=== PATIENT | male | born 1950 | race Caucasian/White ===

== ENCOUNTER → 2020-01-07 09:35 | Outpatient (CLI) | payer MEDICARE, OTHER, SELFPAY ==
--- NOTE | ~2020-01-07 | XR_ITS ---
EXAMINATION: XR foot LT 2V EXAM DATE: 01/07/2020 10:08 INDICATION: No known recent injury provided at this time. Pain of the left foot foot. TECHNIQUE: Frontal and lateral projections of the left foot foot. There is no prior study for emma bradley. FINDINGS: There are no acute left foot fractures or dislocations identified. There is no subcutaneou s gas. The soft tissue is unremarkable. There are no radiopaque foreign bodies. IMPRESSION: 1. Unremarkable XR foot LT 2V exam. Reviewed, dictated and finalized at location B. 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
--- NOTE | ~2020-01-07 | XR_ITS ---
EXAMINATION: XR foot RT 2V EXAM DATE: 01/07/2020 10:09 INDICATION: No known recent injury provided at this time. Pain of the right foot. TECHNIQUE: Frontal and lateral projections of the right foot. Correlation is made to contralateral f oot same date. FINDINGS: There are no acute right foot fractures or dislocations identified. There is no subcutaneo us gas. The soft tissue is unremarkable. There are no radiopaque foreign bodies. IMPRESSION: 1. Unremarkable XR foot RT 2V exam. Reviewed, dictated and finalized at location B. 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
== END ==
PROVIDERS: PCP Physician Assistant; Visit Provider Physician Assistant
DX: M79.671 Pain in right foot (principal); M79.672 Pain in left foot
CPT/HCPCS: 73620

== ENCOUNTER 2020-05-04 12:26 | Outpatient (CLI) | payer MEDICARE, OTHER, SELFPAY ==
--- NOTE | ~2020-05-04 | CT_ITS ---
EXAMINATION:CT lung screening DATE: 05/04/2020 13:40 INDICATION: Personal history of tobacco dependence. Smoker who quit 4 years ago with 35 pack year his tory. TECHNIQUE: Computed tomography (CT) of the chest was performed without intravenous contrast. Automate d exposure control and iterative reconstruction technique were employed. The dose-length product (DLP ) was 152.55 mGy-cm. COMPARISON: Chest CT 09/17/2018 FINDINGS: There is mild emphysema. There is mild scarring at the lung apices. There is mild atelectas is in lingula. There is a 5 mm nodule at left major fissure without change. Calcified left lung nodul es and calcified left hilar lymph nodes are consistent with old granulomatous disease. No pleural eff usion. The heart size is normal. There are coronary artery calcifications. No pericardial effusion. T here are masses in the adrenal glands measuring up to 2.4 cm on the right measuring soft tissue atten uation without change in size, consistent with adenomas. There is moderate thoracic spondylosis. Ther e is mild chronic height loss of multiple thoracic vertebral bodies. IMPRESSION: 1. Lung-RADS category 2: Benign appearance or behavior. Continue annual screening with noncontrast lo w-dose chest CT in 12 months. Reviewed, dictated and finalized at location A. IMPRESSION: 1. Lung-RADS category 2: Benign appearance or behavior. Continue annual screeni ng with noncontrast low-dose chest CT in 12 months.
== END 2020-05-04 12:27 | disposition home or self-care (01) ==
PROVIDERS: PCP Family Medicine; Visit Provider Physician Assistant
DX: Z12.2 Encounter for screening for malignant neoplasm of respiratory organs (principal); Z87.891 Personal history of nicotine dependence
CPT/HCPCS: G0297

== ENCOUNTER 2020-05-12 09:16 | Outpatient (CLI) | payer MEDICARE, OTHER, SELFPAY ==
--- NOTE | ~2020-05-12 | US_ITS ---
EXAMINATION: US aorta [facility] DATE: 05/12/2020 09:57 INDICATION: Abdominal aortic aneurysm screening. TECHNIQUE: Grayscale, color Doppler, and pulsed Doppler images of the aorta and common iliac arteries were obtained. COMPARISON: Chest CT 05/04/2020 FINDINGS: The aorta is normal in caliber. The common iliac arteries are obscured by bowel gas. IMPRESSION: 1. No abdominal aortic aneurysm. Reviewed, dictated and finalized at location A.
== END 2020-05-12 09:17 | disposition home or self-care (01) ==
PROVIDERS: PCP Family Medicine; Visit Provider Physician Assistant
DX: Z01.89 Encounter for other specified special examinations (principal)
CPT/HCPCS: 76706

== ENCOUNTER 2020-07-14 12:25 | Outpatient (CLI) | payer MEDICARE, OTHER, SELFPAY ==
--- NOTE | ~2020-07-14 | US_ITS ---
EXAMINATION: US venous doppler [facility] DATE: 07/14/2020 12:51 INDICATION: Left lower limb pain. TECHNIQUE: Grayscale ultrasound images without and with compression and Doppler ultrasound images of the left lower extremity veins were obtained. COMPARISON: None. FINDINGS: The visualized portions of left common femoral vein, profunda (deep) femoral vein, femoral vein, popl iteal vein, peroneal veins, posterior tibial veins, and greater saphenous vein outflow are patent. IMPRESSION: 1. No deep venous thrombosis. Reviewed, dictated and finalized at location A.
== END 2020-07-14 12:26 | disposition home or self-care (01) ==
PROVIDERS: PCP Family Medicine; Visit Provider Physician Assistant
DX: R60.0 Localized edema (principal)
CPT/HCPCS: 93971

== ENCOUNTER 2020-08-01 13:41 | Emergency (ER) | payer MEDICARE, OTHER, SELFPAY ==
--- NOTE | ~2020-08-01 | XR_ITS ---
XR ankle RT min 3V DATE: 08/01/2020 13:58 INDICATION: Twisted ankle. Lateral pain. TECHNIQUE: 4 views COMPARISON: None FINDINGS: There is a virtually nondisplaced fracture of the distal fibular shaft and lateral malleolu s, with overlying soft tissue swelling. The medial and posterior malleoli are intact. The ankle mortise is preserved. IMPRESSION: Virtually nondisplaced distal fibular shaft and lateral malleolar fracture Reviewed, dictated and finalized at location A. IMPRESSION: Virtually nondisplaced distal fibular shaft and lateral malleolar f racture
[2020-08-01 13:54] VITALS: BP 120/73; PULSE 55; RESP 14; TEMP 36.6; O2SAT 99
--- NOTE | 2020-08-01 15:08 | ED.GENADULT ---
HPI - General Adult General Chief complaint: Extremity Injury, Lower <Yassine Pollock PA-C - Last Filed: 08/01/20 15:14> Stated complaint: Fall - R ankle pain <DARYL Raman Last Filed: 08/01/20 15:14> Time Seen by Provider: 08/01/20 13:50 <DARYL Raman Last Filed: 08/01/20 15:14> Source: patient and family <DARYL Raman Last Filed: 08/01/20 15:14> Mode of arrival: ambulatory <DARYL Raman Last Filed: 08/01/20 15:14> Limitations: no limitations <DARYL Raman Last Filed: 08/01/20 15:14> History of Present Illness HPI narrative: Patient is a 70-year-old male who presents to emergency department for evaluation of right ankle injury that occurred just prior to arrival patient stepped in a hole while mowing the lawn with resultant bruising swelling with moderate aching pain with difficulty putting any weight onto the extremity patient denies other injuries or complaints has not had anything for pain and presents per private vehicle with family <DARYL Raman Last Filed: 08/01/20 15:14> Related Data Home medications: Home Medications Medication Instructions Recorded Confirmed ascorbate calcium (vitamin C) 500 500 mg PO DAILY 12/24/19 04/26/20 mg tablet aspirin 81 mg tablet,delayed 81 mg PO DAILY 12/24/19 04/26/20 release citalopram 40 mg tablet 20 mg PO DAILY 12/24/19 04/26/20 coenzyme Q10 10 mg capsule 10 mg PO ONCE 12/24/19 04/26/20 ezetimibe 10 mg tablet 10 mg PO DAILY 12/24/19 04/26/20 iqhlebnx-zom-lvndd acid 0.4 1 tablet PO DAILY 12/24/19 04/26/20 mg-lycopene 300 mcg-lutein 250 mcg tablet sildenafil 100 mg tablet 100 mg PO DAILY PRN 12/24/19 04/26/20 simvastatin 20 mg tablet 20 mg PO DAILY 12/24/19 04/26/20 lisinopril 5 mg tablet 5 mg PO DAILY 07/14/20 niacin [Niaspan Extended-Release] 500 mg PO HS 08/01/20 <Yassine Pollock PA-C - Last Filed: 08/01/20 15:14> Allergies/adverse reactions: Allergies Allergy/AdvReac Type Severity Reaction Status Date / Time iodine Allergy Intermediate Hives Verified 07/14/20 11:40 Penicillins Allergy Unknown Fever Verified 07/14/20 11:40 Contrast Media Allergy Intermediate Hives Uncoded 07/14/20 11:40 <Yassine Pollock PA-C - Last Filed: 08/01/20 15:14> Review of Systems Review of Systems: All systems reviewed & are unremarkable except as noted in HPI and below <Yassine Pollock PA-C - Last Filed: 08/01/20 15:14> PMFSH Past Medical History Medical History: Medical History (Updated 08/01/20 @ 15:14 by Yassine Pollock PA-C) Ischemic heart disease Viral URI <Yassine Pollock PA-C - Last Filed: 08/01/20 15:14> Surgical History Surgical History: Surgical History (Updated 08/01/20 @ 15:09 by Yassine Pollock PA-C) History of orthopedic surgery <Yassine Pollock PA-C - Last Filed: 08/01/20 15:14> Family History Family History: Family History (Updated 02/25/19 @ 16:41 by DOCTOR UNKNOWN) Mother Patient's mother is in good health Family history of hypercholesterolemia Hypertension Family history of coronary artery disease Grandparent Family history of malignant neoplasm Father Family history of malignant neoplasm Patient's father is <Yassine Pollock PA-C - Last Filed: 08/01/20 15:14> Social History Social History: Social History Smoking status: Former smoker Second hand tobacco smoke exposure: No Smoking end date: 11/25/15 Alcohol intake: never Substance use: never Substance use type: does not use <Yassine Pollock PA-C - Last Filed: 08/01/20 15:14> Exam Narrative: Exam Narrative: GENERAL: Well-appearing, well-nourished, and in no acute distress. HEAD: Normocephalic, atraumatic. EYES: PERRLA and EOMI. ENT: Nares clear, no rhinorrhea or epistaxis. Mucous membranes moist. EXTREMITIES: Sw
[2020-08-01 15:20] VITALS: BP 130/71; PULSE 52; RESP 12; O2SAT 98
== END 2020-08-01 15:25 | disposition home or self-care (01) ==
PROVIDERS: Emergency Provider Emergency Medicine; PCP Family Medicine
DX: S82.61XA Displaced fracture of lateral malleolus of right fibula, initial encounter for closed fracture (principal); W17.2XXA Fall into hole, initial encounter
CPT/HCPCS: 29515; 73610; 99284; A9270

== ENCOUNTER 2020-10-01 08:04 | Emergency (ER) | payer MEDICARE, OTHER, SELFPAY ==
[2020-10-01 08:20] VITALS: BP 144/76; PULSE 51; RESP 16; TEMP 35.9; O2SAT 98
--- NOTE | 2020-10-01 08:22 | ED.SKABFB ---
HPI - Skin/Abscess/Foreign Bdy General Chief complaint: Skin/Abscess/Foreign Body Stated complaint: Possible Cellulitus Time Seen by Provider: 10/01/20 08:25 Source: patient Mode of arrival: ambulatory Limitations: no limitations History of Present Illness HPI narrative: Zafar Briggs is a 70 yo male with a PMH of hypertension, high cholesterol, anxiety, erectile dysfunction, gout, [facility] concern of cellulitis of his right ankle. Fractured his ankle through torsion while cutting grass about 2 months ago and since then has had a repair with plates and screws in the distal fibula. Saw 2 weeks ago. States ankle is hurting and radiating up to his knee. Wearing a boot as directed Related Data Home Medications Medication Instructions Recorded Confirmed ascorbate calcium (vitamin C) 500 500 mg PO DAILY 12/24/19 10/01/20 mg tablet aspirin 81 mg tablet,delayed 81 mg PO DAILY 12/24/19 10/01/20 release citalopram 40 mg tablet 20 mg PO DAILY 12/24/19 10/01/20 coenzyme Q10 10 mg capsule 10 mg PO ONCE 12/24/19 10/01/20 ezetimibe 10 mg tablet 10 mg PO DAILY 12/24/19 10/01/20 heikestz-gzj-sqzdj acid 0.4 1 tablet PO DAILY 12/24/19 10/01/20 mg-lycopene 300 mcg-lutein 250 mcg tablet sildenafil 100 mg tablet 100 mg PO DAILY PRN 12/24/19 10/01/20 simvastatin 20 mg tablet 20 mg PO DAILY 12/24/19 10/01/20 lisinopril 5 mg tablet 5 mg PO DAILY 07/14/20 10/01/20 niacin [Niaspan Extended-Release] 500 mg PO HS 08/01/20 10/01/20 Allergies Allergy/AdvReac Type Severity Reaction Status Date / Time iodine Allergy Intermediate Hives Verified 10/01/20 08:29 Penicillins Allergy Unknown Fever Verified 10/01/20 08:29 Contrast Media Allergy Intermediate Hives Uncoded 10/01/20 08:29 Review of Systems Review of Systems: Narrative: CONSTITUTIONAL: Denies fever, chills, sweats. EYES: Denies visual changes, redness, discharge. ENT: Denies rhinorrhea, congestion, sore throat, otalgia. CARDIOVASCULAR: Denies chest pain, palpitations, edema. RESPIRATORY: Denies dyspnea, wheezing, cough GASTROINTESTINAL: Denies abdominal pain, nausea, vomiting, diarrhea. GENITOURINARY: Denies dysuria, hematuria, abnormal discharge SKIN: Denies rash or itching. Concern for cellulitis of right lower ankle NEUROLOGIC: Denies numbness, or focal weakness. PSYCHIATRIC: Denies anxiety or depression. [facility] Past Medical History Medical History Ischemic heart disease Viral URI Surgical History Surgical History History of orthopedic surgery Family History Family History Mother Patient's mother is in good health Family history of hypercholesterolemia Hypertension Family history of coronary artery disease Grandparent Family history of malignant neoplasm Father Family history of malignant neoplasm Patient's father is Social History Social History Smoking status: Former smoker Second hand tobacco smoke exposure: No Smoking end date: 11/25/15 Alcohol intake: never Substance use: never Substance use type: does not use Gender identity (if verbalized by the patient): Male Comments At time of signature, I agree with nursing past medical, surgical, social and family history. There is no relevant family history pertinent to the presenting complaint. Exam Narrative: Exam Narrative: GENERAL: This is a well-nourished, well-developed patient, in mild distress. HEAD: normocephalic, atraumatic. EYES: Sclera clear/white. Vision is grossly intact. EARS: External ears normal. Hearing grossly intact. NOSE: External nose normal without nasal discharge, nares without redness, no rhinorrhea. THROAT: Mucous membranes moist, NECK: Neck supple, non-tender CARDIOVASCULAR: Regular ra
== END 2020-10-01 08:41 | disposition home or self-care (01) ==
PROVIDERS: Emergency Provider Nurse Practitioner; PCP Family Medicine
DX: S82.891D Other fracture of right lower leg, subsequent encounter for closed fracture with routine healing (principal); X58.XXXD Exposure to other specified factors, subsequent encounter; I10 Essential (primary) hypertension; F41.9 Anxiety disorder, unspecified; M10.9 Gout, unspecified; Z87.891 Personal history of nicotine dependence; I25.2 Old myocardial infarction
CPT/HCPCS: 99212; G0463

== ENCOUNTER 2020-10-28 12:38 | Outpatient (CLI) | payer MEDICARE, OTHER, SELFPAY ==
--- NOTE | ~2020-10-28 | US_ITS ---
EXAMINATION: US venous doppler [facility] EXAM DATE: 10/28/2020 12:29 INDICATION: Right leg pain and swelling. TECHNIQUE: Multiple grayscale, color flow and Doppler images of the lower extremity deep venous syste ms bilaterally were obtained and reviewed. Comparison is made to prior examination from 07/14/2020. FINDINGS: Right side: The right common femoral, femoral and profunda veins demonstrate normal color flow, respi ratory variation, augmentation and compressibility. Compressibility, color flow confirmed within the right popliteal, posterior tibial, peroneal, and greater saphenous veins. Left side: The left common femoral, femoral and profunda veins demonstrate normal color flow, respira tory variation, augmentation and compressibility. Compressibility, color flow confirmed within the l eft popliteal, posterior tibial, peroneal, and greater saphenous veins. IMPRESSION: No lower extremity deep venous thrombosis bilaterally. Reviewed, dictated and finalized at location A. [employer]PERATIONS
[2020-10-28 13:16] LABS: Basophils Absolute Auto 0.1 K/mm3 (0.0-0.1); Basophils Percent Auto 1.3 % (0.2-1.2); Eosinophils Absolute Auto 0.4 K/mm3 (0-0.3); Eosinophils Percent Auto 5.6 % (0-4.4); Hematocrit 40.9 % (42.0-52.0); Hemoglobin 13.9 g/dL (14.0-18.0); Immature Granulocyte Absolute 0.01 K/mm3 (0.00-0.031); Immature Granulocyte Percent A 0.2 % (0-0.5); Lymphocytes Absolute Auto 1.82 K/mm3 (0.9-3.2); Lymphocytes Percent Auto 28.4 % (18.3-44.2); Mean Corpuscular Hemoglobin 30.2 pg (26-34); Mean Corpuscular Volume 88.7 fl (80-100); Mean Platelet Volume 9.1 fl (7.4-10.4); Monocytes Absolute Auto 0.9 K/mm3 (0.1-0.6); Monocytes Percent Auto 14.1 % (2.6-8.5); Neutrophils Absolute Auto 3.2 K/mm3 (1.3-6.7); Neutrophils Percent Auto 50.4 % (45.5-73.1); Platelet Count Result 183 k/mm3 (150-375); Red Blood Count 4.61 M/mm3 (4.6-6.20); Red Cell Distribution Width 11.9 % (11.5-14.5); White Blood Count 6.4 K/mm3 (4.5-10.0)
[2020-10-28 13:24] LABS: Uric Acid 6.4 mg/dL (3.5-8.5)
== END 2020-10-28 12:39 | disposition home or self-care (01) ==
PROVIDERS: PCP Family Medicine; Visit Provider Physician Assistant
DX: M79.605 Pain in left leg (principal); M79.89 Other specified soft tissue disorders; R23.8 Other skin changes
CPT/HCPCS: 36415; 84550; 85025; 93970

== ENCOUNTER → 2021-11-16 02:41 | Outpatient (CLI) | payer MEDICARE, OTHER, SELFPAY ==
[2021-11-16 14:43] LABS: Influenza Control Positive
[2021-11-16 19:47] LABS: SARS-CoV-2 RNA PCR Negative
== END ==
PROVIDERS: PCP Family Medicine; Visit Provider Physician Assistant
DX: R50.9 Fever, unspecified (principal); R68.89 Other general symptoms and signs; Z20.822 Contact with and (suspected) exposure to COVID-19
CPT/HCPCS: 87804; C9803; U0003; U0005

== ENCOUNTER 2022-01-24 09:45 | Outpatient (RCR) | payer MEDICARE, OTHER, SELFPAY ==
[2021-10-13 12:40] VITALS: PULSE 63
== END 2022-01-24 16:40 | disposition home or self-care (01) ==
LOC: ANHCPREHAB 09:45
PROVIDERS: PCP Family Medicine
DX: Z95.1 Presence of aortocoronary bypass graft (principal)
CPT/HCPCS: 93798

== ENCOUNTER → 2022-02-20 09:47 | Outpatient (CLI) | payer MEDICARE, OTHER, SELFPAY ==
--- NOTE | ~2022-02-20 | CT_ITS ---
EXAMINATION: CT chest high resolution wo co DATE: 02/20/2022 10:04 INDICATION: Z12.2 - Encounter for screening for malignant neoplasm of... TECHNIQUE: Computed tomography (CT) of the chest was performed without intravenous contrast. Addition al 3D reconstructions utilizing coronal maximum intensity projection (MIP) were performed. Automated exposure control and iterative reconstruction technique were employed. The dose-length product was 50 1.07 mGy-cm. COMPARISON: 05/04/2020 FINDINGS: Mild to moderate emphysema. Mild biapical pleural-parenchymal scarring. Unchanged curvilinear band of discoid atelectasis/scarring in the lingula. Large calcified left lower lobe nodule along with calci fied left hilar and mediastinal lymph nodes consistent with old granulomatous disease. No change in < 4mm nodules in the lingula and right upper and right lower lobes. Again seen are a few flat lenticula r or triangular intrafissural lymph nodes on both the left and right, the largest along the right min or fissure measuring approximately 10 x 4 mm which is unchanged. Slight increase in size of a previou sly 4 mm, now 5 mm intrafissural lymph node along the cephalad right major fissure. No new or enlargi ng pulmonary nodules. No pneumonia, pulmonary edema or pleural effusion. Heart size is normal. Athero sclerotic coronary artery calcifications and likely stenting along the right coronary artery. Median sternotomy wires, ostial markers and surgical clips consistent with coronary artery bypass grafting. Thoracic aorta is normal in caliber. No pathologically enlarged thoracic lymphadenopathy. Bilateral a drenal nodules which are without interval change interval change since 09/17/2018 most consistent wit h benign adenomas, the largest on the right measuring 2.6 cm. 1.5 cm sclerotic lesion with coarse sti ppled calcification at the left humeral head with appearance and location most consistent with an enc hondroma. Chronic mild compression fractures of the 2 levels in the mid and lower thoracic spine. Mod erate thoracic spondylosis. IMPRESSION: 1. Lung-RADS category 2: Benign appearance or behavior. Continue annual screening with noncontrast lo w-dose chest CT in 12 months. Reviewed, dictated and finalized at location A. IMPRESSION: 1. Lung-RADS category 2: Benign appearance or behavior. Continue annual screeni ng with noncontrast low-dose chest CT in 12 months.
== END ==
PROVIDERS: PCP Family Medicine; Visit Provider Family Medicine
DX: Z12.2 Encounter for screening for malignant neoplasm of respiratory organs (principal)
CPT/HCPCS: 71250

== ENCOUNTER 2022-03-08 01:21 | Day surgery (SDC) | payer MEDICARE, OTHER, SELFPAY ==
[2022-02-22 15:26] VITALS: BMI 28.3
--- NOTE | 2022-03-07 13:42 | PM.HPGS ---
History of Present Illness History of Present Illness Consent: Risks, benefits, and alternatives have been discussed and questions answered. Patient agrees to proceed with procedure. Chief complaint: neoplasm screening Narrative: Zafar Briggs is a 71 year old male Referred for colon cancer screening. He has a history of having had polyps removed in the past. His last colonoscopy was 7 years ago. Review of Systems Review of Systems: All systems reviewed & are unremarkable except as noted in HPI and below PMFSH Past Medical History Medical History (Updated 03/07/22 @ 13:42 by Bryce Garcia MD) Ischemic heart disease Viral URI Surgical History Surgical History History of coronary angioplasty with insertion of stent History of orthopedic surgery S/P CABG (coronary artery bypass graft) Family History Family History Mother Patient's mother is in good health Family history of hypercholesterolemia Hypertension Family history of coronary artery disease Grandparent Family history of malignant neoplasm Father Family history of malignant neoplasm Patient's father is Social History Social History Smoking status: Former smoker Tobacco type: cigarettes Second hand tobacco smoke exposure: No Smoking end date: 11/25/15 Alcohol intake: current Alcohol use details: 2-3 drinks weekly Substance use: current Substance use type: marijuana Other substance usage details: Edible once weekly Living arrangements: with family Gender identity (if verbalized by the patient): Male Sexual Orientation (if Verbalized by the Patient): Straight or Heterosexual Spiritual care concerns: No Meds Home Medications and Allergies Home Medications Medication Instructions Recorded Confirmed Type aspirin 81 mg tablet,delayed 81 mg PO DAILY 12/24/19 03/08/22 History release coenzyme Q10 10 mg capsule 200 mg PO DAILY 12/24/19 03/08/22 History ascorbate calcium (vitamin C) 500 1 g PO DAILY #180 tablet 02/13/21 03/08/22 Rx mg tablet cholecalciferol (vitamin D3) 25 2,000 unit PO DAILY #180 cap 02/13/21 03/08/22 Rx mcg (1,000 unit) capsule llmjkxac-lcu-agoqr acid 0.4 1 tablet PO DAILY #90 tablet 02/13/21 03/08/22 Rx mg-lycopene 300 mcg-lutein 250 mcg tablet sildenafil 100 mg tablet 100 mg PO DAILY PRN #30 tablet 02/13/21 03/08/22 Rx ezetimibe 10 mg tablet 10 mg PO DAILY #90 tablet 08/01/21 03/08/22 Rx pantoprazole 40 mg tablet,delayed 40 mg PO QAM #90 tablet 10/27/21 03/08/22 Rx release citalopram 40 mg tablet 40 mg PO DAILY #90 tablet 12/07/21 03/08/22 Rx niacin 500 mg tablet,extended 500 mg PO QAM #90 tablet 12/07/21 03/08/22 Rx release simvastatin 20 mg tablet 20 mg PO DAILY #90 tablet 12/07/21 03/08/22 Rx metoprolol tartrate 25 mg PO BID 01/03/22 03/08/22 History omega-3 fatty acids 1,000 mg PO DAILY 02/22/22 03/08/22 History clonazepam 1 mg tablet 1 mg PO BID PRN #60 tablet 03/05/22 03/08/22 Rx zolpidem 10 mg tablet 10 mg PO .HS #30 tablet 03/05/22 03/08/22 Rx lisinopril 10 mg PO BID 03/08/22 03/08/22 History Allergies Allergy/AdvReac Type Severity Reaction Status Date / Time iodine Allergy Intermediate Hives Verified 03/08/22 09:33 Penicillins Allergy Unknown Fever Verified 03/08/22 09:33 Contrast Media Allergy Intermediate Hives Uncoded 03/08/22 09:33 Exam Resp: Auscultation: clear to auscultation bilaterally Cardio: Rate: regular rate Rhythm: regular rhythm GI: GI Palp: Yes Soft to palpation and No Tenderness to palpation present (GI) Assessment and Plan Assessment and plan (1) Colon cancer screening: Code(s): Z12.11 - Encounter for screening for malignant neoplasm of colon Status: Acute Assessment and Plan: Colonoscopy with possible biopsy or polypect
[2022-03-08 09:34] VITALS: BP 125/68; PULSE 53; RESP 16; TEMP 36.6; O2SAT 98
[2022-03-08] MEDS: LACTATED RINGERS 1,000 ML 150 ML IV CONT (09:49)
--- NOTE | 2022-03-08 09:56 | WPDANESEPPF ---
Anes - Initial Pre Proc Eval Procedure: Operation Date: 03/08/22 10:45 Proposed Procedures p Screening Colonoscopy - Bryce Garcia MD Date/Time: 03/08/22 09:56 Surgeon: Bryce Garcia MD Pre Op Diagnosis: neoplasm screening Patient Data Age: 71 Gender: M Height: 1.8 m Weight: 86.2 kg Last Vital Signs Temp 36.6 C 03/08/22 09:34 Pulse 53 L 03/08/22 09:34 Resp 16 03/08/22 09:34 BP 125/68 03/08/22 09:34 Pulse Ox 98 03/08/22 09:34 Allergies Allergy/AdvReac Type Severity Reaction Status Date / Time iodine Allergy Intermediate Hives Verified 03/08/22 09:33 Penicillins Allergy Unknown Fever Verified 03/08/22 09:33 Contrast Media Allergy Intermediate Hives Uncoded 03/08/22 09:33 Home Medications Medication Instructions Recorded Confirmed Type aspirin 81 mg tablet,delayed 81 mg PO DAILY 12/24/19 03/08/22 History release coenzyme Q10 10 mg capsule 200 mg PO DAILY 12/24/19 03/08/22 History ascorbate calcium (vitamin C) 500 1 g PO DAILY #180 tablet 02/13/21 03/08/22 Rx mg tablet cholecalciferol (vitamin D3) 25 2,000 unit PO DAILY #180 cap 02/13/21 03/08/22 Rx mcg (1,000 unit) capsule amslmlvl-gak-wikyb acid 0.4 1 tablet PO DAILY #90 tablet 02/13/21 03/08/22 Rx mg-lycopene 300 mcg-lutein 250 mcg tablet sildenafil 100 mg tablet 100 mg PO DAILY PRN #30 tablet 02/13/21 03/08/22 Rx ezetimibe 10 mg tablet 10 mg PO DAILY #90 tablet 08/01/21 03/08/22 Rx pantoprazole 40 mg tablet,delayed 40 mg PO QAM #90 tablet 10/27/21 03/08/22 Rx release citalopram 40 mg tablet 40 mg PO DAILY #90 tablet 12/07/21 03/08/22 Rx niacin 500 mg tablet,extended 500 mg PO QAM #90 tablet 12/07/21 03/08/22 Rx release simvastatin 20 mg tablet 20 mg PO DAILY #90 tablet 12/07/21 03/08/22 Rx metoprolol tartrate 25 mg PO BID 01/03/22 03/08/22 History omega-3 fatty acids 1,000 mg PO DAILY 02/22/22 03/08/22 History clonazepam 1 mg tablet 1 mg PO BID PRN #60 tablet 03/05/22 03/08/22 Rx zolpidem 10 mg tablet 10 mg PO .HS #30 tablet 03/05/22 03/08/22 Rx lisinopril 10 mg PO BID 03/08/22 03/08/22 History Patient hx anesthesia problems: none Family hx anesthesia problems: none Results Review: All pre-operative results and documents have been reviewed as part of the pre-operative evaluation. [facility] Past Medical History Medical History (Updated 03/07/22 @ 13:42 by Bryce Garcia MD) Ischemic heart disease Viral URI Surgical History Surgical History History of coronary angioplasty with insertion of stent History of orthopedic surgery S/P CABG (coronary artery bypass graft) Family History Family History Mother Patient's mother is in good health Family history of hypercholesterolemia Hypertension Family history of coronary artery disease Grandparent Family history of malignant neoplasm Father Family history of malignant neoplasm Patient's father is Social History Social History Smoking status: Former smoker Tobacco type: cigarettes Second hand tobacco smoke exposure: No Smoking end date: 11/25/15 Alcohol intake: current Alcohol use details: 2-3 drinks weekly Substance use: current Substance use type: marijuana Other substance usage details: Edible once weekly Living arrangements: with family Gender identity (if verbalized by the patient): Male Sexual Orientation (if Verbalized by the Patient): Straight or Heterosexual Spiritual care concerns: No Anes - Eval Final PreProcedure Day of Procedure 03/08/22 09:56 Patient weight: overweight Heart: regular rate and rhythm Lungs: clear to auscultation Airway: Mallampati scale class II Neurological: alert and oriented Last oral intake: >/= 8 hours ASA classification: III Emergent: no Anesthetic plan: proceed Anesthesia type
[2022-03-08 11:01] VITALS: BP 109/66; PULSE 44; RESP 15; O2SAT 99
[2022-03-08 11:11] VITALS: BP 115/61; PULSE 47; RESP 17; O2SAT 99
[2022-03-08 11:21] VITALS: BP 109/55; PULSE 45; RESP 14; O2SAT 100
== END 2022-03-08 11:31 | disposition home or self-care (01) ==
PROVIDERS: PCP Family Medicine; Visit Provider Internal Medicine Gastroenterology
PROC: 0DJD8ZZ Inspection of Lower Intestinal Tract, Via Natural or Artificial Opening Endoscopic (ICD-10-PCS; CPT 45378; principal; 2022-03-08 10:45)
DX: Z12.11 Encounter for screening for malignant neoplasm of colon (principal); Z86.010 Personal history of colon polyps; K57.30 Diverticulosis of large intestine without perforation or abscess without bleeding; I25.9 Chronic ischemic heart disease, unspecified; Z95.1 Presence of aortocoronary bypass graft; Z87.891 Personal history of nicotine dependence
CPT/HCPCS: G0121; J2001; J2704; J7120

== ENCOUNTER → 2022-12-05 16:19 | Outpatient (CLI) | payer MEDICARE, OTHER, SELFPAY ==
--- NOTE | ~2022-12-05 | XR_ITS ---
EXAMINATION: XR chest 2V Exam Date/Time: 12/05/2022 16:40 [employer] HISTORY: R07.81 - Pleurodynia Comparison: 09/01/2019. RESULT: Lines, tubes, and devices: Intact sternotomy wires. Coronary stents. Ostial markers.. Lungs and pleura: Calcified posterior left lower lobe granuloma or hamartoma. Senescent change. Cardiomediastinal silhouette: Stable. Other: No acute osseous or upper abdominal finding. IMPRESSION: No acute cardiopulmonary process. Reviewed, dictated and finalized at location K. S [employer]PER[employer]
== END ==
PROVIDERS: PCP Family Medicine; Visit Provider Family Medicine
DX: R07.81 Pleurodynia (principal)
CPT/HCPCS: 71046

== ENCOUNTER → 2023-03-14 09:51 | Outpatient (CLI) | payer MEDICARE, OTHER, SELFPAY ==
--- NOTE | ~2023-03-14 | CT_ITS ---
CT Scan of the Chest without Contrast: Clinical Indication: Lung cancer screening, personal history of tobacco dependence Technique: Contiguous sections were acquired throughout the chest without intravenous contrast. Dose reduction technique was used on this scan by utilizing automated exposure control and iterative recon struction technique. The dose-length product (DLP) was 151.61 mGy-cm. COMPARISON: 02/20/2022, 05/04/2020 Findings: There is no evidence of any significant mediastinal, hilar or axillary lymphadenopathy. Coronary leon ry calcifications are present. There is no evidence of pleural or pericardial effusion. Stable mild biapical scarring. Mild emphysema present. Stable irregular nodule along the right minor fissure (axial image 72). Stable calcified granulomas. Images through the upper abdomen reveal stable low-density bilateral adrenal nodules, compatible with adenomas. Impression: Lung RADS 2: Benign appearance. 12 month follow-up screening CT advised. Mild emphysema. Stable bilateral adrenal adenomas. Reviewed, dictated and finalized at [facility]. Impression: Lung RADS 2: Benign appearance. 12 month follow-up screening CT advised. Mild emphysema. Stable bilateral adrenal adenomas.
== END ==
PROVIDERS: PCP Family Medicine; Visit Provider Family Medicine
DX: Z12.2 Encounter for screening for malignant neoplasm of respiratory organs (principal); Z87.891 Personal history of nicotine dependence
CPT/HCPCS: 71271

== ENCOUNTER 2024-01-07 09:16 | Outpatient (CLI) | payer MEDICARE, OTHER, SELFPAY ==
--- NOTE | ~2024-01-07 | XR_ITS ---
XR ribs RT 2V w CXR 2V DATE: 01/07/2024 09:36 INDICATION: Right anterior rib pain. Fall. TECHNIQUE: PA and lateral chest. 3 views of the right ribs. COMPARISON: March 14, 2023 CT lung screening FINDINGS: Status post sternotomy and coronary artery bypass graft surgery. Heart size is within belem l range. There is aortic arch calcification. No hilar or mediastinal enlargement. No pulmonary infiltrate or consolidation, pleural effusion or pulmonary vascular congestion or pneumo thorax is detected. Multiple old healed left rib fractures. Right rib fracture is not evident. Osteopenia. Mild thoracic dextroscoliosis. IMPRESSION: No right rib fracture is evident Multiple old healed left rib fractures Moderate bilateral hyperinflation Status post CABG Reviewed, dictated and finalized at location [facility]
== END 2024-01-07 09:17 | disposition home or self-care (01) ==
LOC: ANHIMG 09:19
PROVIDERS: PCP Family Medicine; Visit Provider Physician Assistant
DX: R07.81 Pleurodynia (principal); R91.8 Other nonspecific abnormal finding of lung field; Z95.1 Presence of aortocoronary bypass graft
CPT/HCPCS: 71046; 71100

== ENCOUNTER 2024-03-16 13:03 | Outpatient (CLI) | payer MEDICARE, OTHER, SELFPAY ==
--- NOTE | ~2024-03-16 | CT_ITS ---
EXAMINATION:CT lung screening DATE: 03/16/2024 13:16 INDICATION: Personal history of nicotine dependence. Smoker who quit 10 years ago with 30 pack year h istory. TECHNIQUE: Computed tomography (CT) of the chest was performed without intravenous contrast. Automate d exposure control and iterative reconstruction technique were employed. The dose-length product (DLP ) was 167.29 mGy-cm. COMPARISON: Chest CT 03/14/2023 FINDINGS: There is mild scarring at the lung apices. There is mild emphysema. There is a 7 mm nodule at minor fissure. There is a 5 mm nodule at right major fissure. A calcified left lung nodule and kayla cified left hilar lymph nodes are consistent with old granulomatous disease. No pleural effusion. The heart size is normal. No pericardial effusion. There are coronary artery calcifications. There are c hanges of coronary bypass grafting. There is a 2.4 cm mass in right adrenal gland measuring low atten uation, consistent with an adenoma. There is severe thoracic spondylosis. There is chronic height los s of multiple vertebral bodies. IMPRESSION: 1. Lung-RADS category 2: Benign appearance or behavior. Continue annual screening with noncontrast lo w-dose chest CT in 12 months. Reviewed, dictated and finalized at location E. IMPRESSION: 1. Lung-RADS category 2: Benign appearance or behavior. Continue annual screeni ng with noncontrast low-dose chest CT in 12 months.
== END 2024-03-16 13:04 | disposition home or self-care (01) ==
LOC: ANHIMG 13:03
PROVIDERS: PCP Family Medicine; Visit Provider Family Medicine
DX: Z12.2 Encounter for screening for malignant neoplasm of respiratory organs (principal); Z87.891 Personal history of nicotine dependence
CPT/HCPCS: 71271

== ENCOUNTER 2024-06-08 14:01 | Outpatient (CLI) | payer MEDICARE, OTHER, SELFPAY ==
--- NOTE | ~2024-06-08 | XR_ITS ---
EXAM: XR_CERV2-3V_CR DATE: 06/08/2024 14:13 HISTORY: M54.2 - Cervicalgia . COMPARISON: None available. FINDINGS: Craniocervical association and atlantoaxial joint are aligned. Moderate degenerative alberts e at the atlantodental joint. No prevertebral soft tissue swelling. 2 mm retrolisthesis at C3-4. 1 mm retrolisthesis at C4-5. Vertebral body heights are maintained. Mild disc space narrowing at C3-4 and C4-5. Moderate disc space narrowing at C6-7. Multilevel moderate facet hypertrophy and sclerosis. IMPRESSION: Grade 1 retrolistheses at C3-4 and C4-5. Multilevel degenerative disc disease, moderate a t C6-7. Multilevel moderate facet arthropathy. Reviewed, dictated and finalized at location K. IMPRESSION: Grade 1 retrolistheses at C3-4 and C4-5. Multilevel degenerative di sc disease, moderate at C6-7. Multilevel moderate facet arthropathy.
== END 2024-06-08 14:02 ==
LOC: MICIMG 14:02
PROVIDERS: PCP Family Medicine; Visit Provider Family Medicine
DX: M43.12 Spondylolisthesis, cervical region (principal); M50.323 Other cervical disc degeneration at C6-C7 level; M47.892 Other spondylosis, cervical region
CPT/HCPCS: 72040

== ENCOUNTER 2025-03-17 11:17 | Outpatient (CLI) | payer MEDICARE, OTHER, SELFPAY ==
--- NOTE | ~2025-03-17 | CT_ITS ---
CT Scan of the Chest without Contrast: Clinical Indication: Lung cancer screening, nicotine dependence Technique: Contiguous sections were acquired throughout the chest without intravenous contrast. Dose reduction technique was used on this scan by utilizing automated exposure control and iterative recon struction technique. The dose-length product (DLP) was 188.29 mGy-cm. COMPARISON: 03/16/2024 Findings: There is no evidence of any significant mediastinal, hilar or axillary lymphadenopathy. Coronary leon ry calcifications are present. There is no evidence of pleural or pericardial effusion. Stable biapical scarring. Mild to moderate emphysema present. Stable large calcified granuloma in the left lower lobe. Stable fissural nodules in the right lung. Images through the upper abdomen reveal stable 2.6 cm right adrenal nodule. Stable mild compression d eformities and degenerative change in the spine. Impression: Lung RADS 2: Benign appearance. 12 month follow-up screening CT advised. Reviewed, dictated and finalized at [facility]. Impression: Lung RADS 2: Benign appearance. 12 month follow-up screening CT advised.
--- OUTSIDE RECORDS SUMMARY | 2025-03-17 13:15 | XMS_ITS | Clinical Summary ---
Author Organization [facility] Address [address] [place] [address] Care Team Providers Care Nanotechnology Technician Name Role Phone Long Mejias MD Primary Care Provider Sonu Carlson MD Unavailable [phone] Allergies Active Allergy Reactions Criticality Noted Date Comments Iodinated Contrast Media Hives,Swelling Medium 10/13/1992 Iodine Hives,Swelling Medium 03/03/2002 Penicillins Hives,Rash,Fever High 03/03/2002 Patient may still be a candidate for cephalosporins - please investigate & update findings here Simvastatin Muscle pain Medium 05/26/2007 Medications ascorbic acid (VITAMIN C) 1,000 mg tablet Take 0.5 tablets (500 mg total) by mouth daily Active citalopram (CeleXA) 40 mg tablet Take 1 tablet (40 mg total) by mouth every morning Active ZETIA 10 mg tablet Take 1 tablet (10 mg total) by mouth every morning 8 Active multivitamin tabletIndicatio ns:Vitamin Deficiency Prevention Take 1 tablet by mouth daily Active simvastatin (ZOCOR) 20 mg tablet Take 1 tablet (20 mg total) by mouth nightly Active coenzyme Q10 200 mg capsule Take 1 capsule (200 mg total) by mouth daily 6 Active zolpidem (AMBIEN) 10 mg tabletIndicatio ns:Sleep-Onset Insomnia Take 1 tablet (10 mg total) by mouth nightly as needed for sleep 7 Active CHOLECALCIFEROL 1,000 unit (25 mcg) tablet Take 2 tablets (2,000 Units total) by mouth 2 (two) times a day 9 Active niacin ER (NIASPAN) 500 mg CR tablet Take 1 tablet (500 mg total) by mouth every morning 9 Active Fish Oil 340-1,000 mg capsule Take 1 capsule by mouth daily 0 Active metoprolol tartrate (LOPRESSOR) 50 mg immediate release tablet Take 0.5 tablets (25 mg total) by mouth 2 (two) times a day [address] (PROTONIX) 40 mg EC tablet Take 1 tablet (40 mg total) by mouth every morning 0 Active nitroglycerin (NITROSTAT) 0.4 mg SL tablet DISSOLVE 1 TABLET UNDER THE TONGUE EVERY 5 MINUTES NEEDED FOR CHEST PAIN FOR A TOTAL OF 3 TABLETS. IF PAIN PERSISTS CALL 911 0 Active lisinopriL (PRINIVIL,ZESTR IL) 30 mg tablet Take 40 mg by mouth every morning 2 Active sildenafiL (VIAGRA) 100 mg tablet Take 1 tablet (100 mg total) by mouth as needed for erectile dysfunction 2 Active aspirin 81 mg enteric coated tablet Take 1 tablet (81 mg total) by mouth daily Active amLODIPine (NORVASC) 5 mg tablet Take 1 tablet (5 mg total) by mouth every morning 3 Active fluticasone propionate (FLONASE) 50 mcg/actuation nasal spray Administer 1 spray into each nostril daily 1 each 4 Active cyanocobalamin (vitamin B-12) 1,000 mcg tabletIndicatio ns:Prevention of Vitamin B12 Deficiency Take 1 tablet (1,000 mcg total) by mouth daily Active HYDROcodone-emma taminophen (NORCO) 5-325 mg per tabletIndicatio ns:Pain Take 1-2 tablets by mouth every 4 (four) hours as needed for pain 30 tablet 5 Active docusate sodium (COLACE) 100 mg capsuleIndicati ons:constipatio n,TAKE WHILE ON NARCOTICS OR IF CONSTIPATED. 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 Cervicalgia 01/04/2025 Epilepsy 01/04/2025 Exposure to potentially hazardous substance 12/26 Gastroesophageal reflux disease 01/04/2025 Hearing loss 01/04/2025 Herpes zoster with nervous system complication 0 01/04/2025 Injury of head 01/04/2025 Insomnia 01/04/2025 Mood disorder in conditions classified elsewhere 01/04/2025 Nicotine dependence 01/04/2025 Unstable angina 01/04/2025 Vitamin D deficiency 01/04/2025 Left inguinal hernia 07/29/2024 Unilateral inguinal hernia without obstruction o r gangrene 07/29/2024 Adrenal incidentaloma 09/07/2021 Dyspnea on exertion 09/07/2021 Closed displaced fracture of lateral malleolus of right fibula 08/08/2020 Overview (08/08/2020): Added automatically from request for surgery [id number] Benign essential HTN 11/30/2019 Lipoma 06/25/2019 Overview (01/04/2025): Added automatically from request for surgery [id number] Lipoma of anterior chest wall 06/24/2019 Lipoma of breast 06/24/2019 Other male erectile dysfunction 05/25/2019 Tobacco abuse, in remission 07/21/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 07/15/2018 Lipoma of upper extremity 02/06/2018 Overview (01/04/2025): Added automatically from request for surgery [id number] Added automatically from request for surgery [id number] Sebaceous cyst 02/06/2018 Overview (01/04/2025): Added automatically from request for surgery [id number] Abscess of back 12/03/2017 Subdural hematoma 03/05/2017 Actinic keratosis 08/15/2016 Infectious warts 08/15/2016 Keratinizing cyst 08/15/2016 Senile angioma 08/15/2016 Mass of upper extremity 07/16/2014 Vertigo 12/08/2012 Right-sided chest wall pain 02/07/2011 Pure hypercholesterolemia 03/21/2010 Coronary artery disease invo lving [place] coronary artery of [place] heart without angina pectoris 03/21/2010 S/P coronary artery stent placement 03/21/2010 S/P subdural hematoma evacuation 03/21/2010 Tobacco abuse 03/21/2010 Seizures Clotting disorder Arthritis ADHD (attention deficit hyperactivity disorder) Unilateral inguinal hernia without obstruction o r gangrene Encounters Date Type Department Care Team Description 01/05/2025 10:30 AM DIRECTOR OF CRITICAL CARE Office Visit [facility] Surgery [address] [phone] Sonu Carlson MD Left inguinal hernia (Primary Dx) 12/17/2024 8:01 AM DIRECTOR OF CRITICAL CARE Anesthesia Event [facility] Operating Room [address] [place] [phone] Jose E Maya MD Thompson, Kathryn Ann, PA 12/17/2024 8:00 AM DIRECTOR OF CRITICAL CARE - 12/17/2024 9:10 AM DIRECTOR OF CRITICAL CARE Surgery [facility] Operating Room [address] [place] [address] [phone] Sonu Carlson MD Left Inguinal Hernia Repair with Mesh 12/17/2024 6:15 AM DIRECTOR OF CRITICAL CARE - 12/17/2024 10:44 AM DIRECTOR OF CRITICAL CARE Hospital Encounter [facility] Operating Room [address] [place] [address] [phone] Sonu Carlson MD Non-recurrent unilateral inguinal hernia without obstruction or gangrene (Primary Dx) Discharge Disposition: Discharge to home or self care from Last 3 Months Immunizations Immunization Administration Dates Next Due Hep A, Adult 05/06/2000 Hep B Vaccine 06/12/2006,01/15/2006,12/13/2005 Influenza, Quadrivalent, Spl it, Preservative Free, Intramuscular 09/05/2020,10/17/2016 Influenza, Split 10/23/2002 Influenza, Trivalent, Adjuva nted, Intramuscular 09/02/2018 Influenza, Trivalent, High D ose, Split, Preservative Free, Intramuscular 08/05/2019,09/16/2017 Influenza, Trivalent, IM (MDV) 08/19/2014,2012 Influenza, Trivalent, Preser vative Free, Intramuscular 08/17/2015 Influenza, Unspecified 08/25/2022,2019,08/25/2017,08/25,09/10/2013,07/26/2008,09/02/2007 ,08/25/2006,09/20/2005,10/17/2004,08/26 [place] Encephalitis 12/28/2005,12/20/2005,11/25 Pfizer SARS-CoV-2 Monovalent Vaccination (12+ Yrs) PURPLE 01/07/2021,12/17/2020 Pneumococcal Conjugate Pcv20 05/02/2023 Pneumococcal Conjugate, Unspecified 11/25/2010 Rabies Vaccine 12/28/2005,12/20/2005,12/13/2005 Td, adsorbed 12/12/2005 Tdap 08/19/2014 Typhoid H-P SQ/ID 12/12/2005 ZOSTER LIVE 11/23/2014 Surgical History Surgery Date Site/Laterality Comments TONSILLECTOMY 11/25/1956 - 11/24/1957 SHOULDER ARTHROPLASTY Bilateral Shoulder Arthroplasty - left 2001, 2002; right 2005 ELBOW ARTHROPLASTY Elbow Arthroplasty - right 2003 (Added by TW Conv) ANKLE FRACTURE SURGERY 08/09/2020 Right open reduction internal fixation right lateral malleolus fracture CORONARY ARTERY BYPASS GRAFT 08/25/2021 - 09/24/2021 4 vessel CORONARY ANGIOPLASTY WITH STENT PLACEMENT 1998 and 2008 CYST REMOVAL 11/25/1969 - 11/24/1970 Groin EYE MUSCLE SURGERY 11/25/1971 - 11/24/1972 KAYE HOLE FOR SUBDURAL HEMATOMA 11/25/2007 - 11/24/2008 Medical History Medical History Date Comments Subdural hemorrhage (HCC) Acute myocardial infarction, unspecified site Essential hypertension ADHD (attention deficit hyperactivity disorder) Anxiety and depression Arthritis Clotting disorder Hypercholesteremia Seizures (HCC) Unilateral inguinal hernia without obstruction o r gangrene 07/29/2024 Benign extra-axial hygroma 07/15/2018 Unilateral inguinal hernia without obstruction o r gangrene Family History Medical History Relation Name Comments Bleeding Disorder Mother Family his tory of bleeding disorder - (Added by TW Conv) Diabetes Mother Family history of diabetes mellitus - (Added by TW Conv) Heart disease Mother Family history of cardiac disorder - (Added by TW Conv) Skin cancer Sister Family history of skin cancer - (Added by TW Conv) Relation Name Status Comments Mother Sister Social History Tobacco Use Types Packs/Day Years Used Date Smoking Tobacco: Former Cigarettes 2 - 1961 Passive Smoke Exposure: Past Smokeless Tobacco: Never Tobacco Cessation:Counseling Given: Not Answered Alcohol Use Standard Drinks/Week Comments Yes 3 (1 standard drink = 0.6 oz pur e alcohol) AUDIT-C Answer Date Recorded Q1: How often do you have a drink containing alc ohol? 2-4 times a month 12/17/2024 Q2: How many drinks containi ng alcohol do you have on a typical day when you are drinking? 1 or 2 12/17/2024 Q3: How often do you have si x or more drinks on one occasion? Never 12/17/2024 Personal Safety Answer Date Recorded Have you ever been in or are you currently in a harmful physical or emotional relationship or is someone making you feel afraid or unsafe? Denies 12/17/2024 Sex and Gender Information Value Date Recorded Sex Assigned at Not on file Legal Sex Male 3:52 AM DIRECTOR OF CRITICAL CARE Gender Identity Not on file Sexual Orientation Not on file Occupation Industry Job Start Date Job End Date disabled Not on file Not on file Not on file Obstetrics History Last Filed Vital Signs Vital Sign Reading Time Taken Comments Blood Pressure 149/76 01/05/2025 10:24 AM DIRECTOR OF CRITICAL CARE Pulse 47 01/05/2025 10:24 AM DIRECTOR OF CRITICAL CARE Temperature 36.7 C (98 F) 01/05/2025 10:24 AM DIRECTOR OF CRITICAL CARE Respiratory Rate 10 12/17/2024 9:55 AM DIRECTOR OF CRITICAL CARE Oxygen Saturation 96% 12/17/2024 9:55 AM DIRECTOR OF CRITICAL CARE Inhaled Oxygen Concentration - - Weight 95.2 kg (209 lb 12.8 oz) 025 10:24 AM DIRECTOR OF CRITICAL CARE Height 180.3 cm (5' 11 ) 01/05/2025 10: 24 AM DIRECTOR OF CRITICAL CARE Body Mass Index 29.26 01/05/2025 10:24 AM DIRECTOR OF CRITICAL CARE Plan of Treatment Health Maintenance Due Date Last Done Comments Colon Cancer Screening-Colonoscopy 1950 Depression Screening 1950 Hepatitis C Screening 1950 Zoster Vaccine (2 of 3) 01/18/2015 11/23/2014 Abdominal Aortic Aneurysm (A AA) Screen 2017 Well Visit 65+ 2017 Covid-19 Vaccine (3 - 2023-2 5 season) 2024 01/07/2021, 12/17/2020 DTaP/Tdap/Td Vaccine (2 - Td or Tdap) 08/19/2024 08/19/2014, 12/12/2005 Influenza Vaccine (Season Ended) 2025 08/25/2022, 09/05/2020, 07/27/2020, Additional history exists Fall Risk Assessment 12/17/2025 12/17/2024 Hepatitis B Screening Completed 06/12/2006 , 01/15/2006, 12/13/2005 Prostate Cancer Screening-PSA Discontinued 09/01/2015 Pneumococcal vaccine 65+ Completed 05/02/2023, 11/2010 Medical Devices Implanted Type Area Process Assistant Device Identifier Shelf Expiration Date Model / Serial / Lot [employer]/ Ortho [id number] Evos [id number] 16.3x1.7mm 7 Hole Low Profile Variable Angle Lock - [id number] Implanted:Qty: 1 on 08/09/2020 by Leslie Holder MD at [facility] Right: Ankle [employer] tho [id number] / / [employer] Ortho [id number] Evos 3.5mm 10mm Self Tap Cortex Screw Bone Sterile - [id number] Implanted:Qty: 2 on 08/09/2020 by Leslie Holder MD at [facility] Right: Ankle [employer]Or tho [id number] / / [employer]/ Ortho [id number] Evos 3.5mm 14mm Self Tap Cortex Screw Bone Sterile - [id number] Implanted:Qty: 1 on 08/09/2020 by Leslie Holder MD at [facility] Right: Ankle [employer]/Or tho [id number] / / [employer]/ Ortho [id number] Evos 3.5mm 16mm Self Tap Cortex Screw Bone Sterile - [id number] Implanted:Qty: 1 on 08/09/2020 by Leslie Holder MD at [facility] Right: Ankle [employer]/Or tho [id number] / / [employer]/ Ortho [id number] Evos 4.7mm 14mm Full Thread Screw Bone Sterile Osteopenia - [id number] Implanted:Qty: 1 on 08/09/2020 by Leslie Holder MD at [facility] Right: Ankle [employer]/Or tho [id number] / / [employer]/ Ortho [id number] Evos 4.7mm 16mm Full Thread Screw Bone Sterile Osteopenia - [id number] Implanted:Qty: 1 on 08/09/2020 by Leslie Holder MD at [facility] Right: Ankle [employer]/Or tho [id number] / / [employer]/ Ortho [id number] Evos 4.7mm 18mm Full Thread Screw Bone Sterile Osteopenia - [id number] Implanted:Qty: 1 on 08/09/2020 by Leslie Holder MD at [facility] Right: Ankle [employer]Or tho [id number] / / [employer]/ Ortho [id number] Evos 3.5mm 18mm Self Tap Cortex Screw Bone Sterile - [id number] Implanted:Qty: 1 on 08/18/2020 by Leslie Holder MD at [facility] Right: Ankle [employer]Or tho [id number] / / [employer] Surgery Prolene 3 15/16in .75in 4 15/16inx2 5/32inx.5in Soft Knit Extend Phse - [id number] Implanted:Qty: 1 on 12/17/2024 by Sonu Carlson MD at [facility] Left: Inguinal [employer] End[employer] Surgery 03/24/2029 PHSE / / [id number] Procedures Procedure Name Priority Date/Time Associated Diagnosis Comments WI AN PROCEDURE PLACEHOLDER Routine 12/17/2024 8:08 AM DIRECTOR OF CRITICAL CARE WI AN ELECTIVE SUPRAGLOTTIC AIRWAY Routine 12/17/2024 8:08 AM DIRECTOR OF CRITICAL CARE REPAIR INGUINAL HERNIA WITH MESH 12/17/2024 8:00 AM DIRECTOR OF CRITICAL CARE Unilateral inguinal hernia without obstruction or gangrene, recurrence not specified PSA SCREEN Routine 09/01/2015 1:25 PM CDT from Last 3 Months or Most Recently Relevant to Health Maintenance Results * WI AN ELECTIVE SUPRAGLOTTIC AIRWAY, WI AN PROCEDURE PLACEHOLDER (12/17/2024 8:08 AM DIRECTOR OF CRITICAL CARE) Narrative Doyle Jarquin CRNA - 12/17/2024 8:08 AM DIRECTOR OF CRITICAL CARE Doyle Jarquin CRNA 12/17/2024 8:10 AM Airway Patient location: OR Urgency: elective Indications for airway management: anesthesia Difficult airway: no Staff: Supervising provider: Jose E Maya MD Placed by: CARTOGRAPHIC TECHNICIAN: Doyle Jarquin CRNA Emergent airway documentation: Risks and benefits discussed: yes Consent obtained: yes Consent given by: patient Airway prep: Preoxygenated: yes Patient position: sniffing Mask difficulty assessment: 1 - vent by mask Sedation level during airway: GA Final airway details: Final airway type: supraglottic airway Final supraglottic airway: IGel SGA size: 5 Number of attempts: 1 Additional comments: Easy atraumatic insertion of iGel #5, good seal. Easy to mask ventilate prior to insertion of iGel us Jose E Maya MD ANESTHESIA ORDERABLES Final Result * PSA screen (09/01/2015 1:25 PM CDT) PSA Screen 0.9 0.0 - 5.4 ng/mL 09/01/2015 5:11 PM CDT [facility] HISTORICAL RESULTS Comment: Method: ECLIA Values obtained by different assay methods cannot be used interchangeably. Use sequential testing to confirm baseline if assay method changed during patient monitoring. 09/01/2015 1:25 PM CDT 09/01/2015 1:53 PM CDT Narrative [facility] HISTORICAL RESULTS - 09/01/2015 5:11 PM CDT 12 HOURS PC Suleiman Petit MD LAB BLOOD ORDERABLES Final Result [facility] HISTORICAL RESULTS from Last 3 Months or Most Recently Relevant to Health Maintenance Insurance MEDICARE [facility] [employer] [facility] MEDICARE FOR LIFE MEDICARE FOR LIFE MEDICARE Care Teams Nanotechnology Technician Relationship Specialty Start Date End Date Long Mejias MD [address] [place] [address] PCP - General 09/28/19 Sonu Carlson MD [address] [facility] [address] [place] [address] Consulting Physician General Surgery 12/17/24
--- OUTSIDE RECORDS SUMMARY | 2025-03-17 13:15 | XMS_ITS | Encounter Summary ---
Author Organization [facility] Address [address] [place] [address] Care Team Providers Care Salesperson Corsets Name Role Phone Long Mejias MD Primary Care Provider [phone] Encounter Details Date Type Department Care Team (Late st Contact Info) Description 07/08/2007 Outpatient Historical [facility] Tra[facility] and General Surgery [address] [facility] [address] [phone] [place] [address] [place] [address] Social History Tobacco Use Types Packs/Day Years Used Date Smoking Tobacco: Never Assessed Sex and Gender Information Value Date Recorded Sex Assigned at Not on file Legal Sex Male 4:07 AM LOOM FIXER HELPER Gender Identity Not on file Sexual Orientation Not on file documented as of this encounter Plan of Treatment Upcoming Encounters Date Type Department Care Team (Late st Contact Info) Description 03/22/2025 1:30 PM CDT Office Visit [facility] At [address] [place] [phone] [place] [facility], WORKFLOW DEVELOPER [address] [place] [address] [address] [place] [phone] 07/13/2025 11:00 AM CDT Office Visit [facility] [address] [place] [address] David Raymond MD [address] [facility] [address] [place] [phone] documented as of this encounter Visit Diagnoses Not on filedocumented in this encounter Care Teams Salesperson Corsets Relationship Specialty Start Date End Date Long Mejias MD [address] [facility] [address] [place] [phone] PCP - General Family Practice 06/24/19 documented as of this encounter
--- OUTSIDE RECORDS SUMMARY | 2025-03-17 13:15 | XMS_ITS | Referral Summary ---
Author Organization [facility] Address [address] [place] [address] Care Team Providers Care Data Capture Clerk Name Role Phone Long Mejias MD Primary Care Provider Sonu Carlson MD Unavailable [phone] Encounters Date Type Department Care Team Description 01/05/2025 10:30 AM FORESTRY CREW CHIEF Office Visit [facility] Surgery [address] [address] Sonu Carlson MD Left inguinal hernia (Primary Dx) 12/17/2024 8:00 AM FORESTRY CREW CHIEF - 12/17/2024 9:10 AM FORESTRY CREW CHIEF Surgery [facility] Operating Room [address] [place] [phone] Sonu Carlson MD Left Inguinal Hernia Repair with Mesh 12/17/2024 8:01 AM FORESTRY CREW CHIEF Anesthesia Event [facility] Operating Room [address] [place] [address] Jose E Maya MD Thompson, Kathryn Ann, PA 12/17/2024 6:15 AM FORESTRY CREW CHIEF - 12/17/2024 10:44 AM FORESTRY CREW CHIEF Hospital Encounter [facility] Operating Room [address] [place] [address] Sonu Carlson MD Non-recurrent unilateral inguinal hernia without obstruction or gangrene (Primary Dx) Discharge Disposition: Discharge to home or self care from Last 3 Months Allergies Active Allergy Reactions Criticality Noted Date [...] spray into each nostril daily 1 each 11 4 Active cyanocobalamin (vitamin B-12) 1,000 mcg [...] (08/08/2020): Added automatically from request for surgery [id number] Benign essential HTN 11/30/2019 Lipoma 06/25/2019 Overview (01/04/2025): Added automatically from request for surgery [id number] Lipoma of anterior chest wall 06/24/2019 Lipoma of breast 06/24/2019 Other male erectile dysfunction 05/25/2019 Tobacco abuse, in remission 07/21/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 07/15/2018 Lipoma of upper extremity 02/06/2018 Overview (01/04/2025): Added automatically from request for surgery [id number] Added automatically from request for surgery [id number] Sebaceous cyst 02/06/2018 Overview (01/04/2025): Added automatically from request for surgery [id number] Abscess of back 12/03/2017 Subdural hematoma 03/05/2017 Actinic keratosis 08/15/2016 Infectious warts 08/15/2016 Keratinizing cyst 08/15/2016 Senile angioma 08/15/2016 Mass of upper extremity 07/16/2014 Vertigo 12/08/2012 Right-sided chest wall pain 02/07/2011 Pure hypercholesterolemia 03/21/2010 Coronary artery disease invo lving [place] coronary artery of [place] heart without angina pectoris 03/21/2010 S/P coronary artery stent placement 03/21/2010 S/P subdural hematoma evacuation 03/21/2010 Tobacco abuse 03/21/2010 Seizures Clotting disorder Arthritis ADHD (attention deficit hyperactivity disorder) Unilateral inguinal hernia without obstruction o r gangrene Immunizations Immunization Administration Dates Next Due Hep A, Adult 05/06/2000 Hep B Vaccine 06/12/2006,01/15/2006,12/13/2005 Influenza, Quadrivalent, Spl it, Preservative Free, Intramuscular 09/05/2020,10/17/2016 Influenza, Split 10/23/2002 Influenza, Trivalent, Adjuva nted, Intramuscular 09/02/2018 Influenza, Trivalent, High D ose, Split, Preservative Free, Intramuscular 08/05/2019,09/16/2017 Influenza, Trivalent, IM (MDV) 08/19/2014,2012 Influenza, Trivalent, Preser vative Free, Intramuscular 08/17/2015 Influenza, Unspecified 08/25/2022,2019,08/25/2017,08/25,09/10/2013,07/26/2008,09/02/2007 ,08/25/2006,09/20/2005,10/17/2004,08/26 [place] Encephalitis 12/28/2005,12/20/2005,11/25 Pfizer SARS-CoV-2 Monovalent Vaccination (12+ Yrs) PURPLE 01/07/2021,12/17/2020 Pneumococcal Conjugate Pcv20 05/02/2023 Pneumococcal Conjugate, Unspecified 11/25/2010 Rabies Vaccine 12/28/2005,12/20/2005,12/13/2005 Td, adsorbed 12/12/2005 Tdap 08/19/2014 Typhoid H-P SQ/ID 12/12/2005 ZOSTER LIVE 11/23/2014 Social History Tobacco Use Types Packs/Day Years Used Date Smoking Tobacco: Former Cigarettes 2 - 196 Passive Smoke Exposure: Past Smokeless Tobacco: Never [...] on file Legal Sex Male 3:52 AM FORESTRY CREW CHIEF Gender Identity Not on file Sexual Orientation Not on file Occupation Industry Job Start Date Job End Date disabled Not on file Not on file Not on file Last Filed Vital Signs Vital Sign Reading Time Taken Comments Blood Pressure 149/76 01/05/2025 10:24 AM FORESTRY CREW CHIEF Pulse 47 01/05/2025 10:24 AM FORESTRY CREW CHIEF Temperature 36.7 C (98 F) 01/05/2025 10:24 AM FORESTRY CREW CHIEF Respiratory Rate 10 12/17/2024 9:55 AM FORESTRY CREW CHIEF Oxygen Saturation 96% 12/17/2024 9:55 AM FORESTRY CREW CHIEF Inhaled Oxygen Concentration - - Weight 95.2 kg (209 lb 12.8 oz) 025 10:24 AM FORESTRY CREW CHIEF Height 180.3 cm (5' 11 ) 01/05/2025 10: 24 AM FORESTRY CREW CHIEF Body Mass Index 29.26 01/05/2025 10:24 AM FORESTRY CREW CHIEF Plan of Treatment Not on file Medical Devices Implanted Type Area Rehabilitation Consultant Device Identifier Shelf Expiration Date Model / Serial / Lot [employer]/ Ortho [id number] Evos [id number] 16.3x1.7mm 7 Hole Low Profile Variable Angle Lock - [id number] Implanted:Qty: 1 on 08/09/2020 by Leslie Holder MD at [facility] Right: Ankle [employer]Or tho [id number] / / [employer]/ Ortho [id number] Evos 3.5mm 10mm Self Tap Cortex Screw Bone Sterile - [id number] Implanted:Qty: 2 on 08/09/2020 by Leslie Holder MD at [facility] Right: Ankle [employer]/Or tho [id number] / / [employer]/ Ortho [id number] Evos 3.5mm 14mm Self Tap Cortex Screw Bone Sterile - [id number] Implanted:Qty: 1 on 08/09/2020 by Leslie Holder MD at [facility] Right: Ankle [employer]/Or tho [id number] / / [employer]/ Ortho [id number] Evos 3.5mm 16mm Self Tap Cortex Screw Bone Sterile - [id number] Implanted:Qty: 1 on 08/09/2020 by Leslie Holder MD at [facility] Right: Ankle [employer]/Or tho [id number] / / [employer]/ Ortho [id number] Evos 4.7mm 14mm Full Thread Screw Bone Sterile Osteopenia - [id number] Implanted:Qty: 1 on 08/09/2020 by Leslie Holder MD at [facility] Right: Ankle [employer]/Or tho [id number] / / [employer]/ Ortho [id number] Evos 4.7mm 16mm Full Thread Screw Bone Sterile Osteopenia - [id number] Implanted:Qty: 1 on 08/09/2020 by Leslie Holder MD at [facility] Right: Ankle [employer]/Or tho [id number] / / [employer]/ Ortho [id number] Evos 4.7mm 18mm Full Thread Screw Bone Sterile Osteopenia - [id number] Implanted:Qty: 1 on 08/09/2020 by Leslie Holder MD at [facility] Right: Ankle [employer]/Or tho [id number] / / [employer]/ Ortho [id number] Evos 3.5mm 18mm Self Tap Cortex Screw Bone Sterile - [id number] Implanted:Qty: 1 on 08/18/2020 by Leslie Holder MD at [facility] Right: Ankle [employer]/Or tho [id number] / / [employer] End[employer] Surgery Prolene 3 15/16in .75in 4 15/16inx2 5/32inx.5in Soft Knit Extend Phse - [id number] Implanted:Qty: 1 on 12/17/2024 by Sonu Carlson MD at [facility] Left: Inguinal [employer] Surgery [facility] / / [id number] Procedures Procedure Name Priority Date/Time Associated Diagnosis Comments FL AN PROCEDURE PLACEHOLDER Routine 12/17/2024 8:08 AM FORESTRY CREW CHIEF FL AN ELECTIVE SUPRAGLOTTIC AIRWAY Routine 12/17/2024 8:08 AM FORESTRY CREW CHIEF REPAIR INGUINAL HERNIA WITH MESH 12/17/2024 8:00 AM FORESTRY CREW CHIEF Unilateral inguinal hernia without obstruction or gangrene, recurrence not specified PSA SCREEN Routine 09/01/2015 1:25 PM CDT from Last 3 Months or Most Recently Relevant to Health Maintenance Results * FL AN ELECTIVE SUPRAGLOTTIC AIRWAY, FL AN PROCEDURE PLACEHOLDER (12/17/2024 8:08 AM FORESTRY CREW CHIEF) Narrative Doyle Jarquin CRNA - 12/17/2024 8:08 AM FORESTRY CREW CHIEF Doyle Jarquin CRNA 12/17/2024 8:10 AM Airway Patient location: OR Urgency: elective Indications for airway management: anesthesia Difficult airway: no Staff: Supervising provider: Jose E Maya MD Placed by: FPGA ENGINEER: Doyle Jarquin CRNA Emergent airway documentation: Risks [...] * PSA screen (09/01/2015 1:25 PM CDT) [facility] PSA Screen 0.9 0.0 - 5.4 ng/mL Comment: Method: ECLIA Values obtained by different assay methods cannot be used interchangeably. Use sequential testing to confirm baseline if assay method changed during patient monitoring. 09/01/2015 1:25 PM CDT 09/01/2015 1:53 PM CDT Narrative [facility] HISTORICAL RESULTS - 09/01/2015 5:11 PM CDT 12 HOURS PC Suleiman Petit MD LAB BLOOD ORDERABLES Final Result [facility] HISTORICAL RESULTS from Last 3 Months or Most Recently Relevant to Health Maintenance Insurance MEDICARE [employer] FOR LIFE MEDICARE FOR LIFE MEDICARE FOR LIFE MEDICARE Care Teams Data Capture Clerk Relationship Specialty Start Date End Date Long Mejias MD [address] [place] [address] PCP - General 09/28/19 Sonu Carlson MD [address] [facility] [address] [place] [address] Consulting Physician General Surgery 12/17/24
--- OUTSIDE RECORDS SUMMARY | 2025-03-17 13:15 | XMS_ITS | Encounter Summary ---
Author Organization [facility] Address [address] [place] [address] [place] [address] Care Team Providers Care Network Desktop Support Specialist Name Role Phone Unavailable Primary Care Provider Unavailabl e Encounter Details Date Type Department Care Team (Late st Contact Info) Description 01/05/2021 Lab Requisition [facility] DermPath Lab [address] [place] [address] Ji Ahn MD [address] [place] [address] Social History Tobacco Use Types Packs/Day Years Used Date Smoking Tobacco: Never Assessed Sex and Gender Information Value Date Recorded Sex Assigned at Not on file Legal Sex Male 6:31 AM OFFICE NURSE Gender Identity Not on file Sexual Orientation Not on file documented as of this encounter Plan of Treatment Not on file documented as of this encounter Procedures Procedure Name Priority Date/Time Associated Diagnosis Comments DERMATOPATHOLOGY Routine 01/04/2021 12:0 0 AM OFFICE NURSE documented in this encounter Results * DERMATOPATHOLOGY (01/04/2021 12:00 AM OFFICE NURSE) Case Report Dermatopathology Report Case: [id number] Authorizing Provider: Ji Ahn MD Collected: 01/04/2021 12:00 AM Ordering Location: [facility] Received: 01/05/2021 12:08 PM Pathologist: Honey Fernandez MD Specimen: Skin, left posterior neck 3:18 PM OFFICE NURSE DERMATOPATHOLOGY LABORATORY Final Diagnosis Specimen A. SKIN, left posterior neck: EPIDERMOID CYST (L72.0) 3:18 PM [facility] DERMATOPATHOLOGY LABORATORY Clinical History R/O SQ mass. 3:18 PM [facility] DERMATOPATHOLOGY LABORATORY Gross Description Specimen A: Received is one formalin filled container labeled with the patient's name and designated left posterior neck. The specimen consists of a punch biopsy measuring [id number], bisected. Jar 0. 3:18 PM [facility] DERMATOPATHOLOGY LABORATORY Microscopic Description Specimen A. SKIN, left posterior neck: Within the dermis, there is a space lined by epithelium that resembles normal epidermis and the infundibular portion of the hair follicle. 3:18 PM [facility] DERMATOPATHOLOGY LABORATORY Disclaimer An external and internal positive and negative controls are appropriate for the histochemical, immunohistochemical and immunofluorescence stain(s) in this case (if any), except where stated explicitly. The performance characteristics of the stain(s) cited in this report were developed and its performance characteristic determined by the Dermatopathology Laboratory at [facility], directed by Dr. Ping Fernandez. These tests need not be, and therefore are not, approved by the [place] Food and Drug Administration. The tests are used for clinical purposes. Billing Codes Specimen Charges Stain Charges 83879 1 3:18 PM [facility] DERMATOPATHOLOGY LABORATORY Embedded Images 3:18 PM [facility] DERMATOPATHOLOGY LABORATORY Pathology/Cytolog y TISSUE SPECIMEN FROM SKIN / Unknown 01/04/2021 01/05/2021 12:08 PM OFFICE NURSE Ji Ahn MD LAB - PATHOLOGY/CYTOLOGY ORD ERABLES Final Result DERMATOPATHOLOGY LABORATORY [facility] - Department of Dermatology [address] [place] [address], [facility] [phone] documented in this encounter Visit Diagnoses Not on filedocumented in this encounter
--- OUTSIDE RECORDS SUMMARY | 2025-03-17 13:15 | XMS_ITS | Encounter Summary ---
Author Organization [facility] Address [address] [place] [address] [place] [address] Care Team Providers Care Monitoring Tech Name Role Phone Unavailable Primary Care Provider Unavailabl e Encounter Details Date Type Department Care Team (Late st Contact Info) Description 01/04/2021 Lab Requisition [facility] DermPath Lab [address] [place] [address] Ji Ahn MD [address] [place] [address] Social History Tobacco Use Types Packs/Day Years Used Date Smoking Tobacco: Never Assessed Sex and Gender Information Value Date Recorded Sex Assigned at Not on file Legal Sex Male 6:31 AM HOP WORKER Gender Identity Not on file Sexual Orientation Not on file documented as of this encounter Plan of Treatment Not on file documented as of this encounter Procedures Procedure Name Priority Date/Time Associated Diagnosis Comments DERMATOPATHOLOGY Routine 01/03/2021 12:0 0 AM HOP WORKER documented in this encounter Results * DERMATOPATHOLOGY (01/03/2021 12:00 AM HOP WORKER) Case Report Dermatopathology Report Case: [id number] Authorizing Provider: Ji Ahn MD Collected: 01/03/2021 12:00 AM Ordering Location: [facility] DermPath Lab Received: 01/04/2021 11:38 AM Pathologist: Lisa Ramirez MD Specimen: Skin, left upper cutaneous lip 11:47 AM HOP WORKER DERMATOPATHOLOGY LABORATORY Final Diagnosis Specimen A. SKIN, left upper cutaneous lip: ANGIOFIBROMA (FIBROUS PAPULE) (D21.0) 11:47 AM [facility] DERMATOPATHOLOGY LABORATORY Clinical History R/O dys nevus, angioma, telangiectasia, BCC. 11:47 AM [facility] DERMATOPATHOLOGY LABORATORY Gross Description Specimen A: Received is one formalin filled container labeled with the patient's name and designated left upper cutaneous lip. The specimen consists of a shave biopsy measuring [id number]. Jar 0. 11:47 AM [facility] DERMATOPATHOLOGY LABORATORY Microscopic Description Specimen A. SKIN, left upper cutaneous lip: This dome-shaped lesion contains dilated blood vessels, coarse collagen bundles, and stellate fibroblasts. 11:47 AM [facility] DERMATOPATHOLOGY LABORATORY Disclaimer An external and internal positive and negative controls are appropriate for the histochemical, immunohistochemical and immunofluorescence stain(s) in this case (if any), except where stated explicitly. The performance characteristics of the stain(s) cited in this report were developed and its performance characteristic determined by the Dermatopathology Laboratory at [facility], directed by Dr. Ping Fernandez. These tests need not be, and therefore are not, approved by the [place] Food and Drug Administration. The tests are used for clinical purposes. Billing Codes Specimen Charges Stain Charges 78179 1 11:47 AM [facility] DERMATOPATHOLOGY LABORATORY Embedded Images 11:47 AM [facility] DERMATOPATHOLOGY LABORATORY Pathology/Cytolog y TISSUE SPECIMEN FROM SKIN / Unknown 01/03/2021 01/04/2021 11:38 AM HOP WORKER us Ji Ahn MD LAB - PATHOLOGY/CYTOLOGY ORD ERABLES Final Result DERMATOPATHOLOGY LABORATORY [facility] - Department of Dermatology [address] [place] [address], [facility] [phone] documented in this encounter Visit Diagnoses Not on filedocumented in this encounter
--- OUTSIDE RECORDS SUMMARY | 2025-03-17 13:16 | XMS_ITS | Encounter Summary ---
Author Organization [facility] Address [address] [place] [address] Care Team Providers Care Pulp Grinder Name Role Phone Long Mejias MD Primary Care Provider [phone] Encounter Details Date Type Department Care Team (Latest Contact Info) Description 12/24/2003 Outpatient Historical HIS CARD TECHNICAL SUPPORT INTERN David Raymond MD [address] [place] [address] [address] [place] [address] CORON ATHEROSCL [place] CORON VESSEL (Primary Dx) Social History Tobacco Use Types Packs/Day Years Used Date Smoking Tobacco: Never Assessed Sex and Gender Information Value Date Recorded Sex Assigned at Not on file Legal Sex Male 4:07 AM ELECTRICAL ACCESSORIES ASSEMBLER Gender Identity Not on file Sexual Orientation Not on file documented as of this encounter Plan of Treatment Upcoming Encounters Date Type Department Care Team (Late st Contact Info) Description 03/22/2025 1:30 PM CDT Office Visit [facility] V[facility] At [address] [place] [phone] Florence House FNP [address] [place] [address] [address] [place] [phone] 07/13/2025 11:00 AM CDT Office Visit [facility] Heart [facility] V[facility] At [address] [place] [address] David Raymond MD [address] [facility] [address] [place] [address] documented as of this encounter Visit Diagnoses Diagnosis Coronary atherosclerosis of [place] coronary artery- Primary documented in this encounter Care Teams Pulp Grinder Relationship Specialty Start Date End Date Long Mejias MD [address] [facility] [address] [place] [address] PCP - General Family Practice 06/24/19 documented as of this encounter
--- OUTSIDE RECORDS SUMMARY | 2025-03-17 13:16 | XMS_ITS | Encounter Summary ---
Author Organization [facility] Address [address] [facility] Attn: [place] [address] Care Team Providers Care Upholstery Technician Name Role Phone Long Mejias MD Primary Care Provider Encounter Details Date Type Department Care Team (Late st Contact Info) Description 06/29/2007 Outpatient Historical Ramon Mcclure MD NO ADDRESS ON FILE Social History Tobacco Use Types Packs/Day Years Used Date Smoking Tobacco: Never Assessed Sex and Gender Information Value Date Recorded Sex Assigned at Not on file Legal Sex Male 4:07 AM RISK MANAGEMENT MANAGER Gender Identity Not on file Sexual Orientation Not on file documented as of this encounter Plan of Treatment Upcoming Encounters Date Type Department Care Team (Late st Contact Info) Description 03/22/2025 1:30 PM CDT Office Visit [facility] Heart and Vascular At [address] [place] [phone] Florence House FNP [address] [place] [address] [address] [place] [address] 07/13/2025 11:00 AM CDT Office Visit [facility] Heart and Vascular At [address] [place] [phone] David Raymond MD [address] [place] [address] [address] [place] [address] documented as of this encounter Visit Diagnoses Not on filedocumented in this encounter Care Teams Upholstery Technician Relationship Specialty Start Date End Date Long Mejias MD [address] [facility] [address] [place] [address] PCP - General Family Practice 06/24/19 documented as of this encounter
--- OUTSIDE RECORDS SUMMARY | 2025-03-17 13:16 | XMS_ITS | Clinical Summary ---
Author Organization [facility] Address [facility] [place] [address] Care Team Providers Care Talent Acquisition Director Name Role Phone Unavailable Primary Care Provider Unavailabl e Source Comments [facility],non-owned Affiliates and Associated Physician Practices is amultiple site organization consisting of ambulatory clinics and hospital sitesin [place], [place], [place] and [place]. This disclosure is being madepursuant to the Care Everywhere program and may not contain all information available regarding this patient. Last updated 18.[facility] [employer] Social History Tobacco Use Types Packs/Day Years Used Date Smoking Tobacco: Never Assessed Sex and Gender Information Value Date Recorded Sex Assigned at Not on file Legal Sex Male 6:31 AM REVIEW TRAINER Gender Identity Not on file Sexual Orientation Not on file Plan of Treatment Health Maintenance Due Date Last Done Comments COLOGUARD (AGES 45-75) - COL ON CA SCREENING 1952 COLON MONITORING 1952 COLONOSCOPY - COLON CA SCREENING 1952 CT COLONOGRAPHY - COLON CA SCREENING 1952 Colorectal Cancer Screening 1952 FIT - COLON CA SCREENING 1952 FLEX SIG - COLON CA SCREENING 1952 LIPID TESTING 1952 HEPATITIS C SCREENING 07/02/1970 DTAP/TDAP/TD VACCINES (1 - Tdap) 1971 PNEUMOCOCCAL VACCINE 50+ (1 of 1 - PCV) 2002 ZOSTER VACCINE (1 of 2) 2002 COVID-19 VACCINE ( - 2023-2 5 season) 2024 DEPRESSION SCREENING 11/25/2024 INFLUENZA VACCINE (Season Ended) 2025 Respiratory Syncytial Virus (RSV) Vaccine Pt: or over 60 yrs (1 - 1-dose 75+ series) 2027 HEPATITIS B VACCINE Aged Out No longe r eligible based on patient's age to complete this topic HIB VACCINE Aged Out No longer eligi ble based on patient's age to complete this topic HPV VACCINE Aged Out No longer eligi ble based on patient's age to complete this topic MENINGOCOCCAL (Group B) VACC INE SHARED DECISION-MAKING Aged Out No longer eligibl e based on patient's age to complete this topic MENINGOCOCCAL GROUPS A/C/Y/W VACCINE Aged Out No longer eligible b ased on patient's age to complete this topic Insurance MEDICARE
--- OUTSIDE RECORDS SUMMARY | 2025-03-17 13:16 | XMS_ITS | Encounter Summary ---
Author Organization [facility] Address 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 Gender Identity Not on file Sexual Orientation Not on file documented as of this encounter Plan of Treatment Upcoming Encounters Date Type Department Care Team (Late st Contact Info) Description 03/22/2025 1:30 PM CDT Office Visit [facility] [address] 2014 [place] [address] Florence House FNP [address] [place] [address] 2014 [place] [address] 07/13/2025 11:00 AM CDT Office Visit [facility] [address] 2014 [place] [address] David Raymond MD [address] [place] [address] [place] [address] documented as of this encounter Procedures Procedure Name Priority Date/Time Associated Diagnosis Comments CT HEAD WO CONTRAST Routine 07/22/2008 2 :21 PM CDT documented in this encounter Results * CT HEAD WO CONTRAST (07/22/2008 2:21 PM CDT) Anatomical Region Laterality Modality Head Other 07/22/2008 2:21 PM CDT Narrative 07/22/2008 2:41 PM CDT [facility] [address] [place], [place] [address] Admit Date: 07/22/2008 ZAFAR BRIGGS Sex: M Admit Prov: JOSE DAVID RITCHIE Date: 1950 Primary Care Prov: CMRN: [id number] [facility] [address] [place] [address] IMAGING SERVICES Ordering Prov: N/A Accession Number: [id number] Interpretation CT head without contrast 07/22/2008 History: Subdural hemorrhage Findings: Comparison study is dated 04/22/2008. There is again subdural collection over the right convexity which has slightly decreased in size measuring 0.9 cm in maximal thickness as compared to 1.2 cm on the previous study. No new hemorrhage is seen. No midline shift is visualized. The ponce- white differentiation is preserved. Impression: Right subdural collection which has slightly decreased in size. . Dictated by: HALIMA LEPE 07/22/2008 14:38 Electronically signed by: HALIMA LEPE 07/22/2008 14:40 Procedure Note Halima Lepe - 07/22/2008 [facility] [address], [place] [address] Admit Date: 07/22/2008 ZAFAR BRIGGS Sex: M Admit Prov: JOSE DAVID RITCHIE Date: 1950 Primary Care Prov: CMRN: [id number] Room: [facility] SSN: [address] [place] [address] IMAGING SERVICES Ordering Prov: N/A Interpretation CT head without contrast 07/22/2008 History: Subdural hemorrhage Findings: Comparison study is dated 04/22/2008. There is againsubdural collection over the right convexity which has slightly decreased insize measuring 0.9 cm in maximal thickness as compared to 1.2 cm on theprevious study. No new hemorrhage is seen. No midline shift is visualized. Thegray- white differentiation is preserved. Impression: Right subdural collection which has slightly decreased insize. . Dictated by: HALIMA LEPE 07/22/2008 14:38 Electronically signed by: HALIMA LEPE 07/22/2008 14:40 us Jose David Ritchie MD CT ORDERABLES Final Result documented in this encounter Visit Diagnoses Diagnosis Subdural hemorrhage (CMS/HCC) Subdural hemorrhage documented in this encounter Care Teams Enterprise Integration Architect Relationship Specialty Start Date End Date Long Mejias MD [address] [facility] 120 [place] [address] PCP - General Family Practice 06/24/19 documented as of this encounter
--- OUTSIDE RECORDS SUMMARY | 2025-03-17 13:16 | XMS_ITS | Encounter Summary ---
Author Organization [facility] Address 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 Gender Identity Not on file Sexual Orientation Not on file documented as of this encounter Plan of Treatment Upcoming Encounters Date Type Department Care Team (Late st Contact Info) Description 03/22/2025 1:30 PM CDT Office Visit [facility] At [address] [place] [address] Florence House FNP [address] [place] [address] 2014 [place] [address] 07/13/2025 11:00 AM CDT Office Visit [facility] At [address] [place] [address] David Raymond MD [address] [facility] 2029 [place] [address] documented as of this encounter Visit Diagnoses Not on filedocumented in this encounter Care Teams Anatomic Pathologist Relationship Specialty Start Date End Date Long Mejias MD [address] [facility] 120 [place] [address] PCP - General Family Practice 06/24/19 documented as of this encounter
--- OUTSIDE RECORDS SUMMARY | 2025-03-17 13:16 | XMS_ITS | Encounter Summary ---
Author Organization [facility] Address [address] [place] [address] Care Team Providers Care Pressurised Container Filler Name Role Phone Long Mejias MD Primary Care Provider [phone] Encounter Details Date Type Department Care Team (Late st Contact Info) Description 06/29/2007 Outpatient Historical [facility] Trauma and General Surgery [address] [facility] [facility] [place] [address] Ranulfo Grijalva MD [facility] [address] [place] [address] Social History Tobacco Use Types Packs/Day Years Used Date Smoking Tobacco: Never Assessed Sex and Gender Information Value Date Recorded Sex Assigned at Not on file 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 Gender Identity Not on file Sexual Orientation Not on file documented as of this encounter Plan of Treatment Upcoming Encounters Date Type Department Care Team (Late st Contact Info) Description 03/22/2025 1:30 PM CDT Office Visit [facility] At [address] 2014 [place] [address] Florence House, GUMARO [address] [place] [address] 2014 [place] [address] 07/13/2025 11:00 AM CDT Office Visit [facility] At [address] [place] [address] David Raymond MD [address] [facility] [address] [place] [address] documented as of this encounter Visit Diagnoses Not on filedocumented in this encounter Care Teams Pressurised Container Filler Relationship Specialty Start Date End Date Long Mejias MD [address] [facility] 120 [place] [address] PCP - General Family Practice 06/24/19 documented as of this encounter
--- OUTSIDE RECORDS SUMMARY | 2025-03-17 13:16 | XMS_ITS | Encounter Summary ---
Author Organization [facility] Address [address] [place] [address] Care Team Providers Care Feedmobile Driver Name Role Phone Long Mejias MD Primary Care Provider Encounter Details Date Type Department Care Team (Late st Contact Info) Description 07/03/2007 Outpatient Historical [facility] Trauma and General Surgery 1 [facility] SU[address] 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 Gender Identity Not on file Sexual Orientation Not on file documented as of this encounter Plan of Treatment Upcoming Encounters Date Type Department Care Team (Late st Contact Info) Description 03/22/2025 1:30 PM CDT Office Visit [facility] At [address] [place] [address] Florence House, GUMARO [address] [place] [address] 2014 [place] [address] 07/13/2025 11:00 AM CDT Office Visit [facility] At [address] [place] [address] David Raymond MD [address] [facility] [address] [place] [address] documented as of this encounter Visit Diagnoses Not on filedocumented in this encounter Care Teams Feedmobile Driver Relationship Specialty Start Date End Date Long Mejias MD [address] [facility] 120 [place] [address] PCP - General Family Practice 06/24/19 documented as of this encounter
--- OUTSIDE RECORDS SUMMARY | 2025-03-17 13:16 | XMS_ITS | Encounter Summary ---
Author Organization [facility] Address [address] [place] [address] Care Team Providers Care Environmental Sampling Technician Name Role Phone Long Mejias MD Primary Care Provider [phone] Encounter Details Date Type Department Care Team (Late st Contact Info) Description 07/01/2007 Outpatient Historical [facility] Adult Hospitalists [address] [address] Shannon Esparza MD [address] [address] Social History Tobacco Use Types Packs/Day Years Used Date Smoking Tobacco: Never Assessed Sex and Gender Information Value Date Recorded Sex Assigned at Not on file 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 Gender Identity Not on file Sexual Orientation Not on file documented as of this encounter Plan of Treatment Upcoming Encounters Date Type Department Care Team (Late st Contact Info) Description 03/22/2025 1:30 PM CDT Office Visit [facility] At [address] [place] [address] Florence House FNP [address] [place] [address] 2014 [place] [address] 07/13/2025 11:00 AM CDT Office Visit [facility] At [address] 2014 [place] [address] David Raymond MD [address] [facility] 2029 [place] [address] documented as of this encounter Visit Diagnoses Not on filedocumented in this encounter Care Teams Environmental Sampling Technician Relationship Specialty Start Date End Date Long Mejias MD [address] [facility] 120 [place] [address] PCP - General Family Practice 06/24/19 documented as of this encounter
--- OUTSIDE RECORDS SUMMARY | 2025-03-17 13:16 | XMS_ITS | Encounter Summary ---
Author Organization [facility] Address 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 Gender Identity Not on file Sexual Orientation Not on file documented as of this encounter Plan of Treatment Upcoming Encounters Date Type Department Care Team (Late st Contact Info) Description 03/22/2025 1:30 PM CDT Office Visit [facility] At [address] [place] [address] Florence House FNP [address] [place] [address] 2014 [place] [address] 07/13/2025 11:00 AM CDT Office Visit [facility] At [address] 2014 [place] [address] David Raymond MD [address] [facility] 2029 [place] [address] documented as of this encounter Visit Diagnoses Not on filedocumented in this encounter Care Teams Chip Frier Relationship Specialty Start Date End Date Long Mejias MD [address] [facility] 120 [place] [address] PCP - General Family Practice 06/24/19 documented as of this encounter
--- OUTSIDE RECORDS SUMMARY | 2025-03-17 13:16 | XMS_ITS | Encounter Summary ---
Author Organization [facility] Address [address] [place] [address] Care Team Providers Care Impregnating Tank Operator Name Role Phone Long Mejias MD Primary Care Provider [phone] Encounter Details Date Type Department Care Team (Late st Contact Info) Description 2007 Outpatient Historical [facility] Trauma and General Surgery [address] [facility] [address] [address] [place] [address] [place] [address] Social History Tobacco Use Types Packs/Day Years Used Date Smoking Tobacco: Never Assessed Sex and Gender Information Value Date Recorded Sex Assigned at Not on file 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 Gender Identity Not on file Sexual Orientation Not on file documented as of this encounter Plan of Treatment Upcoming Encounters Date Type Department Care Team (Late st Contact Info) Description 03/22/2025 1:30 PM CDT Office Visit [facility] At [address] [place] [address] Florence House, AIRLINE STATION AGENT [address] [place] [address] 2014 [place] [address] 07/13/2025 11:00 AM CDT Office Visit [facility] At [address] [place] [address] David Raymond MD [address] [facility] [address] [place] [address] documented as of this encounter Visit Diagnoses Not on filedocumented in this encounter Care Teams Impregnating Tank Operator Relationship Specialty Start Date End Date Long Mejias MD [address] [facility] 120 [place] [address] PCP - General Family Practice 06/24/19 documented as of this encounter
--- OUTSIDE RECORDS SUMMARY | 2025-03-17 13:16 | XMS_ITS | Encounter Summary ---
Author Organization [facility] Address [address] [place] [address] Care Team Providers Care Biology Faculty Member Name Role Phone Long Mejias MD Primary Care Provider [phone] Encounter Details Date Type Department Care Team (Late st Contact Info) Description 06/30/2007 Outpatient Historical [facility] Support Serv. 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 Gender Identity Not on file Sexual Orientation Not on file documented as of this encounter Plan of Treatment Upcoming Encounters Date Type Department Care Team (Late st Contact Info) Description 03/22/2025 1:30 PM CDT Office Visit [facility] Heart [facility] V[facility] At [address] 2014 [place] [address] Florence House FNP [address] [place] [address] 2014 [place] [address] 07/13/2025 11:00 AM CDT Office Visit [facility] At [address] 2014 [place] [address] David Raymond MD [address] [place] [address] [address] [place] [address] documented as of this encounter Visit Diagnoses Not on filedocumented in this encounter Care Teams Biology Faculty Member Relationship Specialty Start Date End Date Long Mejias MD [address] [facility] 120 [place] [address] PCP - General Family Practice 06/24/19 documented as of this encounter
--- OUTSIDE RECORDS SUMMARY | 2025-03-17 13:16 | XMS_ITS | Encounter Summary ---
Author Organization [facility] Address [address] [place] [address] Care Team Providers Care Setter Automatic Spinning Lathe Name Role Phone Long Mejias MD Primary Care Provider [phone] Encounter Details Date Type Department Care Team (Late st Contact Info) Description 07/10/2007 Outpatient Historical [facility] Trauma and General Surgery [address] [facility] [address] [address] [place] [address] [place] [address] Social History Tobacco Use Types Packs/Day Years Used Date Smoking Tobacco: Never Assessed Sex and Gender Information Value Date Recorded Sex Assigned at Not on file 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 Gender Identity Not on file Sexual Orientation Not on file documented as of this encounter Plan of Treatment Upcoming Encounters Date Type Department Care Team (Late st Contact Info) Description 03/22/2025 1:30 PM CDT Office Visit [facility] V[facility] At [address] 2014 [place] [address] Florence House, DEATH CLAIM EXAMINER [address] [place] [address] 2014 [place] [address] 07/13/2025 11:00 AM CDT Office Visit [facility] At [address] 2014 [place] [address] David Raymond MD [address] [facility] [address] [place] [address] documented as of this encounter Visit Diagnoses Not on filedocumented in this encounter Care Teams Setter Automatic Spinning Lathe Relationship Specialty Start Date End Date Long Mejias MD [address] [facility] 120 [place] [address] PCP - General Family Practice 06/24/19 documented as of this encounter
--- OUTSIDE RECORDS SUMMARY | 2025-03-17 13:16 | XMS_ITS | Clinical Summary ---
Author Organization [facility] Address [address] [place] [address] Care Team Providers Care Medical Geneticist Name Role Phone Jose Keene MD Primary Care Provider Social History Tobacco Use Types Packs/Day Years Used Date Smoking Tobacco: Never Assessed Sex and Gender Information Value Date Recorded Sex Assigned at Not on file Legal Sex Male 7:39 PM CDT Gender Identity Not on file Sexual Orientation Not on file Last Filed Vital Signs Vital Sign Reading Time Taken Comments Blood Pressure 132/70 03/25/2017 9:44 AM CDT Pulse 56 03/25/2017 9:44 AM CDT Temperature - - Respiratory Rate - - Oxygen Saturation - - Inhaled Oxygen Concentration - - Weight 92.8 kg (204 lb 8 oz) 03/25/2017 9:44 AM CDT Height - - Body Mass Index - - Plan of Treatment Health Maintenance Due Date Last Done Comments Colorectal Cancer Screening Colonoscopy (10 Years) 1950 Hepatitis C 1970 DTaP, Tdap and Td Vaccines ( 1 - Tdap) 1971 Pneumococcal Vaccine: 50+ Ye ars (1 of 1 - PCV) 2002 Zoster Vaccines (1 of 2) 2002 COVID-19 Vaccine ( - 2023-2 5 season) 2024 RSV Immunization or 60+ Years (1 - 1-dose 75+ series) 2027 Meningococcal B Vaccine Aged Out No l onger eligible based on patient's age to complete this topic Meningococcal Vaccine Aged Out No ann meron eligible based on patient's age to complete this topic RSV Immunizations Under 20 Months Aged Out No longer eligible based on patient's age to complete this topic Care Teams Medical Geneticist Relationship Specialty Start Date End Date Jose Keene MD [address] [place] [phone] [facility] - General 04/03/16
--- OUTSIDE RECORDS SUMMARY | 2025-03-17 13:16 | XMS_ITS | Encounter Summary ---
Author Organization [facility] Address [address] [place] [address] Care Team Providers Care Medical Services Assistant Name Role Phone Long Mejias MD Primary Care Provider [phone] Encounter Details Date Type Department Care Team (Late st Contact Info) Description 07/08/[address] [facility] Supp Svcs Blood Flow [address] [place] [address] Richard Fernandez MD [address] 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 Gender Identity Not on file Sexual Orientation Not on file documented as of this encounter Plan of Treatment Upcoming Encounters Date Type Department Care Team (Late st Contact Info) Description 03/22/2025 1:30 PM CDT Office Visit [facility] Heart and Vascular At [address] 2014 [place] [address] Florence House FNP [facility] [address] [facility] 2014 [place] [address] 07/13/2025 11:00 AM CDT Office Visit [facility] Heart and Vascular At [address] 2014 [place] [address] David Raymond MD [address] [facility] [address] [place] [address] documented as of this encounter Visit Diagnoses Not on filedocumented in this encounter Care Teams Medical Services Assistant Relationship Specialty Start Date End Date Long Mejias MD [address] [facility] 120 [place] [address] PCP - General Family Practice 06/24/19 documented as of this encounter
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
--- OUTSIDE RECORDS SUMMARY | 2025-03-17 13:16 | XMS_ITS | Encounter Summary ---
Author Organization [facility] Address 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 Gender Identity Not on file Sexual Orientation Not on file documented as of this encounter Plan of Treatment Upcoming Encounters Date Type Department Care Team (Late st Contact Info) Description 03/22/2025 1:30 PM CDT Office Visit [facility] At [address] [place] [phone] Florence House FNP [address] [place] [address] [address] [place] [phone] 07/13/2025 11:00 AM CDT Office Visit [facility] At [address] [place] [phone] David Raymond MD [address] [place] [address] [place] [address] documented as of this encounter Procedures Procedure Name Priority Date/Time Associated Diagnosis Comments CT HEAD WO CONTRAST Timed Study 03/11/2008 1:35 PM CDT documented in this encounter Results * CT HEAD WO CONTRAST (03/11/2008 1:35 PM CDT) Anatomical Region Laterality Modality Head Other 03/11/2008 1:35 PM CDT Narrative 03/11/2008 3:50 PM CDT [facility] [address], [place] [address] Admit Date: 03/11/2008 BRAYDONZAFAR Sex: M Admit Prov: JOSE DAVID RITCHIE Date: 1950 Primary Care Prov: CMRN: [id number] Room: [facility] SSN: [id number] IMAGING SERVICES Ordering Prov: N/A Accession Number: [id number] Interpretation CT OF THE BRAIN WITHOUT CONTRAST 03/11/08 Clinical History: Followup subdural hematomas. Technique: Axial 5 mm images of the brain were obtained without intravenous contrast. Comparison: 03/01/08. Findings: Images demonstrate a bur hole within the left frontal and left parietal skull similar to previous exam. A left frontoparietal extra-axial fluid collection is again noted with slightly heterogeneous but predominantly low attenuation. This measures up to 1.1 cm in thickness on today's exam. It previously measured up to 1.5 cm. A small amount of air is noted within the extra-axial space on the left which has decreased in amount. A stable right extra-axial frontal parietal fluid collection is noted measuring 1.1 cm in thickness. This is stable in size and appearance. The ventricles are normal in size. A few millimeters of subfalcine midline shift is noted which is less pronounced than on previous exam. No new intracranial hemorrhage or new significant mass effect is seen. Mild mucosal thickening of the ethmoid air cells is present. IMPRESSION: Mild decrease in size of left extra-axial fluid collection postoperatively. Stable right subdural fluid collection. No new intracranial hemorrhage. Minimal but slightly decreased mass effect. . Dictated by: STEPHANIE CROWDER 03/11/2008 13:59 Electronically signed by: STEPHANIE CROWDER03/11/2008 15:50 Transcribed: 03/11/2008 15:41 Procedure Note Stephanie Crowder MD - 03/11/2008 [facility] [address] [place], [place] [address] Admit Date: 03/11/2008 ZAFAR BRIGGS Sex: M Admit Prov: JOSE DAVID RITCHIE Date: 1950 Primary Care Prov: CMRN: [id number] Room: [facility] SSN: [id number] IMAGING SERVICES Ordering Prov: N/A Interpretation CT OF THE BRAIN WITHOUT CONTRAST 03/11/08 Clinical History: Followup subdural hematomas. Technique: Axial 5 mm images of the brain were obtained withoutintravenous contrast. Comparison: 03/01/08. Findings: Images demonstrate a bur hole within the left frontal and leftparietal skull similar to previous exam. A left frontoparietal extra-axialfluid collection is again noted with slightly heterogeneous butpredominantly low attenuation. This measures up to 1.1 cm in thickness on today's exam.It previously measured up to 1.5 cm. A small amount of air is notedwithin the extra-axial space on the left which has decreased in amount. A stableright extra-axial frontal parietal fluid collection is noted measuring 1.1cm in thickness. This is stable in size and appearance. The ventriclesare normal in size. A few millimeters of subfalcine midline shift isnoted which is less pronounced than on previous exam. No new intracranial hemorrhage or new significant mass effect is seen. Mild mucosalthickening of the ethmoid air cells is present. IMPRESSION: Mild decrease in size of left extra-axial fluid collectionpostoperatively. Stable right subdural fluid collection. No new intracranial hemorrhage. Minimal but slightly decreased mass effect. . Dictated by: STEPHANIE CROWDER 03/11/2008 13:59 Electronically signed by: STEPHANIE CROWDER03/11/2008 15:50 Transcribed: 03/11/2008 15:41 Jose David Ritchie MD CT ORDERABLES Final Result documented in this encounter Visit Diagnoses Diagnosis Subdural hemorrhage (CMS/HCC) Subdural hemorrhage documented in this encounter Care Teams Online Merchant Relationship Specialty Start Date End Date Long Mejias MD [address] [facility] [address] [place] [id number] PCP - General Family Practice 06/24/19 documented as of this encounter
--- OUTSIDE RECORDS SUMMARY | 2025-03-17 13:16 | XMS_ITS | Encounter Summary ---
Author Organization [facility] Address 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 Gender Identity Not on file Sexual Orientation Not on file documented as of this encounter Plan of Treatment Upcoming Encounters Date Type Department Care Team (Late st Contact Info) Description 03/22/2025 1:30 PM CDT Office Visit [facility] Heart and Vascular At [address] [place] [address] Florence House FNP [address] [place] [address] 2014 [place] [address] 07/13/2025 11:00 AM CDT Office Visit [facility] Heart and Vascular At [address] [place] [address] David Raymond MD [address] [place] [address] [place] [address] documented as of this encounter Procedures Procedure Name Priority Date/Time Associated Diagnosis Comments CT HEAD WO CONTRAST Timed Study 03/25/2008 3:03 PM CDT documented in this encounter Results * CT HEAD WO CONTRAST (03/25/2008 3:03 PM CDT) Anatomical Region Laterality Modality Head Other 03/25/2008 3:03 PM CDT Narrative 03/28/2008 7:55 PM CDT [facility] [address] [place], [place] [address] Admit Date: 03/25/2008 ZAFAR BRIGGS Sex: M Admit Prov: JOSE DAVID RITCHIE Date: 1950 Primary Care Prov: CMRN: [id number] Room: [facility] SSN: [id number] [address] IMAGING SERVICES Ordering Prov: N/A Accession Number: [id number] Interpretation CT head without contrast 03/25/2008 History: Subdural hemorrhage. Technique: Contiguous 5 mm unenhanced images were obtained through the head Findings: Comparison study is dated 03/11/2008. The subdural collection over bilateral convexity is again noted. The left subdural collection has decreased in size measuring 7 mm in maximal thickness. The right side is unchanged. The left parietal craniotomy is again seen. No new hemorrhage is visualized. There is no midline shift. The ventricles are normal in size. The ponce-white differentiation is preserved. . Report revised on 03/28/2008 7:55:08 PM by HALIMA LEPE Dictated by: HALIMA LEPE 03/25/2008 15:54 Electronically signed by: HALIMA LEPE 03/28/2008 19:55 Transcribed: 03/27/2008 10:23 AMK Procedure Note Halima Lepe - 03/28/2008 [facility] [address] [place], [place] [address] Admit Date: 03/25/2008 ZAFAR BRIGGS Sex: M Admit Prov: JOSE DAVID RITCHIE Date: 1950 Primary Care Prov: CMRN: [id number] Room: [facility] SSN: [id number] IMAGING SERVICES Ordering Prov: N/A Interpretation CT head without contrast 03/25/2008 History: Subdural hemorrhage. Technique: Contiguous 5 mm unenhanced images were obtained throughthe head Findings: Comparison study is dated 03/11/2008. The subduralcollection over bilateral convexity is again noted. The left subdural collectionhas decreased in size measuring 7 mm in maximal thickness. The right sideis unchanged. The left parietal craniotomy is again seen. No newhemorrhage is visualized. There is no midline shift. The ventricles are normal insize. The ponce-white differentiation is preserved. . Report revised on 03/28/2008 7:55:08 PM by HALIMA LEPE Dictated by: HALIMA LEPE 03/25/2008 15:54 Electronically signed by: HALIMA LEPE 03/28/2008 19:55 Transcribed: 03/27/2008 10:23 AMK us Jose David Ritchie MD CT ORDERABLES Edited documented in this encounter Visit Diagnoses Diagnosis Subdural hemorrhage (CMS/HCC) Subdural hemorrhage documented in this encounter Care Teams Manager Of Internal Relationship Specialty Start Date End Date Long Mejias MD [address] [facility] [address] [place] [address] PCP - General Family Practice 06/24/19 documented as of this encounter
--- OUTSIDE RECORDS SUMMARY | 2025-03-17 13:16 | XMS_ITS | Encounter Summary ---
Author Organization [facility] Address 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 Gender Identity Not on file Sexual Orientation Not on file documented as of this encounter Plan of Treatment Upcoming Encounters Date Type Department Care Team (Late st Contact Info) Description 03/22/2025 1:30 PM CDT Office Visit [facility] Heart and Vascular At [address] [place] [address] Florence House FNP [address] [place] [address] 2014 [place] [address] 07/13/2025 11:00 AM CDT Office Visit [facility] Heart and Vascular At [address] [place] [address] David Raymond MD [address] [facility] [address] [place] [address] documented as of this encounter Procedures Procedure Name Priority Date/Time Associated Diagnosis Comments PT AND APTT Routine 07/18/2007 7:05 PM CDT CBC WITH DIFFERENTIAL Routine 07/18/2007 7:05 PM CDT CBC WITH DIFFERENTIAL Routine 07/18/2007 7:05 PM CDT COMPREHENSIVE METABOLIC PANEL Routine 07/18/2007 7:05 PM CDT documented in this encounter Results * CBC WITH DIFFERENTIAL (07/18/2007 7:05 PM CDT) NEUTROPHILS 55 45 - 70 % INTERFAC E SYSTEM LYMPHOCYTES 27 16 - 45 % INTERFAC E SYSTEM MONOCYTES 11 3 - 13 % INTERFACE SYSTEM EOSINOPHILS 6 0 - 7 % INTERFAC E SYSTEM BASOPHILS 1 0 - 2 % INTERFACE SYSTEM NEUTROPHIL ABSOLUTE 4.67 1.90 - 7.00 K/uL INTERFACE SYSTEM LYMPHOCYTE ABSOLUTE 2.31 0.70 - 4.50 K/uL INTERFACE SYSTEM MONOCYTE ABSOLUTE 0.90 0.10 - 1.30 K/uL INTERFACE SYSTEM EOSINOPHIL ABSOLUTE 0.51 0.00 - 0.70 K/uL INTERFACE SYSTEM BASOPHILS ABSOLUTE 0.09 0.00 - 0.20 K/uL INTERFACE SYSTEM 07/18/2007 7:05 PM CDT us Brian Clement DO HEMATOLOGY ORDERABLES Edited INTERFACE SYSTEM Refer to clinic/hospital department * CBC WITH DIFFERENTIAL (07/18/2007 7:05 PM CDT) WBC 8.5 4.0 - 9.8 K/uL INTERFACE SYSTEM RBC 4.64 4.50 - 5.40 M/uL INTERFACE SYSTEM HEMOGLOBIN 13.9 13.6 - 16.5 g/dL INTERFACE SYSTEM HEMATOCRIT 40.6 40.0 - 48.0 % INTERFACE SYSTEM MCV 87.5 82.0 - 99.0 fL INTERFACE SYSTEM MCH 30.0 27.2 - 32.6 pg INTERFACE SYSTEM MCHC 34.2 31.5 - 35.5 % INTERFACE SYSTEM RDW 12.8 11.5 - 14.5 % INTERFACE SYSTEM RDW-STDEV 40.6 37.1 - 48.7 fL INTERFACE SYSTEM PLATELETS 347 140 - 350 K/uL INTERFACE SYSTEM MPV 9.6 9.3 - 12.4 fL INTERFACE SYSTEM 07/18/2007 7:05 PM CDT Brian App47angelica DO HEMATOLOGY ORDERABLES Edited INTERFACE SYSTEM Refer to clinic/hospital department * PT AND APTT (07/18/2007 7:05 PM CDT) PROTIME 14.0 12.7 - 15.1 Seconds INTERFACE SYSTEM INR 1.1 0.9 - 1.1 INTERFACE SYSTEM Comment: INR [...] therapeutic ranges have not been established. PTT 32.4 24.4 - 36.4 Seconds INTERFACE SYSTEM Comment: PTT Therapeutic Range: Heparin Level PTT (seconds) <0.10 units/mL <53 0.10 - 0.30 units/mL 53 - 67 0.30 - 0.70 units/mL* 67 - 95* 0.70 - 1.00 units/mL 95 - 116 *corresponds to therapeutic range for unfractionated heparin 07/18/2007 7:05 PM CDT Brian App47noahe DO HEMATOLOGY ORDERABLES Edited INTERFACE SYSTEM Refer to clinic/hospital department * (ABNORMAL) COMPREHENSIVE METABOLIC PANEL (07/18/2007 7:05 PM CDT) GLUCOSE 84 65 - 99 mg/dL INTERFACE SYSTEM CREATININE 0.94 0.67 - 1.17 mg/dL INTERFACE SYSTEM CALCIUM 8.6 8.4 - 10.2 mg/dL INTERFACE SYSTEM ALKALINE PHOSPHATASE 225(H) 40 - 129 U/L INTERFACE SYSTEM AST 28 12 - 38 U/L INTERFACE SYSTEM ALT 42(H) 0 - 41 U/L INTERFACE SYSTEM TOTAL PROTEIN 7.6 6.3 - 8.6 g/dL INTERFACE SYSTEM ALBUMIN 4.3 3.4 - 4.8 g/dL INTERFACE SYSTEM BILIRUBIN TOTAL 0.2 0.2 - 1.0 mg/dL INTERFACE SYSTEM BUN 20 6 - 20 mg/dL INTERFACE SYSTEM SODIUM 142 135 - 145 mmol/L INTERFACE SYSTEM POTASSIUM 4.2 3.5 - 4.9 mmol/L INTERFACE SYSTEM CHLORIDE 103 96 - 108 mmol/L INTERFACE SYSTEM CO2 30 22 - 30 mmol/L INTERFACE SYSTEM GFR, >60 >=60 mL/min/1. 7 sq meter INTERFACE SYSTEM GFR >60 >=60 mL/min/1. 7 sq meter INTERFACE SYSTEM Comment: Estimated GFR rate interpretative information for both Americans and non- Americans is available on the [facility] Intranet at: [email or web address] Select: Lab Policies and Procedures Select: Reference Ranges - GFR 07/18/2007 7:05 PM CDT Brian Clement CHEMISTRY ORDERABLES Edited INTERFACE SYSTEM Refer to clinic/hospital department documented in this encounter Visit Diagnoses Diagnosis Other acute pain- Primary documented in this encounter Care Teams Metal Furrer Relationship Specialty Start Date End Date Long Mejias MD [address] [facility] 120 [place] [address] PCP - General Family Practice 06/24/19 documented as of this encounter
--- OUTSIDE RECORDS SUMMARY | 2025-03-17 13:16 | XMS_ITS | Encounter Summary ---
Author Organization [facility] Address [address] [place] [address] Care Team Providers Care Mangle Catcher Name Role Phone Long Mejias MD Primary Care Provider [phone] Encounter Details Date Type Department Care Team (Late st Contact Info) Description 06/30/2007 Outpatient Historical [facility] Trauma and General Surgery [address] [facility] [address] [facility] [address] Ranulfo Grijalva MD [facility] [address] [place] [address] Social History Tobacco Use Types Packs/Day Years Used Date Smoking Tobacco: Never Assessed Sex and Gender Information Value Date Recorded Sex Assigned at Not on file 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 Gender Identity Not on file Sexual Orientation Not on file documented as of this encounter Plan of Treatment Upcoming Encounters Date Type Department Care Team (Late st Contact Info) Description 03/22/2025 1:30 PM CDT Office Visit [facility] Heart and Vascular At [address] [place] [address] Florence House, GUMARO [address] [place] [address] 2014 [place] [address] 07/13/2025 11:00 AM CDT Office Visit [facility] Heart and Vascular At [address] [place] [address] David Raymond MD [address] [facility] [address] [place] [address] documented as of this encounter Visit Diagnoses Not on filedocumented in this encounter Care Teams Mangle Catcher Relationship Specialty Start Date End Date Long Mejias MD [address] [facility] 120 [place] [address] PCP - General Family Practice 06/24/19 documented as of this encounter
--- OUTSIDE RECORDS SUMMARY | 2025-03-17 13:16 | XMS_ITS | Encounter Summary ---
Author Organization [facility] Address 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 Gender Identity Not on file Sexual Orientation Not on file documented as of this encounter Plan of Treatment Upcoming Encounters Date Type Department Care Team (Late st Contact Info) Description 03/22/2025 1:30 PM CDT Office Visit [facility] Heart and Vascular At [address] [place] [address] Florence House FNP [address] [place] [address] 2014 [place] [address] 07/13/2025 11:00 AM CDT Office Visit [facility] Heart and Vascular At [address] [place] [address] David Raymond MD [address] [place] [address] [address] [place] [address] documented as of this encounter Procedures Procedure Name Priority Date/Time Associated Diagnosis Comments CT HEAD WO CONTRAST Routine 04/22/2008 1 2:09 PM CDT documented in this encounter Results * CT HEAD WO CONTRAST (04/22/2008 12:09 PM CDT) Anatomical Region Laterality Modality Head Other 04/22/2008 12:0 9 PM CDT Narrative 04/23/2008 8:30 AM CDT [facility] [address] [place], [place] [address] Admit Date: 04/22/2008 ZAFAR BRIGGS Sex: M Admit Prov: JOSE DAVID RITCHIE Date: 1950 Primary Care Prov: CMRN: [id number] Room: [facility] SSN: [id number] IMAGING SERVICES Ordering Prov: N/A Accession Number: [id number] Interpretation EXAMINATION: CT OF THE HEAD WITHOUT CONTRAST 04/22/2008 Clinical History: Trauma, subdural hematoma. Procedure: Axial 5 mm images of the head were obtained from the skullbase through the vertex without IV contrast. Findings: Examination demonstrates laura holes within the left parietal region. Left subdural fluid collection has been evacuated in comparison to prior study of March 25, 2008. Chronic hypodense right subdural fluid collection is present and similar to prior study. Midline structures are central. Lateral and third ventricles are normal size. No clear evidence of ischemia, interparenchymal hemorrhage or space-occupying mass is identified. Impression: Chronic right subdural hematoma, similar to prior study. No clear evidence of left subdural hematoma. . Dictated by: Isac NAYLOR 04/22/2008 15:57 Electronically signed by: Isac NAYLOR 04/23/2008 08:30 Transcribed: 04/22/2008 17:20 SJ Procedure Note Provider, Historical - 04/23/2008 [facility] [address] [place], [place] [address] Admit Date: 04/22/2008 ZAFAR BRIGGS Sex: M Admit Prov: JOSE DAVID RITCHIE Date: 1950 Primary Care Prov: CMRN: [id number] Room: [facility] SSN: [id number] IMAGING SERVICES Ordering Prov: N/A Interpretation EXAMINATION: CT OF THE HEAD WITHOUT CONTRAST 04/22/2008 Clinical History: Trauma, subdural hematoma. Procedure: Axial 5 mm images of the head were obtained from theskullbase through the vertex without IV contrast. Findings: Examination demonstrates laura holes within the leftparietal region. Left subdural fluid collection has been evacuated incomparison to prior study of March 25, 2008. Chronic hypodense right subdural fluid collection is present and similar to prior study. Midline structuresare central. Lateral and third ventricles are normal size. No clearevidence of ischemia, interparenchymal hemorrhage or space-occupying mass is identified. Impression: Chronic right subdural hematoma, similar to prior study. No clearevidence of left subdural hematoma. . Dictated by: Isac NAYLOR 04/22/2008 15:57 Electronically signed by: Isac NAYLOR 04/23/2008 08:30 Transcribed: 04/22/2008 17:20 SJ Jose David Ritchie MD CT ORDERABLES Final Result documented in this encounter Visit Diagnoses Diagnosis Subdural hemorrhage (CMS/HCC) Subdural hemorrhage documented in this encounter Care Teams Contract Negotiation Specialist Relationship Specialty Start Date End Date Long Mejias MD [address] [facility] 120 [place] [address] PCP - General Family Practice 06/24/19 documented as of this encounter
--- OUTSIDE RECORDS SUMMARY | 2025-03-17 13:16 | XMS_ITS | Encounter Summary ---
Author Organization [facility] Address 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 Gender Identity Not on file Sexual Orientation Not on file documented as of this encounter Plan of Treatment Upcoming Encounters Date Type Department Care Team (Late Contact Info) Description 03/22/2025 1:30 PM CDT Office Visit [facility] Heart and Vascular At [address] [place] [address] Florence House FNP [address] [place] [address] 2014 [place] [address] 07/13/2025 11:00 AM CDT Office Visit [facility] Heart and Vascular At [address] 2014 [place] [address] David Raymond MD [address] [place] [address] 2029 [place] [address] documented as of this encounter Visit Diagnoses Not on filedocumented in this encounter Care Teams Hand Potter Relationship Specialty Start Date End Date Long Mejias MD [address] [facility] 120 [place] [address] PCP - General Family Practice 06/24/19 documented as of this encounter
--- OUTSIDE RECORDS SUMMARY | 2025-03-17 13:16 | XMS_ITS | Encounter Summary ---
Author Organization [facility] Address [address] [place] [address] Care Team Providers Care Train Operator Name Role Phone Long Mejias MD Primary Care Provider [phone] Encounter Details Date Type Department Care Team (Late st Contact Info) Description 07/02/2007 Outpatient Historical [facility] Trauma and General Surgery [address] [facility] [address] [facility] [place] [address] Ranulfo Grijalva MD [facility] [address] [place] [address] Social History Tobacco Use Types Packs/Day Years Used Date Smoking Tobacco: Never Assessed Sex and Gender Information Value Date Recorded Sex Assigned at Not on file 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 Gender Identity Not on file Sexual Orientation Not on file documented as of this encounter Plan of Treatment Upcoming Encounters Date Type Department Care Team (Late st Contact Info) Description 03/22/2025 1:30 PM CDT Office Visit [facility] Heart and Vascular At [address] [place] [address] Florence House, GUMARO [address] [place] [address] 2014 [place] [address] 07/13/2025 11:00 AM CDT Office Visit [facility] Heart and Vascular At [address] [place] [address] David Raymond MD [address] [facility] [address] [place] [address] documented as of this encounter Visit Diagnoses Not on filedocumented in this encounter Care Teams Train Operator Relationship Specialty Start Date End Date Long Mejias MD [address] [facility] 120 [place] [address] PCP - General Family Practice 06/24/19 documented as of this encounter
--- OUTSIDE RECORDS SUMMARY | 2025-03-17 13:16 | XMS_ITS | Encounter Summary ---
Author Organization [facility] Address [address] [place] [address] Care Team Providers Care Assistant Office Manager Name Role Phone Long Mejias MD Primary Care Provider [phone] Encounter Details Date Type Department Care Team (Late st Contact Info) Description 07/02/2007 Outpatient Historical [facility] 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 Gender Identity Not on file Sexual Orientation Not on file documented as of this encounter Plan of Treatment Upcoming Encounters Date Type Department Care Team (Late st Contact Info) Description 03/22/2025 1:30 PM CDT Office Visit [facility] Heart and Vascular At [address] [place] [address] Florence House FNP [address] [place] [address] 2014 [place] [address] 07/13/2025 11:00 AM CDT Office Visit [facility] Heart and Vascular At [address] [place] [address] David Raymond MD [address] [place] [address] [address] [place] [address] documented as of this encounter Visit Diagnoses Not on filedocumented in this encounter Care Teams Assistant Office Manager Relationship Specialty Start Date End Date Long Mejias MD [address] [facility] 120 [place] [address] PCP - General Family Practice 06/24/19 documented as of this encounter
--- OUTSIDE RECORDS SUMMARY | 2025-03-17 13:16 | XMS_ITS | Encounter Summary ---
Author Organization [facility] Address [address] [place] [address] Care Team Providers Care Clocksmith Name Role Phone Long Mejias MD Primary Care Provider [phone] Encounter Details Date Type Department Care Team (Late st Contact Info) Description 07/01/2007 Outpatient Historical [facility] Trauma and General Surgery [address] [facility] [facility] [place] [address] Ranulfo Grijalva MD [facility] [address] [place] [address] Social History Tobacco Use Types Packs/Day Years Used Date Smoking Tobacco: Never Assessed Sex and Gender Information Value Date Recorded Sex Assigned at Not on file 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 Gender Identity Not on file Sexual Orientation Not on file documented as of this encounter Plan of Treatment Upcoming Encounters Date Type Department Care Team (Late st Contact Info) Description 03/22/2025 1:30 PM CDT Office Visit [facility] Heart and Vascular At [address] [place] [address] Florence House, GUMARO [address] [place] [address] 2014 [place] [address] 07/13/2025 11:00 AM CDT Office Visit [facility] Heart and Vascular At [address] [place] [address] David Raymond MD [address] [facility] [address] [place] [address] documented as of this encounter Visit Diagnoses Not on filedocumented in this encounter Care Teams Clocksmith Relationship Specialty Start Date End Date Long Mejias MD [address] [facility] 120 [place] [address] PCP - General Family Practice 06/24/19 documented as of this encounter
--- OUTSIDE RECORDS SUMMARY | 2025-03-17 13:16 | XMS_ITS ---
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 Oxygen Saturation 92% 03/01/2025 9:45 AM CDT Inhaled Oxygen Concentration - - Weight 93.9 kg (207 lb) 03/01/2025 6:48 AM CDT Height 180.3 cm (5' 11 ) 03/01/2025 6:48 AM CDT Body Mass Index 28.87 03/01/2025 6:48 AM CDT Plan of Treatment Upcoming Encounters Date Type Department Care Team (Late st Contact Info) Description 03/22/2025 1:30 PM CDT Office Visit [facility] [address] [place] [phone] [place] House, SUGAR PRESSER [address] [place] [address] 2014 [place] [phone] 07/13/2025 11:00 AM CDT Office Visit [facility] [address] [place] [address] David Raymond MD [address] [place] [address] [place] [address] Health Maintenance Due Date Last Done Comments FIT-DNA Q 3 years 1997 FIT/FOBT Q 1 year 1997 Flex Sig/CT Colonography Q 5 years 1997 RSV VACCINE (60+ or ) (1 - Risk 60-74 years 1-dose series) 2012 ZOSTER VACCINE (2 of 3) 01/18/2015 11/23/2014 Abdominal Aortic Aneurysm (A AA) Screening 2017 INFLUENZA VACCINE (#1) 2024 , 08/05/2019, 09/03/2018, Additional history exists DTAP/TDAP/TD VACCINES (2 - T d or Tdap) 08/19/2024 08/19/2014 COLORECTAL SCREENING 03/08/2032 03/08/2022, 03/08/2022, 05/18/2015 Colorectal Cancer Screening 03/08/2032 PNEUMOCOCCAL VACCINE 50+ YEARS Completed 05/02/2023 , 11/25/2010 Medical Devices Implanted Type Area Mails Supervisor Device Identifier Shelf Expiration Date Model / Serial / Lot Clip Ligating Horizon Sm Ti [id number] - Csc - [id number] Implanted:Qty : 6 on 09/11/2021 by Amena Jacinto MD at [facility] Clip Left: Chest TELE[employer]LEX INC 03/23/2026 [id number] / / [id number] Clip Ligating Horizon Med Ti [id number] - Csc - [id number] Implanted:Qty : 2 on 09/11/2021 by Amena Jacinto MD at [facility] Clip Left: Chest TELEFLEX- WECK CLOSURE SYS 03/23/2026 [id number] / / [id number] Egg Pasteurizer Clip Surgiclip Iii Ti Tc Sm 9in [id number] - [id number] Implanted:Qty : 1 on 09/11/2021 by Amena Jacinto MD at [facility] Clip Left: Chest MED[employer]IC - COVIDIEN [id number] 05/24/2026 [id number] / / Dev Closure Angioseal 6fr Vip [id number] - [id number] Implanted:Qty : 1 on 03/01/2025 by Gokul Gamez MD at [facility] Closure Device N/A: Groin TERUMO- CARDIOVASC SYS [id number] 09/28/2025 [id number] / / [id number] Marker Anastomark Cabg Slcn Fm-Pm-1 - [id number] Implanted:Qty : 2 on 09/11/2021 by Amena Jacinto MD at [facility] Other N/A: Chest GEN[employer]EE [employer]ED [employer] 09/24/2022 FM-PM-1 / / [id number] Premier-2013 Implanted: by Doyle Holguin MD (Quantity not on file) Explanted:(Qu antity not on file) Stent Stent Yemi Harbeson Alex 3.0x15mm Rx [id number] - [id number] Implanted:Qty : 1 on 03/01/2025 by Gokul Gamez MD at [facility] Stent N/A: Heart [employer] INC [id number] 12/10/2026 [id number] 15UX / / [id number] Stent Yemi Harbeson Alex 2.56g65fe Rx [id number] - [id number] Implanted:Qty : 1 on 03/01/2025 by Gokul Gamez MD at [facility] Stent N/A: Heart [employer] [id number] 09/18/2026 [id number] 12UX / / [id number] Procedures Procedure Name Priority Date/Time Associated Diagnosis Comments TELEMETRY REPORT 03/02/2025 3:45 PM CDT EKG 12-LEAD Routine 03/01/2025 9:48 AM CDT POC ACTIVATED CLOTTING TIME Routine 03/01/2025 8:58 AM CDT PERCUTANEOUS CORONARY INTERVENTION Routine 03/01/2025 8:56 AM CDT SOB (shortness of breath) Chest discomfort PROTIME-INR Routine 02/22/2025 9:56 AM CDT Abnormal stress test S/P CABG x 4 Shortness of breath Chest discomfort CBC WITH DIFFERENTIAL Routine 02/22/2025 9:56 AM CDT Abnormal stress test S/P CABG x 4 Shortness of breath Chest discomfort BASIC METABOLIC PANEL Routine 02/22/2025 9:56 AM CDT Abnormal stress test S/P CABG x 4 Shortness of breath Chest discomfort from Last 3 Months Results * TELEMETRY REPORT (03/02/2025 3:45 PM CDT) us Provider Scanning ECG ORDERABLES Final Result * EKG 12-LEAD (03/01/2025 9:48 AM CDT) 03/01/2025 9:48 AM CDT Narrative INTERFACE SYSTEM - 03/01/2025 10:24 [place] [address] Test Date: 2025-03-01 Pat Name: ZAFAR BRYSON Department: 0 Room: [facility] Gender: Male Tinter Photograph: : 1950 Requested By: GOKUL GAMEZ Order Number: [id number] Reading MD: Steve Leo Measurements Intervals [place] Rate: 54 P: 88 DC: 231 QRS: 46 QRSD: 104 T: 47 QT: 483 QTc: 459 Interpretive Statements SINUS BRADYCARDIA WITH FIRST DEGREE AV BLOCK PROLONGED QT INTERVAL Electronically Signed On 03-01-2025 10:24:11 CDT by Steve Leo Procedure Note Steve Leo MD - 03/01/2025 [place] [address] Test Date: 2025-03-01 Pat Name: ZAFAR BRYSON Department: 0 Room: [facility] Gender: Male Tinter Photograph: : 1950 Requested By: GOKUL GAMEZ Order Number: [id number] Reading : Steve Leo Measurements Intervals [place] Rate: 54 P: 88 DC: 231 QRS: 46 QRSD: 104 T: 47 QT: 483 QTc: 459 Interpretive Statements SINUS BRADYCARDIA WITH FIRST DEGREE AV BLOCK PROLONGED QT INTERVAL Electronically Signed On 03-01-2025 10:24:11 CDT by Steve Leo us Gokul Gamez MD ECG ORDERABLES Final Result INTERFACE SYSTEM Refer to clinic/hospital department * (ABNORMAL) POC ACTIVATED CLOTTING TIME (03/01/2025 8:58 AM CDT) ACTIVATED CLOTTING TIME POC 199(H) 74 - 137 sec 03/01/2025 8:58 AM CDT [facility] [employer] [facility] Comment:ACT testing performe d on ISTAT ACT-Kaolin cartridge. Blood 03/01/2025 8:58 AM CDT 03/01/2025 9:04 AM CDT us Gokul Gamez MD POINT OF CARE TESTING Final Resu lt [facility]# [id number] [address] [place] [id number] * PERCUTANEOUS CORONARY INTERVENTION (03/01/2025 8:56 AM CDT) 03/01/2025 7:48 AM CDT Narrative [facility] - 03/01/2025 9:04 AM CDT Diagnostic Dominance: Right Right Coronary Artery The vessel is large. The vessel exhibits minimal luminal irregularities. Previously placed Prox RCA to Mid RCA stent of unknown type is widely patent. The lesion is tubular. Right Posterior Descending Artery The vessel is large. The vessel exhibits minimal luminal irregularities. RPDA lesion is 70% stenosed. AKANKSHA flow is 3. The lesion is not complex (non high-C) and tubular. The lesion was previously treated using a stent of unknown type. The lesion has restenosis. Right Posterior Atrioventricular Artery RPAV lesion is 100% stenosed. The lesion was previously treated using a stent of unknown type. The lesion has restenosis. Intervention RPDA lesion Angioplasty Pre-stent angioplasty was performed. Angioplasty was performed prior to stent deployment. A CATH BALLN EMRG MR 2X12MM PTCA DILATE HDRPH ZGLIDE [id number] standard balloon was used in the main branch. Stent Drug-eluting stent was successfully placed. The stent used was a STENT YEMI FRONTIER ALEX 3.0X15MM RX [id number]. Stent was deployed by way of balloon expansion. Stent Drug-eluting stent was successfully placed. The stent used was a STENT YEMI FRONTIER ALEX 2.50E66SC RX [id number]. Stent was deployed by way of balloon expansion. Angioplasty Post-stent angioplasty was performed. Angioplasty was performed following stent deployment. A CATH BALLN DIL MR 3.02H37OE NC EMERGE PTCA HDRPH ZGLIDE [id number] standard balloon was used in the main branch. Post-Intervention Lesion Assessment The intervention was successful. The guidewire crossed the lesion. Device was deployed. Post-intervention AKANKSHA flow is 3. There were no complications. There is a 0% residual stenosis post intervention. Successful PCI from RCA into PDA with 2 ALEX'. ASA / Plavix. Bedrest x 2 hours after AngioSeal. Coronary Findings Diagnostic Dominance: Right Right Coronary Artery: The vessel is large. The vessel exhibits minimal luminal irregularities. Previously placed Prox RCA to Mid RCA stent of unknown type is widely patent. The lesion is tubular. Right Posterior Descending Artery: The vessel is large. The vessel exhibits minimal luminal irregularities. RPDA lesion is 70% stenosed. AKANKSHA flow is 3. The lesion is not complex (non high-C) and tubular. The lesion was previously treated using a stent of unknown type. The lesion has restenosis. Right Posterior Atrioventricular Artery: RPAV lesion is 100% stenosed. The lesion was previously treated using a stent of unknown type. The lesion has restenosis. Intervention RPDA lesion: Angioplasty: Pre-stent angioplasty was performed. Angioplasty was performed prior to stent deployment. A CATH BALLN EMRG MR 2X12MM PTCA DILATE HDRPH ZGLIDE [id number] standard balloon was used in the main branch. Stent: Drug-eluting stent was successfully placed. The stent used was a STENT YEMI FRONTIER ALEX 3.0X15MM RX [id number]. Stent was deployed by way of balloon expansion. Stent: Drug-eluting stent was successfully placed. The stent used was a STENT YEMI FRONTIER ALEX 2.66E05FY RX [id number]. Stent was deployed by way of balloon expansion. Angioplasty: Post-stent angioplasty was performed. Angioplasty was performed following stent deployment. A CATH BALLN DIL MR 3.80L90JT NC EMERGE PTCA HDRPH ZGLIDE [id number] standard balloon was used in the main branch. Post-Intervention Lesion Assessment: The intervention was successful. The guidewire crossed the lesion. Device was deployed. Post-intervention AKANKSHA flow is 3. There were no complications. There is a 0% residual stenosis post intervention. Estimated Blood Loss There was minimal blood loss during procedure. PCI RISK CSHA Frailty Score: Vulnerable (Not dependent on others but symptoms limit activity). NYHA Class: Class II: Slight limitation of physical activity. Comfortable at rest, but ordinary physical activity results in symptoms of HF. (TANNER, walking more than 2 blocks would cause TANNER) CV Instability: unknown. PAD: Unknown. Cerebrovascular Disease History: Unknown us Gokul Gamez MD CUP CATH ORDERABLES Final Result [facility]# [id number] [address] [place] [address] * (ABNORMAL) CBC WITH DIFFERENTIAL (02/22/2025 9:56 AM CDT) WBC 8.7 3.8 - 10.8 Thousand/u L [facility] RBC 4.86 4.20 - 5.80 Million/uL [facility] HEMOGLOBIN 14.2 13.2 - 17.1 g/dL [facility] HEMATOCRIT 43.1 38.5 - 50.0 % [facility] MCV 88.7 80.0 - 100.0 fL [facility] MCH 29.2 27.0 - 33.0 pg [facility] MCHC 32.9 32.0 - 36.0 g/dL [facility] Comment: For adults, a slight decrease in the calculated MCHC value (in the range of 30 to 32 g/dL) is most likely not clinically significant; however, it should be interpreted with caution in correlation with other red cell parameters and the patient's clinical condition. RDW 12.8 11.0 - 15.0 % [facility] PLATELETS 204 140 - 400 Thousand/u L [facility] MPV 9.1 7.5 - 12.5 fL [facility] NEUTROPHIL ABSOLUTE 5,707 1,500 - 7,800 cells/uL [facility] LYMPHOCYTE ABSOLUTE 1,183 850 - 3,900 cells/uL [facility] MONOCYTE ABSOLUTE 948 200 - 950 cells/uL [facility] EOSINOPHIL ABSOLUTE 766(H) 15 - 500 cells/uL [facility] BASOPHILS ABSOLUTE 96 0 - 200 cells/uL [facility] NEUTROPHIL 65.6 % [facility] LYMPHOCYTES 13.6 % [facility] MONOCYTE 10.9 % [facility] EOSINOPHILS 8.8 % [facility] BASOPHILS 1.1 % [facility] Comment: FASTING:YES FASTING: YES Test Performed at: [facility] [address] [address] [address] PurnimaShanique Keane MD Blood 02/22/2025 9:56 AM CDT 02/22/2025 9:56 AM CDT David Raymond MD HEMATOLOGY ORDERABLES Final Res ult [facility] [phone] [facility] [address] [address] [address] * PROTIME-INR (02/22/2025 9:56 AM CDT) INR 1.1 [facility] Comment: Reference Range 0.9-1.1 Moderate-intensity Warfarin Therapy 2.0-3.0 Higher-intensity Warfarin Therapy 3.0-4.0 PROTIME 11.4 9.0 - 11.5 sec [facility] Comment: For additional information, please refer to http://education.[employer]/faq/OEJ622 (This link is being provided for informational/ educational purposes only.) FASTING:YES FASTING: YES [facility] [address] [address] [place] [address] Devi Keane Blood 02/22/2025 9:56 AM CDT 02/22/2025 9:56 AM CDT us David Raymond MD HEMATOLOGY ORDERABLES Final Res ult [facility] [phone] [facility] [address] [place] [address] * (ABNORMAL) BASIC METABOLIC PANEL (02/22/2025 9:56 AM CDT) GLUCOSE 114(H) 65 - 99 mg/dL [facility] Comment: Fasting reference interval For someone without known diabetes, a glucose value between 100 and 125 mg/dL is consistent with prediabetes and should be confirmed with a follow-up test. BUN 20 7 - 25 mg/dL [facility] CREATININE 0.91 0.70 - 1.28 mg/dL [facility] GFR 90 > OR = 60 mL/min/1.7 3m2 [facility] BUN/CREAT RATIO SEE NOTE: 6 - 22 (calc) [facility] Comment: Not Reported: BUN and Creatinine are within reference range. SODIUM 139 135 - 146 mmol/L [facility] POTASSIUM 4.5 3.5 - 5.3 mmol/L [facility] CHLORIDE 103 98 - 110 mmol/L [facility] CO2 31 20 - 32 mmol/L [facility] CALCIUM 8.6 8.6 - 10.3 mg/dL [facility] Comment: FASTING:YES FASTING: YES Test Performed at: [facility] [address] [address] [employer] [place] [phone] Devi Keane MD Blood 02/22/2025 9:56 AM CDT 02/22/2025 9:56 AM CDT us David Raymond MD CHEMISTRY ORDERABLES Final Resu lt [facility] [phone] [facility] [address] [address] [employer] [phone] from Last 3 Months Insurance MEDICARE PART A AND B FOR LIFE [employer] Advance Directives For more information, please contact: [phone] Documents on File Type Date Recorded 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 Advance Directive POA 05/08/2022 10:01 AM * Full Code (Latest Code Status on File) Date Activated Date Inactivated Comments 03/01/2025 6:52 AM 03/01/2025 5:11 PM * Full Code Date Activated Date Inactivated Comments 11/09/2024 11:10 AM 11/09/2024 7:26 PM * Full Code Date Activated Date Inactivated Comments 09/11/2021 3:59 PM 09/16/2021 1:42 PM * Full Code Date Activated Date Inactivated Comments 09/10/2021 4:43 PM 09/11/2021 3:59 PM * Full Code Date Activated Date Inactivated Comments 09/07/2021 12:41 PM 09/10/2021 4:42 PM Care Teams Rag Baler Relationship Specialty Start Date End Date Long Mejias MD [address] [facility] [address] [place] [address] PCP - General Family Practice 06/24/19 Clinical Summary Created on: March 17, 2025 Zafar Bryson : 1950 Sex: Male Author Organization [facility] Address [address] [place] [phone] Phone Care Team Providers Care Rag Baler Name Role Phone Long Mejias MD Primary Care Provider [phone] Allergies Active Allergy Reactions Criticality Noted Date Comments Iodinated Contrast Media Hives,Swelling High 010 Penicillins Hives High 03/21/2010 Simvastatin Muscle Pain Low 05/26/2007 Medications ERGOCALCIFEROL, VITAMIN D2, (VITAMIN D ORAL) Take 2,000 Units by mouth every 12 hours. Active ascorbic acid, vitamin C, (VITAMIN C) 1,000 mg Tablet Take 500 mg by mouth daily. Active 0mega-3 fatty acids-vitamin E (FISH OIL) 1,000 mg Capsule Take 1 Capsule (1,000 mg) by mouth 2 times daily. 180 Capsule 3 08/16/20 15 Active coenzyme Q10 (CO Q-10) 200 mg Capsule Take 1 Capsule (200 mg) by mouth daily. 100 Capsule 3 03/14/20 16 Active zolpidem (AMBIEN) 10 mg tablet 08/30/20 17 Active ezetimibe (Zetia) 10 mg tablet Take 1 Tablet (10 mg) by mouth daily. 90 Tablet 3 02/29/20 20 Active niacin (NIASPAN ER) 500 mg Extended Release 24 hour tablet Take 1 Tablet (500 mg) by mouth daily at bedtime. 90 Tablet 3 02/29/20 20 Active CertaVite Senior-Antioxid ant 0.4-300-250 mg-mcg-mcg Tablet per tablet 06/27/20 Active CLONAZEPAM ORAL Take 10 mg by mouth daily. Active simvastatin (ZOCOR) 20 mg tablet Starting 09/16, Take 1 Tablet (20 mg) by mouth late in the day. 180 Tablet 3 09/21/20 21 Active aspirin (ECOTRIN EC) 81 mg Tablet, Delayed Release (E.C.) Take 1 Tablet (81 mg) by mouth daily. 12/18/19 23 Active sildenafiL (VIAGRA) 100 mg tablet TAKE 1 TABLET(100 MG) BY MOUTH EVERY DAY NEEDED FOR ERECTILE DYSFUNCTION 6 Tablet 3 02/05/20 23 Active pantoprazole (PROTONIX) 40 mg Tablet, Delayed Release (E.C.) Take 40 mg by mouth daily. 05/02/20 23 Active nitroglycerin (NITROSTAT) 0.4 mg Tablet, Sublingual Place 1 Tablet (0.4 mg) under tongue every 5 minutes as needed for Chest Pain. 25 Tablet 2 10/15/20 24 Active metoprolol tartrate (LOPRESSOR) 25 mg tablet Take 1 Tablet (25 mg) by mouth 2 times daily. 180 Tablet 3 10/15/20 24 Active lisinopriL (PRINIVIL) 40 mg tablet Take 1 Tablet (40 mg) by mouth daily. 90 Tablet 3 10/15/20 24 Active predniSONE (DELTASONE) 50 mg tablet Take 1 Tablet (50 mg) by mouth daily. 2 Tablet 10/29/20 24 Active diphenhydrAMINE (BENADRYL) 25 mg tablet Take 25 mg by mouth one time. Active amLODIPine (NORVASC) 5 mg tablet TAKE 1 TABLET(5 MG) BY MOUTH DAILY 90 Tablet 2 01/12/20 25 Active isosorbide mononitrate (IMDUR) 30 mg Extended Release 24 hour tablet Take 1 Tablet (30 mg) by mouth daily in the morning. 30 Tablet 6 02/18/20 25 Active predniSONE (DELTASONE) 50 mg tablet Take 50 mg twice on (morning and evening) the day before and once the morning of the procedure. 3 Tablet 02/18/20 25 Active clopidogreL (PLAVIX) 75 mg Tablet Take 1 Tablet (75 mg) by mouth daily. 100 Tablet 3 5 12:50 PM CDT 03/01/20 25 Active citalopram (CeleXA) 40 mg tablet Take 830 mg by mouth daily. 12/16/19 24 025 Discontinued Active Problems Patient Care Coordination No te Formatting of this note migh t be different from the original. 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 Raymond Problem Noted Date Diagnosed Date Benign essential HTN 10/09/2022 S/P CABG x 4 10/10/2021 Adrenal incidentaloma 09/07/2021 Dyspnea on exertion 09/07/2021 HTN (hypertension) 11/30/2019 Lipoma 06/25/2019 Overview (06/25/2019): Added automatically from request for surgery [id number] Lipoma of anterior chest wall 06/24/2019 Lipoma of breast 06/24/2019 Other male erectile dysfunction 05/25/2019 Pure hypercholesterolemia 07/21/2018 Tobacco abuse, in remission 07/21/2018 Lipoma of left forearm 02/06/2018 Sebaceous cyst 02/06/2018 Overview (02/06/2018): Added automatically from request for surgery [id number] Lipoma of upper extremity 02/06/2018 Overview (02/06/2018): Added automatically from request for surgery [id number] Abscess of back 12/03/2017 Vertigo 12/08/2012 Right-sided chest wall pain 02/28/2011 Atypical chest pain 02/07/2011 Coronary artery disease invo lving pala coronary artery of pala heart without angina pectoris 03/21/2010 S/P coronary artery stent placement 03/21/2010 Hyperlipemia 03/21/2010 S/P subdural hematoma evacuation 03/21/2010 Tobacco abuse 03/21/2010 Unstable angina Encounters Date Type Department Care Team Description 03/08/2025 Abstract [facility] [address] [place] [address] David Raymond MD 03/02/2025 Telephone [facility] [address] [place] [address] Queenie Urias NP Follow Up 03/01/2025 8:00 AM CDT - 03/01/2025 9:10 AM CDT Surgery [facility] Facilities Engineer [address] [place] [phone] Gokul Gamez MD Percutaneous coronary intervention 03/01/2025 5:58 AM CDT - 03/01/2025 3:06 PM CDT Hospital Encounter [facility] Interventional Care [address] [place] [phone] Gokul Gamez MD SOB (shortness of breath) Discharge Disposition: Home or Self Care 02/23/2025 Results Follow-Up [facility] [address] [place] [address] David Raymond MD BASIC METABOLIC PANEL, CBC WITH DIFFERENTIAL, PROTIME-INR 02/17/2025 Prep for Surgery [facility] [address] [place] [address] Gokul Gamez MD Shortness of breath (Primary Dx); Chest discomfort 02/17/2025 Telephone [facility] [address] [place] [address] David Raymond MD Medication Question 02/15/2025 Telephone [facility] [address] [place] [address] David Raymond MD stent or heart cath 02/03/2025 External Device Data [facility] ABSTRACTION Provider, Abstract 02/02/2025 External Device Data [facility]STRACTION Provider, Abstract 01/19/2025 External Device Data [facility]STRACTION Provider, Abstract 01/13/2025 External Device Data [facility]STRACTION Provider, Abstract 01/11/2025 Refill [facility] [place] [address] [facility] [address] [place] [address] David Raymond MD 12/17/2024 External Device Data [facility] ABSTRACTION Provider, Abstract from Last 3 Months Immunizations Immunization Administration Dates Next Due (ADACEL/BOOSTRIX)(10 YR UP) TDAP VACCINE, 0.5ML, IM 08/19/2014 Influenza Seasonal Unspecified Formulation IM ,07/27/2013 Influenza Vaccine High Dose 65+ Yrs IM 9 Influenza Vaccine Tri Adjuvanted 65+ PF IM 09/03 Influenza Vaccine Tri Split 4+ Im 08/19/2014,12/2012 Pneumococcal conjugate, unspecified formulation 11/25/2010 Family History Medical History Relation Name Comments Diabetes Mother Heart Disease Mother Relation Name Status Comments Father Mother Alive Social History Tobacco Use Types Packs/Day Years Used Date Smoking Tobacco: Former Cigarettes 0.8 45 Smokeless Tobacco: Never Tobacco Cessation:Counseling Given: Not Answered Comments:quit Alcohol Use Standard Drinks/Week Comments Yes 1 (1 standard drink = 0.6 oz pur e alcohol) 2 beers a year Feeling Safe Answer Date Recorded Are you in a relationship wi th someone who hurts you emotionally and/or physically? No 11/09/2024 Food Insecurity Answer Date Recorded Social/Environmental Concerns No concerns Transportation Needs Answer Date Record ed Social/Environmental Concerns No concerns Housing Stability Answer Date Recorded Social/Environmental Concerns No concerns Utility Needs Answer Date Recorded
--- OUTSIDE RECORDS SUMMARY | 2025-03-17 13:16 | XMS_ITS | Encounter Summary ---
Author Organization [facility] Address [address] [place] [address] Care Team Providers Care Content Checker Name Role Phone Long Mejias MD Primary Care Provider Encounter Details Date Type Department Care Team (Late st Contact Info) Description 07/16/2009 Outpatient Historical [facility], Authorized P NO ADDRESS ON FILE Francisco Javier Torres MD NO ADDRESS ON FILE Social History Tobacco Use Types Packs/Day Years Used Date Smoking Tobacco: Never Assessed Sex and Gender Information Value Date Recorded Sex Assigned at Not on file Legal Sex Male 4:07 AM [employer] Gender Identity Not on file Sexual Orientation Not on file documented as of this encounter Plan of Treatment Upcoming Encounters Date Type Department Care Team (Late st Contact Info) Description 03/22/2025 1:30 PM CDT Office Visit [facility] [address] [place] [address] Florence House FNP [address] [place] [address] [address] [place] [address] 07/13/2025 11:00 AM CDT Office Visit [facility] [address] [place] [address] David Raymond MD [address] [place] [address] [address] [place] [phone] documented as of this encounter Procedures Procedure Name Priority Date/Time Associated Diagnosis Comments CT HEAD WO CONTRAST Routine 07/16/2009 8 :58 PM CDT CBC WITH DIFFERENTIAL Stat 07/16/2009 8:54 PM CDT COMPREHENSIVE METABOLIC PANEL Stat 07/16/2009 8:54 PM CDT documented in this encounter Results * CT HEAD WO CONTRAST (07/16/2009 8:58 PM CDT) Anatomical Region Laterality Modality Head Other 07/16/2009 8:58 PM CDT Narrative 07/16/2009 9:35 PM CDT [facility] [address] [place] [place], [place] [address] Admit Date: 07/16/2009 ZAFAR BRIGGS Sex: M Admit Prov: PALOMO DE LA ROSA Date: 1950 Primary Care Prov: CMRN: [id number] [facility] SSN: [id number] IMAGING SERVICES Ordering Prov: N/A Accession Number: [id number] Interpretation EXAM; CT HEAD, NONCONTRAST 07/16/2009 INDICATION: Headaches. History of previous subdural hemorrhage. TECHNIQUE: 5 mm axial images through the head without contrast. FINDINGS: Comparison is made to the previous exam of 07/22/2008. Subdural fluid collection adjacent to the right frontal and parietal lobes is not significantly changed. There is no evidence of acute hemorrhage. Density of the fluid is equal to that of adjacent CSF. There is no evidence of mass, mass effect or midline shift. Ventricles and cisterns are normal. The paranasal sinuses and mastoid air cells are normally aerated. 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 No evidence of acute hemorrhage. . Dictated by: ELMER FLORES 07/16/2009 21:25 Electronically signed by: ELMER FLORES 07/16/2009 21:34 Transcribed: 07/16/2009 21:31 SJ Procedure Note Elmer Flores - 07/16/2009 [facility] [address] [place], [place] [address] Admit Date: 07/16/2009 ZAFAR BRIGGS Sex: M Admit Prov: ER, AUTHORIZED P Date: 1950 Primary Care Prov: CMRN: [id number] Room: ER-A SSN: [id number] IMAGING SERVICES Ordering Prov: N/A Interpretation EXAM; CT HEAD, NONCONTRAST 07/16/2009 INDICATION: Headaches. History of previous subdural hemorrhage. TECHNIQUE: 5 mm axial images through the head without contrast. FINDINGS: Comparison is made to the previous exam of 07/22/2008. Subduralfluid collection adjacent to the right frontal and parietal lobes is not significantly changed. There is no evidence of acute hemorrhage.Density of the fluid is equal to that of adjacent CSF. There is no evidence ofmass, mass effect or midline shift. Ventricles and cisterns are normal.The paranasal sinuses and mastoid air cells are normally aerated. 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 No evidence ofacute hemorrhage. . Dictated by: ELMER FLORES 07/16/2009 21:25 Electronically signed by: ELMER FLORES 07/16/2009 21:34 Transcribed: 07/16/2009 21:31 SJ us Authorized P Er CT ORDERABLES Final Result * (ABNORMAL) COMPREHENSIVE METABOLIC PANEL (07/16/2009 8:54 PM CDT) POTASSIUM 4.0 3.5 - 4.9 mmol/L [facility] GLUCOSE 103(H) 65 - 99 mg/dL [facility] AST 23 12 - 38 U/L [facility] BUN 21(H) 6 - 20 mg/dL [facility] CALCIUM 8.6 8.6 - 10.2 mg/dL [facility] CHLORIDE 104 96 - 108 mmol/L [facility] ALBUMIN 4.3 3.4 - 4.8 g/dL [facility] CREATININE 0.82 0.67 - 1.17 mg/dL [facility] SODIUM 139 135 - 145 mmol/L [facility] ALT 28 0 - 41 U/L [facility] ALKALINE PHOSPHATASE 91 40 - 129 U/L [facility] BILIRUBIN TOTAL 0.2 0.2 - 1.0 mg/dL [facility] CO2 25 22 - 30 mmol/L [facility] TOTAL PROTEIN 6.9 6.3 - 8.6 g/dL [facility] GFR, >60 >=60 mL/min/1. 7 sq meter [facility] GFR >60 >=60 mL/min/1. 7 sq meter [facility] Comment: Modification of Diet in Renal Disease (MDRD) study formula. Estimated GFR rate interpretative information for both Americans and non- Americans is available on the [facility] Intranet at: [email or web address] Select: Lab Policies and Procedures Select: Reference Ranges - GFR Blood specimen (specimen) 07/16/2009 8:54 PM CDT 07/16/2009 9:00 PM CDT us Authorized P Er CHEMISTRY ORDERABLES Edited [facility] CLIA# [id number] [address] [place] [place] [address] * CBC WITH DIFFERENTIAL (07/16/2009 8:54 PM CDT) HEMOGLOBIN 15.3 13.6 - 16.5 g/dL [facility] RDW 13.1 11.5 - 14.5 % [facility] WBC 8.9 4.0 - 9.8 K/uL [facility] MCH 30.1 27.2 - 32.6 pg [facility] MPV 9.9 9.3 - 12.4 fL [facility] HEMATOCRIT 44.6 40.0 - 48.0 % [facility] RDW-STDEV 41.7 37.1 - 48.7 fL [facility] RBC 5.08 4.50 - 5.40 M/uL [facility] MCHC 34.3 31.5 - 35.5 % [facility] MCV 87.8 82.0 - 99.0 fL [facility] PLATELETS 183 140 - 350 K/uL [facility] EOSINOPHILS 5 0 - 7 % [facility] EOSINOPHIL ABSOLUTE 0.44 0.00 - 0.70 K/uL [facility] LYMPHOCYTES 31 16 - 45 % [facility] LYMPHOCYTE ABSOLUTE 2.79 0.70 - 4.50 K/uL [facility] BASOPHILS 1 0 - 2 % [facility] BASOPHILS ABSOLUTE 0.06 0.00 - 0.20 K/uL [facility] MONOCYTES 11 3 - 13 % [facility] MONOCYTE ABSOLUTE 0.97 0.10 - 1.30 K/uL [facility] NEUTROPHILS 52 45 - 70 % [facility] NEUTROPHIL ABSOLUTE 4.67 1.90 - 7.00 K/uL [facility] Blood specimen (specimen) 07/16/2009 8:54 PM CDT 07/16/2009 9:00 PM CDT us Authorized P Er HEMATOLOGY ORDERABLES Edited [facility] CLIA# [id number] [address] [place] [address] documented in this encounter Visit Diagnoses Not on filedocumented in this encounter Care Teams Content Checker Relationship Specialty Start Date End Date Long Mejias MD [id number] [facility] [address] [facility] [address] [place] [phone] PCP - General Family Practice 06/24/19 documented as of this encounter
--- OUTSIDE RECORDS SUMMARY | 2025-03-17 13:16 | XMS_ITS | Encounter Summary ---
Author Organization [facility] Address 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 Name Role Phone Long Mejias MD Primary Care Provider [phone] Encounter Details Date Type Department Care Team (Late st Contact Info) Description 02/18/2008 Outpatient Historical [facility] Er, Authorized P NO ADDRESS ON FILE Jose David Ritchie MD NO ADDRESS ON FILE Social History Tobacco Use Types Packs/Day Years Used Date Smoking Tobacco: Never Assessed Sex and Gender Information Value Date Recorded Sex Assigned at Not on file Legal Sex Male 4:07 AM [place] Gender Identity Not on file Sexual Orientation Not on file documented as of this encounter Plan of Treatment Upcoming Encounters Date Type Department Care Team (Late st Contact Info) Description 03/22/2025 1:30 PM CDT Office Visit [facility] [address] [place] [address] Florence House FNP [address] [place] [address] [address] [place] [address] 07/13/2025 11:00 AM CDT Office Visit [facility] At [address] [place] [address] David Raymond MD [address] [place] [address] [place] [address] documented as of this encounter Procedures Procedure Name Priority Date/Time Associated Diagnosis Comments CT HEAD WO CONTRAST Timed Study 03/01/2008 1 0:[address] HEAD WO CONTRAST Routine 02/25/2008 1 :[address] HEAD WO CONTRAST Routine 02/23/2008 1 1:05 AM CDT CBC WITH DIFFERENTIAL Routine 02/22/2008 5:55 AM CDT PHOSPHORUS Routine 02/22/2008 5:55 AM CDT MAGNESIUM LEVEL Routine 02/22/2008 5:55 AM CDT BASIC METABOLIC PANEL Routine 02/22/2008 5:55 AM CDT POC GLUCOSE Routine 02/21/2008 9:10 PM CDT POC GLUCOSE Routine 02/21/2008 5:47 PM CDT POC GLUCOSE Routine 02/21/2008 12:36 PM CDT POC GLUCOSE Routine 02/21/2008 8:49 AM CDT POC GLUCOSE Routine 02/21/2008 8:14 AM CDT POC GLUCOSE Routine 02/21/2008 5:36 AM CDT CBC WITH DIFFERENTIAL Routine 02/21/2008 4:30 AM CDT PHOSPHORUS Routine 02/21/2008 4:30 AM CDT MAGNESIUM LEVEL Routine 02/21/2008 4:30 AM CDT BASIC METABOLIC PANEL Routine 02/21/2008 4:30 AM CDT TROPONIN Stat 02/21/2008 12:50 AM CDT CK Stat 02/21/2008 12:50 AM CDT POC GLUCOSE Routine 02/20/2008 11:50 PM CDT POC GLUCOSE Routine 02/20/2008 8:09 PM CDT POC GLUCOSE Routine 02/20/2008 4:57 PM CDT POC GLUCOSE Routine 02/20/2008 12:22 PM CDT POC GLUCOSE Routine 02/20/2008 8:31 AM CDT POC GLUCOSE Routine 02/20/2008 5:10 AM CDT PT AND APTT Routine 02/20/2008 5:00 AM CDT CBC WITH DIFFERENTIAL Routine 02/20/2008 5:00 AM CDT PHOSPHORUS Routine 02/20/2008 5:00 AM CDT MAGNESIUM LEVEL Routine 02/20/2008 5:00 AM CDT BASIC METABOLIC PANEL Routine 02/20/2008 5:00 AM CDT POC GLUCOSE Routine 02/20/2008 12:36 AM CDT POC GLUCOSE Routine 02/19/2008 9:13 PM CDT POC GLUCOSE Routine 02/19/2008 5:15 PM CDT POC GLUCOSE Routine 02/19/2008 12:19 PM CDT POC GLUCOSE Routine 02/19/2008 8:03 AM CDT CBC WITH DIFFERENTIAL Timed Study 02/19/2008 5:15 AM CDT PHOSPHORUS Timed Study 02/19/2008 5:15 AM CDT MAGNESIUM LEVEL Timed Study 02/19/2008 5:15 AM CDT BASIC METABOLIC PANEL Timed Study 02/19/2008 5:15 AM CDT MRSA ACTIVE SURVEILLANCE CULTURE Stat 02/19/2008 4:14 AM CDT XR CHEST PA OR AP 1 VW Stat 02/19/2008 2:20 AM CDT HEMOGLOBIN AND HEMATOCRIT Stat 02/19/2008 2:16 AM CDT BLOOD GAS ARTERIAL Stat 02/19/2008 2: 16 AM CDT PT AND APTT Stat 02/18/2008 11:[address] HEAD WO CONTRAST Routine 02/18/2008 1 0:58 PM CDT CBC WITH DIFFERENTIAL Stat 02/18/2008 10:55 PM CDT SEDIMENTATION RATE Stat 02/18/2008 10 :55 PM CDT COMPREHENSIVE METABOLIC PANEL Stat 02/18/2008 10:55 PM CDT documented in this encounter Results * CT HEAD WO CONTRAST (03/01/2008 10:06 AM CDT) Anatomical Region Laterality Modality Head Other 03/01/2008 10:0 6 AM CDT Narrative 03/01/2008 1:02 PM CDT [facility] [address], [place] [address] Admit Date: 02/19/2008 ZAFAR BRYSON Sex: M Admit Prov: JOSE DAVID RITCHIE Date: 1950 Primary Care Prov: CMRN: [id number] Room: [address] [place] [address] SSN: [id number] IMAGING SERVICES Ordering Prov: N/A Accession Number: [id number] Interpretation HEAD CT WITHOUT CONTRAST, 03/01/2008 Comparison: 02/25/2008. Noncontrast head CT images demonstrate a heterogeneous left extra-axial collection, status post drainage with 2 craniotomy holes present. The greatest radial thickness of the mixed density left extra-axial collection is 1.5 cm, with multiple air locules and air-fluid levels seen. No acute or new hemorrhage is seen compared with the prior exam. The very low density collection over the right convexity is also stable in size, density and appearance. Impression: Perhaps slight decrease in maximal thickness of left extra-axial collection. Right extra-axial collection is stable. Minor unchanged left- to-right subfalcine shift. . Dictated by: CORI MARROQUIN 03/01/2008 11:09 Electronically signed by: CORI MARROQUIN 03/01/2008 13:02 Transcribed: 03/01/2008 11:14 [facility] Procedure Note Cori Marroquin - 03/01/2008 [facility] [address], [place] [address] Admit Date: 02/19/2008 ZAFAR BRYSON Sex: M Admit Prov: JOSE DAVID RITCHIE Date: 1950 Primary Care Prov: CMRN: [id number] Room: [address] [place] [address] SSN: [id number] IMAGING SERVICES Ordering Prov: N/A Interpretation HEAD CT WITHOUT CONTRAST, 03/01/2008 Comparison: 02/25/2008. Noncontrast head CT images demonstrate a heterogeneous leftextra-axial collection, status post drainage with 2 craniotomy holes present.The greatest radial thickness of the mixed density left extra-axialcollection is 1.5 cm, with multiple air locules and air-fluid levels seen. Noacute or new hemorrhage is seen compared with the prior exam. The very lowdensity collection over the right convexity is also stable in size, densityand appearance. Impression: Perhaps slight decrease in maximal thickness of left extra-axial collection. Right extra-axial collection is stable. Minor unchangedleft- to-right subfalcine shift. . Dictated by: CORI MARROQUIN 03/01/2008 11:09 Electronically signed by: CORI MARROQUIN 03/01/2008 13:02 Transcribed: 03/01/2008 11:14 SMM us Jose David Ritchie MD CT ORDERABLES Final Result * CT HEAD WO CONTRAST (02/25/2008 1:50 PM CDT) Anatomical Region Laterality Modality Head Other 02/25/2008 1:50 PM CDT Narrative 02/25/2008 5:13 PM CDT [facility] [address] [place], [place] [address] Admit Date: 02/19/2008 ZAFAR BRYSON Sex: M Admit Prov: JOSE DAVID RITCHIE Date: 1950 Primary Care Prov: CMRN: [id number] Room: [address] [place] [address] SSN: [id number] IMAGING SERVICES Ordering Prov: N/A Accession Number: [id number] Interpretation CT HEAD WITHOUT CONTRAST WITHOUT CONTRAST 02/25/08 at 2:03:40 PM History: Headache and dizziness, status post left subdural hematoma evacuation Technique: 5 mm axial images without contrast. Findings: Since the previous examination of 02/23/2008 there has been very little interval change. Again there are laura holes in the left frontal and parietal bones. 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 Again this measures approximately 1.7 cm in maximal thickness. The more chronic appearing subdural collection along the right cerebral convexity also appears unchanged. There is persistent tlyw-mt-pgswe midline shift measured approximately 6 mm. There is slight effacement of the left lateral ventricle. Ventricular size is relatively stable. Sherman-white differentiation is preserved. The basal cisterns are stable. Mastoid air cells and paranasal sinuses are well-aerated. IMPRESSION: No significant change in the subdural collections and resultant subfalcine herniation. . Dictated by: LEONARDO DAVIES 02/25/2008 14:07 Electronically signed by: LEONARDO DAVIES 02/25/2008 17:13 Transcribed: 02/25/2008 14:21 Procedure Note Provider, Historical - 02/25/2008 [facility] [address] [place], [place] [address] Admit Date: 02/19/2008 ZAFAR BRYSON Sex: M Admit Prov: JOSE DAVID RITCHIE Date: 1950 Primary Care Prov: CMRN: [id number] Room: [address] [place] [address] SSN: [id number] IMAGING SERVICES Ordering Prov: N/A Interpretation CT HEAD WITHOUT CONTRAST WITHOUT CONTRAST 02/25/08 at 2:03:40 PM History: Headache and dizziness, status post left subdural hematoma evacuation Technique: 5 mm axial images without contrast. Findings: Since the previous examination of 02/23/2008 there has beenvery little interval change. Again there are laura holes in the leftfrontal and parietal bones. The acute on chronic subdural collection along theleft convexity with pneumocephalus appears grossly unchanged in thickness.Again this measures approximately 1.7 cm in maximal thickness. The morechronic appearing subdural collection along the right cerebral convexityalso appears unchanged. There is persistent xbrl-yw-qxrwj midline shiftmeasured approximately 6 mm. There is slight effacement of the left lateral ventricle. Ventricular size is relatively stable. Sherman-white differentiation is preserved. The basal cisterns are stable. Mastoidair cells and paranasal sinuses are well-aerated. 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 . Dictated by: LEONARDO DAVIES 02/25/2008 14:07 Electronically signed by: LEONARDO DAVIES 02/25/2008 17:13 Transcribed: 02/25/2008 14:21 us Jose David Ritchie MD CT ORDERABLES Final Result * CT HEAD WO CONTRAST (02/23/2008 11:05 AM CDT) Anatomical Region Laterality Modality Head Other 02/23/2008 11:0 5 AM CDT Narrative 02/23/2008 3:00 PM CDT [facility] [address] [place], [place] [address] Admit Date: 02/19/2008 ZAFAR BRYSON: M Admit Prov: JOSE DAVID RITCHIE Date: 1950 Primary Care Prov: CMRN: [id number] Room: [address] [place] [address] 1 SSN: [id number] IMAGING SERVICES Ordering Prov: N/A Accession Number: [id number] Interpretation HEAD CT WITHOUT CONTRAST, 02/23/2008 History: Status post left subdural collection evacuation. Comparison: 02/18/2008 Findings: Noncontrast head CT images demonstrate a decrease in amount of hsuu-ku-gtfhs subfalcine shift, now measuring 7.4 mm (previously 14 mm). There are now air locules and mixed density in the left subdural collection which is decreased in thickness, now measuring 1.7 cm in size (previously 2.7 cm). There is left scalp swelling over the operative site and subcutaneous emphysema present. A small right CSF density subdural collection is seen over the right hemisphere, measuring 9 mm in greatest thickness. Impression: Overall improved appearance with postoperative changes present. . Dictated by: CORI MARROQUIN 02/23/2008 13:33 Electronically signed by: CORI MARROQUIN 02/23/2008 15:00 Transcribed: 02/23/2008 14:05 SJ Procedure Note Cori Marroquin - 02/23/[address] [address] Admit Date: 02/19/2008 ZAFAR BRYSON Sex: M Admit Prov: JOSE DAVID RITCHIE Date: 1950 Primary Care Prov: CMRN: [id number] Room: [address] [place] [address] SSN: [id number] IMAGING SERVICES Ordering Prov: N/A Interpretation HEAD CT WITHOUT CONTRAST, 02/23/2008 History: Status post left subdural collection evacuation. Comparison: 02/18/2008 Findings: Noncontrast head CT images demonstrate a decrease inamount of avih-ha-jdolm subfalcine shift, now measuring 7.4 mm (previously 14mm). There are now air locules and mixed density in the left subduralcollection which is decreased in thickness, now measuring 1.7 cm in size(previously 2.7 cm). There is left scalp swelling over the operative site and subcutaneous emphysema present. A small right CSF density subdural collection is seen over the right hemisphere, measuring 9 mm ingreatest thickness. Impression: Overall improved appearance with postoperative changes present. . Dictated by: CORI MARROQUIN 02/23/2008 13:33 Electronically signed by: CORI MARROQUIN 02/23/2008 15:00 Transcribed: 02/23/2008 14:05 SJ Jose David Ritchie MD CT ORDERABLES Final Result * PHOSPHORUS (02/22/2008 5:55 AM CDT) PHOSPHORUS 4.1 2.5 - 4.5 mg/dL [facility] Blood specimen (specimen) 02/22/2008 5:55 AM CDT 02/22/2008 6:20 AM CDT Jose David Ritchie MD CHEMISTRY ORDERABLES Final Resu lt Performing Organization Address [facility] Co de Phone Number [facility] [address] [facility] [address] * MAGNESIUM LEVEL (02/22/2008 5:55 AM CDT) MAGNESIUM 1.8 1.5 - 2.5 mg/dL [facility] Blood specimen (specimen) 02/22/2008 5:55 AM CDT 02/22/2008 6:20 AM CDT Jose David Ritchie MD CHEMISTRY ORDERABLES Final Resu lt Performing Organization Address [facility] Co de Phone Number [facility] [address] [place] [address] * (ABNORMAL) BASIC METABOLIC PANEL (02/22/2008 5:55 AM CDT) GLUCOSE 114(H) 65 - 99 mg/dL [facility] SODIUM 137 135 - 145 mmol/L [facility] CALCIUM 8.3(L) 8.4 - 10.2 mg/dL [facility] CO2 30 22 - 30 mmol/L [facility] CREATININE 0.95 0.67 - 1.17 mg/dL [facility] POTASSIUM 3.9 3.5 - 4.9 mmol/L [facility] BUN 11 6 - 20 mg/dL [facility] CHLORIDE 98 96 - 108 mmol/L [facility] GFR, >60 >=60 mL/min/1. 7 sq meter [facility] GFR >60 >=60 mL/min/1. 7 sq meter [facility] Comment: Estimated GFR rate interpretative information for both Americans and non- Americans is available on the [facility] Intranet at: [email or web address] Select: Lab Policies and Procedures Select: Reference Ranges - GFR Blood specimen (specimen) 02/22/2008 5:55 AM CDT 02/22/2008 6:20 AM CDT us Jose David Ritchie MD CHEMISTRY ORDERABLES Edited [facility] [address] [facility] [place] [address] * (ABNORMAL) CBC WITH DIFFERENTIAL (02/22/2008 5:55 AM CDT) HEMATOCRIT 41.0 40.0 - 48.0 % [facility] RDW-STDEV 40.8 37.1 - 48.7 fL [facility] RBC 4.65 4.50 - 5.40 M/uL [facility] MCHC 34.1 31.5 - 35.5 % [facility] MCV 88.2 82.0 - 99.0 fL [facility] PLATELETS 190 140 - 350 K/uL [facility] HEMOGLOBIN 14.0 13.6 - 16.5 g/dL [facility] RDW 12.8 11.5 - 14.5 % [facility] WBC 8.9 4.0 - 9.8 K/uL [facility] MCH 30.1 27.2 - 32.6 pg [facility] MPV 9.6 9.3 - 12.4 fL [facility] BASOPHILS 1 0 - 2 % [facility] BASOPHILS ABSOLUTE 0.04 0.00 - 0.20 K/uL [facility] MONOCYTES 14(H) 3 - 13 % [facility] MONOCYTE ABSOLUTE 1.23 0.10 - 1.30 K/uL [facility] NEUTROPHILS 65 45 - 70 % [facility] NEUTROPHIL ABSOLUTE 5.72 1.90 - 7.00 K/uL [facility] EOSINOPHILS 4 0 - 7 % [facility] EOSINOPHIL ABSOLUTE 0.33 0.00 - 0.70 K/uL [facility] LYMPHOCYTES 17 16 - 45 % [facility] LYMPHOCYTE ABSOLUTE 1.54 0.70 - 4.50 K/uL [facility] Blood specimen (specimen) 02/22/2008 5:55 AM CDT 02/22/2008 6:20 AM CDT us Jose David Ritchie MD HEMATOLOGY ORDERABLES Edited INTERFACE SYSTEM Refer to clinic/hospital department [facility] [address] [facility] [address] [place] [address] * (ABNORMAL) POC GLUCOSE (02/21/2008 9:10 PM CDT) GLUCOSE POC 154(H) 65 - 99 mg/dL [facility] Venous blood specimen (specimen) 02/21/2008 9:10 PM CDT 02/21/2008 9:10 PM CDT us Jose David Ritchie MD POINT OF CARE TESTING Final Res ult Performing Organization Address City/[facility]/ZIP Co de Phone Number [facility] [address] [place] [address] * (ABNORMAL) POC GLUCOSE (02/21/2008 5:47 PM CDT) GLUCOSE POC 102(H) 65 - 99 mg/dL [facility] Venous blood specimen (specimen) 02/21/2008 5:47 PM CDT 02/21/2008 5:47 PM CDT us Jose David Ritchie MD POINT OF CARE TESTING Final Res ult Performing Organization Address City/[facility]/ZIP Co de Phone Number [facility] [address] [place] [address] * POC GLUCOSE (02/21/2008 12:36 PM CDT) GLUCOSE POC 86 65 - 99 mg/dL [facility] Venous blood specimen (specimen) 02/21/2008 12:36 PM CDT 02/21/2008 12:36 PM CDT Jose David Ritchie MD POINT OF CARE TESTING Final Res ult Performing Organization Address City/[facility]/ZIP Co de Phone Number [facility] [address] [place] [address] * (ABNORMAL) POC GLUCOSE (02/21/2008 8:49 AM CDT) GLUCOSE POC 150(H) 65 - 99 mg/dL [facility] Venous blood specimen (specimen) 02/21/2008 8:49 AM CDT 02/21/2008 8:49 AM CDT Jose David Ritchie MD POINT OF CARE TESTING Final Res ult Performing Organization Address [facility] de Phone Number [facility] [address] [place] [address] * POC GLUCOSE (02/21/2008 8:14 AM CDT) GLUCOSE POC 99 65 - 99 mg/dL [facility] Venous blood specimen (specimen) 02/21/2008 8:14 AM CDT 02/21/2008 8:14 AM CDT us Jose David Ritchie MD POINT OF CARE TESTING Final Res ult Performing Organization Address [facility] de Phone Number [facility] [address] [place] [address] * (ABNORMAL) POC GLUCOSE (02/21/2008 5:36 AM CDT) GLUCOSE POC 112(H) 65 - 99 mg/dL [facility] Venous blood specimen (specimen) 02/21/2008 5:36 AM CDT 02/21/2008 5:36 AM CDT Jose David Ritchie MD POINT OF CARE TESTING Final Res ult Performing Organization Address [facility] de Phone Number [facility] [address] [place] [address] * PHOSPHORUS (02/21/2008 4:30 AM CDT) PHOSPHORUS 3.1 2.5 - 4.5 mg/dL [facility] Blood specimen (specimen) 02/21/2008 4:30 AM CDT 02/21/2008 4:44 AM CDT us Regis Lopez MD CHEMISTRY ORDERABLES Final Res ult Performing Organization Address City/[facility]/ZIP Co de Phone Number [facility] [address] [place] [address] * MAGNESIUM LEVEL (02/21/2008 4:30 AM CDT) MAGNESIUM 2.0 1.5 - 2.5 mg/dL [facility] Blood specimen (specimen) 02/21/2008 4:30 AM CDT 02/21/2008 4:44 AM CDT us Regis Lopez MD CHEMISTRY ORDERABLES Final Res ult Performing Organization Address [facility] Co de Phone Number [facility] [address] [place] [address] * (ABNORMAL) BASIC METABOLIC PANEL (02/21/2008 4:30 AM CDT) CREATININE 0.83 0.67 - 1.17 mg/dL [facility] POTASSIUM 4.0 3.5 - 4.9 mmol/L [facility] BUN 7 6 - 20 mg/dL [facility] CHLORIDE 101 96 - 108 mmol/L [facility] GLUCOSE 110(H) 65 - 99 mg/dL [facility] SODIUM 137 135 - 145 mmol/L [facility] CALCIUM 7.8(L) 8.4 - 10.2 mg/dL [facility] CO2 28 22 - 30 mmol/L [facility] GFR, >60 >=60 mL/min/1. 7 sq meter [facility] GFR >60 >=60 mL/min/1. 7 sq meter [facility] Comment: Estimated GFR rate interpretative information for both Americans and non- Americans is available on the [facility] Intranet at: [email or web address] medical [email or web address] [email or web address] Select: Lab Policies and Procedures Select: Reference Ranges - GFR Blood specimen (specimen) 02/21/2008 4:30 AM CDT 02/21/2008 4:44 AM CDT Regis Lopez MD CHEMISTRY ORDERABLES Edited [facility] [address] [place] [address] * (ABNORMAL) CBC WITH DIFFERENTIAL (02/21/2008 4:30 AM CDT) HEMOGLOBIN 13.0(L) 13.6 - 16.5 g/dL [facility] RDW 12.9 11.5 - 14.5 % [facility] WBC 10.6(H) 4.0 - 9.8 K/uL [facility] MCH 30.2 27.2 - 32.6 pg [facility] MPV 9.5 9.3 - 12.4 fL [facility] HEMATOCRIT 38.2(L) 40.0 - 48.0 % [facility] RDW-STDEV 41.6 37.1 - 48.7 fL [facility] RBC 4.31(L) 4.50 - 5.40 M/uL [facility] MCHC 34.0 31.5 - 35.5 % [facility] MCV 88.6 82.0 - 99.0 fL [facility] PLATELETS 159 140 - 350 K/uL [facility] LYMPHOCYTES 13(L) 16 - 45 % [facility] LYMPHOCYTE ABSOLUTE 1.38 0.70 - 4.50 K/uL [facility] BASOPHILS 0 0 - 2 % [facility] BASOPHILS ABSOLUTE 0.02 0.00 - 0.20 K/uL [facility] MONOCYTES 11 3 - 13 % [facility] MONOCYTE ABSOLUTE 1.20 0.10 - 1.30 K/uL [facility] NEUTROPHILS 73(H) 45 - 70 % [facility] NEUTROPHIL ABSOLUTE 7.68(H) 1.90 - 7.00 K/uL [facility] EOSINOPHILS 3 0 - 7 % [facility] EOSINOPHIL ABSOLUTE 0.31 0.00 - 0.70 K/uL [facility] Blood specimen (specimen) 02/21/2008 4:30 AM CDT 02/21/2008 4:44 AM CDT Regis Lopez MD HEMATOLOGY ORDERABLES Edited Performing Organization Address City/[facility]/ZIP Co de Phone Number INTERFACE SYSTEM Refer to clinic/hospital department [facility] [address] [place] [id number] * TROPONIN (02/21/2008 12:50 AM CDT) TROPONIN T <0.01 <=0.03 ng/mL [facility] TROPONIN T INTERP Negative [facility] Blood specimen (specimen) 02/21/2008 12:50 AM CDT 02/21/2008 1:08 AM CDT Jhon Cross MD CHEMISTRY ORDERABLES Edited [facility] [address] [place] [id number] * CK (02/21/2008 12:50 AM CDT) CK 84 10 - 170 U/L [facility] Blood specimen (specimen) 02/21/2008 12:50 AM CDT 02/21/2008 1:08 AM CDT Jhon Cross MD CHEMISTRY ORDERABLES Final Resul t Performing Organization Address City/[facility] Co de Phone Number [facility] [address] [place] [address] * (ABNORMAL) POC GLUCOSE (02/20/2008 11:50 PM CDT) GLUCOSE POC 107(H) 65 - 99 mg/dL [facility] Venous blood specimen (specimen) 02/20/2008 11:50 PM CDT 02/20/2008 11:50 PM CDT us Jose David Ritchie MD POINT OF CARE TESTING Final Res ult Performing Organization Address [facility] System/[facility] de Phone Number [facility] [address] [place] [address] * (ABNORMAL) POC GLUCOSE (02/20/2008 8:09 PM CDT) GLUCOSE POC 131(H) 65 - 99 mg/dL [facility] COMMENT, GLU POC TX Given [facility] Venous blood specimen (specimen) 02/20/2008 8:09 PM CDT 02/20/2008 8:09 PM CDT us Jose David Ritchie MD POINT OF CARE TESTING Final Res ult Performing Organization Address [facility] de Phone Number [facility] [address] [address] * (ABNORMAL) POC GLUCOSE (02/20/2008 4:57 PM CDT) GLUCOSE POC 115(H) 65 - 99 mg/dL [facility] Venous blood specimen (specimen) 02/20/2008 4:57 PM CDT 02/20/2008 4:57 PM CDT us Jose David Ritchie MD POINT OF CARE TESTING Final Res ult Performing Organization Address [facility]/State/ZIP Co de Phone Number [facility] [address] [place] [address] * (ABNORMAL) POC GLUCOSE (02/20/2008 12:22 PM CDT) GLUCOSE POC 106(H) 65 - 99 mg/dL [facility] Venous blood specimen (specimen) 02/20/2008 12:22 PM CDT 02/20/2008 12:22 PM CDT Jose David Ritchie MD POINT OF CARE TESTING Final Res ult Performing Organization Address City/[facility]/ZIP Co de Phone Number [facility] [address] [place] [address] * (ABNORMAL) POC GLUCOSE (02/20/2008 8:31 AM CDT) GLUCOSE POC 134(H) 65 - 99 mg/dL [facility] Venous blood specimen (specimen) 02/20/2008 8:31 AM CDT 02/20/2008 8:31 AM CDT Jose David Ritchie MD POINT OF CARE TESTING Final Res ult Performing Organization Address City/[facility]/ZIP Co de Phone Number [facility] [address] [place] [address] * (ABNORMAL) POC GLUCOSE (02/20/2008 5:10 AM CDT) COMMENT, GLU POC TX Given [facility] GLUCOSE POC 117(H) 65 - 99 mg/dL [facility] Venous blood specimen (specimen) 02/20/2008 5:10 AM CDT 02/20/2008 5:10 AM CDT us Jose David Ritchie MD POINT OF CARE TESTING Final Res ult [facility] [address] [place] [address] * PT AND APTT (02/20/2008 5:00 AM CDT) PROTIME 14.6 12.7 - 15.1 Seconds [facility] INR 1.1 0.9 - 1.1 [facility] Comment: INR Therapeutic Range: Adult: 2.0 - 3.0 for pulmonary embolism or prophylaxis against venous thrombosis or systemic embolization. 2.0 - 3.0 for patients with tissue heart valves. 2.5 - 3.5 for patients with mechanical heart valves or post ME. Pediatric (12 years and under): 1.5 - 3.0 Although the target range in children is not well established, INR values of 1.5 - 3.0 are recommended for most patients. Higher values have been used in children with prosthetic cardiac valves and hereditary clotting disorders. (<3 days) therapeutic ranges have not been established. PTT 31.8 24.4 - 36.4 Seconds [facility] Comment: PTT Therapeutic Range: Heparin Level PTT (seconds) <0.10 units/mL <53 0.10 - 0.30 units/mL 53 - 67 0.30 - 0.70 units/mL* 67 - 95* 0.70 - 1.00 units/mL 95 - 116 *corresponds to therapeutic range for unfractionated heparin Blood specimen (specimen) 02/20/2008 5:00 AM CDT 02/20/2008 5:35 AM CDT us Marco Lopez MD HEMATOLOGY ORDERABLES Edited [facility] [address] [place] [address] * MAGNESIUM LEVEL (02/20/2008 5:00 AM CDT) MAGNESIUM 1.6 1.5 - 2.5 mg/dL [facility] Blood specimen (specimen) 02/20/2008 5:00 AM CDT 02/20/2008 5:35 AM CDT Marco Lopez MD CHEMISTRY ORDERABLES Final Re sult Performing Organization Address City/[facility]/ZIP Co de Phone Number [facility] [address] [place] [address] * PHOSPHORUS (02/20/2008 5:00 AM CDT) PHOSPHORUS 3.0 2.5 - 4.5 mg/dL [facility] Blood specimen (specimen) 02/20/2008 5:00 AM CDT 02/20/2008 5:35 AM CDT Marco Lopez MD CHEMISTRY ORDERABLES Final Re sult Performing Organization Address [facility] Co de Phone Number [facility] [address] [place] [address] * (ABNORMAL) BASIC METABOLIC PANEL (02/20/2008 5:00 AM CDT) CO2 27 22 - 30 mmol/L [facility] CREATININE 0.80 0.67 - 1.17 mg/dL [facility] POTASSIUM 3.4(L) 3.5 - 4.9 mmol/L [facility] BUN 8 6 - 20 mg/dL [facility] CHLORIDE 99 96 - 108 mmol/L [facility] GLUCOSE 126(H) 65 - 99 mg/dL [facility] SODIUM 133(L) 135 - 145 mmol/L [facility] CALCIUM 7.7(L) 8.4 - 10.2 mg/dL [facility] GFR, >60 >=60 mL/min/1. 7 sq meter [facility] GFR >60 >=60 mL/min/1. 7 sq meter [facility] Comment: Estimated GFR rate interpretative information for both Americans and non- Americans is available on the [facility] Intranet at: [email or web address] Select: Lab Policies and Procedures Select: Reference Ranges - GFR Blood specimen (specimen) 02/20/2008 5:00 AM CDT 02/20/2008 5:35 AM CDT us Marco Lopez MD CHEMISTRY ORDERABLES Edited [facility] [address] [facility] [address] [place] [place] [address] * (ABNORMAL) CBC WITH DIFFERENTIAL (02/20/2008 5:00 AM CDT) RDW-STDEV 41.7 37.1 - 48.7 fL [facility] RBC 4.20(L) 4.50 - 5.40 M/uL [facility] MCHC 33.5 31.5 - 35.5 % [facility] MCV 87.4 82.0 - 99.0 fL [facility] PLATELETS 165 140 - 350 K/uL [facility] HEMOGLOBIN 12.3(L) 13.6 - 16.5 g/dL [facility] RDW 13.0 11.5 - 14.5 % [facility] WBC 10.5(H) 4.0 - 9.8 K/uL [facility] MCH 29.3 27.2 - 32.6 pg [facility] MPV 9.7 9.3 - 12.4 fL [facility] HEMATOCRIT 36.7(L) 40.0 - 48.0 % [facility] MONOCYTES 12 3 - 13 % [facility] MONOCYTE ABSOLUTE 1.22 0.10 - 1.30 K/uL [facility] NEUTROPHILS 74(H) 45 - 70 % [facility] NEUTROPHIL ABSOLUTE 7.69(H) 1.90 - 7.00 K/uL [facility] EOSINOPHILS 1 0 - 7 % [facility] EOSINOPHIL ABSOLUTE 0.14 0.00 - 0.70 K/uL [facility] LYMPHOCYTES 13(L) 16 - 45 % [facility] LYMPHOCYTE ABSOLUTE 1.39 0.70 - 4.50 K/uL [facility] BASOPHILS 0 0 - 2 % [facility] BASOPHILS ABSOLUTE 0.02 0.00 - 0.20 K/uL [facility] Blood specimen (specimen) 02/20/2008 5:00 AM CDT 02/20/2008 5:35 AM CDT us Marco Lopez MD HEMATOLOGY ORDERABLES Edited Performing Organization Address City/[facility]/ZIP Co de Phone Number INTERFACE SYSTEM Refer to clinic/hospital department [facility] [address] [place] [address] * (ABNORMAL) POC GLUCOSE (02/20/2008 12:36 AM CDT) GLUCOSE POC 133(H) 65 - 99 mg/dL [facility] COMMENT, GLU POC TX Given [facility] Venous blood specimen (specimen) 02/20/2008 12:36 AM CDT 02/20/2008 12:36 AM CDT us Jose David Ritchie MD POINT OF CARE TESTING Final Res ult [facility] [address] [place] [address] * (ABNORMAL) POC GLUCOSE (02/19/2008 9:13 PM CDT) GLUCOSE POC 115(H) 65 - 99 mg/dL [facility] Venous blood specimen (specimen) 02/19/2008 9:13 PM CDT 02/19/2008 9:13 PM CDT us Jose David Ritchie MD POINT OF CARE TESTING Final Res ult Performing Organization Address [facility] Co de Phone Number [facility] [address] [place] [address] * (ABNORMAL) POC GLUCOSE (02/19/2008 5:15 PM CDT) GLUCOSE POC 107(H) 65 - 99 mg/dL [facility] Venous blood specimen (specimen) 02/19/2008 5:15 PM CDT 02/19/2008 5:15 PM CDT Jose David Ritchie MD POINT OF CARE TESTING Final Res ult Performing Organization Address [facility] de Phone Number [facility] [address] [place] [address] * (ABNORMAL) POC GLUCOSE (02/19/2008 12:19 PM CDT) GLUCOSE POC 111(H) 65 - 99 mg/dL [facility] Venous blood specimen (specimen) 02/19/2008 12:19 PM CDT 02/19/2008 12:19 PM CDT Jose David Ritchie MD POINT OF CARE TESTING Final Res ult Performing Organization Address [facility] Co de Phone Number [facility] [address] [place] [address] * (ABNORMAL) POC GLUCOSE (02/19/2008 8:03 AM CDT) GLUCOSE POC 111(H) 65 - 99 mg/dL [facility] Venous blood specimen (specimen) 02/19/2008 8:03 AM CDT 02/19/2008 8:03 AM CDT us Jose David Ritchie MD POINT OF CARE TESTING Final Res ult [facility] [address] [place] [address] * (ABNORMAL) BASIC METABOLIC PANEL (02/19/2008 5:15 AM CDT) SODIUM 140 135 - 145 mmol/L [facility] CALCIUM 7.9(L) 8.4 - 10.2 mg/dL [facility] CO2 27 22 - 30 mmol/L [facility] CREATININE 0.85 0.67 - 1.17 mg/dL [facility] POTASSIUM 4.4 3.5 - 4.9 mmol/L [facility] BUN 15 6 - 20 mg/dL [facility] CHLORIDE 106 96 - 108 mmol/L [facility] GLUCOSE 114(H) 65 - 99 mg/dL [facility] GFR, >60 >=60 mL/min/1. 7 sq meter [facility] GFR >60 >=60 mL/min/1. 7 sq meter [facility] Comment: Estimated GFR rate interpretative information for both Americans and non- Americans is available on the [facility] Intranet at: [email or web address] Select: Lab Policies and Procedures Select: Reference Ranges - GFR Blood specimen (specimen) 02/19/2008 5:15 AM CDT 02/19/2008 5:23 AM CDT us Rosmery Ty DO CHEMISTRY ORDERABLES Edit ed [facility] [address] [place] [address] * (ABNORMAL) MAGNESIUM LEVEL (02/19/2008 5:15 AM CDT) MAGNESIUM 2.8(H) 1.5 - 2.5 mg/dL [facility] Blood specimen (specimen) 02/19/2008 5:15 AM CDT 02/19/2008 5:23 AM CDT [facility] CHEMISTRY ORDERABLES Dina l Result Performing Organization Address City/[facility]/ZIP Co de Phone Number [facility] [address] [place] [address] * PHOSPHORUS (02/19/2008 5:15 AM CDT) PHOSPHORUS 4.2 2.5 - 4.5 mg/dL [facility] Blood specimen (specimen) 02/19/2008 5:15 AM CDT 02/19/2008 5:23 AM CDT Rosmery Renteria [facility] CHEMISTRY ORDERABLES Dina l Result Performing Organization Address City/[facility] Co de Phone Number [facility] [address] [place], [place] [address] * (ABNORMAL) CBC WITH DIFFERENTIAL (02/19/2008 5:15 AM CDT) MCV 87.4 82.0 - 99.0 fL [facility] PLATELETS 193 140 - 350 K/uL [facility] HEMOGLOBIN 14.5 13.6 - 16.5 g/dL [facility] RDW 13.2 11.5 - 14.5 % [facility] WBC 14.4(H) 4.0 - 9.8 K/uL [facility] MCH 30.0 27.2 - 32.6 pg [facility] MPV 9.5 9.3 - 12.4 fL [facility] HEMATOCRIT 42.2 40.0 - 48.0 % [facility] RDW-STDEV 41.9 37.1 - 48.7 fL [facility] RBC 4.83 4.50 - 5.40 M/uL [facility] MCHC 34.4 31.5 - 35.5 % [facility] EOSINOPHILS 2 0 - 7 % [facility] EOSINOPHIL ABSOLUTE 0.23 0.00 - 0.70 K/uL [facility] LYMPHOCYTES 13(L) 16 - 45 % [facility] LYMPHOCYTE ABSOLUTE 1.92 0.70 - 4.50 K/uL [facility] BASOPHILS 0 0 - 2 % [facility] BASOPHILS ABSOLUTE 0.04 0.00 - 0.20 K/uL [facility] MONOCYTES 9 3 - 13 % [facility] MONOCYTE ABSOLUTE 1.33(H) 0.10 - 1.30 K/uL [facility] NEUTROPHILS 75(H) 45 - 70 % [facility] NEUTROPHIL ABSOLUTE 10.85(H) 1.90 - 7.00 K/uL [facility] Blood specimen (specimen) 02/19/2008 5:15 AM CDT 02/19/2008 5:23 AM CDT us Jose David Ritchie MD HEMATOLOGY ORDERABLES Edited INTERFACE SYSTEM Refer to clinic/hospital department [facility] [address] [place] [address] * MRSA ACTIVE SURVEILLANCE (02/19/2008 4:14 AM CDT) FINAL REPORT No methicillin resistant Staphylococcus aureus isolated. INTERFACE SYSTEM Dieudonne 02/19/2008 4:14 AM CDT 02/19/2008 11:40 AM CDT us Jose David Ritchie MD MICROBIOLOGY - GENERAL ORDERABL ES Final Result INTERFACE SYSTEM Refer to clinic/hospital department * XR CHEST PA OR AP (02/19/2008 2:20 AM CDT) Anatomical Region Laterality Modality Chest Other 02/19/2008 2:20 AM CDT Narrative 02/19/2008 8:59 AM CDT [facility] [address] [place], [place] [address] Admit Date: 02/18/2008 ZAFAR BRYSON Sex: M Admit Prov: JOSE DAVID RITCHIE Date: 1950 Primary Care Prov: CMRN: [id number] Room: [address] [place] [address] SSN: [id number] IMAGING SERVICES Ordering Prov: N/A Accession Number: [id number] Interpretation Portable chest 02/19/2008 2:30 a.m. Clinical history: Subdural hematoma, endotracheal intubation An endotracheal tube is seen in good position with the tip at approximately the level of T3. The heart and mediastinum appear unremarkable. The lungs are generally clear and expanded and but there is question of a small subcentimeter nodular density projecting at the margin of the left hemidiaphragm lateral to the cardiac apex. A short-term followup radiograph is suggested to determine if this is a persistent finding. The pleural space is clear. Old fracture deformities of the left ribs are noted as well as old fracture deformity of the left clavicle. Impression: Good position of an indwelling endotracheal tube. Question of a tiny nodular density in the lower left lung for which short term followup is recommended to determine if this is a persistent finding. . Dictated by: FLOWER VARGAS 02/19/2008 07:23 Electronically signed by: FLOWER VARGAS 02/19/2008 08:59 Transcribed: 02/19/2008 08:08 AMK Procedure Note Provider, Historical - 02/19/2008 [facility] [address] [place], [place] [address] Admit Date: 02/18/2008 ZAFAR BRYSON: M Admit Prov: JOSE DAVID RITCHIE Date: 1950 Primary Care Prov: CMRN: [id number] Room: 74A [address]L 12 SSN: [id number] IMAGING SERVICES Ordering Prov: N/A Interpretation Portable chest 02/19/2008 2:30 a.m. Clinical history: Subdural hematoma, endotracheal intubation An endotracheal tube is seen in good position with the tip atapproximately the level of T3. The heart and mediastinum appear unremarkable. Thelungs are generally clear and expanded and but there is question of asmall subcentimeter nodular density projecting at the margin of the left hemidiaphragm lateral to the cardiac apex. A short-term followupradiograph is suggested to determine if this is a persistent finding. Thepleural space is clear. Old fracture deformities of the left ribs are notedas well as old fracture deformity of the left clavicle. Impression: Good position of an indwelling endotracheal tube.Question of a tiny nodular density in the lower left lung for which short termfollowup is recommended to determine if this is a persistent finding. . Dictated by: FLOWER VARGAS 02/19/2008 07:23 Electronically signed by: FLOWER VARGAS 02/19/2008 08:59 Transcribed: 02/19/2008 08:08 AMK Ji Dumont MD DIAGNOSTIC IMAGING ORDERABLES Final Result * HEMOGLOBIN AND HEMATOCRIT (02/19/2008 2:16 AM CDT) HEMATOCRIT 40.6 40.0 - 48.0 % [facility] HEMOGLOBIN 14.1 13.6 - 16.5 g/dL [facility] Blood specimen (specimen) 02/19/2008 2:16 AM CDT 02/19/2008 2:20 AM CDT Ji Dumont MD HEMATOLOGY ORDERABLES Final R esult [facility] [address] [place] [address] * (ABNORMAL) BLOOD GAS ARTERIAL (02/19/2008 2:16 AM CDT) O2 CONC ARTERIAL 40% [facility] HCO3 ARTERIAL 23 22 - 26 mmol/L [facility] PCO2 ARTERIAL 46 35 - 48 mm Hg [facility] FO2HB ABG 99(H) 94 - 98 % [facility] BASE EXCESS ABG -2.3(L) -2.0 - 3.0 mmol/L [facility] PO2 ARTERIAL 181(H) 83 - 108 mm Hg [facility] PH ARTERIAL 7.33(L) 7.35 - 7.45 [facility] SO2 ABG 100(H) 95 - 99 % [facility] Arterial blood specimen (specimen) 02/19/2008 2:16 AM CDT 02/19/2008 2:20 AM CDT Ji Dumont MD ABG ORDERABLES Final Result [facility] [address] [place] [address] * PT AND APTT (02/18/2008 11:48 PM CDT) PROTIME 13.2 12.7 - 15.1 Seconds [facility] INR 1.0 0.9 - 1.1 [facility] Comment: INR Therapeutic Range: Adult: 2.0 - 3.0 for pulmonary embolism or prophylaxis against venous thrombosis or systemic embolization. 2.0 - 3.0 for patients with tissue heart valves. 2.5 - 3.5 for patients with mechanical heart valves or post ME. Pediatric (12 years and under): 1.5 - 3.0 Although the target range in children is not well established, INR values of 1.5 - 3.0 are recommended for most patients. Higher values have been used in children with prosthetic cardiac valves and hereditary clotting disorders. (<3 days) therapeutic ranges have not been established. PTT 29.6 24.4 - 36.4 Seconds [facility] Comment: PTT Therapeutic Range: Heparin Level PTT (seconds) <0.10 units/mL <53 0.10 - 0.30 units/mL 53 - 67 0.30 - 0.70 units/mL* 67 - 95* 0.70 - 1.00 units/mL 95 - 116 *corresponds to therapeutic range for unfractionated heparin Blood specimen (specimen) 02/18/2008 11:48 PM CDT 02/18/2008 11:58 PM CDT us Brian Clement DO HEMATOLOGY ORDERABLES Edited [facility] [address] [place] [address] * CT HEAD WO CONTRAST (02/18/2008 10:58 PM CDT) Anatomical Region Laterality Modality Head Other 02/18/2008 10:5 8 PM CDT Narrative 02/18/2008 11:33 PM CDT [facility] [address] [place], [place] [address] Admit Date: 02/18/2008 ZAFAR BRYSON Sex: M Admit Prov: ERPALOMO P Date: 1950 Primary Care Prov: CMRN: [id number] Room: [facility] SSN: [id number] IMAGING SERVICES Ordering Prov: N/A Accession Number: [id number] Interpretation CT scan of the head without contrast 02/18/08. Clinical History: Headache and dizziness. Technique: 5 mm contiguous axial images were obtained without contrast. Findings: There is a large subdural hematoma over the left convexity measuring up to 2 cm in width. The density of the fluid is mixed suggesting that it is subacute or possibly an old hematoma with an acute component. There is mass effect on the third and lateral ventricles, 14 mm midline shift to the right and an enlarged right temporal horn suggesting a trapped ventricle. Sherman-white matter differentiation appears normal. The basal cisterns are not effaced and the cerebellar hemispheres are normal. Impression: Large left subdural hematoma resulting in midline shift and mass effect as described. Dr. Clement was advised of these findings at the time of the dictation. . Dictated by: INES VELÁZQUEZ 02/18/2008 23:24 Electronically signed by: INES VELÁZQUEZ 02/18/2008 23:33 Procedure Note Ines Velázquez MD - 02/18/2008 [facility] [address] [place], [place] [address] Admit Date: 02/18/2008 STEFFANIEZAFAR NAZARIO Sex: M Admit Prov: ER, AUTHORIZED P Date: 1950 Primary Care Prov: CMRN: [id number] Room: [facility] SSN: [id number] [id number] [address] IMAGING SERVICES Ordering Prov: N/A Interpretation CT scan of the head without contrast 02/18/08. Clinical History: Headache and dizziness. Technique: 5 mm contiguous axial images were obtained withoutcontrast. Findings: There is a large subdural hematoma over the leftconvexity measuring up to 2 cm in width. The density of the fluid is mixedsuggesting that it is subacute or possibly an old hematoma with an acutecomponent. There is mass effect on the third and lateral ventricles, 14 mmmidline shift to the right and an enlarged right temporal horn suggesting atrapped ventricle. Sherman-white matter differentiation appears normal. Thebasal cisterns are not effaced and the cerebellar hemispheres are normal. Impression: Large left subdural hematoma resulting in midline shiftand mass effect as described. Dr. Clement was advised of these findings at the time of thedictation. . Dictated by: INES VELÁZQUEZ 02/18/2008 23:24 Electronically signed by: INES VELÁZQUEZ 02/18/2008 23:33 us Authorized P Er CT ORDERABLES Final Result * (ABNORMAL) COMPREHENSIVE METABOLIC PANEL (02/18/2008 10:55 PM CDT) POTASSIUM 4.0 3.5 - 4.9 mmol/L [facility] TOTAL PROTEIN 6.9 6.3 - 8.6 g/dL [facility] GLUCOSE 107(H) 65 - 99 mg/dL [facility] AST 23 12 - 38 U/L [facility] BUN 16 6 - 20 mg/dL [facility] CALCIUM 8.6 8.4 - 10.2 mg/dL [facility] ALBUMIN 4.2 3.4 - 4.8 g/dL [facility] CHLORIDE 104 96 - 108 mmol/L [facility] CREATININE 0.82 0.67 - 1.17 mg/dL [facility] ALT 26 0 - 41 U/L [facility] SODIUM 140 135 - 145 mmol/L [facility] ALKALINE PHOSPHATASE 94 40 - 129 U/L [facility] CO2 27 22 - 30 mmol/L [facility] BILIRUBIN TOTAL 0.3 0.2 - 1.0 mg/dL [facility] GFR, >60 >=60 mL/min/1. 7 sq meter [facility] GFR >60 >=60 mL/min/1. 7 sq meter [facility] Comment: Estimated GFR rate interpretative information for both Americans and non- Americans is available on the [facility] Intranet at: [email or web address] Select: Lab Policies and Procedures Select: Reference Ranges - GFR Blood specimen (specimen) 02/18/2008 10:55 PM CDT 02/18/2008 11:21 PM CDT us Authorized P Er CHEMISTRY ORDERABLES Edited [facility] [address] [place] [address] * (ABNORMAL) CBC WITH DIFFERENTIAL (02/18/2008 10:55 PM CDT) MPV 9.2(L) 9.3 - 12.4 fL [facility] HEMATOCRIT 40.5 40.0 - 48.0 % [facility] RDW-STDEV 40.8 37.1 - 48.7 fL [facility] RBC 4.69 4.50 - 5.40 M/uL [facility] MCHC 35.1 31.5 - 35.5 % [facility] MCV 86.4 82.0 - 99.0 fL [facility] PLATELETS 191 140 - 350 K/uL [facility] HEMOGLOBIN 14.2 13.6 - 16.5 g/dL [facility] RDW 13.0 11.5 - 14.5 % [facility] WBC 8.7 4.0 - 9.8 K/uL [facility] MCH 30.3 27.2 - 32.6 pg [facility] BASOPHILS 1 0 - 2 % [facility] BASOPHILS ABSOLUTE 0.05 0.00 - 0.20 K/uL [facility] MONOCYTES 10 3 - 13 % [facility] MONOCYTE ABSOLUTE 0.84 0.10 - 1.30 K/uL [facility] NEUTROPHILS 59 45 - 70 % [facility] NEUTROPHIL ABSOLUTE 5.12 1.90 - 7.00 K/uL [facility] EOSINOPHILS 5 0 - 7 % [facility] EOSINOPHIL ABSOLUTE 0.41 0.00 - 0.70 K/uL [facility] LYMPHOCYTES 26 16 - 45 % [facility] LYMPHOCYTE ABSOLUTE 2.28 0.70 - 4.50 K/uL [facility] Blood specimen (specimen) 02/18/2008 10:55 PM CDT 02/18/2008 11:21 PM CDT us Authorized P Er HEMATOLOGY ORDERABLES Edited INTERFACE SYSTEM Refer to clinic/hospital department [facility] [address] [place] [address] * SEDIMENTATION RATE (02/18/2008 10:55 PM CDT) ESR (SEDIMENTATION RATE) 7 0 - 30 mm/hr [facility] Blood specimen (specimen) 02/18/2008 10:55 PM CDT 02/18/2008 11:21 PM CDT us Authorized P Er HEMATOLOGY ORDERABLES Final Resu lt Performing Organization Address [facility] de Phone Number [facility] [address], [place] [address] documented in this encounter Visit Diagnoses Not on filedocumented in this encounter Care Teams Batch Plant Supervisor Relationship Specialty Start Date End Date Long Mejias MD [address] [facility] [address] [facility] [address] [place] [address] PCP - General Family Practice 06/24/19 documented as of this encounter
== END 2025-03-17 11:18 | disposition home or self-care (01) ==
PROVIDERS: PCP Family Medicine; Visit Provider Student in an Organized Health Care Education/Training Program
DX: Z12.2 Encounter for screening for malignant neoplasm of respiratory organs (principal); Z87.891 Personal history of nicotine dependence
CPT/HCPCS: 71271

== ENCOUNTER 2025-04-12 12:13 | Outpatient (CLI) | payer MEDICARE, OTHER, SELFPAY ==
--- NOTE | ~2025-04-12 | US_ITS ---
EXAMINATION: US venous doppler LE RT DATE: 04/12/2025 13:12 INDICATION: Swelling TECHNIQUE: Grayscale ultrasound images without and with compression and Doppler ultrasound images of the right lower extremity veins were obtained. COMPARISON: None. FINDINGS: The visualized portions of right common femoral vein, profunda (deep) femoral vein, femoral vein, pop liteal vein, peroneal veins, posterior tibial veins, and greater saphenous vein outflow are patent. IMPRESSION: 1. No deep venous thrombosis within the right lower extremity, as detailed above. Reviewed, dictated and finalized at location A. IMPRESSION: 1. No deep venous thrombosis within the right lower extremity, as detailed abo ve.
--- OUTSIDE RECORDS SUMMARY | 2025-04-12 12:16 | XMS_ITS | Clinical Summary ---
Author Organization [facility] Address [address] [place] [address] Care Team Providers Care Industrial Analyst Name Role Phone Long Mejias MD Primary Care Provider Sonu Carlson MD Unavailable [phone] Allergies Active Allergy Reactions Criticality Noted [...] (08/08/2020): Added automatically from request for surgery [id number] Benign essential HTN 11/30/2019 Lipoma 06/25/2019 Overview (01/04/2025): Added automatically from request for surgery [id number] Lipoma of anterior chest wall 06/24/2019 Lipoma of breast 06/24/2019 Other male erectile dysfunction 05/25/2019 Tobacco abuse, in remission 07/21/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 07/15/2018 Lipoma of upper extremity 02/06/2018 Overview (01/04/2025): Added automatically from request for surgery [id number] Added automatically from request for surgery [id number] Sebaceous cyst 02/06/2018 Overview (01/04/2025): Added automatically from request for surgery [id number] Abscess of back 12/03/2017 Subdural hematoma 03/05/2017 Actinic keratosis 08/15/2016 Infectious warts 08/15/2016 Keratinizing cyst 08/15/2016 Senile angioma 08/15/2016 Mass of upper extremity 07/16/2014 Vertigo 12/08/2012 Right-sided chest wall pain 02/07/2011 Pure hypercholesterolemia 03/21/2010 Coronary artery disease invo lving [place] coronary artery of [place] heart without angina pectoris 03/21/2010 S/P coronary [...] Free, Intramuscular 08/17/2015 Influenza, Unspecified 08/25/2022,2019,08/25/2017,08/25,09/10/2013,07/26/2008,09/02/2007 ,08/25/2006,09/20/2005,10/17/2004,08/26 [place] Encephalitis 12/28/2005,12/20/2005,11/25 Pfizer SARS-CoV-2 Monovalent Vaccination (12+ [...] on file Legal Sex Male 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8 oz) 025 10:24 AM FRICTION SAW OPERATOR Height 180.3 cm (5' 11 ) 01/05/2025 10: 24 AM FRICTION SAW OPERATOR Body Mass Index 29.26 01/05/2025 10:24 AM FRICTION SAW OPERATOR Plan of Treatment Health Maintenance Due Date [...] 05/02/2023, 11/2010 Medical Devices Implanted Type Area Cottrell Blower Device Identifier Shelf Expiration Date Model / Serial / Lot [employer]/ Ortho [id number] Evos [id number] 16.3x1.7mm 7 Hole Low Profile Variable Angle Lock - [id number] Implanted:Qty: 1 on 08/09/2020 by Leslie Holder MD at [facility] Right: Ankle [employer]Or tho [id number] / / [employer]/ Ortho [id number] Evos 3.5mm 10mm Self Tap Cortex Screw Bone Sterile - [id number] Implanted:Qty: 2 on 08/09/2020 by Leslie Holder MD at [facility] Right: Ankle [employer]Or tho [id number] / / [employer]/ Ortho [id number] Evos 3.5mm 14mm Self Tap Cortex Screw Bone Sterile - [id number] Implanted:Qty: 1 on 08/09/2020 by Leslie Holder MD at [facility] Right: Ankle [employer]Or tho [id number] / / [employer]/ Ortho [id number] Evos 3.5mm 16mm Self Tap Cortex Screw Bone Sterile - [id number] Implanted:Qty: 1 on 08/09/2020 by Leslie Holder MD at [facility] Right: Ankle [employer]Or tho [id number] / / [employer]/ Ortho [id number] Evos 4.7mm 14mm Full Thread Screw Bone Sterile Osteopenia - [id number] Implanted:Qty: 1 on 08/09/2020 by Leslie Holder MD at [facility] Right: Ankle [employer]Or tho [id number] / / [employer]/ Ortho [id number] Evos 4.7mm 16mm Full Thread Screw Bone Sterile Osteopenia - [id number] Implanted:Qty: 1 on 08/09/2020 by Leslie Holder MD at [facility] Right: Ankle [employer]Or tho [id number] / / [employer]/ Ortho [id number] Evos 4.7mm 18mm Full Thread Screw Bone Sterile Osteopenia - [id number] Implanted:Qty: 1 on 08/09/2020 by Leslie Holder MD at [facility] Right: Ankle [employer]Or tho [id number] / / [employer]/ Ortho [id number] Evos 3.5mm 18mm Self Tap Cortex Screw Bone Sterile - [id number] Implanted:Qty: 1 on 08/18/2020 by Leslie Holder MD at [facility] Right: Ankle [employer]Or tho [id number] / / [employer] End[employer] Surgery Prolene 3 15/16in .75in 4 15/16inx2 5/32inx.5in Soft Knit Extend Phse - [id number] Implanted:Qty: 1 on 12/17/2024 by Sonu Carlson MD at [facility] Left: Inguinal [employer] Endo Surgery 03/24/2029 PHSE / / [id number] Procedures Procedure Name Priority Date/Time Associated Diagnosis Comments PSA SCREEN Routine 09/01/2015 1:25 PM CDT from Last 3 Months or Most Recently Relevant to Health Maintenance Results * PSA screen (09/01/2015 1:25 PM CDT) PSA Screen 0.9 0.0 - 5.4 ng/mL Comment: Method: ECLIA Values obtained by different assay methods cannot be used interchangeably. Use sequential testing to confirm baseline if assay method changed during patient monitoring. 09/01/2015 1:25 PM CDT 09/01/2015 1:53 PM CDT Narrative [email or web address] HISTORICAL RESULTS - 09/01/2015 5:11 PM CDT 12 HOURS PC us Suleiman Petit MD LAB BLOOD ORDERABLES Final Result [facility] HISTORICAL RESULTS from Last 3 Months or Most Recently Relevant to Health Maintenance Insurance MEDICARE FOR LIFE MEDICARE FOR LIFE MEDICARE FOR [facility] MEDICARE Care Teams Industrial Analyst Relationship Specialty Start Date End Date Long Mejias MD [address] [place] [address] PCP - General 09/28/19 Sonu Carlson MD [address] [facility] [address] [place] [address] Consulting Physician General Surgery 12/17/24
--- OUTSIDE RECORDS SUMMARY | 2025-04-12 12:16 | XMS_ITS | Referral Summary ---
Author Organization [facility] Address [address] [place] [address] Care Team Providers Care Study Hall Supervisor Name Role Phone Long Mejias MD Primary Care Provider Sonu Carlson MD Unavailable [phone] Allergies Active Allergy Reactions Criticality Noted [...] (08/08/2020): Added automatically from request for surgery [id number] Benign essential HTN 11/30/2019 Lipoma 06/25/2019 Overview (01/04/2025): Added automatically from request for surgery [id number] Lipoma of anterior chest wall 06/24/2019 Lipoma of breast 06/24/2019 Other male erectile dysfunction 05/25/2019 Tobacco abuse, in remission 07/21/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 07/15/2018 Lipoma of upper extremity 02/06/2018 Overview (01/04/2025): Added automatically from request for surgery [id number] Added automatically from request for surgery [id number] Sebaceous cyst 02/06/2018 Overview (01/04/2025): Added automatically from request for surgery [id number] Abscess of back 12/03/2017 Subdural hematoma 03/05/2017 Actinic keratosis 08/15/2016 Infectious warts 08/15/2016 Keratinizing cyst 08/15/2016 Senile angioma 08/15/2016 Mass of upper extremity 07/16/2014 Vertigo 12/08/2012 Right-sided chest wall pain 02/07/2011 Pure hypercholesterolemia 03/21/2010 Coronary artery disease invo lving [place] coronary artery of [place] heart without angina pectoris 03/21/2010 S/P coronary [...] Free, Intramuscular 08/17/2015 Influenza, Unspecified 08/25/2022,2019,08/25/2017,08/25,09/10/2013,07/26/2008,09/02/2007 ,08/25/2006,09/20/2005,10/17/2004,08/26 [place] Encephalitis 12/28/2005,12/20/2005,11/25 Pfizer SARS-CoV-2 Monovalent Vaccination (12+ [...] on file Legal Sex Male 3:52 AM RECONCILIATION ACCOUNTANT Gender Identity Not on file Sexual Orientation Not on file Occupation Industry Job Start Date Job End Date disabled Not on file Not on file Not on file Last Filed Vital Signs Vital Sign Reading Time Taken Comments Blood Pressure 149/76 01/05/2025 10:24 AM RECONCILIATION ACCOUNTANT Pulse 47 01/05/2025 10:24 AM RECONCILIATION ACCOUNTANT Temperature 36.7 C (98 F) 01/05/2025 10:24 AM RECONCILIATION ACCOUNTANT Respiratory Rate 10 12/17/2024 9:55 AM RECONCILIATION ACCOUNTANT Oxygen Saturation 96% 12/17/2024 9:55 AM RECONCILIATION ACCOUNTANT Inhaled Oxygen Concentration - - Weight 95.2 kg (209 lb 12.8 oz) 025 10:24 AM RECONCILIATION ACCOUNTANT Height 180.3 cm (5' 11 ) 01/05/2025 10: 24 AM RECONCILIATION ACCOUNTANT Body Mass Index 29.26 01/05/2025 10:24 AM RECONCILIATION ACCOUNTANT Plan of Treatment Not on file Medical Devices Implanted Type Area Repair Department Supervisor Device Identifier Shelf Expiration Date Model / Serial / Lot [employer]/ Ortho [id number] Evos [id number] 16.3x1.7mm 7 Hole Low Profile Variable Angle Lock - [id number] Implanted:Qty: 1 on 08/09/2020 by Leslie Holder MD at [facility] Right: Ankle [employer]Or tho [id number] / / [employer]/ Ortho [id number] Evos 3.5mm 10mm Self Tap Cortex Screw Bone Sterile - [id number] Implanted:Qty: 2 on 08/09/2020 by Leslie Holder MD at [facility] Right: Ankle [employer]Or tho [id number] / / [employer]/ Ortho [id number] Evos 3.5mm 14mm Self Tap Cortex Screw Bone Sterile - [id number] Implanted:Qty: 1 on 08/09/2020 by Leslie Holder MD at [facility] Right: Ankle [employer]/Or tho [id number] / / [employer]/ Ortho [id number] Evos 3.5mm 16mm Self Tap Cortex Screw Bone Sterile - [id number] Implanted:Qty: 1 on 08/09/2020 by Leslie Holder MD at [facility] Right: Ankle [employer]/Or tho [id number] / / [employer]/ Ortho [id number] Evos 4.7mm 14mm Full Thread Screw Bone Sterile Osteopenia - [id number] Implanted:Qty: 1 on 08/09/2020 by Leslie Holder MD at [facility] Right: Ankle [employer]/Or tho [id number] / / [employer]/ Ortho [id number] Evos 4.7mm 16mm Full Thread Screw Bone Sterile Osteopenia - [id number] Implanted:Qty: 1 on 08/09/2020 by Leslie Holder MD at [facility] Right: Ankle [employer]/Or tho [id number] / / [employer]/ Ortho [id number] Evos 4.7mm 18mm Full Thread Screw Bone Sterile Osteopenia - [id number] Implanted:Qty: 1 on 08/09/2020 by Leslie Holder MD at [facility] Right: Ankle [employer]/Or tho [id number] / / [employer]/ Ortho [id number] Evos 3.5mm 18mm Self Tap Cortex Screw Bone Sterile - [id number] Implanted:Qty: 1 on 08/18/2020 by Leslie Holder MD at [facility] Right: Ankle [employer]/Or tho [id number] / / [employer] Endo Surgery Prolene 3 15/16in .75in 4 15/16inx2 5/32inx.5in Soft Knit Extend Phse - [id number] Implanted:Qty: 1 on 12/17/2024 by Sonu Carlson MD at [facility] Left: Inguinal [employer] Endo Surgery 03/24/2029 PHSE / / [id number] Procedures Procedure Name Priority Date/Time Associated Diagnosis Comments PSA SCREEN Routine 09/01/2015 1:25 PM CDT from Last 3 Months or Most Recently Relevant to Health Maintenance Results * PSA screen (09/01/2015 1:25 PM CDT) [facility] PSA Screen 0.9 0.0 - 5.4 ng/mL 09/01/2015 5:11 PM CDT [facility] [employer] HISTORICAL RESULTS Comment: Method: ECLIA Values obtained by different assay methods cannot be used interchangeably. Use sequential testing to confirm baseline if assay method changed during patient monitoring. 09/01/2015 1:25 PM CDT 09/01/2015 1:53 PM CDT Narrative [facility] [employer] HISTORICAL RESULTS - 09/01/2015 5:11 PM CDT 12 HOURS PC Suleiman Petit MD LAB BLOOD ORDERABLES Final Result [facility] [employer] HISTORICAL RESULTS from Last 3 Months or Most Recently Relevant to Health Maintenance Insurance MEDICARE FOR LIFE MEDICARE FOR LIFE MEDICARE FOR LIFE MEDICARE Care Teams Study Hall Supervisor Relationship Specialty Start Date End Date Long Mejias MD [address] [facility] [address] [place] [address] PCP - General 09/28/19 Sonu Carlson MD [address] [address] Consulting Physician General Surgery 12/17/24
== END 2025-04-12 12:14 | disposition home or self-care (01) ==
PROVIDERS: PCP Family Medicine; Visit Provider Family Medicine
DX: M79.89 Other specified soft tissue disorders (principal)
CPT/HCPCS: 93971

== ENCOUNTER 2025-07-08 10:00 | Outpatient (RCR) | payer MEDICARE, OTHER, SELFPAY | END 2025-07-08 11:46 | disposition home or self-care (01) | LOC: ANHCPREHAB 10:00 | PROVIDERS: PCP Family Medicine; Visit Provider Internal Medicine Cardiovascular Disease | DX: Z98.61 Coronary angioplasty status (principal) | CPT/HCPCS: 93798 ==

== ENCOUNTER 2025-10-23 08:40 | Inpatient (IN) | payer MEDICARE, OTHER, SELFPAY ==
[2025-10-23] VITALS (34 sets, daily range): BP systolic 107–135; BP diastolic 50–68; PULSE 46–65; RESP 12–18; TEMP 36.2–36.3; O2SAT 93–99; BMI 28.3
--- NOTE | ~2025-10-23 | XR_ITS ---
Examination: XR chest 2V Clinical History: cp cough, diagnosed w/ bronchitis 2wks ago Comparison: CT chest 12/17/2024 Technique: PA and Lateral Findings: Cardiomediastinal silhouette normal size and configuration. Left basilar airspace opacity. Hyperinflation. No acute bony abnormality. IMPRESSION: 1. Left basilar atelectasis and/or airspace disease. Reviewed, dictated and finalized at location R. MAKER
--- NOTE | ~2025-10-23 | US_ITS ---
RIGHT LOWER EXTREMITY VENOUS DUPLEX Clinical History: dvt rule out COMPARISON: 04/12/2025 TECHNIQUE: Grayscale, color, duplex/spectral Doppler sonography right leg FINDINGS: Right leg common femoral, femoral, popliteal, and calf veins compressible and color Doppler patent. Normal augmentation with distal compression. No internal echoes. IMPRESSION: 1. No right leg DVT. Reviewed, dictated and finalized at location R. TH MANAGER IMPRESSION: 1. No right leg DVT.
--- OUTSIDE RECORDS SUMMARY | 2025-10-23 08:43 | XMS_ITS | Encounter Summary ---
Author Organization [facility] Address [address] [place] [address] Care Team Providers Care Av Specialist Name Role Phone Long Mejias MD Primary Care Provider [phone] Encounter Details Date Type Department Care Team (Late Contact Info) Description 07/04/2007 Outpatient Historical [facility] Adult Hospitalists [facility] [address] [place] [address] Shannon Esparza MD [address] [facility] [address] [address] Social History Tobacco Use Types Packs/Day Years Used Date Smoking Tobacco: Never Assessed Sex and Gender Information Value Date Recorded Sex Assigned at Not on file Legal Sex Male 4:07 AM NURSE OB Gender Identity Not on file Sexual Orientation Not on file documented as of this encounter Plan of Treatment Upcoming Encounters Date Type Department Care Team (Late st Contact Info) Description 01/26/2026 11:15 AM NURSE OB Office Visit [facility] Heart and Vascular At [facility] [address] [facility] [address] [place] [address] David Raymond MD [facility] [address] [facility] [address] [place] [address] documented as of this encounter Visit Diagnoses Not on filedocumented in this encounter Care Teams Av Specialist Relationship Specialty Start Date End Date Long Mejias MD [address] [facility] [address] [place] [address] PCP - General Family Practice 06/24/19 documented as of this encounter
--- OUTSIDE RECORDS SUMMARY | 2025-10-23 08:43 | XMS_ITS | Encounter Summary ---
Author Organization [facility] Address [address] [place] [address] Care Team Providers Care Heat Treating Operator Name Role Phone Long Mejias MD Primary Care Provider Encounter Details Date Type Department Care Team (Late st Contact Info) Description 07/03/2007 Outpatient Historical [facility] Trauma and General Surgery [address] [facility] [address] [facility] [place] [address] Ranulfo Grijalva MD [address] [facility] [address] [place] [address] Social History Tobacco Use Types Packs/Day Years Used Date Smoking Tobacco: Never Assessed Sex and Gender Information Value Date Recorded Sex Assigned at Not on file Legal Sex Male 4:07 AM PROFESSIONAL ARCHITECT Gender Identity Not on file Sexual Orientation Not on file documented as of this encounter Plan of Treatment Upcoming Encounters Date Type Department Care Team (Late st Contact Info) Description 01/26/2026 11:15 AM PROFESSIONAL ARCHITECT Office Visit [facility] Heart and Vascular At [facility] [address] [facility] [address] [place] [address] David Raymond MD [address] [facility] [address] [place] [address] documented as of this encounter Visit Diagnoses Not on filedocumented in this encounter Care Teams Heat Treating Operator Relationship Specialty Start Date End Date Long Mejias MD [address] [facility] [address] [place] [address] PCP - General Family Practice 06/24/19 documented as of this encounter
--- OUTSIDE RECORDS SUMMARY | 2025-10-23 08:43 | XMS_ITS | Encounter Summary ---
Author Organization [facility] Address [address] [place] [address] Care Team Providers Care Doper Operator Name Role Phone Long Mejias MD Primary Care Provider [phone] Encounter Details Date Type Department Care Team (Late st Contact Info) Description [address] [facility] Trauma and General Surgery [address] [facility] [address] [address] [place] [address] [place] [address] Social History Tobacco Use Types Packs/Day Years Used Date Smoking Tobacco: Never Assessed Sex and Gender Information Value Date Recorded Sex Assigned at Not on file Legal Sex Male 4:07 AM ASSISTANT ASSOCIATE PROFESSOR Gender Identity Not on file Sexual Orientation Not on file documented as of this encounter Plan of Treatment Upcoming Encounters Date Type Department Care Team (Late st Contact Info) Description 01/26/2026 11:15 AM ASSISTANT ASSOCIATE PROFESSOR Office Visit [facility] Heart and Vascular At [facility] [address] [facility] [address] [place] [address] David Raymond MD [address] [facility] [address] [place] [address] documented as of this encounter Visit Diagnoses Not on filedocumented in this encounter Care Teams Doper Operator Relationship Specialty Start Date End Date Long Mejias MD [address] [facility] [address] [place] [address] PCP - General Family Practice 06/24/19 documented as of this encounter
--- OUTSIDE RECORDS SUMMARY | 2025-10-23 08:43 | XMS_ITS | Encounter Summary ---
Author Organization [facility] Address [address] [place] [address] Care Team Providers Care Box Covering Machine Operator Name Role Phone Long Mejias MD Primary Care Provider [phone] Encounter Details Date Type Department Care Team (Late st Contact Info) Description 06/30/2007 Outpatient Historical [facility] [place] [address] Johnie Kirby MD NO ADDRESS ON FILE Social History Tobacco Use Types Packs/Day Years Used Date Smoking Tobacco: Never Assessed Sex and Gender Information Value Date Recorded Sex Assigned at Not on file Legal Sex Male 4:07 AM SOLUTION DESIGN AND ANALYSIS MANAGER Gender Identity Not on file Sexual Orientation Not on file documented as of this encounter Plan of Treatment Upcoming Encounters Date Type Department Care Team (Late st Contact Info) Description 01/26/2026 11:15 AM SOLUTION DESIGN AND ANALYSIS MANAGER Office Visit [facility] Heart and Vascular At [place] [address] [facility] [address] [place] [address] David Raymond MD [facility] [address] [facility] [address] [place] [address] documented as of this encounter Visit Diagnoses Not on filedocumented in this encounter Care Teams Box Covering Machine Operator Relationship Specialty Start Date End Date Long Mejias MD [address] [place] [address] PCP - General Family Practice 06/24/19 documented as of this encounter
--- OUTSIDE RECORDS SUMMARY | 2025-10-23 08:43 | XMS_ITS | Encounter Summary ---
Author Organization [facility] Address [address] [place] [address] Care Team Providers Care Hog Cutter Name Role Phone Long Mejias MD Primary Care Provider [phone] Encounter Details Date Type Department Care Team (Latest Contact Info) Description 04/22/2008 Outpatient Historical [facility] Jose David Ritchie MD NO ADDRESS ON FILE Subdural Hemorrhage (CMS/HCC) Social History Tobacco Use Types Packs/Day Years Used Date Smoking Tobacco: Never Assessed Sex and Gender Information Value Date Recorded Sex Assigned at Not on file Legal Sex Male 4:07 AM DIRECTOR OF TESTING Gender Identity Not on file Sexual Orientation Not on file documented as of this encounter Plan of Treatment Upcoming Encounters Date Type Department Care Team (Late st Contact Info) Description 01/26/2026 11:15 AM DIRECTOR OF TESTING Office Visit [facility] Heart and Vascular At [place] [address] [facility] [address] [place] [address] David Raymond MD [facility] [address] [facility] [address] [place] [address] documented as of this encounter Procedures Procedure Name Priority Date/Time Associated Diagnosis Comments CT HEAD WO CONTRAST Routine 04/22/2008 1 2:09 PM CDT documented in this encounter Results * CT HEAD WO CONTRAST (04/22/2008 12:09 PM CDT) Anatomical Region Laterality Modality Head Other 04/22/2008 12:0 9 PM CDT Narrative 04/23/2008 8:30 AM CDT [place] [address] [place], [place] [address] Admit Date: 04/22/2008 ZAFAR BRIGGS Sex: M Admit Prov: JOSE DAVID RITCHIE Date: 1950 Primary Care Prov: CMRN: [id number] [id number] Ordering Prov: N/A Accession Number: [id number] Interpretation EXAMINATION: CT OF THE HEAD WITHOUT CONTRAST 04/22/2008 Clinical History: Trauma, subdural hematoma. Procedure: Axial 5 mm images of the head were obtained from the skullbase through the vertex without IV contrast. Findings: Examination demonstrates alura holes within the left parietal region. Left [...] SJ Procedure Note Provider, Historical - 04/23/2008 [place] [address] [place], [place] [address] Admit Date: 04/22/2008 ZAFAR BRIGGS Sex: M Admit Prov: JOSE DAVID RITCHIE Date: 1950 Primary Care Prov: CMRN: [id number] Room: [facility] SSN: [id number] IMAGING SERVICES Ordering Prov: N/A Interpretation EXAMINATION: [...] NAYLOR 04/23/2008 08:30 Transcribed: 04/22/2008 17:20 SJ us Jose David Ritchie MD CT ORDERABLES Final Result documented in this encounter Visit Diagnoses Diagnosis Subdural hemorrhage (CMS/HCC) Subdural hemorrhage documented in this encounter Care Teams Hog Cutter Relationship Specialty Start Date End Date Long Mejias MD [address] [facility] [address] [place] [address] PCP - General Family Practice 06/24/19 documented as of this encounter
--- OUTSIDE RECORDS SUMMARY | 2025-10-23 08:43 | XMS_ITS | Encounter Summary ---
Author Organization [facility] Address [address] [place] [address] Care Team Providers Care Percolator Operator Name Role Phone Long Mejias MD Primary Care Provider [phone] Encounter Details Date Type Department Care Team (Late Contact Info) Description 07/01/2007 Outpatient Historical [facility] Adult Hospitalists [facility] [address] [place] [address] Shannon Esparza MD [address] [facility] [address] [address] Social History Tobacco Use Types Packs/Day Years Used Date Smoking Tobacco: Never Assessed Sex and Gender Information Value Date Recorded Sex Assigned at Not on file Legal Sex Male 4:07 AM MAPLE SUGAR MAKER Gender Identity Not on file Sexual Orientation Not on file documented as of this encounter Plan of Treatment Upcoming Encounters Date Type Department Care Team (Late st Contact Info) Description 01/26/2026 11:15 AM MAPLE SUGAR MAKER Office Visit [facility] Heart and Vascular At [facility] [address] [facility] [address] [place] [address] David Raymond MD [facility] [address] [facility] [address] [place] [address] documented as of this encounter Visit Diagnoses Not on filedocumented in this encounter Care Teams Percolator Operator Relationship Specialty Start Date End Date Long Mejias MD [address] [facility] [address] [place] [address] PCP - General Family Practice 06/24/19 documented as of this encounter
--- OUTSIDE RECORDS SUMMARY | 2025-10-23 08:43 | XMS_ITS | Encounter Summary ---
Author Organization [facility] Address [address] [place] [address] Care Team Providers Care Equipment Associate Name Role Phone Long Mejias MD Primary Care Provider [phone] Encounter Details Date Type Department Care Team (Late st Contact Info) Description 06/29/2007 Outpatient Historical [facility] Trauma and General Surgery [address] [facility] [address] [facility] [place] [address] Ranulfo Grijalva MD [address] [facility] [address] [place] [address] Social History Tobacco Use Types Packs/Day Years Used Date Smoking Tobacco: Never Assessed Sex and Gender Information Value Date Recorded Sex Assigned at Not on file Legal Sex Male 4:07 AM WASTEWATER TREATMENT SUPERVISOR Gender Identity Not on file Sexual Orientation Not on file documented as of this encounter Plan of Treatment Upcoming Encounters Date Type Department Care Team (Late st Contact Info) Description 01/26/2026 11:15 AM WASTEWATER TREATMENT SUPERVISOR Office Visit [facility] Heart and Vascular At [facility] [address] [facility] [address] [place] [address] David Raymond MD [address] [facility] [address] [place] [address] documented as of this encounter Visit Diagnoses Not on filedocumented in this encounter Care Teams Equipment Associate Relationship Specialty Start Date End Date Long Mejias MD [address] [facility] [address] [place] [address] PCP - General Family Practice 06/24/19 documented as of this encounter
--- OUTSIDE RECORDS SUMMARY | 2025-10-23 08:43 | XMS_ITS | Encounter Summary ---
Author Organization [facility] Address [address] [place] [address] [place] [address] Care Team Providers Care Employee Benefits Manager Name Role Phone Unavailable Primary Care Provider Unavailabl e Encounter Details Date Type Department Care Team (Late st Contact Info) Description 01/04/2021 Lab Requisition [facility] DermPath Lab [address] [place] [address] Ji Ahn MD [address] [place] [address] Social History Tobacco Use Types Packs/Day Years Used Date Smoking Tobacco: Never Assessed Sex and Gender Information Value Date Recorded Sex Assigned at Not on file Legal Sex Male 6:31 AM CLINICAL NURSE EDUCATOR Gender Identity Not on file Sexual Orientation Not on file documented as of this encounter Plan of Treatment Not on file documented as of this encounter Procedures Procedure Name Priority Date/Time Associated Diagnosis Comments DERMATOPATHOLOGY Routine 01/03/2021 12:0 0 AM CLINICAL NURSE EDUCATOR documented in this encounter Results * DERMATOPATHOLOGY (01/03/2021 12:00 AM CLINICAL NURSE EDUCATOR) Case Report Dermatopathology Report Case: [id number] Authorizing Provider: Ji Ahn MD Collected: 01/03/2021 12:00 AM Ordering Location: [facility] DermPath Lab Received: 01/04/2021 11:38 AM Pathologist: Lisa Ramirez MD Specimen: Skin, left upper cutaneous lip 11:47 AM CLINICAL NURSE EDUCATOR DERMATOPATHOLOGY LABORATORY Final Diagnosis Specimen A. SKIN, left upper cutaneous lip: ANGIOFIBROMA (FIBROUS PAPULE) (D21.0) 11:47 AM [facility] DERMATOPATHOLOGY LABORATORY at 1147 CLINICAL NURSE EDUCATOR Clinical History R/O dys nevus, angioma, telangiectasia, BCC. 11:47 AM [facility] DERMATOPATHOLOGY LABORATORY Gross Description Specimen A: Received is one formalin filled container labeled with the patient's name and designated left upper cutaneous lip. The specimen consists of a shave biopsy measuring [id number]. Jar 0. 11:47 AM [facility] DERMATOPATHOLOGY LABORATORY Microscopic Description Specimen A. SKIN, left upper cutaneous lip: This dome-shaped lesion contains dilated blood vessels, coarse collagen bundles, and stellate fibroblasts. 11:47 AM [facility] DERMATOPATHOLOGY LABORATORY Disclaimer An external and internal positive and negative controls are appropriate for the histochemical, immunohistochemical and immunofluorescence stain(s) in this case (if any), except where stated explicitly. The performance characteristics of the stain(s) cited in this report were developed and its performance characteristic determined by the Dermatopathology Laboratory at [facility], directed by Dr. Ping Fernandez. These tests need not be, and therefore are not, approved by the [place] Food and Drug Administration. The tests are used for clinical purposes. Billing Codes Specimen Charges Stain Charges 06401 1 11:47 AM [facility] DERMATOPATHOLOGY LABORATORY Embedded Images 11:47 AM [facility] DERMATOPATHOLOGY LABORATORY Pathology/Cytolog y TISSUE SPECIMEN FROM SKIN / Unknown 01/03/2021 01/04/2021 11:38 AM [facility] us Ji Ahn MD LAB - PATHOLOGY/CYTOLOGY ORD ERABLES Final Result DERMATOPATHOLOGY LABORATORY [facility] - Department of Dermatology [address] [place] [address], [facility] [phone] documented in this encounter Visit Diagnoses Not on filedocumented in this encounter
--- OUTSIDE RECORDS SUMMARY | 2025-10-23 08:43 | XMS_ITS | Encounter Summary ---
Author Organization [facility] Address [address] [place] [address] Care Team Providers Care Hotel Maintenance Worker Name Role Phone Long Mejias MD Primary Care Provider [phone] Encounter Details Date Type Department Care Team (Latest Contact Info) Description 03/11/2008 Outpatient Historical [facility] Jose David Ritchie MD NO ADDRESS ON FILE Subdural Hemorrhage (CMS/HCC) Social History Tobacco Use Types Packs/Day Years Used Date Smoking Tobacco: Never Assessed Sex and Gender Information Value Date Recorded Sex Assigned at Not on file Legal Sex Male 4:07 AM PATCH WASHER Gender Identity Not on file Sexual Orientation Not on file documented as of this encounter Plan of Treatment Upcoming Encounters Date Type Department Care Team (Late st Contact Info) Description 01/26/2026 11:15 AM PATCH WASHER Office Visit [facility] Heart and Vascular At [place] [address] [facility] [address] [place] [address] David Raymond MD [facility] [address] [facility] [address] [place] [address] documented as of this encounter Procedures Procedure Name Priority Date/Time Associated Diagnosis Comments CT HEAD WO CONTRAST Timed Study 03/11/2008 1:35 PM CDT documented in this encounter Results * CT HEAD WO CONTRAST (03/11/2008 1:35 PM CDT) Anatomical Region Laterality Modality Head Other 03/11/2008 1:35 PM CDT Narrative 03/11/2008 3:50 PM CDT [facility] [address] [place], [place] [address] Admit Date: 03/11/2008 ZAFAR BRIGGS Sex: M Admit Prov: JOSE DAVID RITCHIE Date: 1950 Primary Care Prov: CMRN: [id number] Room: [facility] SSN: [id number] IMAGING SERVICES Ordering Prov: N/A Accession Number: [id number] Interpretation CT OF THE BRAIN WITHOUT CONTRAST [...] Procedure Note Stephanie Crowder MD - 03/11/2008 [facility] [address] [place], [place] [address] Admit Date: 03/11/2008 ZAFAR BRIGGS Sex: M Admit Prov: ERMA JOSE DAVID Date: 1950 Primary Care Prov: CMRN: [id number] Room: [facility] SSN: [id number] IMAGING SERVICES Ordering Prov: N/A Interpretation CT [...] hemorrhage documented in this encounter Care Teams Hotel Maintenance Worker Relationship Specialty Start Date End Date Long Mejias MD [address] [facility] [address] [place] [address] PCP - General Family Practice 06/24/19 documented as of this encounter
--- OUTSIDE RECORDS SUMMARY | 2025-10-23 08:43 | XMS_ITS | Encounter Summary ---
Author Organization [facility] Address [address] [place] [address] Care Team Providers Care Calliope Player Name Role Phone Long Mejias MD Primary Care Provider [phone] Encounter Details Date Type Department Care Team (Late st Contact Info) Description 07/08/2007 Outpatient Historical [facility] Trauma and General Surgery [address] [facility] [address] [address] [place] [address] [place] [address] Social History Tobacco Use Types Packs/Day Years Used Date Smoking Tobacco: Never Assessed Sex and Gender Information Value Date Recorded Sex Assigned at Not on file Legal Sex Male 4:07 AM LABORER WRECKING AND SALVAGING Gender Identity Not on file Sexual Orientation Not on file documented as of this encounter Plan of Treatment Upcoming Encounters Date Type Department Care Team (Late st Contact Info) Description 01/26/2026 11:15 AM LABORER WRECKING AND SALVAGING Office Visit [facility] Heart and Vascular At [facility] [address] [facility] [address] [place] [address] David Raymond MD [address] [facility] [address] [place] [address] documented as of this encounter Visit Diagnoses Not on filedocumented in this encounter Care Teams Calliope Player Relationship Specialty Start Date End Date Long Mejias MD [address] [facility] [address] [place] [address] PCP - General Family Practice 06/24/19 documented as of this encounter
--- OUTSIDE RECORDS SUMMARY | 2025-10-23 08:43 | XMS_ITS | Encounter Summary ---
Author Organization [facility] Address [address] [place] [address] Care Team Providers Care Internal Corrosion Specialist Name Role Phone Long Mejias MD Primary Care Provider [phone] Encounter Details Date Type Department Care Team (Late st Contact Info) Description 07/01/2007 Outpatient Historical [facility] Trauma and General Surgery [address] [facility] [address] [facility] [place] [address] Ranulfo Grijalva MD [address] [facility] [address] [place] [address] Social History Tobacco Use Types Packs/Day Years Used Date Smoking Tobacco: Never Assessed Sex and Gender Information Value Date Recorded Sex Assigned at Not on file Legal Sex Male 4:07 AM LAUNDRY WASHER Gender Identity Not on file Sexual Orientation Not on file documented as of this encounter Plan of Treatment Upcoming Encounters Date Type Department Care Team (Late st Contact Info) Description 01/26/2026 11:15 AM LAUNDRY WASHER Office Visit [facility] Heart and Vascular At [facility] [address] [facility] [address] [place] [address] David Raymond MD [address] [facility] [address] [place] [address] documented as of this encounter Visit Diagnoses Not on filedocumented in this encounter Care Teams Internal Corrosion Specialist Relationship Specialty Start Date End Date Long Mejias MD [address] [facility] [address] [place] [address] PCP - General Family Practice 06/24/19 documented as of this encounter
--- OUTSIDE RECORDS SUMMARY | 2025-10-23 08:43 | XMS_ITS | Encounter Summary ---
Author Organization [facility] Address [address] [place] [address] Care Team Providers Care Disaster Response Director Name Role Phone Long Mejias MD Primary Care Provider [phone] Encounter Details Date Type Department Care Team (Latest Contact Info) Description 03/25/2008 Outpatient Historical [facility] Jose David Ritchie MD NO ADDRESS ON FILE Subdural Hemorrhage (CMS/HCC) Social History Tobacco Use Types Packs/Day Years Used Date Smoking Tobacco: Never Assessed Sex and Gender Information Value Date Recorded Sex Assigned at Not on file Legal Sex Male 4:07 AM UNDERCOVER AGENT Gender Identity Not on file Sexual Orientation Not on file documented as of this encounter Plan of Treatment Upcoming Encounters Date Type Department Care Team (Late st Contact Info) Description 01/26/2026 11:15 AM UNDERCOVER AGENT Office Visit [facility] Heart and Vascular At [place] [address] [facility] [address] [place] [address] David Raymond MD [facility] [address] [facility] [address] [place] [address] documented as of this encounter Procedures Procedure Name Priority Date/Time Associated Diagnosis Comments CT HEAD WO CONTRAST Timed Study 03/25/2008 3:03 PM CDT documented in this encounter Results * CT HEAD WO CONTRAST (03/25/2008 3:03 PM CDT) Anatomical Region Laterality Modality Head Other 03/25/2008 3:03 PM CDT Narrative 03/28/2008 7:55 PM CDT [place] [address] [place], [place] [address] Admit Date: 03/25/2008 ZAFAR BRIGGS Sex: M Admit Prov: JOSE DAVID RITCHIE Date: 1950 Primary Care Prov: CMRN: [id number] [id number] [facility] Ordering Prov: N/A Accession Number: [id number] Interpretation CT head without contrast 03/25/2008 History: [...] AMK Procedure Note Halima Lepe - 03/28/2008 [place] [address] [place], [place] [address] Admit Date: 03/25/2008 ZAFAR BRIGGS Sex: M Admit Prov: JOSE DAVID RITCHIE Date: 1950 Primary Care Prov: CMRN: [id number] Room: [facility] SSN: [id number] IMAGING SERVICES Ordering Prov: N/A Interpretation CT [...] hemorrhage documented in this encounter Care Teams Disaster Response Director Relationship Specialty Start Date End Date Long Mejias MD [address] [facility] [address] [place] [address] PCP - General Family Practice 06/24/19 documented as of this encounter
--- OUTSIDE RECORDS SUMMARY | 2025-10-23 08:43 | XMS_ITS | Encounter Summary ---
Author Organization [facility] Address [address] [place] [address] Care Team Providers Care Finance Manager Name Role Phone Long Mejias MD Primary Care Provider [phone] Encounter Details Date Type Department Care Team (Late st Contact Info) Description 06/30/2007 Outpatient Historical [facility] Adult Hospitalists [address] [phone] Galileo Ruiz MD NO ADDRESS ON FILE Social History Tobacco Use Types Packs/Day Years Used Date Smoking Tobacco: Never Assessed Sex and Gender Information Value Date Recorded Sex Assigned at Not on file Legal Sex Male 4:07 AM FOOD SERVICE AIDE Gender Identity Not on file Sexual Orientation Not on file documented as of this encounter Plan of Treatment Upcoming Encounters Date Type Department Care Team (Late st Contact Info) Description 01/26/2026 11:15 AM FOOD SERVICE AIDE Office Visit [facility] Heart and Vascular At [address] [place] [address] David Raymond MD [address] [place] [address] [address] [place] [address] documented as of this encounter Visit Diagnoses Not on filedocumented in this encounter Care Teams Finance Manager Relationship Specialty Start Date End Date Long Mejias MD [address] [place] [address] PCP - General Family Practice 06/24/19 documented as of this encounter
--- OUTSIDE RECORDS SUMMARY | 2025-10-23 08:43 | XMS_ITS | Encounter Summary ---
Author Organization [facility] Address [address] [place] [address] Care Team Providers Care Manager Market Development Name Role Phone Long Mejias MD Primary Care Provider [phone] Encounter Details Date Type Department Care Team (Late st Contact Info) Description 06/30/2007 Outpatient Historical [facility]3] Trauma and General Surgery [address] [facility] [address] [facility] [place] [address] Ranulfo Grijalva MD [address] [facility] [address] [place] [address] Social History Tobacco Use Types Packs/Day Years Used Date Smoking Tobacco: Never Assessed Sex and Gender Information Value Date Recorded Sex Assigned at Not on file Legal Sex Male 4:07 AM CLIP AND HANGER ATTACHER Gender Identity Not on file Sexual Orientation Not on file documented as of this encounter Plan of Treatment Upcoming Encounters Date Type Department Care Team (Late st Contact Info) Description 01/26/2026 11:15 AM CLIP AND HANGER ATTACHER Office Visit [facility]3] Heart and Vascular At [facility] [address] [facility] [address] [place] [address] David Raymond MD [address] [facility] [address] [place] [address] documented as of this encounter Visit Diagnoses Not on filedocumented in this encounter Care Teams Manager Market Development Relationship Specialty Start Date End Date Long Mejias MD [address] [facility] [address] [place] [address] PCP - General Family Practice 06/24/19 documented as of this encounter
--- OUTSIDE RECORDS SUMMARY | 2025-10-23 08:43 | XMS_ITS | Encounter Summary ---
Author Organization [facility] Address [address] [place] [address] Care Team Providers Care Associate Professor Of Medicine Name Role Phone Long Mejias MD Primary Care Provider [phone] Encounter Details Date Type Department Care Team (Late st Contact Info) Description 07/02/2007 Outpatient Historical [facility] Support Serv. (Adt Cardiology-[facility]) [facility] [place] [address] Johnie Kirby MD NO ADDRESS ON FILE Social History Tobacco Use Types Packs/Day Years Used Date Smoking Tobacco: Never Assessed Sex and Gender Information Value Date Recorded Sex Assigned at Not on file Legal Sex Male 4:07 AM AMMONIA BOX OPERATOR Gender Identity Not on file Sexual Orientation Not on file documented as of this encounter Plan of Treatment Upcoming Encounters Date Type Department Care Team (Late st Contact Info) Description 01/26/2026 11:15 AM AMMONIA BOX OPERATOR Office Visit [facility] Heart and Vascular At [place] [address] [facility] [address] [place] [address] David Raymond MD [facility] [address] [facility] [address] [place] [address] documented as of this encounter Visit Diagnoses Not on filedocumented in this encounter Care Teams Associate Professor Of Medicine Relationship Specialty Start Date End Date Long Mejias MD [address] [place] [address] PCP - General Family Practice 06/24/19 documented as of this encounter
--- OUTSIDE RECORDS SUMMARY | 2025-10-23 08:43 | XMS_ITS | Encounter Summary ---
Author Organization [facility] Address [address] [place] [address] Care Team Providers Care Medical Logistics Specialist Name Role Phone Long Mejias MD Primary Care Provider [phone] Encounter Details Date Type Department Care Team (Late Contact Info) Description 07/08/2007 Outpatient Historical [facility] Supp Svcs Blood Flow [address] [place] [address] Richard Fernandez MD [address] [facility] [address] [place] [address] Social History Tobacco Use Types Packs/Day Years Used Date Smoking Tobacco: Never Assessed Sex and Gender Information Value Date Recorded Sex Assigned at Not on file Legal Sex Male 4:07 AM GLAZIER STRUCTURAL GLASS Gender Identity Not on file Sexual Orientation Not on file documented as of this encounter Plan of Treatment Upcoming Encounters Date Type Department Care Team (Late Contact Info) Description 01/26/2026 11:15 AM GLAZIER STRUCTURAL GLASS [facility] At [facility] [address] [facility] [address] [place] [address] David Raymond MD [address] [facility] [address] [place] [address] documented as of this encounter Visit Diagnoses Not on filedocumented in this encounter Care Teams Medical Logistics Specialist Relationship Specialty Start Date End Date Long Mejias MD [address] [facility] [address] [place] [address] PCP - General Family Practice 06/24/19 documented as of this encounter
--- OUTSIDE RECORDS SUMMARY | 2025-10-23 08:43 | XMS_ITS | Clinical Summary ---
Author Organization [facility] Address [address] [place] [address] Care Team Providers Care Dumper Bailer Operator Name Role Phone Jose Keene MD Primary [...] of 2) 2002 COVID-19 Vaccine ( - 2024-2 6 season) 2025 Influenza Adult (#1) 2025 10/17/2016 RSV Immunization or 60+ Years (1 - 1-dose 75+ series) 2027 Hepatitis A Vaccines Aged Out No long er eligible based on patient's age to complete this topic Meningococcal B Vaccine Aged Out No l onger eligible based on patient's age to complete this topic Meningococcal Vaccine Aged Out No ann meron eligible based on patient's age to complete this topic RSV Immunizations Under 20 Months Aged Out No longer eligible based on patient's age to complete this topic Care Teams Dumper Bailer Operator Relationship Specialty Start Date End Date Jose Keene MD [address] [place] [address] PCP - General 04/03/16
--- OUTSIDE RECORDS SUMMARY | 2025-10-23 08:43 | XMS_ITS | Encounter Summary ---
Author Organization [facility] Address [address] [place] [address] Care Team Providers Care Agricultural Technician Name Role Phone Long Mejias MD Primary Care Provider [phone] Encounter Details Date Type Department Care Team (Latest Contact Info) Description 07/22/2008 Outpatient Historical [facility] Jose David Ritchie MD NO ADDRESS ON FILE Subdural Hemorrhage (CMS/HCC) Social History Tobacco Use Types Packs/Day Years Used Date Smoking Tobacco: Never Assessed Sex and Gender Information Value Date Recorded Sex Assigned at Not on file Legal Sex Male 4:07 AM POWDER HAND Gender Identity Not on file Sexual Orientation Not on file documented as of this encounter Plan of Treatment Upcoming Encounters Date Type Department Care Team (Late st Contact Info) Description 01/26/2026 11:15 AM POWDER HAND Office Visit [facility] Heart and Vascular At [place] [address] [facility] [address] [place] [address] David Raymond MD [facility] [address] [facility] [address] [place] [address] documented as of this encounter Procedures Procedure Name Priority Date/Time Associated Diagnosis Comments CT HEAD WO CONTRAST Routine 07/22/2008 2 :21 PM CDT documented in this encounter Results * CT HEAD WO CONTRAST (07/22/2008 2:21 PM CDT) Anatomical Region Laterality Modality Head Other 07/22/2008 2:21 PM CDT Narrative 07/22/2008 2:41 PM CDT [address] [place], [place] [address] Admit Date: 07/22/2008 ZAFAR BRIGGS Sex: M Admit Prov: JOSE DAVID RITCHIE Date: 1950 Primary Care Prov: CMRN: [id number] [facility] [address] [place] [address] IMAGING SERVICES Ordering Prov: N/A Accession Number: [id number] Interpretation CT head without contrast 07/22/2008 History: [...] 14:40 Procedure Note Halima Lepe - 07/22/2008 [address] [place], [place] [address] Admit Date: 07/22/2008 STEFFANIEZAFAR NAZARIO Fay Sex: M Admit Prov: JOSE DAVID RITCHIE Date: 1950 Primary Care Prov: CMRN: [id number] Room: [facility] SSN: [id number] IMAGING SERVICES Ordering Prov: N/A Interpretation CT [...] hemorrhage documented in this encounter Care Teams Agricultural Technician Relationship Specialty Start Date End Date Long Mejias MD [address] [facility] [address] [place] [address] PCP - General Family Practice 06/24/19 documented as of this encounter
--- OUTSIDE RECORDS SUMMARY | 2025-10-23 08:43 | XMS_ITS | Encounter Summary ---
Author Organization [facility] Address [address] [place] [address] Care Team Providers Care Service Person Name Role Phone Long Mejias MD Primary Care Provider Encounter Details Date Type Department Care Team (Late st Contact Info) Description 07/18/2007 Emergency [facility] Brian Clement DO [address] [place] [address] Er, Authorized P NO ADDRESS ON FILE Other Acute Pain (Primary Dx) Social History Tobacco Use Types Packs/Day Years Used Date Smoking Tobacco: Never Assessed Sex and Gender Information Value Date Recorded Sex Assigned at Not on file Legal Sex Male 4:07 AM TABLE GAMES SHIFT MANAGER Gender Identity Not on file Sexual Orientation Not on file documented as of this encounter Plan of Treatment Upcoming Encounters Date Type Department Care Team (Late st Contact Info) Description 01/26/2026 11:15 AM TABLE GAMES SHIFT MANAGER Office Visit [facility] Heart and Vascular At [place] [address] [facility] [address] [place] [address] David Raymond MD [address] [facility] [address] [place] [address] documented as of this encounter [...] K/uL INTERFACE SYSTEM 07/18/2007 7:05 PM CDT Brian Clement DO HEMATOLOGY ORDERABLES Edited INTERFACE [...] INTERFACE SYSTEM 07/18/2007 7:05 PM CDT Brian Clement HEMATOLOGY ORDERABLES Edited Performing Organization Address [facility] Co de Phone Number INTERFACE SYSTEM [...] patients with mechanical heart valves or post [place]. Pediatric (12 years and under): 1.5 - [...] unfractionated heparin 07/18/2007 7:05 PM CDT Brian Clement DO HEMATOLOGY ORDERABLES Edited Performing Organization Address City/[facility]/ZIP Co de Phone Number INTERFACE SYSTEM Refer [...] and non- Americans is available on the [facility] Intranet at: [email or web address] Select: Lab Policies and Procedures Select: Reference Ranges - GFR 07/18/2007 7:05 PM CDT us Brian Clement DO CHEMISTRY ORDERABLES Edited INTERFACE SYSTEM Refer to clinic/hospital department documented in this encounter Visit Diagnoses Diagnosis Other acute pain- Primary documented in this encounter Care Teams Service Person Relationship Specialty Start Date End Date Long Mejias MD [address] [facility] [address] [place] [address] PCP - General Family Practice 06/24/19 documented as of this encounter
--- OUTSIDE RECORDS SUMMARY | 2025-10-23 08:43 | XMS_ITS | Encounter Summary ---
Author Organization [facility] Address [address] [place] [address] Care Team Providers Care Oxide Furnace Tender Name Role Phone Long Mejias MD Primary Care Provider [phone] Encounter Details Date Type Department Care Team (Latest Contact Info) Description 12/24/2003 Outpatient Historical [facility] CARD CLINICAL SYSTEMS EDUCATOR David Raymond MD [address] [place] [address] [address] [place] [address] CORON ATHEROSCL [place] CORON VESSEL (Primary Dx) Social History Tobacco Use Types Packs/Day Years Used Date Smoking Tobacco: Never Assessed Sex and Gender Information Value Date Recorded Sex Assigned at Not on file Legal Sex Male 4:07 AM STUDENT SERVICES REPRESENTATIVE Gender Identity Not on file Sexual Orientation Not on file documented as of this encounter Plan of Treatment Upcoming Encounters Date Type Department Care Team (Late st Contact Info) Description 01/26/2026 11:15 AM STUDENT SERVICES REPRESENTATIVE Office Visit [facility] Heart and Vascular At [address] [place] [address] David Raymond MD [address] [place] [address] [address] [place] [address] documented as of this encounter Visit Diagnoses Diagnosis Coronary atherosclerosis of [place] coronary artery- Primary documented in this encounter Care Teams Oxide Furnace Tender Relationship Specialty Start Date End Date Long Mejias MD [address] [phone] PCP - General Family Practice 06/24/19 documented as of this encounter
--- OUTSIDE RECORDS SUMMARY | 2025-10-23 08:43 | XMS_ITS | Encounter Summary ---
Author Organization [facility] Address [address] [place] [address] Care Team Providers Care Geophysical Prospecting Surveyor Name Role Phone Long Mejias MD Primary Care Provider [phone] Encounter Details Date Type Department Care Team (Late st Contact Info) Description 07/02/2007 Outpatient Historical [facility] Trauma and General Surgery [address] [facility] [address] [facility] [place] [address] Ranulfo Grijalva MD [address] [facility] [address] [place] [address] Social History Tobacco Use Types Packs/Day Years Used Date Smoking Tobacco: Never Assessed Sex and Gender Information Value Date Recorded Sex Assigned at Not on file Legal Sex Male 4:07 AM DEMONSTRATOR KNITTING Gender Identity Not on file Sexual Orientation Not on file documented as of this encounter Plan of Treatment Upcoming Encounters Date Type Department Care Team (Late st Contact Info) Description 01/26/2026 11:15 AM DEMONSTRATOR KNITTING Office Visit [facility] Heart and Vascular At [facility] [address] [facility] [address] [place] [address] David Raymond MD [address] [facility] [address] [place] [address] documented as of this encounter Visit Diagnoses Not on filedocumented in this encounter Care Teams Geophysical Prospecting Surveyor Relationship Specialty Start Date End Date Long Mejias MD [address] [facility] [address] [place] [address] PCP - General Family Practice 06/24/19 documented as of this encounter
--- OUTSIDE RECORDS SUMMARY | 2025-10-23 08:43 | XMS_ITS | Encounter Summary ---
Author Organization [facility] Address [address] [place] [address] Care Team Providers Care Installer Molding And Trim Name Role Phone Long Mejias MD Primary Care Provider [phone] Encounter Details Date Type Department Care Team (Latest Contact Info) Description 06/29/2007 Inpatient Historical [facility] Ranulfo Grijalva MD [address] [facility] [address] [facility] [place] [address] Traumatic Pneumothorax without Mention of [...] Hearing Loss; Coronary Atherosclerosis of [place] Coronary Artery; Old Myocardial Infarction; Postsurgical Percutaneous Transluminal Coronary Angioplasty Status; Personal History of Tobacco Use, Presenting Hazards to Health Social History Tobacco Use Types Packs/Day Years Used Date Smoking Tobacco: Never Assessed Sex and Gender Information Value Date Recorded Sex Assigned at Not on file 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 Gender Identity Not on file Sexual Orientation Not on file documented as of this encounter Plan of Treatment Upcoming Encounters Date Type Department Care Team (Late st Contact Info) Description 01/26/2026 11:15 AM PORT CDL A DRIVER Office Visit [facility] Heart and Vascular At [facility] [address] [facility] [address] [place] [address] David Raymond MD [address] [facility] [address] [place] [address] documented as of this encounter [...] 07/09/2007 11:4 7 AM CDT us Ranulfo Zach Grijalva MD POINT OF CARE TESTING E [...] and non- Americans is available on the [facility] Intranet at: [email or web address] Select: Lab Policies and Procedures Select: Reference Ranges - GFR 07/05/2007 4:30 AM CDT Madison Garza MD CHEMISTRY ORDERABLES Edite d Performing Organization Address [facility] de Phone Number INTERFACE SYSTEM Refer to clinic/hospital department * TROPONIN (W/REFLEX CKMB/CK) (07/03/2007 4:15 AM CDT) TROPONIN T <0.01 <=0.03 ng/mL INTERFACE SYSTEM TROPONIN T INTERP Negative INTERFACE SYSTEM 07/03/2007 4:15 AM CDT Maximino Bearden MD CHEMISTRY ORDERABLES Edited Performing Organization Address [facility] Co de Phone Number INTERFACE SYSTEM Refer to clinic/hospital department * TROPONIN (W/REFLEX CKMB/CK) (07/02/2007 11:00 AM CDT) TROPONIN T <0.01 <=0.03 ng/mL INTERFACE SYSTEM TROPONIN T INTERP Negative INTERFACE SYSTEM 07/02/2007 11:0 0 AM CDT us Ranulfo Grijalva MD CHEMISTRY ORDERABLES Ed ited Performing Organization Address [facility] Co de Phone Number INTERFACE SYSTEM [...] K/uL INTERFACE SYSTEM 07/01/2007 4:10 AM CDT Ranulfo Grijalva MD HEMATOLOGY ORDERABLES E dited Performing Organization Address [facility] de Phone Number INTERFACE SYSTEM Refer to [...] fL INTERFACE SYSTEM 07/01/2007 4:10 AM CDT Ranulfo Grijalva MD HEMATOLOGY ORDERABLES E dited Performing Organization Address City/[facility] de Phone Number INTERFACE SYSTEM Refer to [...] and non- Americans is available on the [facility] Intranet at: [email or web address] Select: Lab Policies and Procedures Select: Reference Ranges - GFR 07/01/2007 4:10 AM CDT us Ranulfo Grijalav MD CHEMISTRY ORDERABLES Ed ited Performing Organization Address [facility] Phone Number INTERFACE SYSTEM Refer to clinic/hospital department * (ABNORMAL) POC GLUCOSE (06/30/2007 8:47 PM CDT) GLUCOSE POC 128(H) 65 - 99 mg/dL INTERFACE SYSTEM 06/30/2007 8:47 PM CDT us Ranulfo Grijalva MD POINT OF CARE TESTING E dited Performing Organization Address [facility] de Phone Number INTERFACE SYSTEM Refer to clinic/hospital department * (ABNORMAL) POC GLUCOSE (06/30/2007 4:51 PM CDT) GLUCOSE POC 113(H) 65 - 99 mg/dL INTERFACE SYSTEM 06/30/2007 4:51 PM CDT Ranulfo Grijalva MD POINT OF CARE TESTING E dited Performing Organization Address City/[facility] de Phone Number INTERFACE SYSTEM Refer to clinic/hospital department * (ABNORMAL) POC GLUCOSE (06/30/2007 11:27 AM CDT) GLUCOSE POC 139(H) 65 - 99 mg/dL INTERFACE SYSTEM 06/30/2007 11:2 7 AM CDT Ranulfo Grijalva MD POINT OF CARE TESTING E dited Performing Organization Address [facility] de Phone Number INTERFACE SYSTEM Refer to clinic/hospital department * (ABNORMAL) POC GLUCOSE (06/30/2007 6:41 AM CDT) COMMENT, GLU POC TX to be Given INTERFACE SYSTEM GLUCOSE POC 160(H) 65 - 99 mg/dL INTERFACE SYSTEM 06/30/2007 6:41 AM CDT Ranulfo Grijalva MD POINT OF CARE TESTING E dited Performing Organization Address [facility] de Phone Number INTERFACE SYSTEM Refer to [...] CDT Lauri Joaquin MD HEMATOLOGY ORDERABLES Edited INTERFACE SYSTEM Refer [...] MD HEMATOLOGY ORDERABLES Edited Performing Organization Address [facility] de Phone Number INTERFACE SYSTEM Refer to [...] and non- Americans is available on the [facility] Intranet at: [email or web address] Select: Lab Policies and Procedures Select: Reference Ranges - GFR 06/30/2007 4:20 AM CDT us Lauri Joaquin MD CHEMISTRY ORDERABLES Edited Performing Organization Address City/[facility] de Phone Number INTERFACE SYSTEM Refer to clinic/hospital department * TROPONIN (W/REFLEX CKMB/CK) (06/30/2007 4:20 AM CDT) TROPONIN T <0.01 <=0.03 ng/mL INTERFACE SYSTEM TROPONIN T INTERP Negative INTERFACE SYSTEM 06/30/2007 4:20 AM CDT Narrative INTERFACE SYSTEM - 06/30/2007 4:50 AM CDT Ordered by an unspecified provider. Historical Provider CHEMISTRY ORDERABLES Edited Performing Organization Address [facility] de Phone Number INTERFACE SYSTEM Refer to clinic/hospital department * (ABNORMAL) POC GLUCOSE (06/29/2007 10:01 PM CDT) COMMENT, GLU POC TX to be Given INTERFACE SYSTEM GLUCOSE POC 176(H) 65 - 99 mg/dL INTERFACE SYSTEM 06/29/2007 10:0 1 PM CDT us Ranulfo Grijalva MD POINT OF CARE TESTING E dited Performing Organization Address [facility] de Phone Number INTERFACE SYSTEM Refer to clinic/hospital department * TROPONIN (W/REFLEX CKMB/CK) (06/29/2007 8:40 PM CDT) TROPONIN T <0.01 <=0.03 ng/mL INTERFACE SYSTEM TROPONIN T INTERP Negative INTERFACE SYSTEM 06/29/2007 8:40 PM CDT Narrative INTERFACE SYSTEM - 06/29/2007 9:58 PM CDT Ordered by an unspecified provider. us Historical Provider CHEMISTRY ORDERABLES Edited INTERFACE SYSTEM Refer to clinic/hospital department * (ABNORMAL) CK (06/29/2007 8:40 PM CDT) CK 937(H) 10 - 170 U/L INTERFACE SYSTEM 06/29/2007 8:40 PM CDT Narrative INTERFACE SYSTEM - 06/29/2007 9:47 PM CDT Ordered by an unspecified provider. us Historical Provider CHEMISTRY ORDERABLES Edited INTERFACE SYSTEM Refer to [...] NC INTERFAC E SYSTEM COMMENT, GASES POC AWARE INTERFACE SYSTEM 06/29/2007 11:4 5 AM CDT us Authorized P Er CHEMISTRY ORDERABLES Edited INTERFACE SYSTEM Refer to clinic/hospital department * ED HOLD (06/29/2007 11:42 AM CDT) SPECIMEN HOLD, BLOOD 7 days INTERFACE SYSTEM 06/29/2007 11:4 2 AM CDT us Danny Heath MD CHEMISTRY ORDERABLES Edited Performing Organization Address [facility] de Phone Number INTERFACE SYSTEM Refer to [...] patients with mechanical heart valves or post [place]. Pediatric (12 years and under): 1.5 - [...] unfractionated heparin 06/29/2007 11:3 9 AM CDT us Danny Heath MD HEMATOLOGY ORDERABLES Edited Performing Organization Address [facility] Phone Number INTERFACE SYSTEM Refer to clinic/hospital [...] hypercholesterolemia Unspecified hearing loss Coronary atherosclerosis of [place] coronary artery Old myocardial infarction Postsurgical percutaneous transluminal coronary angioplasty status Personal history of tobacco use, presenting hazards to health documented in this encounter Care Teams Installer Molding And Trim Relationship Specialty Start Date End Date Long Mejias MD [address] [facility] [address] [facility] [address] [place] [address] PCP - General Family Practice 06/24/19 documented as of this encounter
--- OUTSIDE RECORDS SUMMARY | 2025-10-23 08:43 | XMS_ITS | Encounter Summary ---
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 Gender Identity Not on file Sexual Orientation Not on file documented as of this encounter Plan of Treatment Upcoming Encounters Date Type Department Care Team (Late st Contact Info) Description 01/26/2026 11:15 AM CONVEYOR WEIGHER OPERATOR Office Visit [facility] Heart and Vascular At [address] [place] [address] David Raymond MD [facility] [address] [facility] [address] [place] [address] documented as of this encounter Visit Diagnoses Not on filedocumented in this encounter Care Teams Container Repairer Relationship Specialty Start Date End Date Long Mejias MD [address] [place] [address] PCP - General Family Practice 06/24/19 documented as of this encounter
--- OUTSIDE RECORDS SUMMARY | 2025-10-23 08:43 | XMS_ITS | Encounter Summary ---
Author Organization [facility] Address 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 Gender Identity Not on file Sexual Orientation Not on file documented as of this encounter Plan of Treatment Upcoming Encounters Date Type Department Care Team (Late st Contact Info) Description 01/26/2026 11:15 AM LEARNING ADMINISTRATOR Office Visit [facility] At [address] [place] [phone] David Raymond MD [address] [place] [address] [address] [place] [phone] documented as of this encounter Procedures Procedure [...] AM CDT Narrative 03/01/2008 1:02 PM CDT [facility] [address] [place], [place] [address] Admit Date: 02/19/2008 ZAFAR BRYSON Sex: M Admit Prov: JOSE DAVID RITCHIE Date: 1950 Primary Care Prov: CMRN: [id number] Room: [facility] [address] 1 SSN: [id number] IMAGING SERVICES Ordering Prov: N/A Accession Number: [id number] Interpretation HEAD CT WITHOUT CONTRAST, 03/01/2008 Comparison: [...] MARROQUIN 03/01/2008 13:02 Transcribed: 03/01/2008 11:14 SMM Procedure Note Cori Marroquin - 03/01/2008 [facility] [address] [place], [place] [address] Admit Date: 02/19/2008 ZAFAR BRYSON Sex: M Admit Prov: JOSE DAVID RITCHIE Date: 1950 Primary Care Prov: CMRN: [id number] Room: [address] [place] [address] SSN: [id number] IMAGING SERVICES Ordering Prov: N/A Interpretation HEAD [...] CORI MARROQUIN 03/01/2008 13:02 Transcribed: 03/01/2008 11:14 SM Jose David Ritchie MD CT ORDERABLES Final Result * CT HEAD WO CONTRAST (02/25/2008 1:50 PM CDT) Anatomical Region Laterality Modality Head Other 02/25/2008 1:50 PM CDT Narrative 02/25/2008 5:13 PM CDT [facility] [address] [place], [place] [address] Admit Date: 02/19/2008 ZAFAR BRYSON Sex: M Admit Prov: JOSE DAVID RITCHIE Date: 1950 Primary Care Prov: CMRN: [id number] Room: [address] [place] [address] 1 SSN: [id number] IMAGING SERVICES Ordering Prov: N/A Accession Number: [id number] Interpretation CT HEAD WITHOUT CONTRAST WITHOUT CONTRAST [...] convexity also appears unchanged. There is persistent kuti-gh-fccwh midline shift measured approximately 6 mm. There [...] 14:21 Procedure Note Provider, Historical - 02/25/2008 [facility] [address] [place], [place] [address] Admit Date: 02/19/2008 ZAFAR BRYSON Sex: M Admit Prov: JOSE DAVID RITCHIE Date: 1950 Primary Care Prov: CMRN: [id number] Room: [address] [place] [address] 1 SSN: [id number] IMAGING SERVICES Ordering Prov: N/A Interpretation CT [...] cerebral convexityalso appears unchanged. There is persistent cahm-zi-gqocp midline shiftmeasured approximately 6 mm. There is slight effacement of the left lateral ventricle. Ventricular size is relatively stable. Sherman-white differentiation is preserved. The basal cisterns are stable. Mastoidair cells and paranasal sinuses are well-aerated. 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 . Dictated by: LEONARDO DAVIES 02/25/2008 14:07 Electronically signed by: LEONARDO DAVIES 02/25/2008 17:13 Transcribed: 02/25/2008 14:21 Jose David Ritchie MD CT ORDERABLES Final Result * CT HEAD WO CONTRAST (02/23/2008 11:05 AM CDT) Anatomical Region Laterality Modality Head Other 02/23/2008 11:0 5 AM CDT Narrative 02/23/2008 3:00 PM CDT [facility] [address] [place], [place] [address] Admit Date: 02/19/2008 ZAFAR BRYSON Sex: M Admit Prov: JOSE DAVID RITCHIE Date: 1950 Primary Care Prov: CMRN: [id number] Room: [address] [place] [address] SSN: [id number] IMAGING SERVICES Ordering Prov: N/A Accession Number: [id number] Interpretation HEAD CT WITHOUT CONTRAST, 02/23/2008 History: Status post left subdural collection evacuation. Comparison: 02/18/2008 Findings: Noncontrast head CT images demonstrate a decrease in amount of frdb-hn-fipyl subfalcine shift, now measuring 7.4 mm (previously [...] SJ Procedure Note Cori Marroquin - 02/23/2008 [facility] [address] [place], [place] [address] Admit Date: 02/19/2008 ZAFAR BRYSON Sex: M Admit Prov: JOSE DAVID RITCHIE Date: 1950 Primary Care Prov: CMRN: [id number] Room: [address] [place] [address] SSN: [id number] IMAGING SERVICES Ordering Prov: N/A Interpretation HEAD CT WITHOUT CONTRAST, 02/23/2008 History: Status post left subdural collection evacuation. Comparison: 02/18/2008 Findings: Noncontrast head CT images demonstrate a decrease inamount of qndq-ty-punim subfalcine shift, now measuring 7.4 mm (previously [...] MARROQUIN 02/23/2008 15:00 Transcribed: 02/23/2008 14:05 SJ us Jose David Ritchie MD CT ORDERABLES Final Result * PHOSPHORUS (02/22/2008 5:55 AM CDT) PHOSPHORUS 4.1 2.5 - 4.5 mg/dL [facility] Blood specimen (specimen) 02/22/2008 5:55 AM CDT 02/22/2008 6:20 AM CDT Jose David Ritchie MD CHEMISTRY ORDERABLES Final Resu lt Performing Organization Address [facility]/ZIP Co de Phone Number [facility] [address] [facility] [place] [address] * MAGNESIUM LEVEL (02/22/2008 5:55 AM CDT) Pathologist [facility] MAGNESIUM 1.8 1.5 - 2.5 mg/dL [facility] Blood specimen (specimen) 02/22/2008 5:55 AM CDT 02/22/2008 6:20 AM CDT us Jose David Ritchie MD CHEMISTRY ORDERABLES Final Resu lt Performing Organization Address [facility] Co de Phone Number [facility] [address] [place] [address] * (ABNORMAL) BASIC METABOLIC PANEL (02/22/2008 5:55 AM CDT) GLUCOSE 114(H) 65 - 99 mg/dL [facility] SODIUM 137 135 - 145 mmol/L [facility] CALCIUM 8.3(L) 8.4 - 10.2 mg/dL [facility] CO2 30 22 - 30 mmol/L [facility] CREATININE 0.95 0.67 - 1.17 mg/dL [facility] POTASSIUM 3.9 3.5 - 4.9 mmol/L [facility] BUN 11 6 - 20 mg/dL [facility] CHLORIDE 98 96 - 108 mmol/L [facility] GFR, >60 >=60 mL/min/1. 7 sq meter [facility] GFR >60 >=60 mL/min/1. 7 sq meter [facility] Comment: Estimated GFR rate interpretative information for both Americans and non- Americans is available on the [facility] Intranet at: [email or web address] Select: Lab Policies and Procedures Select: Reference Ranges - GFR Blood specimen (specimen) 02/22/2008 5:55 AM CDT 02/22/2008 6:20 AM CDT Jose David Ritchie MD CHEMISTRY ORDERABLES Edited [facility] [address] [place] [address] * (ABNORMAL) CBC WITH DIFFERENTIAL (02/22/2008 5:55 AM CDT) HEMATOCRIT 41.0 40.0 - 48.0 % [facility] RDW-STDEV 40.8 37.1 - 48.7 fL [facility] RBC 4.65 4.50 - 5.40 M/uL [facility] MCHC 34.1 31.5 - 35.5 % [facility] MCV 88.2 82.0 - 99.0 fL [facility] PLATELETS 190 140 - 350 K/uL [facility] HEMOGLOBIN 14.0 13.6 - 16.5 g/dL [facility] RDW 12.8 11.5 - 14.5 % [facility] WBC 8.9 4.0 - 9.8 K/uL [facility] MCH 30.1 27.2 - 32.6 pg [facility] MPV 9.6 9.3 - 12.4 fL [facility] BASOPHILS 1 0 - 2 % [facility] BASOPHILS ABSOLUTE 0.04 0.00 - 0.20 K/uL [facility] MONOCYTES 14(H) 3 - 13 % [facility] MONOCYTE ABSOLUTE 1.23 0.10 - 1.30 K/uL [facility] NEUTROPHILS 65 45 - 70 % [facility] NEUTROPHIL ABSOLUTE 5.72 1.90 - 7.00 K/uL [facility] EOSINOPHILS 4 0 - 7 % [facility] EOSINOPHIL ABSOLUTE 0.33 0.00 - 0.70 K/uL [facility] LYMPHOCYTES 17 16 - 45 % [facility] LYMPHOCYTE ABSOLUTE 1.54 0.70 - 4.50 K/uL [facility] Blood specimen (specimen) 02/22/2008 5:55 AM CDT 02/22/2008 6:20 AM CDT Jose David Ritchie MD HEMATOLOGY ORDERABLES Edited INTERFACE SYSTEM Refer to clinic/hospital department [facility] [address] [facility] [place] [address] * (ABNORMAL) POC GLUCOSE (02/21/2008 9:10 PM CDT) GLUCOSE POC 154(H) 65 - 99 mg/dL [facility] Venous blood specimen (specimen) 02/21/2008 9:10 PM CDT 02/21/2008 9:10 PM CDT Jose David Ritchie MD POINT OF CARE TESTING Final Res ult [facility] [address] [place] [address] * (ABNORMAL) POC GLUCOSE (02/21/2008 5:47 PM CDT) GLUCOSE POC 102(H) 65 - 99 mg/dL [facility] Venous blood specimen (specimen) 02/21/2008 5:47 PM CDT 02/21/2008 5:47 PM CDT Jose David Ritchie MD POINT OF CARE TESTING Final Res ult Performing Organization Address City/[facility]/ZIP Co de Phone Number [facility] [address] [place] [address] * POC GLUCOSE (02/21/2008 12:36 PM CDT) GLUCOSE POC 86 65 - 99 mg/dL [facility] Venous blood specimen (specimen) 02/21/2008 12:36 PM CDT 02/21/2008 12:36 PM CDT Jose David Ritchie MD POINT OF CARE TESTING Final Res ult Performing Organization Address City/[facility]/ZIP Co de Phone Number [facility] [address] [place] [address] * (ABNORMAL) POC GLUCOSE (02/21/2008 8:49 AM CDT) GLUCOSE POC 150(H) 65 - 99 mg/dL [facility] Venous blood specimen (specimen) 02/21/2008 8:49 AM CDT 02/21/2008 8:49 AM CDT us Jose David Ritchie MD POINT OF CARE TESTING Final Res ult [facility] [address] [place] [address] * POC GLUCOSE (02/21/2008 8:14 AM CDT) GLUCOSE POC 99 65 - 99 mg/dL [facility] Venous blood specimen (specimen) 02/21/2008 8:14 AM CDT 02/21/2008 8:14 AM CDT Jose David Ritchie MD POINT OF CARE TESTING Final Res ult Performing Organization Address City/[facility]/ZIP Co de Phone Number [facility] [address] [place] [address] * (ABNORMAL) POC GLUCOSE (02/21/2008 5:36 AM CDT) GLUCOSE POC 112(H) 65 - 99 mg/dL [facility] Venous blood specimen (specimen) 02/21/2008 5:36 AM CDT 02/21/2008 5:36 AM CDT Jose David Ritchie MD POINT OF CARE TESTING Final Res ult Performing Organization Address [facility] Co de Phone Number [facility] [address] [place] [address] * PHOSPHORUS (02/21/2008 4:30 AM CDT) PHOSPHORUS 3.1 2.5 - 4.5 mg/dL [facility] Blood specimen (specimen) 02/21/2008 4:30 AM CDT 02/21/2008 4:44 AM CDT Regis Lopez MD CHEMISTRY ORDERABLES Final Res ult Performing Organization Address City/[facility] Co de Phone Number [facility] [address] [place] [address] * MAGNESIUM LEVEL (02/21/2008 4:30 AM CDT) MAGNESIUM 2.0 1.5 - 2.5 mg/dL [facility] Blood specimen (specimen) 02/21/2008 4:30 AM CDT 02/21/2008 4:44 AM CDT Regis Lopez MD CHEMISTRY ORDERABLES Final Res ult Performing Organization Address [facility]/ZIP Co de Phone Number [facility] [address] [place] [address] * (ABNORMAL) BASIC METABOLIC PANEL (02/21/2008 4:30 AM CDT) CREATININE 0.83 0.67 - 1.17 mg/dL [facility] POTASSIUM 4.0 3.5 - 4.9 mmol/L [facility] BUN 7 6 - 20 mg/dL [facility] CHLORIDE 101 96 - 108 mmol/L [facility] GLUCOSE 110(H) 65 - 99 mg/dL [facility] SODIUM 137 135 - 145 mmol/L [facility] CALCIUM 7.8(L) 8.4 - 10.2 mg/dL [facility] CO2 28 22 - 30 mmol/L [facility] GFR, >60 >=60 mL/min/1. 7 sq meter [facility] GFR >60 >=60 mL/min/1. 7 sq meter [facility] Comment: Estimated GFR rate interpretative information for both Americans and non- Americans is available on the [facility] Intranet at: [email or web address] Select: Lab Policies and Procedures Select: Reference Ranges - GFR Blood specimen (specimen) 02/21/2008 4:30 AM CDT 02/21/2008 4:44 AM CDT Regis Lopez MD CHEMISTRY ORDERABLES Edited Performing Organization Address City/[facility]/ZIP Co de Phone Number [facility] [address] [place] [address] * (ABNORMAL) CBC WITH DIFFERENTIAL (02/21/2008 4:30 AM CDT) HEMOGLOBIN 13.0(L) 13.6 - 16.5 g/dL [facility] RDW 12.9 11.5 - 14.5 % [facility] WBC 10.6(H) 4.0 - 9.8 K/uL [facility] MCH 30.2 27.2 - 32.6 pg [facility] MPV 9.5 9.3 - 12.4 fL [facility] HEMATOCRIT 38.2(L) 40.0 - 48.0 % [facility] RDW-STDEV 41.6 37.1 - 48.7 fL [facility] RBC 4.31(L) 4.50 - 5.40 M/uL [facility] MCHC 34.0 31.5 - 35.5 % [facility] MCV 88.6 82.0 - 99.0 fL [facility] PLATELETS 159 140 - 350 K/uL [facility] LYMPHOCYTES 13(L) 16 - 45 % [facility] LYMPHOCYTE ABSOLUTE 1.38 0.70 - 4.50 K/uL [facility] BASOPHILS 0 0 - 2 % [facility] BASOPHILS ABSOLUTE 0.02 0.00 - 0.20 K/uL [facility] MONOCYTES 11 3 - 13 % [facility] MONOCYTE ABSOLUTE 1.20 0.10 - 1.30 K/uL [facility] NEUTROPHILS 73(H) 45 - 70 % [facility] NEUTROPHIL ABSOLUTE 7.68(H) 1.90 - 7.00 K/uL [facility] EOSINOPHILS 3 0 - 7 % [facility] EOSINOPHIL ABSOLUTE 0.31 0.00 - 0.70 K/uL [facility] Blood specimen (specimen) 02/21/2008 4:30 AM CDT 02/21/2008 4:44 AM CDT Regis Lopez MD HEMATOLOGY ORDERABLES Edited Performing Organization Address City/[facility] Co de Phone Number INTERFACE SYSTEM Refer to clinic/hospital department [facility] [address] [place] [address] * TROPONIN (02/21/2008 12:50 AM CDT) TROPONIN T <0.01 <=0.03 ng/mL [facility] TROPONIN T INTERP Negative [facility] Blood specimen (specimen) 02/21/2008 12:50 AM CDT 02/21/2008 1:08 AM CDT Jhon Cross MD CHEMISTRY ORDERABLES Edited Performing Organization Address [facility] Co de Phone Number [facility] [address] [place] [address] * CK (02/21/2008 12:50 AM CDT) CK 84 10 - 170 U/L [facility] Blood specimen (specimen) 02/21/2008 12:50 AM CDT 02/21/2008 1:08 AM CDT Jhon Cross MD CHEMISTRY ORDERABLES Final Resul t Performing Organization Address [facility] Co de Phone Number [facility] [address] [place] [address] * (ABNORMAL) POC GLUCOSE (02/20/2008 11:50 PM CDT) GLUCOSE POC 107(H) 65 - 99 mg/dL [facility] Venous blood specimen (specimen) 02/20/2008 11:50 PM CDT 02/20/2008 11:50 PM CDT Jose David Ritchie MD POINT OF CARE TESTING Final Res ult Performing Organization Address City/[facility]/ZIP Co de Phone Number [facility] [address] [place] [address] * (ABNORMAL) POC GLUCOSE (02/20/2008 8:09 PM CDT) GLUCOSE POC 131(H) 65 - 99 mg/dL [facility] COMMENT, GLU POC TX Given [facility] Venous blood specimen (specimen) 02/20/2008 8:09 PM CDT 02/20/2008 8:09 PM CDT Jose David Ritchie MD POINT OF CARE TESTING Final Res ult Performing Organization Address [facility]/ZIP Co de Phone Number [facility] [address] [place] [address] * (ABNORMAL) POC GLUCOSE (02/20/2008 4:57 PM CDT) GLUCOSE POC 115(H) 65 - 99 mg/dL [facility] Venous blood specimen (specimen) 02/20/2008 4:57 PM CDT 02/20/2008 4:57 PM CDT Jose David Ritchie MD POINT OF CARE TESTING Final Res ult Performing Organization Address City/[facility]/ZIP Co de Phone Number [facility] [address] [place] [address] * (ABNORMAL) POC GLUCOSE (02/20/2008 12:22 PM CDT) GLUCOSE POC 106(H) 65 - 99 mg/dL [facility] Venous blood specimen (specimen) 02/20/2008 12:22 PM CDT 02/20/2008 12:22 PM CDT us Jose David Ritchie MD POINT OF CARE TESTING Final Res ult Performing Organization Address City/[facility]/ZIP Co de Phone Number [facility] [address] [place] [address] * (ABNORMAL) POC GLUCOSE (02/20/2008 8:31 AM CDT) GLUCOSE POC 134(H) 65 - 99 mg/dL [facility] Venous blood specimen (specimen) 02/20/2008 8:31 AM CDT 02/20/2008 8:31 AM CDT us Jose David Ritchie MD POINT OF CARE TESTING Final Res ult Performing Organization Address [facility] Co de Phone Number [facility] [address] [place] [address] * (ABNORMAL) POC GLUCOSE (02/20/2008 5:10 AM CDT) COMMENT, GLU POC TX Given [facility] GLUCOSE POC 117(H) 65 - 99 mg/dL [facility] Venous blood specimen (specimen) 02/20/2008 5:10 AM CDT 02/20/2008 5:10 AM CDT us Jose David Ritchie MD POINT OF CARE TESTING Final Res ult Performing Organization Address [facility] Co de Phone Number [facility] [address] [place] [address] * PT AND APTT (02/20/2008 5:00 AM CDT) PROTIME 14.6 12.7 - 15.1 Seconds [facility] INR 1.1 0.9 - 1.1 [facility] Comment: INR Therapeutic Range: Adult: 2.0 - 3.0 for pulmonary embolism or prophylaxis against venous thrombosis or systemic embolization. 2.0 - 3.0 for patients with tissue heart valves. 2.5 - 3.5 for patients with mechanical heart valves or post MA. Pediatric (12 years and under): 1.5 - 3.0 Although the target range in children is not well established, INR values of 1.5 - 3.0 are recommended for most patients. Higher values have been used in children with prosthetic cardiac valves and hereditary clotting disorders. (<3 days) therapeutic ranges have not been established. PTT 31.8 24.4 - 36.4 Seconds [facility] Comment: PTT Therapeutic Range: Heparin Level PTT (seconds) <0.10 units/mL <53 0.10 - 0.30 units/mL 53 - 67 0.30 - 0.70 units/mL* 67 - 95* 0.70 - 1.00 units/mL 95 - 116 *corresponds to therapeutic range for unfractionated heparin Blood specimen (specimen) 02/20/2008 5:00 AM CDT 02/20/2008 5:35 AM CDT us Marco Lopez MD HEMATOLOGY ORDERABLES Edited [facility] [address] [facility] [place] [address] * MAGNESIUM LEVEL (02/20/2008 5:00 AM CDT) MAGNESIUM 1.6 1.5 - 2.5 mg/dL [facility] Blood specimen (specimen) 02/20/2008 5:00 AM CDT 02/20/2008 5:35 AM CDT Marco Lopez MD CHEMISTRY ORDERABLES Final Re sult [facility] [address] [facility] [address] * PHOSPHORUS (02/20/2008 5:00 AM CDT) PHOSPHORUS 3.0 2.5 - 4.5 mg/dL [facility] Blood specimen (specimen) 02/20/2008 5:00 AM CDT 02/20/2008 5:35 AM CDT Marco Lopez MD CHEMISTRY ORDERABLES Final Re sult [facility] [address] [place] [address] * (ABNORMAL) BASIC METABOLIC PANEL (02/20/2008 5:00 AM CDT) CO2 27 22 - 30 mmol/L [facility] CREATININE 0.80 0.67 - 1.17 mg/dL [facility] POTASSIUM 3.4(L) 3.5 - 4.9 mmol/L [facility] BUN 8 6 - 20 mg/dL [facility] CHLORIDE 99 96 - 108 mmol/L [facility] GLUCOSE 126(H) 65 - 99 mg/dL [facility] SODIUM 133(L) 135 - 145 mmol/L [facility] CALCIUM 7.7(L) 8.4 - 10.2 mg/dL [facility] GFR, >60 >=60 mL/min/1. 7 sq meter [facility] GFR >60 >=60 mL/min/1. 7 sq meter [facility] Comment: Estimated GFR rate interpretative information for both Americans and non- Americans is available on the [facility] Intranet at: [email or web address] Select: Lab Policies and Procedures Select: Reference Ranges - GFR Blood specimen (specimen) 02/20/2008 5:00 AM CDT 02/20/2008 5:35 AM CDT us Marco Lopez MD CHEMISTRY ORDERABLES Edited [facility] [address] [place] [id number] * (ABNORMAL) CBC WITH DIFFERENTIAL (02/20/2008 5:00 AM CDT) RDW-STDEV 41.7 37.1 - 48.7 fL [facility] RBC 4.20(L) 4.50 - 5.40 M/uL [facility] MCHC 33.5 31.5 - 35.5 % [facility] MCV 87.4 82.0 - 99.0 fL [facility] PLATELETS 165 140 - 350 K/uL [facility] HEMOGLOBIN 12.3(L) 13.6 - 16.5 g/dL [facility] RDW 13.0 11.5 - 14.5 % [facility] WBC 10.5(H) 4.0 - 9.8 K/uL [facility] MCH 29.3 27.2 - 32.6 pg [facility] MPV 9.7 9.3 - 12.4 fL [facility] HEMATOCRIT 36.7(L) 40.0 - 48.0 % [facility] MONOCYTES 12 3 - 13 % [facility] MONOCYTE ABSOLUTE 1.22 0.10 - 1.30 K/uL [facility] NEUTROPHILS 74(H) 45 - 70 % [facility] NEUTROPHIL ABSOLUTE 7.69(H) 1.90 - 7.00 K/uL [facility] EOSINOPHILS 1 0 - 7 % [facility] EOSINOPHIL ABSOLUTE 0.14 0.00 - 0.70 K/uL [facility] LYMPHOCYTES 13(L) 16 - 45 % [facility] LYMPHOCYTE ABSOLUTE 1.39 0.70 - 4.50 K/uL [facility] BASOPHILS 0 0 - 2 % [facility] BASOPHILS ABSOLUTE 0.02 0.00 - 0.20 K/uL [facility] Blood specimen (specimen) 02/20/2008 5:00 AM CDT 02/20/2008 5:35 AM CDT Marco Lopez MD HEMATOLOGY ORDERABLES Edited INTERFACE SYSTEM Refer to clinic/hospital department [facility] [address] [place] [address] * (ABNORMAL) POC GLUCOSE (02/20/2008 12:36 AM CDT) GLUCOSE POC 133(H) 65 - 99 mg/dL [facility] COMMENT, GLU POC TX Given [facility] Venous blood specimen (specimen) 02/20/2008 12:36 AM CDT 02/20/2008 12:36 AM CDT Jose David Ritchie MD POINT OF CARE TESTING Final Res ult Performing Organization Address [facility] Co de Phone Number [facility] [address] [place] [address] * (ABNORMAL) POC GLUCOSE (02/19/2008 9:13 PM CDT) GLUCOSE POC 115(H) 65 - 99 mg/dL [facility] Venous blood specimen (specimen) 02/19/2008 9:13 PM CDT 02/19/2008 9:13 PM CDT Jose David Ritchie MD POINT OF CARE TESTING Final Res ult Performing Organization Address City/[facility]/ZIP Co de Phone Number [facility] [address] [place] [address] * (ABNORMAL) POC GLUCOSE (02/19/2008 5:15 PM CDT) GLUCOSE POC 107(H) 65 - 99 mg/dL [facility] Venous blood specimen (specimen) 02/19/2008 5:15 PM CDT 02/19/2008 5:15 PM CDT Jose David Ritchie MD POINT OF CARE TESTING Final Res ult [facility] [address] [place] [address] * (ABNORMAL) POC GLUCOSE (02/19/2008 12:19 PM CDT) GLUCOSE POC 111(H) 65 - 99 mg/dL [facility] Venous blood specimen (specimen) 02/19/2008 12:19 PM CDT 02/19/2008 12:19 PM CDT Jose David Ritchie MD POINT OF CARE TESTING Final Res ult Performing Organization Address City/[facility]/ZIP Co de Phone Number [facility] [address] [place], [place] [address] * (ABNORMAL) POC GLUCOSE (02/19/2008 8:03 AM CDT) GLUCOSE POC 111(H) 65 - 99 mg/dL [facility] Venous blood specimen (specimen) 02/19/2008 8:03 AM CDT 02/19/2008 8:03 AM CDT Jose David Ritchie MD POINT OF CARE TESTING Final Res ult [facility] [address] [place] [address] * (ABNORMAL) BASIC METABOLIC PANEL (02/19/2008 5:15 AM CDT) SODIUM 140 135 - 145 mmol/L [facility] CALCIUM 7.9(L) 8.4 - 10.2 mg/dL [facility] CO2 27 22 - 30 mmol/L [facility] CREATININE 0.85 0.67 - 1.17 mg/dL [facility] POTASSIUM 4.4 3.5 - 4.9 mmol/L [facility] BUN 15 6 - 20 mg/dL [facility] CHLORIDE 106 96 - 108 mmol/L [facility] GLUCOSE 114(H) 65 - 99 mg/dL [facility] GFR, >60 >=60 mL/min/1. 7 sq meter [facility] GFR >60 >=60 mL/min/1. 7 sq meter [facility] Comment: Estimated GFR rate interpretative information for both Americans and non- Americans is available on the [facility] Intranet at: [email or web address] Select: Lab Policies and Procedures Select: Reference Ranges - GFR Blood specimen (specimen) 02/19/2008 5:15 AM CDT 02/19/2008 5:23 AM CDT Rosmery Ty DO CHEMISTRY ORDERABLES Edit ed [facility] [address] [place] [address] * (ABNORMAL) MAGNESIUM LEVEL (02/19/2008 5:15 AM CDT) MAGNESIUM 2.8(H) 1.5 - 2.5 mg/dL [facility] Blood specimen (specimen) 02/19/2008 5:15 AM CDT 02/19/2008 5:23 AM CDT Rosmery yT CHEMISTRY ORDERABLES Dina l Result [facility] [address] [place] [address] * PHOSPHORUS (02/19/2008 5:15 AM CDT) PHOSPHORUS 4.2 2.5 - 4.5 mg/dL [facility] Blood specimen (specimen) 02/19/2008 5:15 AM CDT 02/19/2008 5:23 AM CDT Rosmery Ty CHEMISTRY ORDERABLES Dina l Result Performing Organization Address City/[facility]/ZIP Co de Phone Number [facility] [address] [place], [place] [address] * (ABNORMAL) CBC WITH DIFFERENTIAL (02/19/2008 5:15 AM CDT) [facility] MCV 87.4 82.0 - 99.0 fL [facility] PLATELETS 193 140 - 350 K/uL [facility] HEMOGLOBIN 14.5 13.6 - 16.5 g/dL [facility] RDW 13.2 11.5 - 14.5 % [facility] WBC 14.4(H) 4.0 - 9.8 K/uL [facility] MCH 30.0 27.2 - 32.6 pg [facility] MPV 9.5 9.3 - 12.4 fL [facility] HEMATOCRIT 42.2 40.0 - 48.0 % [facility] RDW-STDEV 41.9 37.1 - 48.7 fL [facility] RBC 4.83 4.50 - 5.40 M/uL [facility] MCHC 34.4 31.5 - 35.5 % [facility] EOSINOPHILS 2 0 - 7 % [facility] EOSINOPHIL ABSOLUTE 0.23 0.00 - 0.70 K/uL [facility] LYMPHOCYTES 13(L) 16 - 45 % [facility] LYMPHOCYTE ABSOLUTE 1.92 0.70 - 4.50 K/uL [facility] BASOPHILS 0 0 - 2 % [facility] BASOPHILS ABSOLUTE 0.04 0.00 - 0.20 K/uL [facility] MONOCYTES 9 3 - 13 % [facility] MONOCYTE ABSOLUTE 1.33(H) 0.10 - 1.30 K/uL [facility] NEUTROPHILS 75(H) 45 - 70 % [facility] NEUTROPHIL ABSOLUTE 10.85(H) 1.90 - 7.00 K/uL [facility] Blood specimen (specimen) 02/19/2008 5:15 AM CDT 02/19/2008 5:23 AM CDT Jose David Ritchie MD HEMATOLOGY ORDERABLES Edited INTERFACE SYSTEM Refer to clinic/hospital department [facility] [place] [address] * MRSA ACTIVE SURVEILLANCE (02/19/2008 4:14 AM CDT) FINAL REPORT No methicillin resistant Staphylococcus aureus isolated. INTERFACE SYSTEM Dieudonne 02/19/2008 4:14 AM CDT 02/19/2008 11:40 AM CDT Jose David Ritchie MD MICROBIOLOGY - GENERAL ORDERABL ES Final Result Performing Organization Address City/[facility] de Phone Number INTERFACE SYSTEM Refer to clinic/hospital department * XR CHEST PA OR AP (02/19/2008 2:20 AM CDT) Anatomical Region Laterality Modality Chest Other 02/19/2008 2:20 AM CDT Narrative 02/19/2008 8:59 AM CDT [facility] [address] [place], [place] [address] Admit Date: 02/18/2008 ZAFAR BRYSON Sex: M Admit Prov: JOSE DAVID RITCHIE Date: 1950 Primary Care Prov: CMRN: [id number] Room: [address] [place] [address] SSN: [id number] IMAGING SERVICES Ordering Prov: N/A Accession Number: [id number] Interpretation Portable chest 02/19/2008 2:30 a.m. Clinical [...] AMK Procedure Note Provider, Historical - 02/19/2008 [facility] [address] [place], [place] [address] Admit Date: 02/18/2008 BRAYDONZAFAR Fay Sex: M Admit Prov: JOSE DAVID RITCHIE Date: 1950 Primary Care Prov: CMRN: [id number] Room: [address] [place] [address] SSN: [id number] IMAGING SERVICES Ordering Prov: N/A Interpretation Portable [...] CDT) HEMATOCRIT 40.6 40.0 - 48.0 % [facility] HEMOGLOBIN 14.1 13.6 - 16.5 g/dL [facility] Blood specimen (specimen) 02/19/2008 2:16 AM CDT 02/19/2008 2:20 AM CDT Ji Dumont MD HEMATOLOGY ORDERABLES Final R esult [facility] [address] [place] [address] * (ABNORMAL) BLOOD GAS ARTERIAL (02/19/2008 2:16 AM CDT) O2 CONC ARTERIAL 40% [facility] HCO3 ARTERIAL 23 22 - 26 mmol/L [facility] PCO2 ARTERIAL 46 35 - 48 mm Hg [facility] FO2HB ABG 99(H) 94 - 98 % [facility] BASE EXCESS ABG -2.3(L) -2.0 - 3.0 mmol/L [facility] PO2 ARTERIAL 181(H) 83 - 108 mm Hg [facility] PH ARTERIAL 7.33(L) 7.35 - 7.45 [facility] SO2 ABG 100(H) 95 - 99 % [facility] Arterial blood specimen (specimen) 02/19/2008 2:16 AM CDT 02/19/2008 2:20 AM CDT us Ji Dumont MD ABG ORDERABLES Final Result [facility] [address] [facility] [place] [place] [address] * PT AND APTT (02/18/2008 11:48 PM CDT) PROTIME 13.2 12.7 - 15.1 Seconds [facility] INR 1.0 0.9 - 1.1 [facility] Comment: INR Therapeutic Range: Adult: 2.0 - 3.0 for pulmonary embolism or prophylaxis against venous thrombosis or systemic embolization. 2.0 - 3.0 for patients with tissue heart valves. 2.5 - 3.5 for patients with mechanical heart valves or post MA. Pediatric (12 years and under): 1.5 - 3.0 Although the target range in children is not well established, INR values of 1.5 - 3.0 are recommended for most patients. Higher values have been used in children with prosthetic cardiac valves and hereditary clotting disorders. (<3 days) therapeutic ranges have not been established. PTT 29.6 24.4 - 36.4 Seconds [facility] Comment: PTT Therapeutic Range: Heparin Level PTT (seconds) <0.10 units/mL <53 0.10 - 0.30 units/mL 53 - 67 0.30 - 0.70 units/mL* 67 - 95* 0.70 - 1.00 units/mL 95 - 116 *corresponds to therapeutic range for unfractionated heparin Blood specimen (specimen) 02/18/2008 11:48 PM CDT 02/18/2008 11:58 PM CDT us Brian Clement DO HEMATOLOGY ORDERABLES Edited [facility] [address] [place] [address] * CT HEAD WO CONTRAST (02/18/2008 10:58 PM CDT) Anatomical Region Laterality Modality Head Other 02/18/2008 10:5 8 PM CDT Narrative 02/18/2008 11:33 PM CDT [facility] [address] [place], [place] [address] Admit Date: 02/18/2008 BRAYDONZAFAR Sex: M Admit Prov: PALOMO DE LA ROSA P Date: 1950 Primary Care Prov: CMRN: [id number] [facility] SSN: [id number] IMAGING SERVICES Ordering Prov: N/A Accession Number: [id number] Interpretation CT scan of the head without [...] Procedure Note Ines Velázquez MD - 02/18/2008 [facility] [address] [place], [place] [address] Admit Date: 02/18/2008 ZAFAR BRYSON Sex: M Admit Prov: ER, AUTHORIZED P Date: 1950 Primary Care Prov: CMRN: [id number] Room: ER-A SSN: [id number] IMAGING SERVICES Ordering Prov: N/A Interpretation CT [...] CDT) POTASSIUM 4.0 3.5 - 4.9 mmol/L [facility] TOTAL PROTEIN 6.9 6.3 - 8.6 g/dL [facility] GLUCOSE 107(H) 65 - 99 mg/dL [facility] AST 23 12 - 38 U/L [facility] BUN 16 6 - 20 mg/dL [facility] CALCIUM 8.6 8.4 - 10.2 mg/dL [facility] ALBUMIN 4.2 3.4 - 4.8 g/dL [facility] CHLORIDE 104 96 - 108 mmol/L [facility] CREATININE 0.82 0.67 - 1.17 mg/dL [facility] ALT 26 0 - 41 U/L [facility] SODIUM 140 135 - 145 mmol/L [facility] ALKALINE PHOSPHATASE 94 40 - 129 U/L [facility] CO2 27 22 - 30 mmol/L [facility] BILIRUBIN TOTAL 0.3 0.2 - 1.0 mg/dL [facility] GFR, >60 >=60 mL/min/1. 7 sq meter [facility] GFR >60 >=60 mL/min/1. 7 sq meter [facility] Comment: Estimated GFR rate interpretative information for both Americans and non- Americans is available on the [facility] Intranet at: [email or web address] Select: Lab Policies and Procedures Select: Reference Ranges - GFR Blood specimen (specimen) 02/18/2008 10:55 PM CDT 02/18/2008 11:21 PM CDT us Authorized P Er CHEMISTRY ORDERABLES Edited [facility] [address] [place] [address] * (ABNORMAL) CBC WITH DIFFERENTIAL (02/18/2008 10:55 PM CDT) MPV 9.2(L) 9.3 - 12.4 fL [facility] HEMATOCRIT 40.5 40.0 - 48.0 % [facility] RDW-STDEV 40.8 37.1 - 48.7 fL [facility] RBC 4.69 4.50 - 5.40 M/uL [facility] MCHC 35.1 31.5 - 35.5 % [facility] MCV 86.4 82.0 - 99.0 fL [facility] PLATELETS 191 140 - 350 K/uL [facility] HEMOGLOBIN 14.2 13.6 - 16.5 g/dL [facility] RDW 13.0 11.5 - 14.5 % [facility] WBC 8.7 4.0 - 9.8 K/uL [facility] MCH 30.3 27.2 - 32.6 pg [facility] BASOPHILS 1 0 - 2 % [facility] BASOPHILS ABSOLUTE 0.05 0.00 - 0.20 K/uL [facility] MONOCYTES 10 3 - 13 % [facility] MONOCYTE ABSOLUTE 0.84 0.10 - 1.30 K/uL [facility] NEUTROPHILS 59 45 - 70 % [facility] NEUTROPHIL ABSOLUTE 5.12 1.90 - 7.00 K/uL [facility] EOSINOPHILS 5 0 - 7 % [facility] EOSINOPHIL ABSOLUTE 0.41 0.00 - 0.70 K/uL [facility] LYMPHOCYTES 26 16 - 45 % [facility] LYMPHOCYTE ABSOLUTE 2.28 0.70 - 4.50 K/uL [facility] Blood specimen (specimen) 02/18/2008 10:55 PM CDT 02/18/2008 11:21 PM CDT us Authorized P Er HEMATOLOGY ORDERABLES Edited INTERFACE SYSTEM Refer to clinic/hospital department [facility] [address] [place] [address] * SEDIMENTATION RATE (02/18/2008 10:55 PM CDT) ESR (SEDIMENTATION RATE) 7 0 - 30 mm/hr [facility] Blood specimen (specimen) 02/18/2008 10:55 PM CDT 02/18/2008 11:21 PM CDT us Authorized P Er HEMATOLOGY ORDERABLES Final Resu lt [facility] [address] [place], [place] [address] documented in this encounter Visit Diagnoses Not on filedocumented in this encounter Care Teams Dampener Relationship Specialty Start Date End Date Long Mejias MD [address] [facility] [address] [place] [address] PCP - General Family Practice 06/24/19 documented as of this encounter
--- OUTSIDE RECORDS SUMMARY | 2025-10-23 08:43 | XMS_ITS | Clinical Summary ---
Author Organization [facility] Address [facility] [facility] [place] [address] Care Team Providers Care Armhole Raiser Lockstitch Name Role Phone Unavailable Primary Care Provider Unavailabl e Source Comments [facility],non-owned Affiliates and Associated Physician Practices is amultiple site organization consisting of ambulatory clinics and hospital sitesin [place], [place], [place] and [place]. This disclosure is being madepursuant to the Care Everywhere program and may not contain all information available regarding this patient. 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
--- OUTSIDE RECORDS SUMMARY | 2025-10-23 08:43 | XMS_ITS | Clinical Summary ---
Author Organization 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/21/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 07/15/2018 Lipoma of upper extremity 02/06/2018 Overview (01/04/2025): Added automatically from request for surgery [id number] Added automatically from request for surgery [id number] Sebaceous cyst 02/06/2018 Overview (01/04/2025): Added automatically from request for surgery [id number] Abscess of back 12/03/2017 Subdural hematoma 03/05/2017 Actinic keratosis 08/15/2016 Infectious warts 08/15/2016 Keratinizing cyst 08/15/2016 Senile angioma 08/15/2016 Mass of upper extremity 07/16/2014 Vertigo 12/08/2012 Right-sided chest wall pain 02/07/2011 Pure hypercholesterolemia 03/21/2010 Coronary artery disease invo lving [place] coronary artery of [place] heart without angina pectoris 03/21/2010 S/P coronary [...] Free, Intramuscular 08/17/2015 Influenza, Unspecified 08/25/2022,2019,08/25/2017,08/25,09/10/2013,07/26/2008,09/02/2007 ,08/25/2006,09/20/2005,10/17/2004,08/26 Czech Encephalitis 12/28/2005,12/20/2005,11/25 Pfizer SARS-CoV-2 Monovalent Vaccination (12+ [...] on file Legal Sex Male 3:52 AM THREAD TWISTER Gender Identity Not on file Sexual Orientation Not on file Occupation Industry Job Start Date Job End Date disabled Not on file Not on file Not on file Last Filed Vital Signs Vital Sign Reading Time Taken Comments Blood Pressure 149/76 01/05/2025 10:24 AM THREAD TWISTER Pulse 47 01/05/2025 10:24 AM THREAD TWISTER Temperature 36.7 C (98 F) 01/05/2025 10:24 AM THREAD TWISTER Respiratory Rate 10 12/17/2024 9:55 AM THREAD TWISTER Oxygen Saturation 96% 12/17/2024 9:55 AM THREAD TWISTER Inhaled Oxygen Concentration - - Weight 95.2 kg (209 lb 12.8 oz) 025 10:24 AM THREAD TWISTER Height 180.3 cm (5' 11) 01/05/2025 10: 24 AM THREAD TWISTER Body Mass Index 29.26 01/05/2025 10:24 AM THREAD TWISTER Plan of Treatment Health Maintenance Due Date Last Done Comments Colon Cancer Screening-Colonoscopy 1950 Depression Screening 1950 Hepatitis C Screening 1950 Zoster Vaccine (2 of 3) 01/18/2015 11/23/2014 Abdominal Aortic Aneurysm (A AA) Screen 2017 Well Visit 65+ 2017 DTaP/Tdap/Td Vaccine (2 - Td or Tdap) 08/19/2024 08/19/2014, 12/12/2005 Covid-19 Vaccine (3 - 2024-2 6 season) 2025 01/07/2021, 12/17/2020 Influenza Vaccine (#1) 2025 , 09/05/2020, 07/27/2020, Additional history exists Fall Risk Assessment 12/17/2025 12/17/2024 Hepatitis B Screening Completed 06/12/2006 , 01/15/2006, 12/13/2005 Prostate Cancer Screening-PSA Discontinued 09/01/2015 Pneumococcal vaccine 65+ Completed 05/02/2023, 11/2010 Medical Devices Implanted Type Area Account Advisor Device Identifier Shelf Expiration Date Model / Serial / Lot [employer]/ Ortho [id number] Evos [id number] 16.3x1.7mm 7 Hole Low Profile Variable Angle Lock - [id number] Implanted:Qty: 1 on 08/09/2020 by Leslie Holder MD at [facility] Right: Ankle [employer]/Or tho [id number] / / [employer]/ Ortho [id number] Evos 3.5mm 10mm Self Tap Cortex Screw Bone Sterile - [id number] Implanted:Qty: 2 on 08/09/2020 by Leslie Holder MD at [facility] Right: Ankle [employer]/Or tho [id number] / / [employer]/ Ortho [id number] Evos 3.5mm 14mm Self Tap Cortex Screw Bone Sterile - [id number] Implanted:Qty: 1 on 08/09/2020 by Leslie Holder MD at [facility] Right: Ankle [employer]/Or tho [id number] / / [employer]/ Ortho [id number] Evos 3.5mm 16mm Self Tap Cortex Screw Bone Sterile - [id number] Implanted:Qty: 1 on 08/09/2020 by Leslie Holder MD at [facility] Right: Ankle [employer]/Or tho [id number] / / [employer]/ Ortho [id number] Evos 4.7mm 14mm Full Thread Screw Bone Sterile Osteopenia - [id number] Implanted:Qty: 1 on 08/09/2020 by Leslie Holder MD at [facility] Right: Ankle [employer]/Or tho [id number] / / [employer]/ Ortho [id number] Evos 4.7mm 16mm Full Thread Screw Bone Sterile Osteopenia - [id number] Implanted:Qty: 1 on 08/09/2020 by Leslie Holder MD at [facility] Right: Ankle [employer]/Or tho [id number] / / [employer]/ Ortho [id number] Evos 4.7mm 18mm Full Thread Screw Bone Sterile Osteopenia - [id number] Implanted:Qty: 1 on 08/09/2020 by Leslie Holder MD at [facility] Right: Ankle [employer]/Or tho [id number] / / [employer]/ Ortho [id number] Evos 3.5mm 18mm Self Tap Cortex Screw Bone Sterile - [id number] Implanted:Qty: 1 on 08/18/2020 by Leslie Holder MD at [facility] Right: Ankle [employer]/Or tho [id number] / / [employer] Surgery Prolene 3 15/16in .75in 4 15/16inx2 5/32inx.5in Soft Knit Extend Phse - [id number] Implanted:Qty: 1 on 12/17/2024 by Sonu Carlson MD at [facility] Left: Inguinal [employer] End[employer] Surgery 03/24/2029 PHSE / / [id number] Procedures Procedure Name Priority Date/Time Associated Diagnosis Comments PSA SCREEN Routine 09/01/2015 1:25 PM CDT from Last 3 Months or Most Recently Relevant to Health Maintenance Results * PSA screen (09/01/2015 1:25 PM CDT) [facility] Signature PSA Screen 0.9 0.0 - 5.4 ng/mL 09/01/2015 5:11 PM CDT [facility] RESULTS Comment: Method: ECLIA Values obtained by different assay methods cannot be used interchangeably. Use sequential testing to confirm baseline if assay method changed during patient monitoring. 09/01/2015 1:2 5 PM CDT 09/01/2015 1:53 PM CDT Narrative [facility] [employer] HISTORICAL RESULTS - 09/01/2015 5:11 PM CDT 12 HOURS PC us Suleiman Petit MD LAB BLOOD ORDERABLES Final Result [facility] HISTORICAL RESULTS from Last 3 Months or Most Recently Relevant to Health Maintenance Insurance MEDICARE FOR LIFE MEDICARE FOR LIFE MEDICARE [facility] EMERGENC[facility] DEPARTMENT FOR [facility] MEDICARE Care Teams Executive Business Coach Relationship Specialty Start Date End Date Long Mejias MD [id number] [place] [address] PCP - General 09/28/19 Sonu Carlson MD [address] [facility] [address] [place] [address] Consulting Physician General Surgery 12/17/24
--- OUTSIDE RECORDS SUMMARY | 2025-10-23 08:43 | XMS_ITS | Encounter Summary ---
Author Organization [facility] Address [address] [place] [address] Care Team Providers Care Ladies Suit Operator Name Role Phone Long Mejias MD Primary Care Provider Encounter Details Date Type Department Care Team (Late Contact Info) Description 07/02/2007 Outpatient Historical [facility] Adult Hospitalists [facility] [address] [place] [address] Shannon Esparza MD [address] [facility] [address] [address] Social History Tobacco Use Types Packs/Day Years Used Date Smoking Tobacco: Never Assessed Sex and Gender Information Value Date Recorded Sex Assigned at Not on file Legal Sex Male 4: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 Gender Identity Not on file Sexual Orientation Not on file documented as of this encounter Plan of Treatment Upcoming Encounters Date Type Department Care Team (Late st Contact Info) Description 01/26/2026 11:15 AM COATING OPERATOR Office Visit [facility] V[facility] At [facility] [address] [facility] [address] [place] [address] David Raymond MD [facility] [address] [facility] [address] [place] [address] documented as of this encounter Visit Diagnoses Not on filedocumented in this encounter Care Teams Ladies Suit Operator Relationship Specialty Start Date End Date Long Mejias MD [address] [facility] [address] [place] [address] PCP - General Family Practice 06/24/19 documented as of this encounter
--- OUTSIDE RECORDS SUMMARY | 2025-10-23 08:43 | XMS_ITS | Encounter Summary ---
Author Organization [facility] Address [address] [place] [address] [place] [address] Care Team Providers Care Solar Project Engineer Name Role Phone Unavailable Primary Care Provider Unavailabl e Encounter Details Date Type Department Care Team (Late st Contact Info) Description 01/05/2021 Lab Requisition [facility] Derm[facility] Lab [address] [place] [address] Ji Ahn MD [address] [place] [address] Social History Tobacco Use Types Packs/Day Years Used Date Smoking Tobacco: Never Assessed Sex and Gender Information Value Date Recorded Sex Assigned at Not on file Legal Sex Male 6: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 Gender Identity Not on file Sexual Orientation Not on file documented as of this encounter Plan of Treatment Not on file documented as of this encounter Procedures Procedure Name Priority Date/Time Associated Diagnosis Comments DERMATOPATHOLOGY Routine 01/04/2021 12:0 0 AM FIRESTOP/CONTAINMENT WORKER documented in this encounter Results * DERMATOPATHOLOGY (01/04/2021 12:00 AM FIRESTOP/CONTAINMENT WORKER) Case Report Dermatopathology Report Case: [id number] Authorizing Provider: Ji Ahn MD Collected: 01/04/2021 12:00 AM Ordering Location: [facility] DermPath Lab Received: 01/05/2021 12:08 PM Pathologist: Honey Fernandez MD Specimen: Skin, left posterior neck 3:18 PM FIRESTOP/CONTAINMENT WORKER DERMATOPATHOLOGY LABORATORY Final Diagnosis Specimen A. SKIN, left posterior neck: EPIDERMOID CYST (L72.0) 3:18 PM [facility] DERMATOPATHOLOGY LABORATORY at [address] FIRESTOP/CONTAINMENT WORKER Clinical History R/O SQ mass. 3:18 PM [facility] DERMATOPATHOLOGY LABORATORY Gross Description Specimen A: Received is one formalin filled container labeled with the patient's name and designated left posterior neck. The specimen consists of a punch biopsy measuring [id number], bisected. Jar 0. 3:18 PM [facility] DERMATOPATHOLOGY LABORATORY Microscopic Description Specimen A. SKIN, left posterior neck: Within the dermis, there is a space lined by epithelium that resembles normal epidermis and the infundibular portion of the hair follicle. 3:18 PM [facility] DERMATOPATHOLOGY LABORATORY Disclaimer An external and internal positive and negative controls are appropriate for the histochemical, immunohistochemical and immunofluorescence stain(s) in this case (if any), except where stated explicitly. The performance characteristics of the stain(s) cited in this report were developed and its performance characteristic determined by the Dermatopathology Laboratory at [facility], directed by Dr. Ping Fernandez. These tests need not be, and therefore are not, approved by the [place] Food and Drug Administration. The tests are used for clinical purposes. Billing Codes Specimen Charges Stain Charges 06378 1 3:18 PM [facility] DERMATOPATHOLOGY LABORATORY Embedded Images 3:18 PM [facility] DERMATOPATHOLOGY LABORATORY Pathology/Cytolog y TISSUE SPECIMEN FROM SKIN / Unknown 01/04/2021 01/05/2021 12:08 PM [facility] Ji Ahn MD LAB - PATHOLOGY/CYTOLOGY ORD ERABLES Final Result DERMATOPATHOLOGY LABORATORY [facility] - Department of Dermatology [address] [place] [address], [facility] [phone] documented in this encounter Visit Diagnoses Not on filedocumented in this encounter
--- OUTSIDE RECORDS SUMMARY | 2025-10-23 08:43 | XMS_ITS | Encounter Summary ---
Author Organization [facility] Address [address] [place] [address] Care Team Providers Care Assembly Machine Tender Name Role Phone Long Mejias MD Primary Care Provider [phone] Encounter Details Date Type Department Care Team (Late st Contact Info) Description 07/10/2007 Outpatient Historical [facility] [address] [facility] [address] [address] [place] [address] [place] [address] Social History Tobacco Use Types Packs/Day Years Used Date Smoking Tobacco: Never Assessed Sex and Gender Information Value Date Recorded Sex Assigned at Not on file Legal Sex Male 4:07 AM CHIEF MINISTER Gender Identity Not on file Sexual Orientation Not on file documented as of this encounter Plan of Treatment Upcoming Encounters Date Type Department Care Team (Late st Contact Info) Description 01/26/2026 11:15 AM CHIEF MINISTER Office Visit [facility] Heart and Vascular At [facility] [address] [facility] [address] [place] [address] David Raymond MD [address] [facility] [address] [place] [address] documented as of this encounter Visit Diagnoses Not on filedocumented in this encounter Care Teams Assembly Machine Tender Relationship Specialty Start Date End Date Long Mejias MD [address] [facility] [address] [place] [address] PCP - General Family Practice 06/24/19 documented as of this encounter
--- OUTSIDE RECORDS SUMMARY | 2025-10-23 08:43 | XMS_ITS | Encounter Summary ---
Author Organization [facility] Address [address] [place] [address] Care Team Providers Care Hot Stick Man Name Role Phone Long Mejias MD Primary Care Provider [phone] Encounter Details Date Type Department Care Team (Late st Contact Info) Description 07/16/2009 Emergency [facility] Er, Authorized P NO ADDRESS ON FILE Francisco Javier Torres MD NO ADDRESS ON FILE Social History Tobacco Use Types Packs/Day Years Used Date Smoking Tobacco: Never Assessed Sex and Gender Information Value Date Recorded Sex Assigned at Not on file Legal Sex Male 4:07 AM ORTHOPAEDIC SURGEON Gender Identity Not on file Sexual Orientation Not on file documented as of this encounter Plan of Treatment Upcoming Encounters Date Type Department Care Team (Late st Contact Info) Description 01/26/2026 11:15 AM ORTHOPAEDIC SURGEON Office Visit [facility] Heart and Vascular At [address] [place] [address] David Raymond MD [address] [place] [address] [address] [place] [address] documented as of this encounter [...] PM CDT Narrative 07/16/2009 9:35 PM CDT [facility] [address] [place], [place] [address] Admit Date: 07/16/2009 ZAFAR BRIGGS Fay Sex: M Admit Prov: ER, AUTHORIZED P Date: 1950 Primary Care Prov: CMRN: [id number] [id number] Ordering Prov: N/A Accession Number: [id number] Interpretation EXAM; CT HEAD, NONCONTRAST 07/16/2009 INDICATION: [...] SJ Procedure Note Elmer Flores - 07/16/2009 [facility] [address] [place], [place] [address] Admit Date: 07/16/2009 ZAFAR BRIGGS Sex: M Admit Prov: ER, AUTHORIZED P Date: 1950 Primary Care Prov: CMRN: [id number] Room: ER-A SSN: [id number] IMAGING SERVICES Ordering Prov: N/A Interpretation EXAM; [...] CDT) POTASSIUM 4.0 3.5 - 4.9 mmol/L [facility] GLUCOSE 103(H) 65 - 99 mg/dL [facility] AST 23 12 - 38 U/L [facility] BUN 21(H) 6 - 20 mg/dL [facility] CALCIUM 8.6 8.6 - 10.2 mg/dL [facility] CHLORIDE 104 96 - 108 mmol/L [facility] ALBUMIN 4.3 3.4 - 4.8 g/dL [facility] CREATININE 0.82 0.67 - 1.17 mg/dL [facility] SODIUM 139 135 - 145 mmol/L [facility] ALT 28 0 - 41 U/L [facility] ALKALINE PHOSPHATASE 91 40 - 129 U/L [facility] BILIRUBIN TOTAL 0.2 0.2 - 1.0 mg/dL [facility] CO2 25 22 - 30 mmol/L [facility] TOTAL PROTEIN 6.9 6.3 - 8.6 g/dL [facility] GFR, >60 >=60 mL/min/1. 7 sq meter [facility] GFR >60 >=60 mL/min/1. 7 sq meter [facility] Comment: Modification of Diet in Renal Disease (MDRD) study formula. Estimated GFR rate interpretative information for both Americans and non- Americans is available on the [facility] Intranet at: [email or web address] Select: Lab Policies and Procedures Select: Reference Ranges - GFR Blood specimen (specimen) 07/16/2009 8:54 PM CDT 07/16/2009 9:00 PM CDT us Authorized P Er CHEMISTRY ORDERABLES Edited [facility] CLIA# [id number] [address] [place] [address] * CBC WITH DIFFERENTIAL (07/16/2009 8:54 PM CDT) HEMOGLOBIN 15.3 13.6 - 16.5 g/dL [facility] RDW 13.1 11.5 - 14.5 % [facility] WBC 8.9 4.0 - 9.8 K/uL [facility] MCH 30.1 27.2 - 32.6 pg [facility] MPV 9.9 9.3 - 12.4 fL [facility] HEMATOCRIT 44.6 40.0 - 48.0 % [facility] RDW-STDEV 41.7 37.1 - 48.7 fL [facility] RBC 5.08 4.50 - 5.40 M/uL [facility] MCHC 34.3 31.5 - 35.5 % [facility] MCV 87.8 82.0 - 99.0 fL [facility] PLATELETS 183 140 - 350 K/uL [facility] EOSINOPHILS 5 0 - 7 % [facility] EOSINOPHIL ABSOLUTE 0.44 0.00 - 0.70 K/uL [facility] LYMPHOCYTES 31 16 - 45 % [facility] LYMPHOCYTE ABSOLUTE 2.79 0.70 - 4.50 K/uL [facility] BASOPHILS 1 0 - 2 % [facility] BASOPHILS ABSOLUTE 0.06 0.00 - 0.20 K/uL [facility] MONOCYTES 11 3 - 13 % [facility] MONOCYTE ABSOLUTE 0.97 0.10 - 1.30 K/uL [facility] NEUTROPHILS 52 45 - 70 % [facility] NEUTROPHIL ABSOLUTE 4.67 1.90 - 7.00 K/uL [facility] Blood specimen (specimen) 07/16/2009 8:54 PM CDT 07/16/2009 9:00 PM CDT us Authorized P Er HEMATOLOGY ORDERABLES Edited [facility] CLIA# [id number] [address] [place] [address] documented in this encounter Visit Diagnoses Not on filedocumented in this encounter Care Teams Hot Stick Man Relationship Specialty Start Date End Date Long Mejias MD [address] [place] [address] PCP - General Family Practice 06/24/19 documented as of this encounter
--- OUTSIDE RECORDS SUMMARY | 2025-10-23 08:44 | XMS_ITS | Clinical Summary ---
Author Organization [facility] Address [address] [place] [address] Phone Care Team Providers Care Peer Support Specialist Name Role Phone Long Mejias MD Primary Care Provider [phone] Allergies Active Allergy Reactions Criticality Noted Date Comments Iodinated Contrast Media Hives,Swelling High 010 Penicillins Hives High 03/21/2010 Simvastatin Muscle Pain Low 05/26/2007 Medications ERGOCALCIFEROL , VITAMIN D2, (VITAMIN D ORAL) Take 2,000 Units by mouth every 12 hours. Active ascorbic acid, vitamin C, (VITAMIN C) 1,000 mg Tablet Take 500 mg by mouth daily. Active 0mega-3 fatty acids-vitamin E (FISH OIL) 1,000 mg Capsule Take 1 Capsule (1,000 mg) by mouth 2 times daily. 180 Capsule 3 08/16/20 15 Active Additional Information Patient taking differently:1,000 mg OralDAILY, Reported on 07/28/2025 coenzyme Q10 (CO Q-10) 200 mg Capsule [...] daily at bedtime. 90 Tablet 3 02/29/20 Active CertaVite Senior-Antioxi dant 0.4-300-250 mg-mcg-mcg Tablet per tablet 06/27/20 Active CLONAZEPAM ORAL Take 10 mg by mouth daily. Active aspirin (ECOTRIN EC) 81 mg Tablet, Delayed Release (E.C.) Take 1 Tablet (81 mg) by mouth daily. 12/18/19 Active sildenafiL (VIAGRA) 100 mg tablet TAKE 1 TABLET(100 MG) BY MOUTH EVERY DAY NEEDED FOR ERECTILE DYSFUNCTION 6 Tablet 3 02/05/20 23 Active pantoprazole (PROTONIX) 40 mg Tablet, Delayed Release (E.C.) Take 40 mg by mouth daily. 05/02/20 Active nitroglycerin (NITROSTAT) 0.4 mg Tablet, Sublingual Place 1 Tablet (0.4 mg) under tongue every 5 minutes as needed for Chest Pain. 25 Tablet 2 10/15/20 24 Active predniSONE (DELTASONE) 50 mg tablet Take 1 Tablet (50 mg) by mouth daily. 2 Tablet 10/29/20 Active Additional Information Patient not taking.Reported on 07/28/2025 diphenhydrAMIN E (BENADRYL) 25 mg tablet Take 25 mg by mouth one time. Active predniSONE (DELTASONE) 50 mg tablet Take 50 mg twice on (morning and evening) the day before and once the morning of the procedure. 3 Tablet 02/18/20 Active Additional Information Patient not taking.Reported on 07/28/2025 clopidogreL (PLAVIX) 75 mg Tablet Take 1 Tablet (75 mg) by mouth daily. 100 Tablet 3 5 12:50 PM CDT 03/01/20 Active citalopram (CeleXA) 40 mg tablet Take 40 mg by mouth daily. Active atorvastatin (LIPITOR) 40 mg tablet Take 1 Tablet (40 mg) by mouth daily. 100 Tablet 3 07/28/20 25 Active amLODIPine (NORVASC) 5 mg tablet TAKE 1 TABLET(5 MG) BY MOUTH DAILY 90 Tablet 2 10/12/20 25 Active metoprolol tartrate (LOPRESSOR) 25 mg tablet TAKE 1 TABLET(25 MG) BY MOUTH TWICE DAILY 180 Tablet 1 10/12/20 25 Active lisinopriL (PRINIVIL) 40 mg tablet TAKE 1 TABLET(40 MG) BY MOUTH DAILY 90 Tablet 1 10/12/20 Active lisinopriL (PRINIVIL) 40 mg tablet Take 1 Tablet (40 mg) by mouth daily. 90 Tablet 3 10/15/20 24 025 Discontinued amLODIPine (NORVASC) 5 mg tablet TAKE 1 TABLET(5 MG) BY MOUTH DAILY 90 Tablet 2 01/12/20 25 025 Discontinued metoprolol tartrate (LOPRESSOR) 25 mg tablet Take 0.5 Tablets (12.5 mg) by mouth 2 times daily. 90 Tablet 3 07/28/20 25 025 Discontinued Active Problems Patient Care Coordination No te Formatting of this note migh t be different from the original. Hand Stamper-Dr. Raymond Problem Noted Date Diagnosed Date Benign essential HTN 10/09/2022 S/P CABG x 4 10/10/2021 Adrenal incidentaloma 09/07/2021 Dyspnea on exertion 09/07/2021 HTN (hypertension) 11/30/2019 Lipoma 06/25/2019 Overview (06/25/2019): Added automatically from request for surgery [id number] Lipoma of anterior chest wall 06/24/2019 Lipoma of breast 06/24/2019 Other male erectile dysfunction 05/25/2019 Pure hypercholesterolemia 07/21/2018 Tobacco abuse, in remission 07/21/2018 Lipoma of left forearm 02/06/2018 Sebaceous cyst 02/06/2018 Overview (02/06/2018): Added automatically from request for surgery [id number] Lipoma of upper extremity 02/06/2018 Overview (02/06/2018): Added automatically from request for surgery [id number] Abscess of back 12/03/2017 Vertigo 12/08/2012 Right-sided chest wall pain 02/28/2011 Atypical chest pain 02/07/2011 Coronary artery disease invo lving [place] coronary artery of [place] heart without angina pectoris 03/21/2010 S/P coronary artery stent placement 03/21/2010 Hyperlipemia 03/21/2010 S/P subdural hematoma evacuation 03/21/2010 Tobacco abuse 03/21/2010 Unstable angina Encounters Date Type Department Care Team Description 10/19/2025 External Device Data STL ABSTRACTION Provider, Abstract 10/11/2025 Refill [facility] Heart and Vascular At [address] [place] [address] Amena Uriarte NP 10/11/2025 Refill [facility] Heart [facility] Vascular At [address] [place] [address] David Raymond MD 09/29/2025 External Device Data STL ABSTRACTION Provider, Abstract 09/15/2025 External Device Data STL ABSTRACTION Provider, Abstract 08/31/2025 External Device Data STL ABSTRACTION Provider, Abstract 08/11/2025 External Device Data STL ABSTRACTION Provider, Abstract 08/10/2025 External Device Data STL ABSTRACTION Provider, Abstract 07/28/2025 11:00 AM CDT Office Visit [facility] V[facility] At [address] [place] [address] David Raymond MD Coronary artery disease involving [place] coronary artery of [place] heart without angina pectoris (Primary Dx); Pure hypercholesterolemi a; Benign essential HTN; Other male erectile dysfunction; S/P CABG x 4; S/P coronary artery stent placement; Tobacco abuse, in remission 07/27/2025 External Device Data STL ABSTRACTION Provider, Abstract [...] No 11/09/2024 Food Insecurity Answer Date Recorded Patient needs follow up regardin 03/19/2025 Transportation Needs Answer Date Record ed Patient needs follow up regardin 03/19/2025 Housing Stability Answer Date Recorded Social/Environmental Concerns No concerns Utility Needs Answer Date Recorded Patient needs follow up regardin 03/19/2025 Sex and Gender Information Value Date Recorded Sex Assigned at Not on file Legal Sex Male 4:07 AM REGIONAL GEODETIC ADVISOR Gender Identity Not on file Sexual Orientation Not on file Occupation Industry Job Start Date Job End Date Not on file Not on file Not on file Not on file Last Filed Vital Signs Vital Sign Reading Time Taken Comments Blood Pressure 126/64 07/28/2025 11:06 AM CDT Pulse 46 07/28/2025 11:06 AM CDT Temperature 36.4 C (97.6 F) 03/01/2025 6:48 AM CDT Respiratory Rate 10 11/09/2024 4:00 PM REGIONAL GEODETIC ADVISOR Oxygen Saturation 96% 07/28/2025 11:06 AM CDT Inhaled Oxygen Concentration - - Weight 90.7 kg (200 lb) 07/28/2025 11:06 AM CDT Height 180.3 cm (5' 11) 07/28/2025 11:06 AM CDT Body Mass Index 27.89 07/28/2025 11:06 AM CDT Plan of Treatment Upcoming Encounters Date Type Department Care Team (Late st Contact Info) Description 01/26/2026 11:15 AM REGIONAL GEODETIC ADVISOR Office Visit [facility] Heart [facility] Vascular At [place] [address] [facility] [address] [place] [address] David Raymond MD [facility] [address] [facility] [address] [place] [address] Health Maintenance Due Date Last Done Comments FIT-DNA Q 3 years 1997 FIT/FOBT Q 1 year 1997 Flex Sig/CT Colonography Q 5 years 1997 RSV VACCINE (60+ or ) (1 - Risk 50-74 years 1-dose series) 2002 ZOSTER VACCINE (2 of 3) 01/18/2015 11/23/2014 Abdominal Aortic Aneurysm (A AA) Screening 2017 DTAP/TDAP/TD VACCINES (3 - T d or Tdap) 08/19/2024 08/19/2014, 11/25/2013 INFLUENZA VACCINE (#1) 2025 , 09/05/2020, 08/05/2019, Additional history exists COVID-19 Vaccine (2024-2 6 season) 2025 07/14/2021, 01/07/2021, 12/17/2020 COLORECTAL SCREENING 03/08/2032 03/08/2022, 03/08/2022, 03/08/2022, Additional history exists Colorectal Cancer Screening 03/08/2032 PNEUMOCOCCAL VACCINE 50+ YEARS Completed 05/02/2023 , 11/25/2010 Medical Devices Implanted Type Area Warehouse Supervisor 3Rd Shift Device Identifier Shelf Expiration Date Model / Serial / Lot Clip Ligating Horizon Sm Ti [id number] - Csc - [id number] Implanted:Qty : 6 on 09/11/2021 by Amena Jacinto MD at [facility] Clip Left: Chest [employer]LE[employer] INC 03/23/2026 [id number] / / [id number] Clip Ligating Horizon Med Ti [id number] - Csc - [id number] Implanted:Qty : 2 on 09/11/2021 by Amena Jacinto MD at [facility] Clip Left: Chest TELEFLEX- WECK CLOSURE SYS 03/23/2026 [id number] / / [id number] Driver'S License Examiner Clip [place] Iii Ti Tc Sm 9in [id number] - [id number] Implanted:Qty : 1 on 09/11/2021 by Amena Jacinto MD at [facility] Clip Left: Chest [employer] - COVIDIEN [id number] 05/24/2026 [id number] / / Dev Closure Angioseal 6fr Vip [id number] - [id number] Implanted:Qty : 1 on 03/01/2025 by Lencho Clark MD at [facility] Closure Device N/A: Groin TERUMO- CARDIOVASC SYS [id number] 09/28/2025 [id number] / / [id number] Marker Anastomark Cabg Slcn Fm-Pm-1 - [id number] Implanted:Qty : 2 on 09/11/2021 by Amena Jacinto MD at [facility] Other N/A: Chest [employer] 09/24/2022 FM-PM-1 / / [id number] Premier-2013 Implanted: by Doyle Holguin MD (Quantity not on file) Explanted:(Qu antity not on file) Stent Stent Yemi Page Alex 3.0x15mm Rx [id number] - [id number] Implanted:Qty : 1 on 03/01/2025 by Lencho Clark MD at [facility] Stent N/A: Heart [employer] [id number] 12/10/2026 [id number] / / [id number] Stent Wynne Page Alex 2.72w29op Rx [id number] - [id number] Implanted:Qty : 1 on 03/01/2025 by Lencho Clark MD at [facility] Stent N/A: Heart [employer] [id number] 09/18/2026 [id number] / / [id number] Insurance MEDICARE PART A AND B [employer] RX [employer] Express Advance Directives For more information, please contact: [phone] Documents on File Type Date Recorded Patient Ear Mold Laboratory Technician Expl anation Advance Directive POA 05/08/2022 10:01 [...] 12:41 PM 09/10/2021 4:42 PM Care Teams Peer Support Specialist Relationship Specialty Start Date End Date Long Mejias MD [address] [place] [id number] PCP - General Family Practice 06/24/19
--- NOTE | 2025-10-23 08:55 | ECG_ITS ---
Test Date: 2025-10-23 08:58:29 Measurements Intervals Ione Rate: 55 P: 88 UT: 231 QRS: 37 QRSD: 107 T: 50 QT: 460 QTc: 441 Interpretive Statements SINUS BRADYCARDIA WITH FIRST DEGREE AV BLOCK NONSPECIFIC ST SEGMENT ABNORMALITY ABNORMAL ECG No previous ECG available for comparison Electronically Signed On 10-24-2025 09:12:12 PHOTOCOMPOSING MACHINE OPERATOR by Pascual Guerrero M.D.
[2025-10-23 09:11] LABS: Hematocrit 44.1 % (42.0-52.0); Hemoglobin 14.5 g/dL (14.0-18.0); Immature Granulocyte Percent A 0.6 % (0-0.5); Lymphocytes Absolute Auto 1.48 K/mm3 (0.9-3.2); Mean Corpuscular HGB Conc 32.9 g/dl (32-36); Mean Corpuscular Hemoglobin 29.0 pg (26-34); Mean Corpuscular Volume 88.2 fl (80-100); Nucleated Red Blood Cells Absolute Auto 0.000 K/mm3 (0.0-0.012); Nucleated Red Blood Cells Perc 0.0 % (0.0-0.2); Platelet Count Result 218 k/mm3 (150-375); Red Blood Count 5.00 M/mm3 (4.6-6.20); White Blood Count 28.3 K/mm3 (4.5-10.0)
--- OUTSIDE RECORDS SUMMARY | 2025-10-23 09:18 | XMS_ITS | Encounter Summary ---
Author Organization [facility] Address [address] [place] [address] Care Team Providers Care Metallurgical Laboratory Assistant Name Role Phone Long Mejias MD Primary Care Provider [phone] Encounter Details Date Type Department Care Team (Late Contact Info) Description 07/02/[address] [facility] Adult Hospitalists [facility] [address] [place] [address] Shannon Esparza MD [address] [facility] [address] [address] Social History Tobacco Use Types Packs/Day Years Used Date Smoking Tobacco: Never Assessed Sex and Gender Information Value Date Recorded Sex Assigned at Not on file Legal Sex Male 4:07 AM SHUTTLE REPAIRER Gender Identity Not on file Sexual Orientation Not on file documented as of this encounter Plan of Treatment Upcoming Encounters Date Type Department Care Team (Late st Contact Info) Description 01/26/2026 11:15 AM SHUTTLE REPAIRER Office Visit [facility] Heart and Vascular At [facility] [address] [facility] [address] [place] [address] David Raymond MD [facility] [address] [facility] [address] [place] [address] documented as of this encounter Visit Diagnoses Not on filedocumented in this encounter Care Teams Metallurgical Laboratory Assistant Relationship Specialty Start Date End Date Long Mejias MD [address] [facility] [address] [place] [address] PCP - General Family Practice 06/24/19 documented as of this encounter
--- OUTSIDE RECORDS SUMMARY | 2025-10-23 09:18 | XMS_ITS | Encounter Summary ---
Author Organization [facility] Address [address] [place] [address] Care Team Providers Care Hull Builder Name Role Phone Long Mejias MD Primary Care Provider Encounter Details Date Type Department Care Team (Latest Contact Info) Description 03/25/2008 Outpatient Historical [facility] Jose David Ritchie MD NO ADDRESS ON FILE Subdural Hemorrhage (CMS/HCC) Social History Tobacco Use Types Packs/Day Years Used Date Smoking Tobacco: Never Assessed Sex and Gender Information Value Date Recorded Sex Assigned at Not on file Legal Sex Male 4:07 AM HOUSEFELLOW Gender Identity Not on file Sexual Orientation Not on file documented as of this encounter Plan of Treatment Upcoming Encounters Date Type Department Care Team (Late st Contact Info) Description 01/26/2026 11:15 AM HOUSEFELLOW Office Visit [facility] Heart and Vascular At [place] [address] [facility] [address] [place] [address] David Raymond MD [facility] [address] [facility] [address] [place] [address] documented as of this encounter Procedures Procedure Name Priority Date/Time Associated Diagnosis Comments CT HEAD WO CONTRAST Timed Study 03/25/2008 3:03 PM CDT documented in this encounter Results * CT HEAD WO CONTRAST (03/25/2008 3:03 PM CDT) Anatomical Region Laterality Modality Head Other 03/25/2008 3:03 PM CDT Narrative 03/28/2008 7:55 PM CDT [place] [id number] [place], [place] [address] Admit Date: 03/25/2008 ZAFAR BRIGGS Sex: M Admit Prov: JOSE DAVID RITCHIE Date: 1950 Primary Care Prov: CMRN: [id number] [id number] [facility] Ordering Prov: N/A Accession Number: [id number] Interpretation CT head without contrast 03/25/2008 History: [...] AMK Procedure Note Halima Lepe - 03/28/2008 [place] [id number] [place], [place] [address] Admit Date: 03/25/2008 ZAFAR BRIGGS Sex: M Admit Prov: JOSE DAVID RITCHIE Date: 1950 Primary Care Prov: CMRN: [id number] Room: [facility] SSN: [id number] IMAGING SERVICES Ordering Prov: N/A Interpretation CT [...] hemorrhage documented in this encounter Care Teams Hull Builder Relationship Specialty Start Date End Date Long Mejias MD [address] [facility] [address] [place] [address] PCP - General Family Practice 06/24/19 documented as of this encounter
--- OUTSIDE RECORDS SUMMARY | 2025-10-23 09:18 | XMS_ITS | Encounter Summary ---
Author Organization [facility] Address [address] [place] [address] Care Team Providers Care Cisco Unified Communications Engineer Name Role Phone Long Mejias MD Primary Care Provider [phone] Encounter Details Date Type Department Care Team (Late st Contact Info) Description 06/29/2007 Outpatient Historical [facility] Trauma and General Surgery [address] [facility] [address] [facility] [place] [address] Ranulfo Grijalva MD [address] [facility] [address] [place] [address] Social History Tobacco Use Types Packs/Day Years Used Date Smoking Tobacco: Never Assessed Sex and Gender Information Value Date Recorded Sex Assigned at Not on file Legal Sex Male 4:07 AM IN FLIGHT REFUELING SYSTEM REPAIRER Gender Identity Not on file Sexual Orientation Not on file documented as of this encounter Plan of Treatment Upcoming Encounters Date Type Department Care Team (Late st Contact Info) Description 01/26/2026 11:15 AM IN FLIGHT REFUELING SYSTEM REPAIRER Office Visit [facility] Heart and Vascular At [facility] [address] [facility] [address] [place] [address] David Raymond MD [address] [facility] [address] [place] [address] documented as of this encounter Visit Diagnoses Not on filedocumented in this encounter Care Teams Cisco Unified Communications Engineer Relationship Specialty Start Date End Date Long Mejias MD [address] [facility] [address] [place] [address] PCP - General Family Practice 06/24/19 documented as of this encounter
--- OUTSIDE RECORDS SUMMARY | 2025-10-23 09:18 | XMS_ITS | Encounter Summary ---
Author Organization [facility] Address [address] [place] [address] Care Team Providers Care Dietary Tech Name Role Phone Long Mejias MD Primary Care Provider [phone] Encounter Details Date Type Department Care Team (Late Contact Info) Description 07/08/2007 Outpatient Historical [facility] Blood Flow [address] [place] [address] Richard Fernandez MD [address] [facility] [address] [place] [address] Social History Tobacco Use Types Packs/Day Years Used Date Smoking Tobacco: Never Assessed Sex and Gender Information Value Date Recorded Sex Assigned at Not on file Legal Sex Male 4:07 AM BACKGROUND INVESTIGATOR Gender Identity Not on file Sexual Orientation Not on file documented as of this encounter Plan of Treatment Upcoming Encounters Date Type Department Care Team (Late Contact Info) Description 01/26/2026 11:15 AM BACKGROUND INVESTIGATOR Office Visit [facility] Heart and Vascular At [facility] [address] [facility] [address] [place] [address] David Raymond MD [address] [facility] [address] [place] [address] documented as of this encounter Visit Diagnoses Not on filedocumented in this encounter Care Teams Dietary Tech Relationship Specialty Start Date End Date Long Mejias MD [address] [facility] [address] [place] [address] PCP - General Family Practice 06/24/19 documented as of this encounter
--- OUTSIDE RECORDS SUMMARY | 2025-10-23 09:18 | XMS_ITS | Encounter Summary ---
Author Organization [facility] Address [address] [place] [address] Care Team Providers Care Oil Well Services Dispatcher Name Role Phone Long Mejias MD Primary Care Provider [phone] Encounter Details Date Type Department Care Team (Late st Contact Info) Description 07/08/2007 Outpatient Historical [facility] Trauma and General Surgery [address] [facility] [address] [address] [place] [address] [place] [address] Social History Tobacco Use Types Packs/Day Years Used Date Smoking Tobacco: Never Assessed Sex and Gender Information Value Date Recorded Sex Assigned at Not on file Legal Sex Male 4:07 AM MECHANICAL INTEGRITY ENGINEER Gender Identity Not on file Sexual Orientation Not on file documented as of this encounter Plan of Treatment Upcoming Encounters Date Type Department Care Team (Late st Contact Info) Description 01/26/2026 11:15 AM MECHANICAL INTEGRITY ENGINEER Office Visit [facility] Heart and Vascular At [facility] [address] [facility] [address] [place] [address] David Raymond MD [address] [facility] [address] [place] [address] documented as of this encounter Visit Diagnoses Not on filedocumented in this encounter Care Teams Oil Well Services Dispatcher Relationship Specialty Start Date End Date Long Mejias MD [address] [facility] [address] [place] [address] PCP - General Family Practice 06/24/19 documented as of this encounter
--- OUTSIDE RECORDS SUMMARY | 2025-10-23 09:18 | XMS_ITS | Encounter Summary ---
Author Organization [facility] Address [address] [place] [address] [place] [address] Care Team Providers Care Inspector Heating And Refrigeration Name Role Phone Unavailable Primary Care Provider Unavailabl e Encounter Details Date Type Department Care Team (Late st Contact Info) Description 01/04/2021 Lab Requisition [facility] DermPath Lab [address] [place] [address] Ji Ahn MD [address] [place] [address] Social History Tobacco Use Types Packs/Day Years Used Date Smoking Tobacco: Never Assessed Sex and Gender Information Value Date Recorded Sex Assigned at Not on file Legal Sex Male 6:31 AM MIXING PAN TENDER Gender Identity Not on file Sexual Orientation Not on file documented as of this encounter Plan of Treatment Not on file documented as of this encounter Procedures Procedure Name Priority Date/Time Associated Diagnosis Comments DERMATOPATHOLOGY Routine 01/03/2021 12:0 0 AM MIXING PAN TENDER documented in this encounter Results * DERMATOPATHOLOGY (01/03/2021 12:00 AM MIXING PAN TENDER) Case Report Dermatopathology Report Case: [id number] Authorizing Provider: Ji Ahn MD Collected: 01/03/2021 12:00 AM Ordering Location: [facility] DermPath Lab Received: 01/04/2021 11:38 AM Pathologist: Lisa Ramirez MD Specimen: Skin, left upper cutaneous lip 11:47 AM MIXING PAN TENDER DERMATOPATHOLOGY LABORATORY Final Diagnosis Specimen A. SKIN, left upper cutaneous lip: ANGIOFIBROMA (FIBROUS PAPULE) (D21.0) 11:47 AM [facility] DERMATOPATHOLOGY LABORATORY at [address] MIXING PAN TENDER Clinical History R/O dys nevus, angioma, telangiectasia, BCC. 11:47 AM [facility] DERMATOPATHOLOGY LABORATORY Gross Description Specimen A: Received is one formalin filled container labeled with the patient's name and designated left upper cutaneous lip. The specimen consists of a shave biopsy measuring [id number]. Jar 0. 11:47 AM [facility] DERMATOPATHOLOGY LABORATORY Microscopic Description Specimen A. SKIN, left upper cutaneous lip: This dome-shaped lesion contains dilated blood vessels, coarse collagen bundles, and stellate fibroblasts. 11:47 AM [facility] DERMATOPATHOLOGY LABORATORY Disclaimer An external and internal positive and negative controls are appropriate for the histochemical, immunohistochemical and immunofluorescence stain(s) in this case (if any), except where stated explicitly. The performance characteristics of the stain(s) cited in this report were developed and its performance characteristic determined by the Dermatopathology Laboratory at [facility], directed by Dr. Ping Fernandez. These tests need not be, and therefore are not, approved by the [place] Food and Drug Administration. The tests are used for clinical purposes. Billing Codes Specimen Charges Stain Charges 38747 1 11:47 AM [facility] DERMATOPATHOLOGY LABORATORY Embedded Images 11:47 AM [facility] DERMATOPATHOLOGY LABORATORY Pathology/Cytolog y TISSUE SPECIMEN FROM SKIN / Unknown 01/03/2021 01/04/2021 11:38 AM [facility] us Ji Ahn MD LAB - PATHOLOGY/CYTOLOGY ORD ERABLES Final Result DERMATOPATHOLOGY LABORATORY [facility] - Department of Dermatology [address] [place] [address], [facility] [phone] documented in this encounter Visit Diagnoses Not on filedocumented in this encounter
--- OUTSIDE RECORDS SUMMARY | 2025-10-23 09:18 | XMS_ITS | Clinical Summary ---
Author Organization [facility] Address [address] [place] [address] Care Team Providers Care Weaving Supervisor Name Role Phone Jose Keene MD Primary [...] age to complete this topic Care Teams Weaving Supervisor Relationship Specialty Start Date End Date Jose Keene MD [address] [place] [address] PCP - General 04/03/16
--- OUTSIDE RECORDS SUMMARY | 2025-10-23 09:18 | XMS_ITS | Encounter Summary ---
Author Organization [facility] Address 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 TEACHER Office Visit [facility] At [address] [place] [phone] David Raymond MD [address] [place] [address] [address] [place] [phone] documented as of this encounter Procedures Procedure [...] AM CDT Narrative 03/01/2008 1:02 PM CDT [facility] [address] [place], [place] [address] Admit Date: 02/19/2008 ZAFAR BRYSON Sex: M Admit Prov: JOSE DAVID RITCHIE Date: 1950 Primary Care Prov: CMRN: [id number] Room: [facility] 320 1 SSN: [id number] IMAGING SERVICES Ordering Prov: N/A Accession Number: [id number] Interpretation HEAD CT WITHOUT CONTRAST, 03/01/2008 Comparison: [...] SMM Procedure Note Cori Marroquin - 03/01/2008 [facility] [address] [place], [place] [address] Admit Date: 02/19/2008 ZAFAR BRYSON Sex: M Admit Prov: JOSE DAVID RITCHIE Date: 1950 Primary Care Prov: CMRN: [id number] Room: [address] [place] [address] SSN: [id number] IMAGING SERVICES Ordering Prov: N/A Interpretation HEAD [...] unchangedleft- to-right subfalcine shift. . Dictated by: CROI MARROQUIN 03/01/2008 11:09 Electronically signed by: CORI MARROQUIN 03/01/2008 13:02 Transcribed: 03/01/2008 11:14 SM Jose David Ritchie MD CT ORDERABLES Final Result * CT HEAD WO CONTRAST (02/25/2008 1:50 PM CDT) Anatomical Region Laterality Modality Head Other 02/25/2008 1:50 PM CDT Narrative 02/25/2008 5:13 PM CDT [facility] [address] [place], [place] [address] Admit Date: 02/19/2008 ZAFAR BRYSON Sex: M Admit Prov: JOSE DVAID RITCHIE Date: 1950 Primary Care Prov: CMRN: [id number] Room: [address] [place] [address] 1 SSN: [id number] IMAGING SERVICES Ordering Prov: N/A Accession Number: [id number] Interpretation CT HEAD WITHOUT CONTRAST WITHOUT CONTRAST [...] convexity also appears unchanged. There is persistent mlqa-rt-najno midline shift measured approximately 6 mm. There [...] 14:21 Procedure Note Provider, Historical - 02/25/2008 [facility] [address] [place], [place] [address] Admit Date: 02/19/2008 ZAFAR BRYSON Sex: M Admit Prov: JOSE DAVID RITCHIE Date: 1950 Primary Care Prov: CMRN: [id number] Room: [address] [place] [address] 1 SSN: [id number] IMAGING SERVICES Ordering Prov: N/A Interpretation CT [...] cerebral convexityalso appears unchanged. There is persistent jotg-ti-pzwtl midline shiftmeasured approximately 6 mm. There is [...] AM CDT Narrative 02/23/2008 3:00 PM CDT [facility] [address] [place], [place] [address] Admit Date: 02/19/2008 ZAFAR BRYSON Sex: M Admit Prov: JOSE DAVID RITCHIE Date: 1950 Primary Care Prov: CMRN: [id number] Room: [address] [place] [address] SSN: [id number] IMAGING SERVICES Ordering Prov: N/A Accession Number: [id number] Interpretation HEAD CT WITHOUT CONTRAST, 02/23/2008 History: Status post left subdural collection evacuation. Comparison: 02/18/2008 Findings: Noncontrast head CT images demonstrate a decrease in amount of bstu-fx-msens subfalcine shift, now measuring 7.4 mm (previously [...] SJ Procedure Note Cori Marroquin - 02/23/2008 [facility] [address] [place], [place] [address] Admit Date: 02/19/2008 ZAFAR BRYSON Sex: M Admit Prov: JOSE DAVID RITCHIE Date: 1950 Primary Care Prov: CMRN: [id number] Room: [address] [place] [address] SSN: [id number] IMAGING SERVICES Ordering Prov: N/A Interpretation HEAD CT WITHOUT CONTRAST, 02/23/2008 History: Status post left subdural collection evacuation. Comparison: 02/18/2008 Findings: Noncontrast head CT images demonstrate a decrease inamount of cmsb-lj-krnnn subfalcine shift, now measuring 7.4 mm (previously [...] CDT) PHOSPHORUS 4.1 2.5 - 4.5 mg/dL [facility] Blood specimen (specimen) 02/22/2008 5:55 AM CDT 02/22/2008 6:20 AM CDT Jose David Ritchie MD CHEMISTRY ORDERABLES Final Resu lt Performing Organization Address [facility]/ZIP Co de Phone Number [facility] [address] [facility] [place] [address] * MAGNESIUM LEVEL (02/22/2008 5:55 AM CDT) Pathologist [facility] MAGNESIUM 1.8 1.5 - 2.5 mg/dL [facility] Blood specimen (specimen) 02/22/2008 5:55 AM CDT 02/22/2008 6:20 AM CDT us Jose David Ritchie MD CHEMISTRY ORDERABLES Final Resu lt Performing Organization Address [facility] Co de Phone Number [facility] [address] [place] [address] * (ABNORMAL) BASIC METABOLIC PANEL (02/22/2008 5:55 AM CDT) GLUCOSE 114(H) 65 - 99 mg/dL [facility] SODIUM 137 135 - 145 mmol/L [facility] CALCIUM 8.3(L) 8.4 - 10.2 mg/dL [facility] CO2 30 22 - 30 mmol/L [facility] CREATININE 0.95 0.67 - 1.17 mg/dL [facility] POTASSIUM 3.9 3.5 - 4.9 mmol/L [facility] BUN 11 6 - 20 mg/dL [facility] CHLORIDE 98 96 - 108 mmol/L [facility] GFR, >60 >=60 mL/min/1. 7 sq meter [facility] GFR >60 >=60 mL/min/1. 7 sq meter [facility] Comment: Estimated GFR rate interpretative information for both Americans and non- Americans is available on the [facility] Intranet at: [email or web address] Select: Lab Policies and Procedures Select: Reference Ranges - GFR Blood specimen (specimen) 02/22/2008 5:55 AM CDT 02/22/2008 6:20 AM CDT Jose David Ritchie MD CHEMISTRY ORDERABLES Edited [facility] [address] [place] [address] * (ABNORMAL) CBC WITH DIFFERENTIAL (02/22/2008 5:55 AM CDT) HEMATOCRIT 41.0 40.0 - 48.0 % [facility] RDW-STDEV 40.8 37.1 - 48.7 fL [facility] RBC 4.65 4.50 - 5.40 M/uL [facility] MCHC 34.1 31.5 - 35.5 % [facility] MCV 88.2 82.0 - 99.0 fL [facility] PLATELETS 190 140 - 350 K/uL [facility] HEMOGLOBIN 14.0 13.6 - 16.5 g/dL [facility] RDW 12.8 11.5 - 14.5 % [facility] WBC 8.9 4.0 - 9.8 K/uL [facility] MCH 30.1 27.2 - 32.6 pg [facility] MPV 9.6 9.3 - 12.4 fL [facility] BASOPHILS 1 0 - 2 % [facility] BASOPHILS ABSOLUTE 0.04 0.00 - 0.20 K/uL [facility] MONOCYTES 14(H) 3 - 13 % [facility] MONOCYTE ABSOLUTE 1.23 0.10 - 1.30 K/uL [facility] NEUTROPHILS 65 45 - 70 % [facility] NEUTROPHIL ABSOLUTE 5.72 1.90 - 7.00 K/uL [facility] EOSINOPHILS 4 0 - 7 % [facility] EOSINOPHIL ABSOLUTE 0.33 0.00 - 0.70 K/uL [facility] LYMPHOCYTES 17 16 - 45 % [facility] LYMPHOCYTE ABSOLUTE 1.54 0.70 - 4.50 K/uL [facility] Blood specimen (specimen) 02/22/2008 5:55 AM CDT 02/22/2008 6:20 AM CDT Jose David Ritchie MD HEMATOLOGY ORDERABLES Edited INTERFACE SYSTEM Refer to clinic/hospital department [facility] [address] [facility] [place] [address] * (ABNORMAL) POC GLUCOSE (02/21/2008 9:10 PM CDT) GLUCOSE POC 154(H) 65 - 99 mg/dL [facility] Venous blood specimen (specimen) 02/21/2008 9:10 PM CDT 02/21/2008 9:10 PM CDT Jose David Ritchie MD POINT OF CARE TESTING Final Res ult [facility] [address] [place] [address] * (ABNORMAL) POC GLUCOSE (02/21/2008 5:47 PM CDT) GLUCOSE POC 102(H) 65 - 99 mg/dL [facility] Venous blood specimen (specimen) 02/21/2008 5:47 PM CDT 02/21/2008 5:47 PM CDT Jose David Ritchie MD POINT OF CARE TESTING Final Res ult Performing Organization Address City/[facility]/ZIP Co de Phone Number [facility] [address] [place] [address] * POC GLUCOSE (02/21/2008 12:36 PM CDT) GLUCOSE POC 86 65 - 99 mg/dL [facility] Venous blood specimen (specimen) 02/21/2008 12:36 PM CDT 02/21/2008 12:36 PM CDT Jose David Ritchie MD POINT OF CARE TESTING Final Res ult Performing Organization Address City/[facility]/ZIP Co de Phone Number [facility] [address] [place] [address] * (ABNORMAL) POC GLUCOSE (02/21/2008 8:49 AM CDT) GLUCOSE POC 150(H) 65 - 99 mg/dL [facility] Venous blood specimen (specimen) 02/21/2008 8:49 AM CDT 02/21/2008 8:49 AM CDT us Jose David Ritchie MD POINT OF CARE TESTING Final Res ult [facility] [address] [place] [address] * POC GLUCOSE (02/21/2008 8:14 AM CDT) GLUCOSE POC 99 65 - 99 mg/dL [facility] Venous blood specimen (specimen) 02/21/2008 8:14 AM CDT 02/21/2008 8:14 AM CDT Jose David Ritchie MD POINT OF CARE TESTING Final Res ult Performing Organization Address City/[facility]/ZIP Co de Phone Number [facility] [address] [place] [address] * (ABNORMAL) POC GLUCOSE (02/21/2008 5:36 AM CDT) GLUCOSE POC 112(H) 65 - 99 mg/dL [facility] Venous blood specimen (specimen) 02/21/2008 5:36 AM CDT 02/21/2008 5:36 AM CDT Jose David Ritchie MD POINT OF CARE TESTING Final Res ult Performing Organization Address [facility] Co de Phone Number [facility] [address] [place] [address] * PHOSPHORUS (02/21/2008 4:30 AM CDT) PHOSPHORUS 3.1 2.5 - 4.5 mg/dL [facility] Blood specimen (specimen) 02/21/2008 4:30 AM CDT 02/21/2008 4:44 AM CDT Regis Lopez MD CHEMISTRY ORDERABLES Final Res ult Performing Organization Address City/[facility] Co de Phone Number [facility] [address] [place] [address] * MAGNESIUM LEVEL (02/21/2008 4:30 AM CDT) MAGNESIUM 2.0 1.5 - 2.5 mg/dL [facility] Blood specimen (specimen) 02/21/2008 4:30 AM CDT 02/21/2008 4:44 AM CDT Regis Lopez MD CHEMISTRY ORDERABLES Final Res ult Performing Organization Address [facility]/ZIP Co de Phone Number [facility] [address] [place] [address] * (ABNORMAL) BASIC METABOLIC PANEL (02/21/2008 4:30 AM CDT) CREATININE 0.83 0.67 - 1.17 mg/dL [facility] POTASSIUM 4.0 3.5 - 4.9 mmol/L [facility] BUN 7 6 - 20 mg/dL [facility] CHLORIDE 101 96 - 108 mmol/L [facility] GLUCOSE 110(H) 65 - 99 mg/dL [facility] SODIUM 137 135 - 145 mmol/L [facility] CALCIUM 7.8(L) 8.4 - 10.2 mg/dL [facility] CO2 28 22 - 30 mmol/L [facility] GFR, >60 >=60 mL/min/1. 7 sq meter [facility] GFR >60 >=60 mL/min/1. 7 sq meter [facility] Comment: Estimated GFR rate interpretative information for both Americans and non- Americans is available on the [facility] Intranet at: [email or web address] Select: Lab Policies and Procedures Select: Reference Ranges - GFR Blood specimen (specimen) 02/21/2008 4:30 AM CDT 02/21/2008 4:44 AM CDT Regis Lopez MD CHEMISTRY ORDERABLES Edited Performing Organization Address City/[facility]/ZIP Co de Phone Number [facility] [address] [place] [address] * (ABNORMAL) CBC WITH DIFFERENTIAL (02/21/2008 4:30 AM CDT) HEMOGLOBIN 13.0(L) 13.6 - 16.5 g/dL [facility] RDW 12.9 11.5 - 14.5 % [facility] WBC 10.6(H) 4.0 - 9.8 K/uL [facility] MCH 30.2 27.2 - 32.6 pg [facility] MPV 9.5 9.3 - 12.4 fL [facility] HEMATOCRIT 38.2(L) 40.0 - 48.0 % [facility] RDW-STDEV 41.6 37.1 - 48.7 fL [facility] RBC 4.31(L) 4.50 - 5.40 M/uL [facility] MCHC 34.0 31.5 - 35.5 % [facility] MCV 88.6 82.0 - 99.0 fL [facility] PLATELETS 159 140 - 350 K/uL [facility] LYMPHOCYTES 13(L) 16 - 45 % [facility] LYMPHOCYTE ABSOLUTE 1.38 0.70 - 4.50 K/uL [facility] BASOPHILS 0 0 - 2 % [facility] BASOPHILS ABSOLUTE 0.02 0.00 - 0.20 K/uL [facility] MONOCYTES 11 3 - 13 % [facility] MONOCYTE ABSOLUTE 1.20 0.10 - 1.30 K/uL [facility] NEUTROPHILS 73(H) 45 - 70 % [facility] NEUTROPHIL ABSOLUTE 7.68(H) 1.90 - 7.00 K/uL [facility] EOSINOPHILS 3 0 - 7 % [facility] EOSINOPHIL ABSOLUTE 0.31 0.00 - 0.70 K/uL [facility] Blood specimen (specimen) 02/21/2008 4:30 AM CDT 02/21/2008 4:44 AM CDT Regis Lopez MD HEMATOLOGY ORDERABLES Edited Performing Organization Address City/[facility] Co de Phone Number INTERFACE SYSTEM Refer to clinic/hospital department [facility] [address] [place] [address] * TROPONIN (02/21/2008 12:50 AM CDT) TROPONIN T <0.01 <=0.03 ng/mL [facility] TROPONIN T INTERP Negative [facility] Blood specimen (specimen) 02/21/2008 12:50 AM CDT 02/21/2008 1:08 AM CDT Jhon Cross MD CHEMISTRY ORDERABLES Edited Performing Organization Address [facility] Co de Phone Number [facility] [address] [place] [address] * CK (02/21/2008 12:50 AM CDT) CK 84 10 - 170 U/L [facility] Blood specimen (specimen) 02/21/2008 12:50 AM CDT 02/21/2008 1:08 AM CDT Jhon Cross MD CHEMISTRY ORDERABLES Final Resul t Performing Organization Address [facility] Co de Phone Number [facility] [address] [place] [address] * (ABNORMAL) POC GLUCOSE (02/20/2008 11:50 PM CDT) GLUCOSE POC 107(H) 65 - 99 mg/dL [facility] Venous blood specimen (specimen) 02/20/2008 11:50 PM CDT 02/20/2008 11:50 PM CDT Jose David Ritchie MD POINT OF CARE TESTING Final Res ult Performing Organization Address City/[facility]/ZIP Co de Phone Number [facility] [address] [place] [address] * (ABNORMAL) POC GLUCOSE (02/20/2008 8:09 PM CDT) GLUCOSE POC 131(H) 65 - 99 mg/dL [facility] COMMENT, GLU POC TX Given [facility] Venous blood specimen (specimen) 02/20/2008 8:09 PM CDT 02/20/2008 8:09 PM CDT Jose David Ritchie MD POINT OF CARE TESTING Final Res ult Performing Organization Address [facility]/ZIP Co de Phone Number [facility] [address] [place] [address] * (ABNORMAL) POC GLUCOSE (02/20/2008 4:57 PM CDT) GLUCOSE POC 115(H) 65 - 99 mg/dL [facility] Venous blood specimen (specimen) 02/20/2008 4:57 PM CDT 02/20/2008 4:57 PM CDT Jose David Ritchie MD POINT OF CARE TESTING Final Res ult Performing Organization Address City/[facility]/ZIP Co de Phone Number [facility] [address] [place] [address] * (ABNORMAL) POC GLUCOSE (02/20/2008 12:22 PM CDT) GLUCOSE POC 106(H) 65 - 99 mg/dL [facility] Venous blood specimen (specimen) 02/20/2008 12:22 PM CDT 02/20/2008 12:22 PM CDT us Jose David Ritchie MD POINT OF CARE TESTING Final Res ult Performing Organization Address City/[facility]/ZIP Co de Phone Number [facility] [address] [place] [address] * (ABNORMAL) POC GLUCOSE (02/20/2008 8:31 AM CDT) GLUCOSE POC 134(H) 65 - 99 mg/dL [facility] Venous blood specimen (specimen) 02/20/2008 8:31 AM CDT 02/20/2008 8:31 AM CDT us Jose David Ritchie MD POINT OF CARE TESTING Final Res ult Performing Organization Address [facility] Co de Phone Number [facility] [address] [place] [address] * (ABNORMAL) POC GLUCOSE (02/20/2008 5:10 AM CDT) COMMENT, GLU POC TX Given [facility] GLUCOSE POC 117(H) 65 - 99 mg/dL [facility] Venous blood specimen (specimen) 02/20/2008 5:10 AM CDT 02/20/2008 5:10 AM CDT us Jose David Ritchie MD POINT OF CARE TESTING Final Res ult Performing Organization Address [facility] Co de Phone Number [facility] [address] [place] [address] * PT AND APTT (02/20/2008 5:00 AM CDT) PROTIME 14.6 12.7 - 15.1 Seconds [facility] INR 1.1 0.9 - 1.1 [facility] Comment: INR Therapeutic Range: Adult: 2.0 - 3.0 for pulmonary embolism or prophylaxis against venous thrombosis or systemic embolization. 2.0 - 3.0 for patients with tissue heart valves. 2.5 - 3.5 for patients with mechanical heart valves or post [place]. Pediatric (12 years and under): 1.5 - 3.0 Although the target range in children is not well established, INR values of 1.5 - 3.0 are recommended for most patients. Higher values have been used in children with prosthetic cardiac valves and hereditary clotting disorders. (<3 days) therapeutic ranges have not been established. PTT 31.8 24.4 - 36.4 Seconds [facility] Comment: PTT Therapeutic Range: Heparin Level PTT (seconds) <0.10 units/mL <53 0.10 - 0.30 units/mL 53 - 67 0.30 - 0.70 units/mL* 67 - 95* 0.70 - 1.00 units/mL 95 - 116 *corresponds to therapeutic range for unfractionated heparin Blood specimen (specimen) 02/20/2008 5:00 AM CDT 02/20/2008 5:35 AM CDT us Marco Lopez MD HEMATOLOGY ORDERABLES Edited [facility] [address] [facility] [place] [address] * MAGNESIUM LEVEL (02/20/2008 5:00 AM CDT) MAGNESIUM 1.6 1.5 - 2.5 mg/dL [facility] Blood specimen (specimen) 02/20/2008 5:00 AM CDT 02/20/2008 5:35 AM CDT Marco Lopez MD CHEMISTRY ORDERABLES Final Re sult [facility] [address] [facility] [place] [address] * PHOSPHORUS (02/20/2008 5:00 AM CDT) PHOSPHORUS 3.0 2.5 - 4.5 mg/dL [facility] Blood specimen (specimen) 02/20/2008 5:00 AM CDT 02/20/2008 5:35 AM CDT Marco Lopez MD CHEMISTRY ORDERABLES Final Re sult [facility] [address] [place] [address] * (ABNORMAL) BASIC METABOLIC PANEL (02/20/2008 5:00 AM CDT) CO2 27 22 - 30 mmol/L [facility] CREATININE 0.80 0.67 - 1.17 mg/dL [facility] POTASSIUM 3.4(L) 3.5 - 4.9 mmol/L [facility] BUN 8 6 - 20 mg/dL [facility] CHLORIDE 99 96 - 108 mmol/L [facility] GLUCOSE 126(H) 65 - 99 mg/dL [facility] SODIUM 133(L) 135 - 145 mmol/L [facility] CALCIUM 7.7(L) 8.4 - 10.2 mg/dL [facility] GFR, >60 >=60 mL/min/1. 7 sq meter [facility] GFR >60 >=60 mL/min/1. 7 sq meter [facility] Comment: Estimated GFR rate interpretative information for both Americans and non- Americans is available on the [facility] Intranet at: [email or web address] Select: Lab Policies and Procedures Select: Reference Ranges - GFR Blood specimen (specimen) 02/20/2008 5:00 AM CDT 02/20/2008 5:35 AM CDT us Marco Lopez MD CHEMISTRY ORDERABLES Edited [facility] [address] [place] [address] * (ABNORMAL) CBC WITH DIFFERENTIAL (02/20/2008 5:00 AM CDT) RDW-STDEV 41.7 37.1 - 48.7 fL [facility] RBC 4.20(L) 4.50 - 5.40 M/uL [facility] MCHC 33.5 31.5 - 35.5 % [facility] MCV 87.4 82.0 - 99.0 fL [facility] PLATELETS 165 140 - 350 K/uL [facility] HEMOGLOBIN 12.3(L) 13.6 - 16.5 g/dL [facility] RDW 13.0 11.5 - 14.5 % [facility] WBC 10.5(H) 4.0 - 9.8 K/uL [facility] MCH 29.3 27.2 - 32.6 pg [facility] MPV 9.7 9.3 - 12.4 fL [facility] HEMATOCRIT 36.7(L) 40.0 - 48.0 % [facility] MONOCYTES 12 3 - 13 % [facility] MONOCYTE ABSOLUTE 1.22 0.10 - 1.30 K/uL [facility] NEUTROPHILS 74(H) 45 - 70 % [facility] NEUTROPHIL ABSOLUTE 7.69(H) 1.90 - 7.00 K/uL [facility] EOSINOPHILS 1 0 - 7 % [facility] EOSINOPHIL ABSOLUTE 0.14 0.00 - 0.70 K/uL [facility] LYMPHOCYTES 13(L) 16 - 45 % [facility] LYMPHOCYTE ABSOLUTE 1.39 0.70 - 4.50 K/uL [facility] BASOPHILS 0 0 - 2 % [facility] BASOPHILS ABSOLUTE 0.02 0.00 - 0.20 K/uL [facility] Blood specimen (specimen) 02/20/2008 5:00 AM CDT 02/20/2008 5:35 AM CDT Marco Lopez MD HEMATOLOGY ORDERABLES Edited INTERFACE SYSTEM Refer to clinic/hospital department [facility] [address] [place] [place] [id number] * (ABNORMAL) POC GLUCOSE (02/20/2008 12:36 AM CDT) GLUCOSE POC 133(H) 65 - 99 mg/dL [facility] COMMENT, GLU POC TX Given [facility] Venous blood specimen (specimen) 02/20/2008 12:36 AM CDT 02/20/2008 12:36 AM CDT Jose David Ritchie MD POINT OF CARE TESTING Final Res ult Performing Organization Address [facility] Co de Phone Number [facility] [address] [place] [address] * (ABNORMAL) POC GLUCOSE (02/19/2008 9:13 PM CDT) GLUCOSE POC 115(H) 65 - 99 mg/dL [facility] Venous blood specimen (specimen) 02/19/2008 9:13 PM CDT 02/19/2008 9:13 PM CDT Jose David Ritchie MD POINT OF CARE TESTING Final Res ult Performing Organization Address City/[facility]/ZIP Co de Phone Number [facility] [address] [place] [address] * (ABNORMAL) POC GLUCOSE (02/19/2008 5:15 PM CDT) GLUCOSE POC 107(H) 65 - 99 mg/dL [facility] Venous blood specimen (specimen) 02/19/2008 5:15 PM CDT 02/19/2008 5:15 PM CDT Jose David Ritchie MD POINT OF CARE TESTING Final Res ult [facility] [address] [place] [address] * (ABNORMAL) POC GLUCOSE (02/19/2008 12:19 PM CDT) GLUCOSE POC 111(H) 65 - 99 mg/dL [facility] Venous blood specimen (specimen) 02/19/2008 12:19 PM CDT 02/19/2008 12:19 PM CDT Jose David Ritchie MD POINT OF CARE TESTING Final Res ult Performing Organization Address City/[facility]/ZIP Co de Phone Number [facility] [address] [place], [place] [address] * (ABNORMAL) POC GLUCOSE (02/19/2008 8:03 AM CDT) GLUCOSE POC 111(H) 65 - 99 mg/dL [facility] Venous blood specimen (specimen) 02/19/2008 8:03 AM CDT 02/19/2008 8:03 AM CDT Jose David Ritchie MD POINT OF CARE TESTING Final Res ult [facility] [address] [place] [address] * (ABNORMAL) BASIC METABOLIC PANEL (02/19/2008 5:15 AM CDT) SODIUM 140 135 - 145 mmol/L [facility] CALCIUM 7.9(L) 8.4 - 10.2 mg/dL [facility] CO2 27 22 - 30 mmol/L [facility] CREATININE 0.85 0.67 - 1.17 mg/dL [facility] POTASSIUM 4.4 3.5 - 4.9 mmol/L [facility] BUN 15 6 - 20 mg/dL [facility] CHLORIDE 106 96 - 108 mmol/L [facility] GLUCOSE 114(H) 65 - 99 mg/dL [facility] GFR, >60 >=60 mL/min/1. 7 sq meter [facility] GFR >60 >=60 mL/min/1. 7 sq meter [facility] Comment: Estimated GFR rate interpretative information for both Americans and non- Americans is available on the [facility] Intranet at: [email or web address] Select: Lab Policies and Procedures Select: Reference Ranges - GFR Blood specimen (specimen) 02/19/2008 5:15 AM CDT 02/19/2008 5:23 AM CDT Rosmery Ty DO CHEMISTRY ORDERABLES Edit ed [facility] [address] [place] [address] * (ABNORMAL) MAGNESIUM LEVEL (02/19/2008 5:15 AM CDT) MAGNESIUM 2.8(H) 1.5 - 2.5 mg/dL [facility] Blood specimen (specimen) 02/19/2008 5:15 AM CDT 02/19/2008 5:23 AM CDT Rosmery Ty CHEMISTRY ORDERABLES Dina l Result [facility] [address] [place] [address] * PHOSPHORUS (02/19/2008 5:15 AM CDT) PHOSPHORUS 4.2 2.5 - 4.5 mg/dL [facility] Blood specimen (specimen) 02/19/2008 5:15 AM CDT 02/19/2008 5:23 AM CDT Rosmery Ty CHEMISTRY ORDERABLES Dina l Result Performing Organization Address City/[facility]/ZIP Co de Phone Number [facility] [address] [place], [place] [address] * (ABNORMAL) CBC WITH DIFFERENTIAL (02/19/2008 5:15 AM CDT) [facility] MCV 87.4 82.0 - 99.0 fL [facility] PLATELETS 193 140 - 350 K/uL [facility] HEMOGLOBIN 14.5 13.6 - 16.5 g/dL [facility] RDW 13.2 11.5 - 14.5 % [facility] WBC 14.4(H) 4.0 - 9.8 K/uL [facility] MCH 30.0 27.2 - 32.6 pg [facility] MPV 9.5 9.3 - 12.4 fL [facility] HEMATOCRIT 42.2 40.0 - 48.0 % [facility] RDW-STDEV 41.9 37.1 - 48.7 fL [facility] RBC 4.83 4.50 - 5.40 M/uL [facility] MCHC 34.4 31.5 - 35.5 % [facility] EOSINOPHILS 2 0 - 7 % [facility] EOSINOPHIL ABSOLUTE 0.23 0.00 - 0.70 K/uL [facility] LYMPHOCYTES 13(L) 16 - 45 % [facility] LYMPHOCYTE ABSOLUTE 1.92 0.70 - 4.50 K/uL [facility] BASOPHILS 0 0 - 2 % [facility] BASOPHILS ABSOLUTE 0.04 0.00 - 0.20 K/uL [facility] MONOCYTES 9 3 - 13 % [facility] MONOCYTE ABSOLUTE 1.33(H) 0.10 - 1.30 K/uL [facility] NEUTROPHILS 75(H) 45 - 70 % [facility] NEUTROPHIL ABSOLUTE 10.85(H) 1.90 - 7.00 K/uL [facility] Blood specimen (specimen) 02/19/2008 5:15 AM CDT 02/19/2008 5:23 AM CDT Jose David Ritchie MD HEMATOLOGY ORDERABLES Edited INTERFACE SYSTEM Refer to clinic/hospital department [facility] [place] [address] * MRSA ACTIVE SURVEILLANCE (02/19/2008 4:14 AM CDT) FINAL REPORT No methicillin resistant Staphylococcus aureus isolated. INTERFACE SYSTEM Dieudonne 02/19/2008 4:14 AM CDT 02/19/2008 11:40 AM CDT Jose David Ritchie MD MICROBIOLOGY - GENERAL ORDERABL ES Final Result Performing Organization Address City/[facility] de Phone Number INTERFACE SYSTEM Refer to clinic/hospital department * XR CHEST PA OR AP (02/19/2008 2:20 AM CDT) Anatomical Region Laterality Modality Chest Other 02/19/2008 2:20 AM CDT Narrative 02/19/2008 8:59 AM CDT [facility] [address] [place], [place] [address] Admit Date: 02/18/2008 ZAFAR BRYSON Sex: M Admit Prov: JOSE DAVID RITCHIE Date: 1950 Primary Care Prov: CMRN: [id number] Room: [address] [place] [address] SSN: [id number] IMAGING SERVICES Ordering Prov: N/A Accession Number: [id number] Interpretation Portable chest 02/19/2008 2:30 a.m. Clinical [...] AMK Procedure Note Provider, Historical - 02/19/2008 [facility] [address] [place], [place] [address] Admit Date: 02/18/2008 BRAYDONZAFAR Fay Sex: M Admit Prov: JOSE DAVID RITCHIE Date: 1950 Primary Care Prov: CMRN: [id number] Room: [address] [place] [address] SSN: [id number] IMAGING SERVICES Ordering Prov: N/A Interpretation Portable [...] CDT) HEMATOCRIT 40.6 40.0 - 48.0 % [facility] HEMOGLOBIN 14.1 13.6 - 16.5 g/dL [facility] Blood specimen (specimen) 02/19/2008 2:16 AM CDT 02/19/2008 2:20 AM CDT Ji Dumont MD HEMATOLOGY ORDERABLES Final R esult [facility] [address] [place] [address] * (ABNORMAL) BLOOD GAS ARTERIAL (02/19/2008 2:16 AM CDT) O2 CONC ARTERIAL 40% [facility] HCO3 ARTERIAL 23 22 - 26 mmol/L [facility] PCO2 ARTERIAL 46 35 - 48 mm Hg [facility] FO2HB ABG 99(H) 94 - 98 % [facility] BASE EXCESS ABG -2.3(L) -2.0 - 3.0 mmol/L [facility] PO2 ARTERIAL 181(H) 83 - 108 mm Hg [facility] PH ARTERIAL 7.33(L) 7.35 - 7.45 [facility] SO2 ABG 100(H) 95 - 99 % [facility] Arterial blood specimen (specimen) 02/19/2008 2:16 AM CDT 02/19/2008 2:20 AM CDT us Ji Dumont MD ABG ORDERABLES Final Result [facility] [address] [facility] [address] * PT AND APTT (02/18/2008 11:48 PM CDT) PROTIME 13.2 12.7 - 15.1 Seconds [facility] INR 1.0 0.9 - 1.1 [facility] Comment: INR Therapeutic Range: Adult: 2.0 - 3.0 for pulmonary embolism or prophylaxis against venous thrombosis or systemic embolization. 2.0 - 3.0 for patients with tissue heart valves. 2.5 - 3.5 for patients with mechanical heart valves or post [place]. Pediatric (12 years and under): 1.5 - 3.0 Although the target range in children is not well established, INR values of 1.5 - 3.0 are recommended for most patients. Higher values have been used in children with prosthetic cardiac valves and hereditary clotting disorders. (<3 days) therapeutic ranges have not been established. PTT 29.6 24.4 - 36.4 Seconds [facility] Comment: PTT Therapeutic Range: Heparin Level PTT (seconds) <0.10 units/mL <53 0.10 - 0.30 units/mL 53 - 67 0.30 - 0.70 units/mL* 67 - 95* 0.70 - 1.00 units/mL 95 - 116 *corresponds to therapeutic range for unfractionated heparin Blood specimen (specimen) 02/18/2008 11:48 PM CDT 02/18/2008 11:58 PM CDT us Brian Clement DO HEMATOLOGY ORDERABLES Edited [facility] [address] [place] [address] * CT HEAD WO CONTRAST (02/18/2008 10:58 PM CDT) Anatomical Region Laterality Modality Head Other 02/18/2008 10:5 8 PM CDT Narrative 02/18/2008 11:33 PM CDT [facility] [address] [place], [place] [address] Admit Date: 02/18/2008 BRAYDONZAFAR Sex: M Admit Prov: PALOMO DE LA ROSA P Date: 1950 Primary Care Prov: CMRN: [id number] Room: [facility] SSN: [id number] IMAGING SERVICES Ordering Prov: N/A Accession Number: [id number] Interpretation CT scan of the head without [...] Procedure Note Ines Velázquez MD - 02/18/2008 [facility] [address] [place], [place] [address] Admit Date: 02/18/2008 ZAFAR BRYSON Sex: M Admit Prov: ER, AUTHORIZED P Date: 1950 Primary Care Prov: CMRN: [id number] Room: ER-A SSN: [id number] IMAGING SERVICES Ordering Prov: N/A Interpretation CT [...] the time of thedictation. . Dictated by: IENS VELÁZQUEZ 02/18/2008 23:24 Electronically signed by: INES VELÁZQUEZ 02/18/2008 23:33 us Authorized P Er CT ORDERABLES Final Result * (ABNORMAL) COMPREHENSIVE METABOLIC PANEL (02/18/2008 10:55 PM CDT) POTASSIUM 4.0 3.5 - 4.9 mmol/L [facility] TOTAL PROTEIN 6.9 6.3 - 8.6 g/dL [facility] GLUCOSE 107(H) 65 - 99 mg/dL [facility] AST 23 12 - 38 U/L [facility] BUN 16 6 - 20 mg/dL [facility] CALCIUM 8.6 8.4 - 10.2 mg/dL [facility] ALBUMIN 4.2 3.4 - 4.8 g/dL [facility] CHLORIDE 104 96 - 108 mmol/L [facility] CREATININE 0.82 0.67 - 1.17 mg/dL [facility] ALT 26 0 - 41 U/L [facility] SODIUM 140 135 - 145 mmol/L [facility] ALKALINE PHOSPHATASE 94 40 - 129 U/L [facility] CO2 27 22 - 30 mmol/L [facility] BILIRUBIN TOTAL 0.3 0.2 - 1.0 mg/dL [facility] GFR, >60 >=60 mL/min/1. 7 sq meter [facility] GFR >60 >=60 mL/min/1. 7 sq meter [facility] Comment: Estimated GFR rate interpretative information for both Americans and non- Americans is available on the [facility] Intranet at: [email or web address] Select: Lab Policies and Procedures Select: Reference Ranges - GFR Blood specimen (specimen) 02/18/2008 10:55 PM CDT 02/18/2008 11:21 PM CDT us Authorized P Er CHEMISTRY ORDERABLES Edited [facility] [address] [place] [address] * (ABNORMAL) CBC WITH DIFFERENTIAL (02/18/2008 10:55 PM CDT) MPV 9.2(L) 9.3 - 12.4 fL [facility] HEMATOCRIT 40.5 40.0 - 48.0 % [facility] RDW-STDEV 40.8 37.1 - 48.7 fL [facility] RBC 4.69 4.50 - 5.40 M/uL [facility] MCHC 35.1 31.5 - 35.5 % [facility] MCV 86.4 82.0 - 99.0 fL [facility] PLATELETS 191 140 - 350 K/uL [facility] HEMOGLOBIN 14.2 13.6 - 16.5 g/dL [facility] RDW 13.0 11.5 - 14.5 % [facility] WBC 8.7 4.0 - 9.8 K/uL [facility] MCH 30.3 27.2 - 32.6 pg [facility] BASOPHILS 1 0 - 2 % [facility] BASOPHILS ABSOLUTE 0.05 0.00 - 0.20 K/uL [facility] MONOCYTES 10 3 - 13 % [facility] MONOCYTE ABSOLUTE 0.84 0.10 - 1.30 K/uL [facility] NEUTROPHILS 59 45 - 70 % [facility] NEUTROPHIL ABSOLUTE 5.12 1.90 - 7.00 K/uL [facility] EOSINOPHILS 5 0 - 7 % [facility] EOSINOPHIL ABSOLUTE 0.41 0.00 - 0.70 K/uL [facility] LYMPHOCYTES 26 16 - 45 % [facility] LYMPHOCYTE ABSOLUTE 2.28 0.70 - 4.50 K/uL [facility] Blood specimen (specimen) 02/18/2008 10:55 PM CDT 02/18/2008 11:21 PM CDT us Authorized P Er HEMATOLOGY ORDERABLES Edited INTERFACE SYSTEM Refer to clinic/hospital department [facility] [address] [place] [address] * SEDIMENTATION RATE (02/18/2008 10:55 PM CDT) ESR (SEDIMENTATION RATE) 7 0 - 30 mm/hr [facility] Blood specimen (specimen) 02/18/2008 10:55 PM CDT 02/18/2008 11:21 PM CDT us Authorized P Er HEMATOLOGY ORDERABLES Final Resu lt [facility] [address] [place], [place] [address] documented in this encounter Visit Diagnoses Not on filedocumented in this encounter Care Teams Plant Maintenance Engineer Relationship Specialty Start Date End Date Long Mejias MD [address] [facility] [address] [place] [address] PCP - General Family Practice 06/24/19 documented as of this encounter
--- OUTSIDE RECORDS SUMMARY | 2025-10-23 09:18 | XMS_ITS | Encounter Summary ---
Author Organization [facility] Address [address] [place] [address] Care Team Providers Care Founder And President Name Role Phone Long Mejias MD Primary Care Provider [phone] Encounter Details Date Type Department Care Team (Latest Contact Info) Description 03/11/2008 Outpatient Historical [facility] Jose David Ritchie MD NO ADDRESS ON FILE Subdural Hemorrhage (CMS/HCC) Social History Tobacco Use Types Packs/Day Years Used Date Smoking Tobacco: Never Assessed Sex and Gender Information Value Date Recorded Sex Assigned at Not on file Legal Sex Male 4:07 AM SAMPLE SHOE INSPECTOR AND REWORKER Gender Identity Not on file Sexual Orientation Not on file documented as of this encounter Plan of Treatment Upcoming Encounters Date Type Department Care Team (Late st Contact Info) Description 01/26/2026 11:15 AM SAMPLE SHOE INSPECTOR AND REWORKER Office Visit [facility] At [place] [address] [facility] [facility] [facility] [address] [place] [address] David Raymond MD [facility] [address] [facility] [address] [place] [address] documented as of this encounter Procedures Procedure Name Priority Date/Time Associated Diagnosis Comments CT HEAD WO CONTRAST Timed Study 03/11/2008 1:35 PM CDT documented in this encounter Results * CT HEAD WO CONTRAST (03/11/2008 1:35 PM CDT) Anatomical Region Laterality Modality Head Other 03/11/2008 1:35 PM CDT Narrative 03/11/2008 3:50 PM CDT [facility] [address] [place], [place] [address] Admit Date: 03/11/2008 ZAFAR BRIGGS Sex: M Admit Prov: JOSE DAVID RITCHIE Date: 1950 Primary Care Prov: CMRN: [id number] Room: [facility] SSN: [id number] IMAGING SERVICES Ordering Prov: N/A Accession Number: [id number] Interpretation CT OF THE BRAIN WITHOUT CONTRAST [...] Procedure Note Stephanie Crowder MD - 03/11/2008 [facility] [address] [place], [place] [address] Admit Date: 03/11/2008 ZAFAR BRIGGS Sex: M Admit Prov: ERMA JOSE DAVID Date: 1950 Primary Care Prov: CMRN: [id number] Room: [facility] SSN: [id number] IMAGING SERVICES Ordering Prov: N/A Interpretation CT [...] hemorrhage documented in this encounter Care Teams Founder And President Relationship Specialty Start Date End Date Long Mejias MD [address] [facility] [address] [place] [phone] PCP - General Family Practice 06/24/19 documented as of this encounter
--- OUTSIDE RECORDS SUMMARY | 2025-10-23 09:18 | XMS_ITS | Encounter Summary ---
Author Organization [facility] Address [address] [place] [address] Care Team Providers Care Central Office Equipment Installer Name Role Phone Long Mejias MD Primary Care Provider [phone] Encounter Details Date Type Department Care Team (Late st Contact Info) Description 07/02/2007 Outpatient Historical [facility] Trauma and General Surgery [address] [facility] [address] [facility] [place] [address] Ranulfo Grijalva MD [address] [facility] [address] [place] [address] Social History Tobacco Use Types Packs/Day Years Used Date Smoking Tobacco: Never Assessed Sex and Gender Information Value Date Recorded Sex Assigned at Not on file Legal Sex Male 4:07 AM CLASSIFIED ADVERTISING MANAGER Gender Identity Not on file Sexual Orientation Not on file documented as of this encounter Plan of Treatment Upcoming Encounters Date Type Department Care Team (Late st Contact Info) Description 01/26/2026 11:15 AM CLASSIFIED ADVERTISING MANAGER Office Visit [facility] Heart and Vascular At [facility] [address] [facility] [address] [place] [address] David Raymond MD [address] [facility] [address] [place] [address] documented as of this encounter Visit Diagnoses Not on filedocumented in this encounter Care Teams Central Office Equipment Installer Relationship Specialty Start Date End Date Long Mejias MD [address] [facility] [address] [place] [address] PCP - General Family Practice 06/24/19 documented as of this encounter
--- OUTSIDE RECORDS SUMMARY | 2025-10-23 09:18 | XMS_ITS | Encounter Summary ---
Author Organization [facility] Address [address] [place] [address] Care Team Providers Care Technology Architect Name Role Phone Long Mejias MD Primary Care Provider [phone] Encounter Details Date Type Department Care Team [...] on file Legal Sex Male 4:07 AM CARDIAC MONITOR Gender Identity Not on file Sexual Orientation Not on file documented as of this encounter Plan of Treatment Upcoming Encounters Date Type Department Care Team (Late st Contact Info) Description 01/26/2026 11:15 AM CARDIAC MONITOR Office Visit [facility] At [address] [place] [address] David Raymond MD [address] [place] [address] [address] [place] [address] documented as of this encounter [...] PM CDT Narrative 07/16/2009 9:35 PM CDT [facility] [address] [place], [place] [address] Admit Date: 07/16/2009 ZAFAR BRIGGS Fay Sex: M Admit Prov: ER, AUTHORIZED P Date: 1950 Primary Care Prov: CMRN: [id number] [id number] Ordering Prov: N/A Accession Number: [id number] Interpretation EXAM; CT HEAD, NONCONTRAST 07/16/2009 INDICATION: [...] SJ Procedure Note Elmer Flores - 07/16/2009 [facility] [address] [place], [place] [address] Admit Date: 07/16/2009 ZAFAR BRIGGS Sex: M Admit Prov: ER, AUTHORIZED P Date: 1950 Primary Care Prov: CMRN: [id number] Room: ER-A SSN: [id number] IMAGING SERVICES Ordering Prov: N/A Interpretation EXAM; [...] CDT) POTASSIUM 4.0 3.5 - 4.9 mmol/L [facility] GLUCOSE 103(H) 65 - 99 mg/dL [facility] AST 23 12 - 38 U/L [facility] BUN 21(H) 6 - 20 mg/dL [facility] CALCIUM 8.6 8.6 - 10.2 mg/dL [facility] CHLORIDE 104 96 - 108 mmol/L [facility] ALBUMIN 4.3 3.4 - 4.8 g/dL [facility] CREATININE 0.82 0.67 - 1.17 mg/dL [facility] SODIUM 139 135 - 145 mmol/L [facility] ALT 28 0 - 41 U/L [facility] ALKALINE PHOSPHATASE 91 40 - 129 U/L [facility] BILIRUBIN TOTAL 0.2 0.2 - 1.0 mg/dL [facility] CO2 25 22 - 30 mmol/L [facility] TOTAL PROTEIN 6.9 6.3 - 8.6 g/dL [facility] GFR, >60 >=60 mL/min/1. 7 sq meter [facility] GFR >60 >=60 mL/min/1. 7 sq meter [facility] Comment: Modification of Diet in Renal Disease (MDRD) study formula. Estimated GFR rate interpretative information for both Americans and non- Americans is available on the [facility] Intranet at: [email or web address] Select: Lab Policies and Procedures Select: Reference Ranges - GFR Blood specimen (specimen) 07/16/2009 8:54 PM CDT 07/16/2009 9:00 PM CDT us Authorized P Er CHEMISTRY ORDERABLES Edited [facility] CLIA# [id number] [address] [place] [address] * CBC WITH DIFFERENTIAL (07/16/2009 8:54 PM CDT) HEMOGLOBIN 15.3 13.6 - 16.5 g/dL [facility] RDW 13.1 11.5 - 14.5 % [facility] WBC 8.9 4.0 - 9.8 K/uL [facility] MCH 30.1 27.2 - 32.6 pg [facility] MPV 9.9 9.3 - 12.4 fL [facility] HEMATOCRIT 44.6 40.0 - 48.0 % [facility] RDW-STDEV 41.7 37.1 - 48.7 fL [facility] RBC 5.08 4.50 - 5.40 M/uL [facility] MCHC 34.3 31.5 - 35.5 % [facility] MCV 87.8 82.0 - 99.0 fL [facility] PLATELETS 183 140 - 350 K/uL [facility] EOSINOPHILS 5 0 - 7 % [facility] EOSINOPHIL ABSOLUTE 0.44 0.00 - 0.70 K/uL [facility] LYMPHOCYTES 31 16 - 45 % [facility] LYMPHOCYTE ABSOLUTE 2.79 0.70 - 4.50 K/uL [facility] BASOPHILS 1 0 - 2 % [facility] BASOPHILS ABSOLUTE 0.06 0.00 - 0.20 K/uL [facility] MONOCYTES 11 3 - 13 % [facility] MONOCYTE ABSOLUTE 0.97 0.10 - 1.30 K/uL [facility] NEUTROPHILS 52 45 - 70 % [facility] NEUTROPHIL ABSOLUTE 4.67 1.90 - 7.00 K/uL [facility] Blood specimen (specimen) 07/16/2009 8:54 PM CDT 07/16/2009 9:00 PM CDT us Authorized P Er HEMATOLOGY ORDERABLES Edited [facility] CLIA# [id number] [address] [place] [address] documented in this encounter Visit Diagnoses Not on filedocumented in this encounter Care Teams Technology Architect Relationship Specialty Start Date End Date Long Mejias MD [address] [place] [address] PCP - General Family Practice 06/24/19 documented as of this encounter
--- OUTSIDE RECORDS SUMMARY | 2025-10-23 09:18 | XMS_ITS | Encounter Summary ---
Author Organization [facility] Address [address] [place] [address] Care Team Providers Care Director Of Field Coordination Name Role Phone Long Mejias MD Primary Care Provider [phone] Encounter Details Date Type Department Care Team (Late st Contact Info) Description 07/18/2007 Emergency [facility] Brian Clement DO [address] [place] [address] Er, Authorized P NO ADDRESS ON FILE Other Acute Pain (Primary Dx) Social History Tobacco Use Types Packs/Day Years Used Date Smoking Tobacco: Never Assessed Sex and Gender Information Value Date Recorded Sex Assigned at Not on file Legal Sex Male 4:07 AM HEALTHCARE ADMINISTRATIVE ASSISTANT Gender Identity Not on file Sexual Orientation Not on file documented as of this encounter Plan of Treatment Upcoming Encounters Date Type Department Care Team (Late st Contact Info) Description 01/26/2026 11:15 AM HEALTHCARE ADMINISTRATIVE ASSISTANT Office Visit [facility] Heart and Vascular At [place] [address] [facility] [address] [place] [address] David Raymond MD [address] [facility] [address] [place] [address] documented as of this encounter [...] Clement HEMATOLOGY ORDERABLES Edited Performing Organization Address [facility] Co de Phone Number INTERFACE [...] patients with mechanical heart valves or post [place]. Pediatric (12 years and under): 1.5 - [...] DO HEMATOLOGY ORDERABLES Edited Performing Organization Address City/[facility]/ZIP Co de Phone Number INTERFACE SYSTEM [...] and non- Americans is available on the [facility] Intranet at: [email or web address] Select: Lab Policies and Procedures Select: Reference Ranges - GFR 07/18/2007 7:05 PM CDT us Brian Clement DO CHEMISTRY ORDERABLES Edited INTERFACE SYSTEM Refer to clinic/hospital department documented in this encounter Visit Diagnoses Diagnosis Other acute pain- Primary documented in this encounter Care Teams Director Of Field Coordination Relationship Specialty Start Date End Date Long Mejias MD [address] [facility] [address] [place] [address] PCP - General Family Practice 06/24/19 documented as of this encounter
--- OUTSIDE RECORDS SUMMARY | 2025-10-23 09:18 | XMS_ITS | Encounter Summary ---
Author Organization [facility] Address [address] [place] [address] Care Team Providers Care Paint Maker Name Role Phone Long Mejias MD Primary Care Provider [phone] Encounter Details Date Type Department Care Team (Late Contact Info) Description 07/01/2007 Outpatient Historical [facility] Adult Hospitalists [facility] [address] [place] [address] Shannon Esparza MD [address] [facility] [address] [address] Social History Tobacco Use Types Packs/Day Years Used Date Smoking Tobacco: Never Assessed Sex and Gender Information Value Date Recorded Sex Assigned at Not on file Legal Sex Male 4:07 AM FAMILY COACH Gender Identity Not on file Sexual Orientation Not on file documented as of this encounter Plan of Treatment Upcoming Encounters Date Type Department Care Team (Late st Contact Info) Description 01/26/2026 11:15 AM FAMILY COACH Office Visit [facility] Heart and Vascular At [facility] [address] [facility] [address] [place] [address] David Raymond MD [facility] [address] [facility] [address] [place] [address] documented as of this encounter Visit Diagnoses Not on filedocumented in this encounter Care Teams Paint Maker Relationship Specialty Start Date End Date Long Mejias MD [address] [facility] [address] [place] [address] PCP - General Family Practice 06/24/19 documented as of this encounter
--- OUTSIDE RECORDS SUMMARY | 2025-10-23 09:18 | XMS_ITS | Encounter Summary ---
Author Organization [facility] Address [address] [place] [address] Care Team Providers Care Cashier Parking Lot Name Role Phone Long Mejias MD Primary Care Provider [phone] Encounter Details Date Type Department Care Team (Late st Contact Info) Description 07/02/2007 Outpatient Historical [facility] Support Serv. (Adt Cardiology-[facility]) [place] [address] Johnie Kirby MD NO ADDRESS ON FILE Social History Tobacco Use Types Packs/Day Years Used Date Smoking Tobacco: Never Assessed Sex and Gender Information Value Date Recorded Sex Assigned at Not on file Legal Sex Male 4:07 AM LEATHER GRAINER Gender Identity Not on file Sexual Orientation Not on file documented as of this encounter Plan of Treatment Upcoming Encounters Date Type Department Care Team (Late st Contact Info) Description 01/26/2026 11:15 AM LEATHER GRAINER Office Visit [facility] Heart and Vascular At [place] [address] [facility] [address] [place] [address] David Raymond MD [facility] [address] [facility] [address] [place] [address] documented as of this encounter Visit Diagnoses Not on filedocumented in this encounter Care Teams Cashier Parking Lot Relationship Specialty Start Date End Date Long Mejias MD [address] [place] [address] PCP - General Family Practice 06/24/19 documented as of this encounter
--- OUTSIDE RECORDS SUMMARY | 2025-10-23 09:18 | XMS_ITS | Encounter Summary ---
Author Organization [facility] Address [address] [place] [address] Care Team Providers Care Import/Export Analyst Name Role Phone Long Mejias MD Primary Care Provider [phone] Encounter Details Date Type Department Care Team (Late st Contact Info) Description 07/10/2007 Outpatient Historical [facility] Trauma and General Surgery [address] [facility] [address] [address] [place] [address] [place] [address] Social History Tobacco Use Types Packs/Day Years Used Date Smoking Tobacco: Never Assessed Sex and Gender Information Value Date Recorded Sex Assigned at Not on file Legal Sex Male 4:07 AM AUTOMOTIVE GENERAL MANAGER Gender Identity Not on file Sexual Orientation Not on file documented as of this encounter Plan of Treatment Upcoming Encounters Date Type Department Care Team (Late st Contact Info) Description 01/26/2026 11:15 AM AUTOMOTIVE GENERAL MANAGER Office Visit [facility] Heart and Vascular At [facility] [address] [facility] [facility] [address] [place] [address] David Raymond MD [address] [facility] [address] [place] [address] documented as of this encounter Visit Diagnoses Not on filedocumented in this encounter Care Teams Import/Export Analyst Relationship Specialty Start Date End Date Long Mejias MD [address] [facility] [address] [place] [address] PCP - General Family Practice 06/24/19 documented as of this encounter
--- OUTSIDE RECORDS SUMMARY | 2025-10-23 09:18 | XMS_ITS | Encounter Summary ---
Author Organization [facility] Address [address] [place] [address] Care Team Providers Care Central Service Supply Distributor Name Role Phone Long Mejias MD Primary Care Provider [phone] Encounter Details Date Type Department Care Team (Late st Contact Info) Description 07/03/2007 Outpatient Historical [facility] Trauma and General Surgery [address] [facility] [place] [place] [address] Ranulfo Grijalva MD [address] [facility] [address] [place] [address] Social History Tobacco Use Types Packs/Day Years Used Date Smoking Tobacco: Never Assessed Sex and Gender Information Value Date Recorded Sex Assigned at Not on file Legal Sex Male 4:07 AM ROVING OR YARN COLOR CHECKER Gender Identity Not on file Sexual Orientation Not on file documented as of this encounter Plan of Treatment Upcoming Encounters Date Type Department Care Team (Late st Contact Info) Description 01/26/2026 11:15 AM ROVING OR YARN COLOR CHECKER Office Visit [facility] [place] [address] [facility] [address] [place] [address] David Raymond MD [address] [facility] [address] [place] [address] documented as of this encounter Visit Diagnoses Not on filedocumented in this encounter Care Teams Central Service Supply Distributor Relationship Specialty Start Date End Date Long Mejias MD [address] [facility] [address] [place] [address] PCP - General Family Practice 06/24/19 documented as of this encounter
--- OUTSIDE RECORDS SUMMARY | 2025-10-23 09:18 | XMS_ITS | Encounter Summary ---
Author Organization [facility] Address [address] [place] [address] Care Team Providers Care Electronic Publisher Name Role Phone Long Mejias MD Primary Care Provider [phone] Encounter Details Date Type Department Care Team (Late st Contact Info) Description 07/01/2007 Outpatient Historical [facility] Trauma and General Surgery [address] [facility] [place] [address] [facility] [place] [address] Ranulfo Grijalva MD [address] [facility] [address] [place] [address] Social History Tobacco Use Types Packs/Day Years Used Date Smoking Tobacco: Never Assessed Sex and Gender Information Value Date Recorded Sex Assigned at Not on file Legal Sex Male 4:07 AM COMMUNICATION EQUIPMENT MECHANIC Gender Identity Not on file Sexual Orientation Not on file documented as of this encounter Plan of Treatment Upcoming Encounters Date Type Department Care Team (Late st Contact Info) Description 01/26/2026 11:15 AM COMMUNICATION EQUIPMENT MECHANIC Office Visit [facility] Heart and Vascular At [facility] [address] [facility] [address] [place] [address] David Raymond MD [address] [facility] [address] [place] [address] documented as of this encounter Visit Diagnoses Not on filedocumented in this encounter Care Teams Electronic Publisher Relationship Specialty Start Date End Date Long Mejias MD [address] [facility] [address] [place] [address] PCP - General Family Practice 06/24/19 documented as of this encounter
--- OUTSIDE RECORDS SUMMARY | 2025-10-23 09:18 | XMS_ITS | Encounter Summary ---
Author Organization [facility] Address [address] [place] [address] [place] [address] Care Team Providers Care Machine Set Up Operator Name Role Phone Unavailable Primary Care Provider Unavailabl e Encounter Details Date Type Department Care Team (Late st Contact Info) Description 01/05/[address] [facility] DermPath Lab [address] [place] [address] Ji Ahn MD [address] [place] [address] Social History Tobacco Use Types Packs/Day Years Used Date Smoking Tobacco: Never Assessed Sex and Gender Information Value Date Recorded Sex Assigned at Not on file Legal Sex Male 6:31 AM SOLAR FABRICATION TECHNICIAN Gender Identity Not on file Sexual Orientation Not on file documented as of this encounter Plan of Treatment Not on file documented as of this encounter Procedures Procedure Name Priority Date/Time Associated Diagnosis Comments DERMATOPATHOLOGY Routine 01/04/2021 12:0 0 AM SOLAR FABRICATION TECHNICIAN documented in this encounter Results * DERMATOPATHOLOGY (01/04/2021 12:00 AM SOLAR FABRICATION TECHNICIAN) Case Report Dermatopathology Report Case: [id number] Authorizing Provider: Ji Ahn MD Collected: 01/04/2021 12:00 AM Ordering Location: [facility] DermPath Lab Received: 01/05/2021 12:08 PM Pathologist: Honey Fernandez MD Specimen: Skin, left posterior neck 3:18 PM SOLAR FABRICATION TECHNICIAN DERMATOPATHOLOGY LABORATORY Final Diagnosis Specimen A. SKIN, left posterior neck: EPIDERMOID CYST (L72.0) 3:18 PM [facility] DERMATOPATHOLOGY LABORATORY at [address] SOLAR FABRICATION TECHNICIAN Clinical History R/O SQ mass. 3:18 PM [facility] DERMATOPATHOLOGY LABORATORY Gross Description Specimen A: Received is one formalin filled container labeled with the patient's name and designated left posterior neck. The specimen consists of a punch biopsy measuring [id number], bisected. Jar 0. 3:18 PM [facility] DERMATOPATHOLOGY LABORATORY Microscopic Description Specimen A. SKIN, left posterior neck: Within the dermis, there is a space lined by epithelium that resembles normal epidermis and the infundibular portion of the hair follicle. 3:18 PM [facility] DERMATOPATHOLOGY LABORATORY Disclaimer An external and internal positive and negative controls are appropriate for the histochemical, immunohistochemical and immunofluorescence stain(s) in this case (if any), except where stated explicitly. The performance characteristics of the stain(s) cited in this report were developed and its performance characteristic determined by the Dermatopathology Laboratory at [facility], directed by Dr. Ping Fernandez. These tests need not be, and therefore are not, approved by the [place] Food and Drug Administration. The tests are used for clinical purposes. Billing Codes Specimen Charges Stain Charges 33658 1 3:18 PM [facility] DERMATOPATHOLOGY LABORATORY Embedded Images 3:18 PM [facility] DERMATOPATHOLOGY LABORATORY Pathology/Cytolog y TISSUE SPECIMEN FROM SKIN / Unknown 01/04/2021 01/05/2021 12:08 PM [facility] Ji Ahn MD LAB - PATHOLOGY/CYTOLOGY ORD ERABLES Final Result DERMATOPATHOLOGY LABORATORY [facility] - Department of Dermatology [address] [place] [address], [facility] [phone] documented in this encounter Visit Diagnoses Not on filedocumented in this encounter
--- OUTSIDE RECORDS SUMMARY | 2025-10-23 09:18 | XMS_ITS | Encounter Summary ---
Author Organization [facility] Address [address] [facility] Attn: [place] [address] Care Team Providers Care Ground Crew Chief Name Role Phone Long Mejias MD Primary Care Provider [phone] Encounter Details Date Type Department Care Team (Late Contact Info) Description 06/29/2007 Outpatient Historical Ramon Mcclure MD NO ADDRESS ON FILE Social History Tobacco Use Types Packs/Day Years Used Date Smoking Tobacco: Never Assessed Sex and Gender Information Value Date Recorded Sex Assigned at Not on file Legal Sex Male 4:07 AM CASTING MACHINE OPERATOR AUTOMATIC Gender Identity Not on file Sexual Orientation Not on file documented as of this encounter Plan of Treatment Upcoming Encounters Date Type Department Care Team (Late st Contact Info) Description 01/26/2026 11:15 AM CASTING MACHINE OPERATOR AUTOMATIC Office Visit [facility] Heart and Vascular At [address] [place] [address] David Raymond MD [facility] [address] [facility] [address] [place] [address] documented as of this encounter Visit Diagnoses Not on filedocumented in this encounter Care Teams Ground Crew Chief Relationship Specialty Start Date End Date Long Mejias MD [address] [place] [address] PCP - General Family Practice 06/24/19 documented as of this encounter
--- OUTSIDE RECORDS SUMMARY | 2025-10-23 09:18 | XMS_ITS | Clinical Summary ---
Author Organization 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/21/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 07/15/2018 Lipoma of upper extremity 02/06/2018 Overview (01/04/2025): Added automatically from request for surgery [id number] Added automatically from request for surgery [id number] Sebaceous cyst 02/06/2018 Overview (01/04/2025): Added automatically from request for surgery [id number] Abscess of back 12/03/2017 Subdural hematoma 03/05/2017 Actinic keratosis 08/15/2016 Infectious warts 08/15/2016 Keratinizing cyst 08/15/2016 Senile angioma 08/15/2016 Mass of upper extremity 07/16/2014 Vertigo 12/08/2012 Right-sided chest wall pain 02/07/2011 Pure hypercholesterolemia 03/21/2010 Coronary artery disease invo lving [place] coronary artery of [place] heart without angina pectoris 03/21/2010 S/P [...] Free, Intramuscular 08/17/2015 Influenza, Unspecified 08/25/2022,2019,08/25/2017,08/25,09/10/2013,07/26/2008,09/02/2007 ,08/25/2006,09/20/2005,10/17/2004,08/26 Urdu Encephalitis 12/28/2005,12/20/2005,11/25 Pfizer SARS-CoV-2 Monovalent Vaccination (12+ [...] Legal Sex Male 3:52 AM DIRECTOR OF VITAL STATISTICS Gender Identity Not on file Sexual Orientation Not on file Occupation Industry Job Start Date Job End Date disabled Not on file Not on file Not on file Last Filed Vital Signs Vital Sign Reading Time Taken Comments Blood Pressure 149/76 01/05/2025 10:24 AM DIRECTOR OF VITAL STATISTICS Pulse 47 01/05/2025 10:24 AM DIRECTOR OF VITAL STATISTICS Temperature 36.7 C (98 F) 01/05/2025 10:24 AM DIRECTOR OF VITAL STATISTICS Respiratory Rate 10 12/17/2024 9:55 AM DIRECTOR OF VITAL STATISTICS Oxygen Saturation 96% 12/17/2024 9:55 AM DIRECTOR OF VITAL STATISTICS Inhaled Oxygen Concentration - - Weight 95.2 kg (209 lb 12.8 oz) 025 10:24 AM DIRECTOR OF VITAL STATISTICS Height 180.3 cm (5' 11) 01/05/2025 10: 24 AM DIRECTOR OF VITAL STATISTICS Body Mass Index 29.26 01/05/2025 10:24 AM DIRECTOR OF VITAL STATISTICS Plan of Treatment Health Maintenance Due Date [...] 05/02/2023, 11/2010 Medical Devices Implanted Type Area Kettle Chipper Device Identifier Shelf Expiration Date Model / Serial / Lot [employer]/ Ortho [id number] Evos [id number] 16.3x1.7mm 7 Hole Low Profile Variable Angle Lock - [id number] Implanted:Qty: 1 on 08/09/2020 by Leslie Holder MD at [facility] Right: Ankle [employer]Or tho [id number] / / [employer]/ Ortho [id number] Evos 3.5mm 10mm Self Tap Cortex Screw Bone Sterile - [id number] Implanted:Qty: 2 on 08/09/2020 by Leslie Holder MD at [facility] Right: Ankle [employer]Or tho [id number] / / [employer]/ Ortho [id number] Evos 3.5mm 14mm Self Tap Cortex Screw Bone Sterile - [id number] Implanted:Qty: 1 on 08/09/2020 by Leslie Holder MD at [facility] Right: Ankle [employer]Or tho [id number] / / [employer]/ Ortho [id number] Evos 3.5mm 16mm Self Tap Cortex Screw Bone Sterile - [id number] Implanted:Qty: 1 on 08/09/2020 by Leslie Holder MD at [facility] Right: Ankle [employer]Or tho [id number] / / [employer]/ Ortho [id number] Evos 4.7mm 14mm Full Thread Screw Bone Sterile Osteopenia - [id number] Implanted:Qty: 1 on 08/09/2020 by Leslie Holder MD at [facility] Right: Ankle [employer]Or tho [id number] / / [employer]/ Ortho [id number] Evos 4.7mm 16mm Full Thread Screw Bone Sterile Osteopenia - [id number] Implanted:Qty: 1 on 08/09/2020 by Leslie Holder MD at [facility] Right: Ankle [employer]Or tho [id number] / / [employer]/ Ortho [id number] Evos 4.7mm 18mm Full Thread Screw Bone Sterile Osteopenia - [id number] Implanted:Qty: 1 on 08/09/2020 by Leslie Holder MD at [facility] Right: Ankle [employer]Or tho [id number] / / [employer]/ Ortho [id number] Evos 3.5mm 18mm Self Tap Cortex Screw Bone Sterile - [id number] Implanted:Qty: 1 on 08/18/2020 by Leslie Holder MD at [facility] Right: Ankle [employer]Or tho [id number] / / [employer] End[employer] Surgery Prolene 3 15/16in .75in 4 15/16inx2 5/32inx.5in Soft Knit Extend Phse - [id number] Implanted:Qty: 1 on 12/17/2024 by Sonu Carlson MD at [facility] Left: Inguinal [employer] Endo Surgery 03/24/2029 PHSE / / [id number] Procedures Procedure Name Priority Date/Time Associated Diagnosis Comments PSA SCREEN Routine 09/01/2015 1:25 PM CDT from Last 3 Months or Most Recently Relevant to Health Maintenance Results * PSA screen (09/01/2015 1:25 PM CDT) [facility] Signature PSA Screen 0.9 0.0 - 5.4 ng/mL 09/01/2015 5:11 PM CDT [facility] H[facility]OR[facility] RESULTS Comment: Method: ECLIA Values obtained by different assay methods cannot be used interchangeably. Use sequential testing to confirm baseline if assay method changed during patient monitoring. 09/01/2015 1:2 5 PM CDT 09/01/2015 1:53 PM CDT Narrative [facility] [employer] HISTORICAL RESULTS - 09/01/2015 5:11 PM CDT 12 HOURS PC us Suleiman Petit MD LAB BLOOD ORDERABLES Final Result [facility] HISTORICAL RESULTS from Last 3 Months or Most Recently Relevant to Health Maintenance Insurance MEDICARE FOR LIFE MEDICARE FOR LIFE MEDICARE [facility] MEDICARE Care Teams Metal Sprayer Machined Parts Relationship Specialty Start Date End Date Long Mejias MD [address] [place] [address] PCP - General 09/28/19 Sonu Carlson MD [address] [facility] [address] [place] [address] Consulting Physician General Surgery 12/17/24
--- OUTSIDE RECORDS SUMMARY | 2025-10-23 09:18 | XMS_ITS | Clinical Summary ---
Author Organization [facility] Address [facility] [facility] [address] [place] [address] Care Team Providers Care Manager Statistical Programming Name Role Phone Unavailable Primary Care Provider Unavailabl e Source Comments [facility],non-owned Affiliates and Associated Physician Practices is amultiple site organization consisting of ambulatory clinics and hospital sitesin [place], [place], [place] and [place]. This disclosure is being madepursuant to the Care Everywhere program and may not contain all information available regarding this patient. Last updated 18.[facility] [employer] Social History Tobacco Use Types Packs/Day Years Used Date Smoking Tobacco: Never Assessed Sex and Gender Information Value Date Recorded Sex Assigned at Not on file Legal Sex Male 6:31 AM PARLIAMENTARY COUNSEL Gender Identity Not on file Sexual Orientation [...]
--- OUTSIDE RECORDS SUMMARY | 2025-10-23 09:18 | XMS_ITS | Encounter Summary ---
Author Organization [facility] Address [address] [place] [address] Care Team Providers Care Epoxy Coatings Installer Name Role Phone Long Mejias MD Primary Care Provider [phone] Encounter Details Date Type Department Care Team (Latest Contact Info) Description 07/22/2008 Outpatient Historical [facility] Jose David Ritchie MD NO ADDRESS ON FILE Subdural Hemorrhage (CMS/HCC) Social History Tobacco Use Types Packs/Day Years Used Date Smoking Tobacco: Never Assessed Sex and Gender Information Value Date Recorded Sex Assigned at Not on file Legal Sex Male 4:07 AM SPECIAL EDUCATION INSTRUCTOR Gender Identity Not on file Sexual Orientation Not on file documented as of this encounter Plan of Treatment Upcoming Encounters Date Type Department Care Team (Late st Contact Info) Description 01/26/2026 11:15 AM SPECIAL EDUCATION INSTRUCTOR Office Visit [facility] Heart and Vascular At [place] [address] [facility] [address] [place] [address] David Raymond MD [facility] [address] [facility] [address] [place] [address] documented as of this encounter Procedures Procedure Name Priority Date/Time Associated Diagnosis Comments CT HEAD WO CONTRAST Routine 07/22/2008 2 :21 PM CDT documented in this encounter Results * CT HEAD WO CONTRAST (07/22/2008 2:21 PM CDT) Anatomical Region Laterality Modality Head Other 07/22/2008 2:21 PM CDT Narrative 07/22/2008 2:41 PM CDT [address] [place], [place] [address] Admit Date: 07/22/2008 ZAFAR BRIGGS Sex: M Admit Prov: JOSE DAVID RITCHIE Date: 1950 Primary Care Prov: CMRN: [id number] [facility] [address] [place] [address] IMAGING SERVICES Ordering Prov: N/A Accession Number: [id number] Interpretation CT head without contrast 07/22/2008 History: [...] 14:40 Procedure Note Halima Lepe - 07/22/2008 [address] [place], [place] [address] Admit Date: 07/22/2008 STEFFANIEZAFAR NAZARIO Fay Sex: M Admit Prov: JOSE DAVID RITCHIE Date: 1950 Primary Care Prov: CMRN: [id number] Room: [facility] SSN: [id number] IMAGING SERVICES Ordering Prov: N/A Interpretation CT [...] hemorrhage documented in this encounter Care Teams Epoxy Coatings Installer Relationship Specialty Start Date End Date oLng Mejias MD [address] [facility] [address] [place] [address] PCP - General Family Practice 06/24/19 documented as of this encounter
--- OUTSIDE RECORDS SUMMARY | 2025-10-23 09:18 | XMS_ITS | Encounter Summary ---
Author Organization [facility] Address [address] [place] [address] Care Team Providers Care Deputy Commissioner Name Role Phone Long Mejias MD Primary Care Provider [phone] Encounter Details Date Type Department Care Team (Late Contact Info) Description 07/04/2007 Outpatient Historical [facility] Adult Hospitalists [facility] [address] [place] [address] Shannon Esparza MD [address] [facility] [address] [address] Social History Tobacco Use Types Packs/Day Years Used Date Smoking Tobacco: Never Assessed Sex and Gender Information Value Date Recorded Sex Assigned at Not on file Legal Sex Male 4:07 AM COLLECTION CLERK Gender Identity Not on file Sexual Orientation Not on file documented as of this encounter Plan of Treatment Upcoming Encounters Date Type Department Care Team (Late st Contact Info) Description 01/26/2026 11:15 AM COLLECTION CLERK Office Visit [facility] Heart and Vascular At [facility] [address] [facility] [address] [place] [address] David Raymond MD [facility] [address] [facility] [address] [place] [address] documented as of this encounter Visit Diagnoses Not on filedocumented in this encounter Care Teams Deputy Commissioner Relationship Specialty Start Date End Date Long Mejias MD [address] [facility] [address] [place] [address] PCP - General Family Practice 06/24/19 documented as of this encounter
--- OUTSIDE RECORDS SUMMARY | 2025-10-23 09:18 | XMS_ITS | Encounter Summary ---
Author Organization [facility] Address [address] [place] [address] Care Team Providers Care Sales Service Manager Name Role Phone Long Mejias MD Primary Care Provider [phone] Encounter Details Date Type Department Care Team (Latest Contact Info) Description 12/24/2003 Outpatient Historical HIS CARD COMPLIANCE AUDITOR David Raymond MD [address] [place] [address] [address] [place] [address] CORON ATHEROSCL [place] CORON VESSEL (Primary Dx) Social History Tobacco Use Types Packs/Day Years Used Date Smoking Tobacco: Never Assessed Sex and Gender Information Value Date Recorded Sex Assigned at Not on file Legal Sex Male 4:07 AM BULKING MACHINE OPERATOR Gender Identity Not on file Sexual Orientation Not on file documented as of this encounter Plan of Treatment Upcoming Encounters Date Type Department Care Team (Late st Contact Info) Description 01/26/2026 11:15 AM BULKING MACHINE OPERATOR Office Visit [facility] Heart and Vascular At [address] [place] [address] David Raymond MD [address] [place] [address] [address] [place] [address] documented as of this encounter Visit Diagnoses Diagnosis Coronary atherosclerosis of [place] coronary artery- Primary documented in this encounter Care Teams Sales Service Manager Relationship Specialty Start Date End Date Long Mejias MD [address] [phone] PCP - General Family Practice 06/24/19 documented as of this encounter
--- OUTSIDE RECORDS SUMMARY | 2025-10-23 09:18 | XMS_ITS | Encounter Summary ---
Author Organization [facility] Address [address] [place] [address] Care Team Providers Care Security Assessor Name Role Phone Long Mejias MD Primary Care Provider [phone] Encounter Details Date Type Department Care Team (Latest Contact Info) Description 04/22/2008 Outpatient Historical [facility] Jose David Ritchie MD NO ADDRESS ON FILE Subdural Hemorrhage (CMS/HCC) Social History Tobacco Use Types Packs/Day Years Used Date Smoking Tobacco: Never Assessed Sex and Gender Information Value Date Recorded Sex Assigned at Not on file Legal Sex Male 4:07 AM SPINDLE SANDER Gender Identity Not on file Sexual Orientation Not on file documented as of this encounter Plan of Treatment Upcoming Encounters Date Type Department Care Team (Late st Contact Info) Description 01/26/2026 11:15 AM SPINDLE SANDER Office Visit [facility] Heart and Vascular At [place] [address] [facility] [address] [place] [address] David Raymond MD [facility] [address] [facility] [address] [place] [address] documented as of this encounter Procedures Procedure Name Priority Date/Time Associated Diagnosis Comments CT HEAD WO CONTRAST Routine 04/22/2008 1 2:09 PM CDT documented in this encounter Results * CT HEAD WO CONTRAST (04/22/2008 12:09 PM CDT) Anatomical Region Laterality Modality Head Other 04/22/2008 12:0 9 PM CDT Narrative 04/23/2008 8:30 AM CDT [place] [address] [place], [place] [address] Admit Date: 04/22/2008 ZAFAR BRIGGS Sex: M Admit Prov: JOSE DAVID RITCHIE Date: 1950 Primary Care Prov: CMRN: [id number] [id number] Ordering Prov: N/A Accession Number: [id number] Interpretation EXAMINATION: CT OF THE HEAD WITHOUT [...] SJ Procedure Note Provider, Historical - 04/23/2008 [place] [address] [place], [place] [address] Admit Date: 04/22/2008 ZAFAR BRIGGS Sex: M Admit Prov: JOSE DAVID RITCHIE Date: 1950 Primary Care Prov: CMRN: [id number] Room: [facility] SSN: [id number] IMAGING SERVICES Ordering Prov: N/A Interpretation EXAMINATION: [...] hemorrhage documented in this encounter Care Teams Security Assessor Relationship Specialty Start Date End Date Long Mejias MD [address] [facility] [address] [place] [address] PCP - General Family Practice 06/24/19 documented as of this encounter
--- OUTSIDE RECORDS SUMMARY | 2025-10-23 09:18 | XMS_ITS | Encounter Summary ---
Author Organization [facility] Address [address] [place] [address] Care Team Providers Care Row Boss Name Role Phone Long Mejias MD Primary Care Provider [phone] Encounter Details Date Type Department Care Team (Late st Contact Info) Description 2007 Outpatient Historical [facility] [address] [facility] [address] [address] [place] [address] [place] [address] Social History Tobacco Use Types Packs/Day Years Used Date Smoking Tobacco: Never Assessed Sex and Gender Information Value Date Recorded Sex Assigned at Not on file Legal Sex Male 4:07 AM SOAKING ROOM OPERATOR Gender Identity Not on file Sexual Orientation Not on file documented as of this encounter Plan of Treatment Upcoming Encounters Date Type Department Care Team (Late st Contact Info) Description 01/26/2026 11:15 AM SOAKING ROOM OPERATOR Office Visit [facility] Heart and Vascular At [facility] [address] [facility] [address] [place] [address] David Raymond MD [address] [facility] [address] [place] [address] documented as of this encounter Visit Diagnoses Not on filedocumented in this encounter Care Teams Row Boss Relationship Specialty Start Date End Date Long Mejias MD [address] [facility] [address] [place] [address] PCP - General Family Practice 06/24/19 documented as of this encounter
--- OUTSIDE RECORDS SUMMARY | 2025-10-23 09:19 | XMS_ITS | Encounter Summary ---
Author Organization [facility] Address [address] [place] [address] Care Team Providers Care Support Service Tech Name Role Phone Long Mejias MD Primary Care Provider [phone] Encounter Details Date Type Department Care Team (Latest Contact Info) Description 06/29/2007 Inpatient Historical [facility] Ranulfo Grijalva MD [address] [facility] [address] 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 Gender Identity Not on file Sexual Orientation Not on file documented as of this encounter Plan of Treatment Upcoming Encounters Date Type Department Care Team (Late st Contact Info) Description 01/26/2026 11:15 AM FORMAL WAITER/WAITRESS Office Visit [facility] Heart and Vascular At [facility] [address] [facility] [address] [place] [address] David Raymond MD [address] [facility] [address] [place] [address] documented as of this encounter [...] and non- Americans is available on the [facility] Intranet at: [email or web address] Select: Lab Policies and Procedures Select: Reference Ranges - GFR 07/05/2007 4:30 AM CDT Madison Garza MD CHEMISTRY ORDERABLES Edite d Performing Organization Address [facility] de Phone Number INTERFACE SYSTEM Refer to clinic/hospital department * TROPONIN (W/REFLEX CKMB/CK) (07/03/2007 4:15 AM CDT) TROPONIN T <0.01 <=0.03 ng/mL INTERFACE SYSTEM TROPONIN T INTERP Negative INTERFACE SYSTEM 07/03/2007 4:15 AM CDT Maximino Bearden MD CHEMISTRY ORDERABLES Edited Performing Organization Address [facility] Co de Phone Number INTERFACE SYSTEM Refer to clinic/hospital department * TROPONIN (W/REFLEX CKMB/CK) (07/02/2007 11:00 AM CDT) TROPONIN T <0.01 <=0.03 ng/mL INTERFACE SYSTEM TROPONIN T INTERP Negative INTERFACE SYSTEM 07/02/2007 11:0 0 AM CDT us Ranulfo Grijalva MD CHEMISTRY ORDERABLES Ed ited Performing Organization Address [facility] Co de Phone Number INTERFACE SYSTEM Refer [...] HEMATOLOGY ORDERABLES E dited Performing Organization Address [facility] de Phone Number INTERFACE SYSTEM [...] HEMATOLOGY ORDERABLES E dited Performing Organization Address City/[facility] de Phone Number INTERFACE SYSTEM [...] and non- Americans is available on the [facility] Intranet at: [email or web address] Select: Lab Policies and Procedures Select: Reference Ranges - GFR 07/01/2007 4:10 AM CDT us Ranulfo Grijalva MD CHEMISTRY ORDERABLES Ed ited Performing Organization Address [facility] Phone Number INTERFACE SYSTEM Refer to clinic/hospital department * (ABNORMAL) POC GLUCOSE (06/30/2007 8:47 PM CDT) GLUCOSE POC 128(H) 65 - 99 mg/dL INTERFACE SYSTEM 06/30/2007 8:47 PM CDT us Ranulfo Grijalva MD POINT OF CARE TESTING E dited Performing Organization Address [facility] de Phone Number INTERFACE SYSTEM Refer to clinic/hospital department * (ABNORMAL) POC GLUCOSE (06/30/2007 4:51 PM CDT) GLUCOSE POC 113(H) 65 - 99 mg/dL INTERFACE SYSTEM 06/30/2007 4:51 PM CDT Ranulfo Grijalva MD POINT OF CARE TESTING E dited Performing Organization Address City/[facility] de Phone Number INTERFACE SYSTEM Refer to clinic/hospital department * (ABNORMAL) POC GLUCOSE (06/30/2007 11:27 AM CDT) GLUCOSE POC 139(H) 65 - 99 mg/dL INTERFACE SYSTEM 06/30/2007 11:2 7 AM CDT Ranulfo Grijalva MD POINT OF CARE TESTING E dited Performing Organization Address [facility] de Phone Number INTERFACE SYSTEM Refer to clinic/hospital department * (ABNORMAL) POC GLUCOSE (06/30/2007 6:41 AM CDT) COMMENT, GLU POC TX to be Given INTERFACE SYSTEM GLUCOSE POC 160(H) 65 - 99 mg/dL INTERFACE SYSTEM 06/30/2007 6:41 AM CDT Ranulfo Grijalva MD POINT OF CARE TESTING E dited Performing Organization Address [facility] de Phone Number INTERFACE SYSTEM [...] MD HEMATOLOGY ORDERABLES Edited Performing Organization Address [facility] de Phone Number INTERFACE SYSTEM [...] and non- Americans is available on the [facility] Intranet at: [email or web address] Select: Lab Policies and Procedures Select: Reference Ranges - GFR 06/30/2007 4:20 AM CDT us Lauri Joaquin MD CHEMISTRY ORDERABLES Edited Performing Organization Address City/[facility] de Phone Number INTERFACE SYSTEM Refer to clinic/hospital department * TROPONIN (W/REFLEX CKMB/CK) (06/30/2007 4:20 AM CDT) TROPONIN T <0.01 <=0.03 ng/mL INTERFACE SYSTEM TROPONIN T INTERP Negative INTERFACE SYSTEM 06/30/2007 4:20 AM CDT Narrative INTERFACE SYSTEM - 06/30/2007 4:50 AM CDT Ordered by an unspecified provider. Historical Provider CHEMISTRY ORDERABLES Edited Performing Organization Address [facility] de Phone Number INTERFACE SYSTEM Refer to clinic/hospital department * (ABNORMAL) POC GLUCOSE (06/29/2007 10:01 PM CDT) COMMENT, GLU POC TX to be Given INTERFACE SYSTEM GLUCOSE POC 176(H) 65 - 99 mg/dL INTERFACE SYSTEM 06/29/2007 10:0 1 PM CDT us Ranulfo Grijalva MD POINT OF CARE TESTING E dited Performing Organization Address [facility] de Phone Number INTERFACE SYSTEM [...] MD CHEMISTRY ORDERABLES Edited Performing Organization Address [facility] de Phone Number INTERFACE SYSTEM [...] patients with mechanical heart valves or post [place]. Pediatric (12 years and under): 1.5 - [...] MD HEMATOLOGY ORDERABLES Edited Performing Organization Address [facility] Phone Number INTERFACE SYSTEM Refer to clinic/hospital [...] hypercholesterolemia Unspecified hearing loss Coronary atherosclerosis of [place] coronary artery Old myocardial infarction Postsurgical percutaneous transluminal coronary angioplasty status Personal history of tobacco use, presenting hazards to health documented in this encounter Care Teams Support Service Tech Relationship Specialty Start Date End Date Long Mejias MD [address] [facility] [address] [facility] [address] [place] [address] PCP - General Family Practice 06/24/19 documented as of this encounter
--- OUTSIDE RECORDS SUMMARY | 2025-10-23 09:19 | XMS_ITS | Encounter Summary ---
Author Organization [facility] Address [address] [place] [address] Care Team Providers Care Court Recorder Name Role Phone Long Mejias MD Primary Care Provider [phone] Encounter Details Date Type Department Care Team (Late st Contact Info) Description 06/30/2007 Outpatient [facility] 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 Gender Identity Not on file Sexual Orientation Not on file documented as of this encounter Plan of Treatment Upcoming Encounters Date Type Department Care Team (Late st Contact Info) Description 01/26/2026 11:15 AM ACCOUNT DEVELOPMENT EXECUTIVE Office Visit [facility] Heart and Vascular At [place] [address] [facility] [address] [place] [address] David Raymond MD [facility] [address] [facility] [address] [place] [address] documented as of this encounter Visit Diagnoses Not on filedocumented in this encounter Care Teams Court Recorder Relationship Specialty Start Date End Date Long Mejias MD [address] [place] [address] PCP - General Family Practice 06/24/19 documented as of this encounter
--- OUTSIDE RECORDS SUMMARY | 2025-10-23 09:19 | XMS_ITS | Clinical Summary ---
Author Organization [facility] Address [address] [place] [address] Phone Care Team Providers Care Stonemason Apprentice Name Role Phone Long Mejias MD Primary Care Provider [phone] Allergies Active Allergy Reactions Criticality Noted Date [...] migh t be different from the original. Manager Production-Dr. 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 Lipoma of left forearm 02/06/2018 Sebaceous cyst 02/06/2018 Overview (02/06/2018): Added automatically from request for surgery [id number] Lipoma of upper extremity 02/06/2018 Overview (02/06/2018): Added automatically from request for surgery [id number] Abscess of back 12/03/2017 Vertigo 12/08/2012 Right-sided chest wall pain 02/28/2011 Atypical chest pain 02/07/2011 Coronary artery disease invo lving newtok coronary artery of newtok heart without angina pectoris 03/21/2010 S/P coronary artery stent placement 03/21/2010 Hyperlipemia 03/21/2010 S/P subdural hematoma evacuation 03/21/2010 Tobacco abuse 03/21/2010 Unstable angina Encounters Date Type Department Care Team Description 10/19/2025 External Device Data STL ABSTRACTION Provider, Abstract 10/11/2025 Refill [facility] [address] [place] [address] Amena Uriarte NP 10/11/2025 Refill [facility] [address] [place] [address] David Raymond MD 09/29/2025 External Device Data STL ABSTRACTION Provider, Abstract 09/15/2025 External Device Data STL ABSTRACTION Provider, Abstract 08/31/2025 External Device Data STL ABSTRACTION Provider, Abstract 08/11/2025 External Device Data STL ABSTRACTION Provider, Abstract 08/10/2025 External Device Data STL ABSTRACTION Provider, Abstract 07/28/2025 11:00 AM CDT Office Visit 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 [place] [address] [facility] [address] [place] [address] David Raymond MD [facility] [address] [facility] [address] [place] [address] Health Maintenance Due Date Last [...] , 11/25/2010 Medical Devices Implanted Type Area Vocational Rehabilitation Consultant Device Identifier Shelf Expiration Date Model / Serial / Lot Clip Ligating Horizon Sm Ti [id number] - Csc - [id number] Implanted:Qty : 6 on 09/11/2021 by Amena Jacinto MD at [facility] Clip Left: Chest [employer] 03/23/2026 [id number] / / [id number] Clip Ligating Horizon Med Ti [id number] - Csc - [id number] Implanted:Qty : 2 on 09/11/2021 by Amena Jacinto MD at [facility] Clip Left: Chest TELEFLEX- WECK CLOSURE SYS 03/23/2026 [id number] / / [id number] Construction Teacher Clip Surgiclip Iii Ti Tc Sm 9in [id number] - [id number] Implanted:Qty : 1 on 09/11/2021 by Amena Jacinto MD at [facility] Clip Left: Chest [employer] - COVIDIEN [id number] 05/24/2026 [id number] / / Dev Closure Angioseal 6fr Vip [id number] - [id number] Implanted:Qty : 1 on 03/01/2025 by Lencho Clark MD at [facility] Closure Device N/A: Groin TERUMO- CARDIOVASC SYS [id number] 09/28/2025 [id number] / / [id number] Marker Anastomark Cabg Slcn Fm-Pm-1 - [id number] Implanted:Qty : 2 on 09/11/2021 by Amena Jacinto MD at [facility] Other N/A: Chest [employer] 09/24/2022 FM-PM-1 / / [id number] Premier-2013 Implanted: by Doyle Holguin MD (Quantity not on file) Explanted:(Qu antity not on file) Stent Stent Yemi Pepin Alex 3.0x15mm Rx [id number] - [id number] Implanted:Qty : 1 on 03/01/2025 by Lencho Clark MD at [facility] Stent N/A: Heart [employer] [id number] 12/10/2026 [id number] 15UX / / [id number] Stent Buckland Pepin Alex 2.62y85qt Rx [id number] - [id number] Implanted:Qty : 1 on 03/01/2025 by Lencho Clark MD at [facility] Stent N/A: Heart [employer] [id number] 09/18/2026 [id number] 12UX / / [id number] Insurance MEDICARE PART A AND B A [employer] Advance Directives For more information, please contact: [phone] Documents on File Type Date Recorded Patient Plant Attendant Expl anation Advance Directive POA 05/08/2022 10:01 [...] 12:41 PM 09/10/2021 4:42 PM Care Teams Stonemason Apprentice Relationship Specialty Start Date End Date Long Mejias MD [address] [place] [phone] PCP - General Family Practice 06/24/19
--- OUTSIDE RECORDS SUMMARY | 2025-10-23 09:19 | XMS_ITS | Encounter Summary ---
Author Organization [facility] Address 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 RELATION OFFICER Gender Identity Not on file Sexual Orientation Not on file documented as of this encounter Plan of Treatment Upcoming Encounters Date Type Department Care Team (Late st Contact Info) Description 01/26/2026 11:15 AM GUEST RELATION OFFICER Office Visit [facility] [address] [place] [phone] David Raymond MD [address] [place] [address] [address] [place] [address] documented as of this encounter Visit Diagnoses Not on filedocumented in this encounter Care Teams Fitter Welder Relationship Specialty Start Date End Date Long Mejias MD [address] [place] [address] PCP - General Family Practice 06/24/19 documented as of this encounter
--- OUTSIDE RECORDS SUMMARY | 2025-10-23 09:19 | XMS_ITS | Encounter Summary ---
Author Organization [facility] Address [address] [place] [address] Care Team Providers Care Recruiting Manager Name Role Phone Long Mejias MD Primary Care Provider [phone] Encounter Details Date Type Department Care Team (Late st Contact Info) Description 06/30/2007 Outpatient Historical [facility] [address] [facility] [address] [facility] [place] [address] Ranulfo Grijalva MD [address] [facility] [address] [place] [address] Social History Tobacco Use Types Packs/Day Years Used Date Smoking Tobacco: Never Assessed Sex and Gender Information Value Date Recorded Sex Assigned at Not on file Legal Sex Male 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 Gender Identity Not on file Sexual Orientation Not on file documented as of this encounter Plan of Treatment Upcoming Encounters Date Type Department Care Team (Late st Contact Info) Description 01/26/2026 11:15 AM AUDIO VISUAL DESIGN ENGINEER Office Visit [facility] [address] [facility] [address] [place] [address] David Raymond MD [address] [facility] [address] [place] [address] documented as of this encounter Visit Diagnoses Not on filedocumented in this encounter Care Teams Recruiting Manager Relationship Specialty Start Date End Date Long Mejias MD [address] [facility] [address] [place] [address] PCP - General Family Practice 06/24/19 documented as of this encounter
[2025-10-23 09:21] LABS: INR 1.2; Prothrombin Time 14.9 Seconds (11.1-14.7)
[2025-10-23 09:23] LABS: Partial Thromboplastin Time 32.9 Seconds (22.3-36.8)
[2025-10-23 09:47] LABS: Influenza A QL RT-PCR Negative (Negative); Influenza B QL RT-PCR Negative (Negative); SARS-CoV-2 RNA PCR Negative (Negative)
[2025-10-23 09:50] LABS: Alanine Aminotransferase 28 U/L (6-50); Albumin Level 3.9 g/dL (3.5-5.1); Alkaline Phosphatase 89 U/L (38-126); Anion Gap 5 mmol/L (4-12); Aspartate Amino Transferase 34 U/L (17-59); Bilirubin,Total 1.7 mg/dL (0.2-1.3); Blood Urea Nitrogen 21 mg/dL (9-20); Calcium 8.4 mg/dL (8.4-10.2); Carbon Dioxide 28 mmol/L (22-30); Chloride 103 mmol/L (98-107); Estimated CRCL calculation 73 ml/min; Estimated Glomerular Filt Rate > 60; Glucose 143 mg/dL (65-110); Lipase 26 U/L (23-300); Potassium 3.9 mmol/L (3.4-5.0); Sodium 136 mmol/L (137-145); Total Protein 7.0 g/dL (6.3-8.2)
[2025-10-23 10:01] LABS: Troponin I 0.026 ng/mL (0.000-0.034)
--- NOTE | 2025-10-23 11:27 | ED.GENADULT ---
HPI - General Adult General Chief complaint: Upper Respiratory Infection Stated complaint: Coughing Up Blood Time Seen by Provider: 10/23/25 08:48 History of Present Illness HPI narrative: Patient is a 75-year-old male who presents ER with cough. He has been on 8 days of doxycycline and finished a Medrol Dosepak 2 days ago. This is all for cough that he developed after getting off a cruciate. Over last 24 hours he has developed new fever and his cough this morning had blood streaks in it. He is on Plavix. No chest pain. No pain with deep breath. He also reports new fatigue that he was not having previously. Related Data Home Medications ?Medication ?Instructions ?Recorded ?Confirmed ?Last Taken ?Type aspirin 81 mg tablet,delayed 81 mg PO DAILY 12/24/19 10/23/25 Unknown History release (Aspir-Low) coenzyme Q10 10 mg capsule (Co 200 mg PO DAILY 12/24/19 10/23/25 Unknown History Q-10) omega-3 fatty acids 1,000 mg 1,000 mg PO DAILY 02/22/22 10/23/25 Unknown History capsule amiloride 5 mg tablet 5 mg PO DAILY 07/09/24 10/23/25 Unknown History atorvastatin 20 mg tablet (Lipitor) 40 mg PO DAILY 08/13/25 10/23/25 Unknown History metoprolol tartrate 25 mg tablet 17.5 mg PO BID 08/13/25 10/23/25 Unknown History lisinopril 30 mg tablet 40 mg PO DAILY 10/23/25 10/23/25 Unknown History Allergies Allergy/AdvReac Type Severity Reaction Status Date / Time Penicillins Allergy Severe Fever Verified 10/23/25 14:56 iodine Allergy Intermediate Hives Verified 10/23/25 14:56 Contrast Media Allergy Intermediate Hives Uncoded 08/13/25 10:10 Review of Systems Review of Systems: All systems reviewed & are unremarkable except as noted in HPI and below Constitutional: Constitutional: Reports no additional constitutional complaints ENT: Reports system reviewed and no additional complaints, except as documented Cardiovascular: Cardiovascular: Reports no additional cardiovascular complaints Respiratory: Respiratory: Reports no additional respiratory complaints [facility] Past Medical History Medical History Viral URI Ischemic heart disease Surgical History Surgical History History of coronary angioplasty with insertion of stent S/P CABG (coronary artery bypass graft) History of orthopedic surgery Family History Family History Mother Diabetes mellitus Patient's mother is in good health Family history of hypercholesterolemia Family history of coronary artery disease Hypertension Cancer Patient's father is Grandparent Family history of malignant neoplasm Family history of hypercholesterolemia Family history of coronary artery disease Cancer Patient's father is Father Family history of malignant neoplasm Patient's father is Sibling Cancer Sibling Cancer Social History Social History Social History: Smoking packs per day: 1 Smoking cigarettes per day: 20.0 Years smoked: 50 Smoking pack-years: 50.00 Smoking status: Former smoker Tobacco type: cigarettes Smokeless tobacco user: chewing tobacco Second hand tobacco smoke exposure: No Alcohol intake: current Drinks per week: 1 Alcohol use details: 2-3 drinks weekly Lack of Transportation: No Lack of Food: Never True Current Housing: I Have Housing Concerned About Future Housing: No Difficulty Paying Gas/Electric Bills: No Difficulty Paying for Meds: No Currently Unemployed: YES Education: Master's Degree or Higher Difficulty w/ Childcare or Family Care: No Living arrangements: with family Occupation/Education: retired Gender identity (if verbalized by the patient): Male Sexual Orientation (if Verbalized by the Patient): Straight or Heterosexual Spiritual care concerns: No Exam Narrative: GENERAL: Well-appearing, well-nourished, and in no acute distress. HEAD: Normocephalic, atraumatic. ENT: Mucous membranes moist. NECK: Supple. CHEST: Diminished lung sounds in without wheezing. No respiratory distress. HEART: Regular rate and rhythm. Normal peripheral pulses. ABDOMEN: Soft, nontender, nondistended. EXTREMITIES: Normal range of motion. No edema. SKIN: Warm, dry, no rash. NEURO: Alert and oriented x3. PSYCH: Normal mood and affect. Course Course Emergency Course: patient with elevated white blood cell count. May be related to steroids or tension infection. Viral swab negative. Chest x-ray with atelectasis. Patient seems to be failing outpatient antibiotics given new fever and new fatigued with worsening productive cough. Will plan admission for observation and IV antibiotics. Vital Signs Vital signs: Vital Signs Pulse Rate 62 10/23/25 08:51 Respiratory Rate 14 10/23/25 08:51 Pulse Oximetry 99 10/23/25 08:51 Temperature 97.2 F L 10/24/25 14:00 Pulse Rate 53 L 10/24/25 14:15 Respiratory Rate 18 10/24/25 14:15 Blood Pressure 119/64 10/24/25 14:00 Pulse Oximetry 99 10/24/25 14:00 Oxygen Delivery Room Air 10/24/25 08:00 Medical Decision Making Differential Diagnosis Differential Diagnosis: pneumonia, pe, copd, chf, acs Vital Signs Vital Signs: Vital Signs Pulse Rate 62 10/23/25 08:51 Respiratory Rate 14 10/23/25 08:51 Pulse Oximetry 99 10/23/25 08:51 Temperature 97.2 F L 10/24/25 14:00 Pulse Rate 53 L 10/24/25 14:15 Respiratory Rate 18 10/24/25 14:15 Blood Pressure 119/64 10/24/25 14:00 Pulse Oximetry 99 10/24/25 14:00 Oxygen Delivery Room Air 10/24/25 08:00 Lab Data Lab results reviewed: Yes I reviewed the patient's lab results. 10/24/25 05:38 10/24/25 05:38 Labs: Lab Results 10/23/25 10/23/25 10/23/25 Range/Units 09:02 09:03 11:41 WBC 28.3 H (4.5-10.0) K/mm3 RBC 5.00 (4.6-6.20) M/mm3 Hgb 14.5 (14.0-18.0) g/dL Hct 44.1 (42.0-52.0) % MCV 88.2 (80-100) fl MCH 29.0 (26-34) pg MCHC 32.9 (32-36) g/dl RDW 14.0 (11.5-14.5) % Plt Count 218 (150-375) k/mm3 MPV 8.9 (7.4-10.4) fl Immature Gran % (Auto) 0.6 H (0-0.5) % Neut % (Auto) 86.6 H (45.5-73.1) % Lymph % (Auto) 5.2 L (18.3-44.2) % Powell % (Auto) 6.2 (2.6-8.5) % Eos % (Auto) 1.1 (0-4.4) % Baso % (Auto) 0.3 (0.2-1.2) % Lymph # (Auto) 1.48 (0.9-3.2) K/mm3 Powell # (Auto) 1.8 H (0.1-0.6) K/mm3 Eos # (Auto) 0.3 (0-0.3) K/mm3 Baso # (Auto) 0.1 (0.0-0.1) K/mm3 Abs Immat Gran (auto) 0.16 H (0.00-0.031) K/mm3 Absolute Neuts (auto) 24.5 H (1.3-6.7) K/mm3 Absolute Nucleated RBC 0.000 (0.0-0.012) K/mm3 Nucleated RBC % 0.0 (0.0-0.2) % PT 14.9 H (11.1-14.7) Seconds INR 1.2 APTT 32.9 (22.3-36.8) Seconds Sodium 136 L (137-145) mmol/L Potassium 3.9 (3.4-5.0) mmol/L Chloride 103 (98-107) mmol/L Carbon Dioxide 28 (22-30) mmol/L Anion Gap 5 (4-12) mmol/L BUN 21 H (9-20) mg/dL Creatinine 0.87 (0.7-1.3) mg/dL Estim Creat Clear Calc 73 ml/min Estimated GFR > 60 (59 - ) Glucose 143 H (65-110) mg/dL Lactic Acid (0.7-2.0) mmol/L Calcium 8.4 (8.4-10.2) mg/dL Total Bilirubin 1.7 H (0.2-1.3) mg/dL AST 34 (17-59) U/L ALT 28 (6-50) U/L Alkaline Phosphatase 89 (38-126) U/L Troponin I 0.026 0.022 (0.000-0.034) ng/mL Total Protein 7.0 (6.3-8.2) g/dL Albumin 3.9 (3.5-5.1) g/dL Lipase 26 (23-300) U/L Influenza A (RT-PCR) Negative (Negative) Influenza B (RT-PCR) Negative (Negative) SARS-CoV-2 RNA (RT-PCR) Negative (Negative) 10/23/25 10/23/25 10/24/25 Range/Units 11:42 15:14 05:38 WBC 14.0 H (4.5-10.0) K/mm3 RBC 4.28 L (4.6-6.20) M/mm3 Hgb 12.6 L (14.0-18.0) g/dL Hct 37.4 L (42.0-52.0) % MCV 87.4 (80-100) fl MCH 29.4 (26-34) pg MCHC 33.7 (32-36) g/dl RDW 14.1 (11.5-14.5) % Plt Count 182 (150-375) k/mm3 MPV 9.0 (7.4-10.4) fl Immature Gran % (Auto) 0.4 (0-0.5) % Neut % (Auto) 74.7 H (45.5-73.1) % Lymph % (Auto) 11.8 L (18.3-44.2) % Powell % (Auto) 8.1 (2.6-8.5) % Eos % (Auto) 4.5 H (0-4.4) % Baso % (Auto) 0.5 (0.2-1.2) % Lymph # (Auto) 1.66 (0.9-3.2) K/mm3 Powell # (Auto) 1.1 H (0.1-0.6) K/mm3 Eos # (Auto) 0.6 H (0-0.3) K/mm3 Baso # (Auto) 0.1 (0.0-0.1) K/mm3 Abs Immat Gran (auto) 0.06 H (0.00-0.031) K/mm3 Absolute Neuts (auto) 10.5 H (1.3-6.7) K/mm3 Absolute Nucleated RBC 0.000 (0.0-0.012) K/mm3 Nucleated RBC % 0.0 (0.0-0.2) % PT (11.1-14.7) Seconds INR APTT (22.3-36.8) Seconds Sodium 136 L (137-145) mmol/L Potassium 4.0 (3.4-5.0) mmol/L Chloride 106 (98-107) mmol/L Carbon Dioxide 26 (22-30) mmol/L Anion Gap 4 (4-12) mmol/L BUN 22 H (9-20) mg/dL Creatinine 0.81 (0.7-1.3) mg/dL Estim Creat Clear Calc 75 ml/min Estimated GFR > 60 (59 - ) Glucose 115 H (65-110) mg/dL Lactic Acid 0.8 (0.7-2.0) mmol/L Calcium 8.2 L (8.4-10.2) mg/dL Total Bilirubin (0.2-1.3) mg/dL AST (17-59) U/L ALT (6-50) U/L Alkaline Phosphatase (38-126) U/L Troponin I 0.019 (0.000-0.034) ng/mL Total Protein (6.3-8.2) g/dL Albumin (3.5-5.1) g/dL Lipase (23-300) U/L Influenza A (RT-PCR) (Negative) Influenza B (RT-PCR) (Negative) SARS-CoV-2 RNA (RT-PCR) (Negative) Discharge Plan Discharge Clinical Impression: Pneumonia Patient Disposition: Still a Patient Condition: Stable
[2025-10-23] MEDS: IPRATROPIUM 0.5 MG/ALBUTEROL SULFATE 2.5 MG (BASE) AMPUL.NEB 3 ML INHALATION ×3 (11:33→19:48)
[2025-10-23] MEDS: cefTRIAXone 1 GM in SODIUM CHLORIDE 0.9% IV 50 ML 100 ML IVPB (11:43)
--- NOTE | 2025-10-23 12:12 | P.HP_ITS ---
H&P: HPI History of Present Illness Date/Time: 10/23/25 12:12 Chief Complaint: Coughing Up Blood Narrative: 75 old Male past medical history of ischemic heart disease CABG x4, presents the hospital complains of coughing up blood. Patient states that he had a right earache so he went to urgent care and was prescribed a Z-Micheal he was on day 7 when he started coughing up yellow sputum with blood and had a temperature of 104.0? at home. Due to his heart history he was concerned and presented to the hospital. Patient denies nausea or vomiting however he has eaten very little over the last 2 days. He states that he has not slept well because of the coughing. Labs in the ED showed leukocytosis of 28.3, INR 1.2, sodium 136, glucose of 143, lactic of 0.8, troponin 0.026, influenza A/B and COVID negative. Chest x-ray shows Left basilar atelectasis and/or airspace disease. EKG shows sinus bradycardia with first-degree AV block. QTC 441. Patient started on Rocephin and azithromycin for pneumonia. Review of Systems Review of Systems: 12 systems were reviewed and are negativ e except for as per HPI. [facility] Past Medical History Medical History Viral URI Ischemic heart disease Surgical History Surgical History History of coronary angioplasty with insertion of stent S/P CABG (coronary artery bypass graft) History of orthopedic surgery Family History Family History Mother Diabetes mellitus Patient's mother is in good health Family history of hypercholesterolemia Family history of coronary artery disease Hypertension Cancer Patient's father is Grandparent Family history of malignant neoplasm Family history of hypercholesterolemia Family history of coronary artery disease Cancer Patient's father is Father Family history of malignant neoplasm Patient's father is Sibling Cancer Sibling Cancer Social History Social History Social History: Smoking packs per day: 1 Smoking cigarettes per day: 20.0 Years smoked: 50 Smoking pack-years: 50.00 Smoking status: Former smoker Tobacco type: cigarettes Smokeless tobacco user: chewing tobacco Second hand tobacco smoke exposure: No Alcohol intake: current Drinks per week: 1 Alcohol use details: 2-3 drinks weekly Lack of Transportation: No Lack of Food: Never True Current Housing: I Have Housing Concerned About Future Housing: No Difficulty Paying Gas/Electric Bills: No Difficulty Paying for Meds: No Currently Unemployed: YES Education: Master's Degree or Higher Difficulty w/ Childcare or Family Care: No Living arrangements: with family Occupation/Education: retired Gender identity (if verbalized by the patient): Male Sexual Orientation (if Verbalized by the Patient): Straight or Heterosexual Spiritual care concerns: No Meds Home Medications and Allergies Home Medications ?Medication ?Instructions ?Recorded ?Confirmed ?Type aspirin 81 mg tablet,delayed 81 mg PO DAILY 12/24/19 1 12/23/24 History release (Aspir-Low) coenzyme Q10 10 mg capsule (Co 200 mg PO DAILY 0 10/23/25 History Q-10) ascorbate calcium (vitamin C) 500 1 g (2 x 500 mg) PO DAILY #180 tabs 02/13/21 10/23/25 Rx mg tablet cholecalciferol (vitamin D3) 25 2,000 unit PO DAILY #1 80 caps 02/13/21 10/23/25 Rx mcg (1,000 unit) capsule mnbxwxxx-jew-fwwjr acid 0.4 1 tablet PO DAILY #90 tabs 02/13/21 10/23/25 Rx mg-lycopene 300 mcg-lutein 250 mcg tablet (CertaVite Senior) omega-3 fatty acids 1,000 mg 1,000 mg PO DAILY 2 10/23/25 History capsule amiloride 5 mg tablet 5 mg PO DAILY 07/09/2410/23 History pantoprazole 40 mg tablet,delayed See Rx Instructions .Route 02/25/25 10/23/25 Rx release .COMPLEX #90 tabs ipratropium bromide 21 mcg (0.03 2 spray intranasal BI D #30 mL 03/08/25 10/23/25 Rx %) nasal spray ezetimibe 10 mg tablet See Rx Instructions .Route 0 04/13/25 10/23/25 Rx .COMPLEX #90 tabs atorvastatin 20 mg tablet (Lipitor) 40 mg PO DAILY 10/23/25 History metoprolol tartrate 25 mg tablet 17.5 mg PO BID 10/23/25 History zolpidem 10 mg tablet 10 mg PO .HS #30 tabs 10/23/25 Rx sildenafil 100 mg tablet (Viagra) 100 mg PO DAILY PRN Erectile 09/08/25 10/23/25 Rx Dysfunction #18 tabs citalopram 40 mg tablet 40 mg PO DAILY #90 tabs 08/2510/23/25 Rx clonazepam 1 mg tablet 1 mg PO BID PRN anxiety #60 tabs 09/09/25 10/23/25 Rx niacin 500 mg tablet,extended 500 mg PO QAM #90 tabs 1 10/23/25 Rx release benzonatate 200 mg capsule 200 mg PO TID PRN cough #20 caps 10/15/25 10/23/25 Rx lisinopril 30 mg tablet 40 mg PO DAILY 10/23/2509/26 History Allergies Allergy/AdvReac Type Severity Reaction Status Date / Time Penicillins Allergy Severe Fever Verified 10/23/25 14:56 iodine Allergy Intermediate Hives Verified 10/23/25 14:56 Contrast Media Allergy Intermediate Hives Uncoded 08/13/25 10:10 Vital Signs Vital Signs - 24 hr 10/23/25 08:51 10/23/25 08:52 10/23/25 08:53 Temperature 97.3 F L Pulse Rate 62 62 65 Respiratory Rate 14 14 18 Blood Pressure 135/64 124/50 L Pulse Oximetry 99 99 98 Oxygen Delivery Room Air 10/23/25 09:00 10/23/25 09:01 10/23/25 09:03 Temperature Pulse Rate 59 L 60 Respiratory Rate 13 12 Blood Pressure 119/65 Pulse Oximetry 96 97 97 Oxygen Delivery Room Air 10/23/25 09:15 10/23/25 09:16 10/23/25 09:35 Temperature Pulse Rate 57 L 56 L 60 Respiratory Rate 16 12 16 Blood Pressure 117/60 115/64 Pulse Oximetry 96 97 95 Oxygen Delivery 10/23/25 09:36 10/23/25 09:45 10/23/25 09:46 Temperature Pulse Rate 60 59 L 54 L Respiratory Rate 14 17 13 Blood Pressure 107/64 Pulse Oximetry 97 96 96 Oxygen Delivery 10/23/25 10:00 10/23/25 10:01 10/23/25 10:15 Temperature Pulse Rate 53 L 54 L 52 L Respiratory Rate 15 16 17 Blood Pressure 124/61 Pulse Oximetry 93 95 95 Oxygen Delivery 10/23/25 10:16 10/23/25 10:30 10/23/25 10:31 Temperature Pulse Rate 53 L 51 L 52 L Respiratory Rate 14 15 17 Blood Pressure 121/68 126/61 Pulse Oximetry 95 94 95 Oxygen Delivery 10/23/25 10:45 10/23/25 10:46 10/23/25 11:00 Temperature Pulse Rate 49 L 49 L 51 L Respiratory Rate 15 15 12 Blood Pressure 132/67 Pulse Oximetry 96 96 97 Oxygen Delivery 10/23/25 11:01 10/23/25 11:15 10/23/25 11:16 Temperature Pulse Rate 55 L 53 L 52 L Respiratory Rate 16 15 16 Blood Pressure 111/63 115/62 Pulse Oximetry 97 96 97 Oxygen Delivery 10/23/25 11:30 10/23/25 11:33 Temperature Pulse Rate 53 L 54 L Respiratory Rate 15 15 Blood Pressure Pulse Oximetry Oxygen Delivery Exam Narrative: General: well appearing, appears stated age. HEENT: normocephalic, atraumatic. Mucous membranes moist. EOMI, PERRLA, bilateral sclera anicteric, no conjunctival injection. Neck supple without JVD, lymphadenopathy, or bruit. Respiratory: clear bilaterally. No rales/rhonic/wheezes. Cardiovascular: Regular rate and rhythm, normal S1-S2. No murmurs, rubs, or clicks. PMI is nondisplaced, capillary refill less than 3 second. Abdomen: Soft, round, no pulsatile masses, nondistended and nontender. No rebound, no guarding. Bowel sounds present to all four quadrants. No high pitch or tinkling sounds, resonant to percussion. Extremities: No cyanosis, clubbing, or edema present. Pulses are palpable 2/2. Active ROM to all four extremities. Neuro: Alert and orientated x 4. PERRLA. Cranial nerves 2-12 intact without focal deficit. Skin: Warm, dry, and intact, without rash, erythema, or lesion. Psych: pleasant, cooperative, normal speech, normal affect, no hallucinations, no dysarthia H&P: Results Labs Labs: Short CBC 10/23/25 Range/Units 09:02 WBC 28.3 H (4.5-10.0) K/mm3 Hgb 14.5 (14.0-18.0) g/dL Hct 44.1 (42.0-52.0) % Plt Count 218 (150-375) k/mm3 BMP 10/23/25 09:02 Sodium 136 L Potassium 3.9 Chloride 103 Carbon Dioxide 28 BUN 21 H Creatinine 0.87 Glucose 143 H Calcium 8.4 Cardiac Enzymes 10/23/25 Range/Units 09:02 Troponin I 0.026 (0.000-0.034) ng/mL Liver Function 10/23/25 Range/Units 09:02 Total Bilirubin 1.7 H (0.2-1.3) mg/dL AST 34 (17-59) U/L ALT 28 (6-50) U/L Alkaline Phosphatase 89 (38-126) U/L Albumin 3.9 (3.5-5.1) g/dL Assessment and Plan Assessment and plan (1) Pneumonia: Code(s): J18.9 - Pneumonia, unspecified organism Status: Acute Assessment and Plan: Azithromycin and Rocephin given in the ED Will change azithromycin to doxy as patient is on citalopram QTC 441 Guaifenesin Incentive spirometer Sputum culture (2) Leukocytosis: Code(s): D72.829 - Elevated white blood cell count, unspecified Status: Acute Assessment and Plan: Blood cultures pending Sputum pending (3) Depression: Code(s): F32.9 - Major depressive disorder, single episode, unspecified Status: Acute Assessment and Plan: Continue citalopram (4) H/O acute myocardial infarction: Code(s): I25.2 - Old myocardial infarction Status: Acute Assessment and Plan: Continue metoprolol, aspirin, and midamor (5) Hyperlipidemia: Qualifiers: Hyperlipidemia type: mixed hyperlipidemia Qualified Code(s): E78.2 - Mixed hyperlipidemia Code(s): E78.5 - Hyperlipidemia, unspecified Status: Acute Assessment and Plan: Continue statin (6) Insomnia, unspecified: Code(s): G47.00 - Insomnia, unspecified Status: Acute Assessment and Plan: Continue Ambien Quality VTE Prophylaxis VTE prophylaxis: mechanical ordered and pharmacologic ordered Hospitalist MIPS Advance Care Plan I have confirmed that the patient's Advanced Care Plan is present, code status is documented, or surrogate decision maker is listed in patient medical record.: Yes Medication Reconciliation I have utilized all available resources to obtain, update and review the patients current medications (includes all prescriptions, OTC, herbals, cannabis, and nutritional supplements).: Yes
[2025-10-23] MEDS: AZITHROMYCIN IV 500 MG in SODIUM CHLORIDE 0.9% IV 250 ML IVPB (12:18)
[2025-10-23 12:21] LABS: Troponin I 0.022 ng/mL (0.000-0.034)
--- NOTE | 2025-10-23 13:32 | WPCEDHO ---
ED Hand Off Checklist All vitals saved:y IV Site documented:y All med administrations documented:y Triage Note Triage Note pt to ed with c/o chest pain and 10/23/25 08:53 cough. went on a cruise and was diagnosed with bronchitis. patient has been taking doxycycline and a zpack two weeks ago and started feeling worse yesterday Allergies Penicillins Allergy (Severe, Verified 10/23/25 09:08) Fever iodine Allergy (Intermediate, Verified 10/23/25 09:08) Hives Contrast Media Allergy (Intermediate, Uncoded 08/13/25 10:10) Hives takes benadryl when exposed. Family History (Last Reviewed 08/13/25 @ 10:10 by Glory Torres) Mother Patient's mother is in good health Family history of hypercholesterolemia Family history of coronary artery disease Hypertension Diabetes mellitus Grandparent Family history of malignant neoplasm Family history of hypercholesterolemia Family history of coronary artery disease Father Family history of malignant neoplasm Patient's father is Sibling Cancer Active Medications including assessments/comments Albuterol/Ipratropium (Ipratropium 0.5 Mg/Albuterol Sulfate 2.5 Mg (Base) Ampul.Neb 3 Ml) 3 ml INHALATION Q6HRT [facility] Last Admin: 10/23/25 12:31 Dose: 3 ml Documented By: MIRACLE Pantoprazole Sodium (Pantoprazole 40 Mg Tablet) 40 mg BY MOUTH DAILY [facility] Last Admin: 10/23/25 13:31 Dose: Not Given Documented By: ANTHONY Non-Admin Reason: taken prior to arrival Administered/Completed Medications Discontinued Medications Albuterol/Ipratropium (Ipratropium 0.5 Mg/Albuterol Sulfate 2.5 Mg (Base) Ampul.Neb 3 Ml) 3 ml INHALATION ONCE STA Stop: 10/23/25 11:20 Last Admin: 10/23/25 11:33 Dose: 3 ml Documented By: MIRACLE Aspirin (Aspirin 81 Mg Chewable Tablet) 324 mg PO ONCE STA Stop: 10/23/25 08:58 Last Admin: 10/23/25 09:08 Dose: Not Given Documented By: ESLA Non-Admin Reason: No Dose Required Ceftriaxone Sodium 1 gm/ (Sodium Chloride) 50 mls @ 100 mls/hr IVPB ONCE STA Stop: 10/23/25 11:41 Last Infusion: 10/23/25 12:17 Dose: Infused Documented By: Admin: 10/23/25 11:43 Dose: 100 mls/hr Documented By: ELSA Azithromycin 500 mg/ Sodium (Chloride) 250 mls @ 250 mls/hr IVPB ONCE STA Stop: 10/23/25 12:11 Last Infusion: 10/23/25 13:29 Dose: Infused Documented By: Admin: 10/23/25 12:18 Dose: 250 mls/hr Documented By: ELSA Interventions/Assessments IV / Saline Lock, Insert Start: 10/23/25 08:57 Freq: STAT Status: Active Protocol: Document 10/23/25 09:05 AZG (Rec: 10/23/25 09:05 AZG [id number]) IV Assessment Peripheral Access Left Antecubital IV Catheter Access Initiated IV Insertion Date 10/23/25 IV Insertion Time 09:05 Catheter Gauge 18 IV Site Assessment WNL IV Care and WNL Maintenance PA: HEENT Assessment Start: 10/23/25 08:45 Freq: Status: Active Protocol: Document 10/23/25 09:06 AZG (Rec: 10/23/25 09:07 AZG [id number]) Head and Neck Assessment Head Symptoms Sinus Pressure/Pain Neck Symptoms None Neck Movement No Limitations Bilateral Naris/Nares Nasal Symptoms Discharge Nasal Discharge Clear Mouth Symptoms/ None/Normal Appearance Lip Description Normal for Patient Teeth Description Intact Orthodontic/Dental None Assistive Devices Tongue Description Normal Throat Symptoms/ None/Normal Appearance PA: Respiratory Assessment Start: 10/23/25 08:45 Freq: Status: Active Protocol: Document 10/23/25 09:03 AZG (Rec: 10/23/25 09:05 AZG [id number]) Respiratory Assessment Symptoms Cough,Shortness of Breath With Exertion Effort Normal Pattern Regular Depth Normal Chest Expansion Symmetrical Anterior Bilateral Throughout Phase Inspiratory & Expiratory Lung Sounds Clear Cough Description Productive Cough Frequency Intermittent Sputum Amount Scant Sputum Color Brown,Red (Blood) Oxygen Delivery Oxygen Delivery Room Air Pulse Oximetry (90- 97 100) Last Vital Signs Temperature 97.3 F L 10/23/25 08:53 Pulse Rate 62 10/23/25 13:32 Respiratory Rate 15 10/23/25 13:32 Pulse Oximetry 95 10/23/25 13:32 Blood Pressure 115/59 L 10/23/25 13:32 Blood Pressure Mean 77 10/23/25 13:32 Oxygen Delivery Room Air 10/23/25 09:03 Weight 92 kg 10/23/25 08:53 Last Result - Abnormals Only WBC 28.3 K/mm3 (4.5-10.0) H 10/23/25 09:02 Immature Gran % (Auto) 0.6 % (0-0.5) H 10/23/25 09:02 Neut % (Auto) 86.6 % (45.5-73.1) H 10/23/25 09:02 Lymph % (Auto) 5.2 % (18.3-44.2) L 10/23/25 09:02 [place] # (Auto) 1.8 K/mm3 (0.1-0.6) H 10/23/25 09:02 Abs Immat Gran (auto) 0.16 K/mm3 (0.00-0.031) H 10/23/25 09:02 Absolute Neuts (auto) 24.5 K/mm3 (1.3-6.7) H 10/23/25 09:02 PT 14.9 Seconds (11.1-14.7) H 10/23/25 09:02 Sodium 136 mmol/L (137-145) L 10/23/25 09:02 BUN 21 mg/dL (9-20) H 10/23/25 09:02 Glucose 143 mg/dL (65-110) H 10/23/25 09:02 Total Bilirubin 1.7 mg/dL (0.2-1.3) H 10/23/25 09:02 Most Recent Suicide Severity Rating Suicide Severity Rating NO RISK INDICATED 10/23/25 08:53
--- NOTE | 2025-10-23 15:03 | ADMGEN ---
This patient, Zafar Briggs, was admitted to [facility] Surg Room 302-01. Patient/family oriented to hospital policies and general routines including ID bracelet, bed and alarms, visiting hours, pain management, procedures, bathroom and other care routines, personal items, smoking policy, room service/diet, and visiting hours. Information on how to activate the Rapid Response Team has been discussed. Patient/Family are encouraged to report perceived risks to care and to ask questions if they do not understand what they are told or what they should do.
[2025-10-23 15:49] LABS: Troponin I 0.019 ng/mL (0.000-0.034)
[2025-10-23] MEDS: IPRATROPIUM NASAL SPRAY 0.03% 15 ML BOTTLE 2 SPRAY NASAL (17:08)
[2025-10-23] MEDS: DOXYCYCLINE IV 100 MG in SODIUM CHLORIDE 0.9% IV 100 ML IVPB (21:06)
[2025-10-23] MEDS: METOPROLOL TARTRATE 12.5 MG TABLET PO (22:49)
[2025-10-23] MEDS: ZOLPIDEM TARTRATE (*CRX) 5 MG TABLET 10 MG PO (22:50)
[2025-10-24] VITALS (12 sets, daily range): BP systolic 119–135; BP diastolic 58–66; PULSE 53–85; RESP 16–18; TEMP 36.2–36.4; O2SAT 95–99
[2025-10-24] MEDS: IPRATROPIUM 0.5 MG/ALBUTEROL SULFATE 2.5 MG (BASE) AMPUL.NEB 3 ML INHALATION ×4 (01:06→21:20)
[2025-10-24 06:01] LABS: Hematocrit 37.4 % (42.0-52.0); Hemoglobin 12.6 g/dL (14.0-18.0); Immature Granulocyte Percent A 0.4 % (0-0.5); Lymphocytes Absolute Auto 1.66 K/mm3 (0.9-3.2); Mean Corpuscular HGB Conc 33.7 g/dl (32-36); Mean Corpuscular Hemoglobin 29.4 pg (26-34); Mean Corpuscular Volume 87.4 fl (80-100); Nucleated Red Blood Cells Absolute Auto 0.000 K/mm3 (0.0-0.012); Nucleated Red Blood Cells Perc 0.0 % (0.0-0.2); Platelet Count Result 182 k/mm3 (150-375); Red Blood Count 4.28 M/mm3 (4.6-6.20); White Blood Count 14.0 K/mm3 (4.5-10.0)
[2025-10-24 06:24] LABS: Anion Gap 4 mmol/L (4-12); Blood Urea Nitrogen 22 mg/dL (9-20); Calcium 8.2 mg/dL (8.4-10.2); Carbon Dioxide 26 mmol/L (22-30); Chloride 106 mmol/L (98-107); Estimated CRCL calculation 75 ml/min; Estimated Glomerular Filt Rate > 60; Glucose 115 mg/dL (65-110); Potassium 4.0 mmol/L (3.4-5.0); Sodium 136 mmol/L (137-145)
--- NOTE | 2025-10-24 07:59 | P.PNIM_ITS ---
Progress Note: A&P Assessment and Plan (1) Pneumonia: Code(s): J18.9 - Pneumonia, unspecified organism Status: Acute Assessment and Plan: * Azithromycin and Rocephin given in the ED * Will change azithromycin to doxy as patient is on citalopram * EKG: QTC 441 * Guaifenesin * Incentive spirometer * Monitor vital signs, I&Os, neuro status and patient is a fall risk * Follow WBC, serum electrolytes, temperature curves and cultures * Send sputum cultures - pending * Gentle IV fluid resuscitation (2) Leukocytosis: Code(s): D72.829 - Elevated white blood cell count, unspecified Status: Acute Assessment and Plan: * See above * Blood cultures pending * Sputum pending * WBC 28.3 -> 14.0 (3) Depression: Code(s): F32.9 - Major depressive disorder, single episode, unspecified Status: Acute Assessment and Plan: * Continue citalopram (4) H/O acute myocardial infarction: Code(s): I25.2 - Old myocardial infarction Status: Acute Assessment and Plan: * Continue metoprolol, aspirin, and Midamor (5) Hyperlipidemia: Qualifiers: Hyperlipidemia type: mixed hyperlipidemia Qualified Code(s): E78.2 - Mixed hyperlipidemia Code(s): E78.5 - Hyperlipidemia, unspecified Status: Acute Assessment and Plan: * Continue statin (6) Insomnia, unspecified: Code(s): G47.00 - Insomnia, unspecified Status: Acute Assessment and Plan: * Continue Ambien Subjective Date/time seen: 10/24/25 07:59 Interval history: 75 old Male past medical history of ischemic heart disease CABG x4, presents the hospital complains of coughing up blood. Patient states that he had a right earache so he went to urgent care and was prescribed a Z-Micheal he was on day 06/03 when he started coughing up yellow sputum with blood and had a temperature of 104.0? at home. 10/24/2025 Patient sitting comfortably in bed at time of examination. Denies any shortness of breath, nausea/vomiting, chest pain or abdominal pain. Remains of O2 supplementation, afebrile. WBC downtrending (28.3 -> 14.0). Blood and sputum cultures still pending. Still has nonproductive cough otherwise feeling much better today. Will continue to monitor for fevers and improving leukocytosis. Review of Systems Review of Systems: 12 systems were reviewed and are negativ e except for as per HPI. Exam Narrative: General: well appearing, appears stated age. HEENT: normocephalic, atraumatic. Mucous membranes moist. EOMI, PERRLA, bilateral sclera anicteric, no conjunctival injection. Neck supple without JVD, lymphadenopathy, or bruit. Respiratory: clear bilaterally. No rales/rhonic/wheezes. Cardiovascular: Regular rate and rhythm, normal S1-S2. No murmurs, rubs, or cl icks. PMI is nondisplaced, capillary refill less than 3 second. Abdomen: Soft, round, no pulsatile masses, nondistended and nontender. No rebound, no guarding. Bowel sounds present to all four quadrants. No high pitch or tinkling sounds, resonant to percussion. Extremities: No cyanosis, clubbing, or edema present. Pulses are palpable 2/2. Active ROM to all four extremities. Neuro: Alert and orientated x 4. PERRLA. Cranial nerves 2-12 intact without focal deficit. Skin: Warm, dry, and intact, without rash, erythema, or lesion. Psych: pleasant, cooperative, normal speech, normal affect, no hallucinations, no dysarthia Objective Data Vital Signs Vital Signs: Vital Signs - 24 hr 10/23/25 08:51 10/23/25 08:52 10/23/25 08:53 Temperature 97.3 F L Pulse Rate 62 62 65 Respiratory Rate 14 14 18 Blood Pressure 135/64 124/50 L Pulse Oximetry 99 99 98 Oxygen Delivery Room Air 10/23/25 09:00 10/23/25 09:01 10/23/25 09:03 Temperature Pulse Rate 59 L 60 Respiratory Rate 13 12 Blood Pressure 119/65 Pulse Oximetry 96 97 97 Oxygen Delivery Room Air 10/23/25 09:15 10/23/25 09:16 10/23/25 09:35 Temperature Pulse Rate 57 L 56 L 60 Respiratory Rate 16 12 16 Blood Pressure 117/60 115/64 Pulse Oximetry 96 97 95 Oxygen Delivery 10/23/25 09:36 10/23/25 09:45 10/23/25 09:46 Temperature Pulse Rate 60 59 L 54 L Respiratory Rate 14 17 13 Blood Pressure 107/64 Pulse Oximetry 97 96 96 Oxygen Delivery 10/23/25 10:00 10/23/25 10:01 10/23/25 10:15 Temperature Pulse Rate 53 L 54 L 52 L Respiratory Rate 15 16 17 Blood Pressure 124/61 Pulse Oximetry 93 95 95 Oxygen Delivery 10/23/25 10:16 10/23/25 10:30 10/23/25 10:31 Temperature Pulse Rate 53 L 51 L 52 L Respiratory Rate 14 15 17 Blood Pressure 121/68 126/61 Pulse Oximetry 95 94 95 Oxygen Delivery 10/23/25 10:45 10/23/25 10:46 10/23/25 11:00 Temperature Pulse Rate 49 L 49 L 51 L Respiratory Rate 15 15 12 Blood Pressure 132/67 Pulse Oximetry 96 96 97 Oxygen Delivery 10/23/25 11:01 10/23/25 11:15 10/23/25 11:16 Temperature Pulse Rate 55 L 53 L 52 L Respiratory Rate 16 15 16 Blood Pressure 111/63 115/62 Pulse Oximetry 97 96 97 Oxygen Delivery 10/23/25 11:30 10/23/25 11:33 10/23/25 12:31 Temperature Pulse Rate 53 L 54 L 49 L Respiratory Rate 15 15 16 Blood Pressure Pulse Oximetry Oxygen Delivery 10/23/25 12:37 10/23/25 13:32 10/23/25 19:56 Temperature Pulse Rate 46 L 62 58 L Respiratory Rate 15 15 18 Blood Pressure 115/59 L Pulse Oximetry 95 Oxygen Delivery 10/23/25 20:00 10/23/25 20:00 10/23/25 20:01 Temperature Pulse Rate 58 L 59 L Respiratory Rate 16 18 Blood Pressure Pulse Oximetry 97 95 Oxygen Delivery Room Air Room Air 10/23/25 20:13 10/23/25 22:49 10/24/25 01:08 Temperature 97.2 F L Pulse Rate 58 L 58 L 54 L Respiratory Rate 16 18 Blood Pressure 122/58 L Pulse Oximetry 95 Oxygen Delivery 10/24/25 01:13 10/24/25 05:29 10/24/25 07:02 Temperature 97.5 F L Pulse Rate 54 L 58 L 62 Respiratory Rate 18 18 Blood Pressure 135/66 Pulse Oximetry 97 97 Oxygen Delivery Room Air 10/24/25 07:02 10/24/25 07:08 Temperature Pulse Rate 62 55 L Respiratory Rate 16 16 Blood Pressure Pulse Oximetry Oxygen Delivery Intake/Output Intake/Output: Intake & Output 10/21/25 10/22/25 10/23/25 10/24/25 23:59 23:59 23:59 23:59 Intake Total 620 550 Balance 620 550 Meds/Results Medications: Active Medications Generic Name Dose Route Start Last Admin Trade Name Freq PRN Reason Stop Dose Admin Acetaminophen 650 mg 10/23/25 12:23 Acetaminophen 325 Mg Tablet PO Q4H PRN Mild Pain (1-3) or Fever Hydrocodone Bitart/Acetaminophen 1 tab 10/23/25 12:20 Hydrocodone/Acetaminophen (*Crx) 5-325 Mg Tablet PO Q4H PRN Pain Rated 4-6 Albuterol/Ipratropium 3 ml 10/23/25 14:00 10/24/25 07:02 Ipratropium 0.5 Mg/Albuterol Sulfate 2.5 Mg (Base) Ampul.Neb 3 Ml INHALATION 3 ml Q6HRT [facility] Administration Amiloride HCl 5 mg 10/24/25 09:00 Amiloride Hcl 5 Mg Tablet PO DAILY [facility] Ascorbic Acid 1,000 mg 10/24/25 09:00 Ascorbic Acid 500 Mg Tablet PO DAILY [facility] Aspirin 81 mg 10/24/25 09:00 Aspirin 81 Mg Enteric Tablet PO DAILY [facility] Atorvastatin Calcium 40 mg 10/24/25 09:00 Atorvastatin 40 Mg Tablet PO DAILY [facility] Benzonatate 200 mg 10/23/25 18:32 Benzonatate 100 Mg Capsule PO TID PRN cough Citalopram Hydrobromide 40 mg 10/24/25 09:00 Citalopram Hydrobromide 20 Mg Tablet PO DAILY [facility] Clonazepam 1 mg 10/23/25 12:25 Clonazepam (*Crx) 0.5 Mg Tablet PO BID PRN Anxiety Docusate Sodium 100 mg 10/23/25 12:23 Docusate Sodium 100 Mg Capsule PO BID PRN Constipation Ezetimibe 10 mg 10/23/25 13:30 10/23/25 17:12 Ezetimibe 10 Mg Tablet BY MOUTH Not Given DAILY [facility] Enoxaparin Sodium 40 mg 10/24/25 09:00 Enoxaparin 40 Mg/0.4 Ml Syringe SUB-Q DAILY [facility] Guaifenesin 1,200 mg 10/24/25 09:00 Guaifenesin 12 Hr 600 Mg Tabcr PO Q12HR [facility] Ceftriaxone Sodium 1 gm/ 50 mls @ 100 mls/hr 10/24/25 11:00 Sodium Chloride IVPB Q24H [facility] Doxycycline Hyclate 100 mg/ 100 mls @ 100 mls/hr 10/23/25 21:00 10/23/25 22:06 Sodium Chloride IVPB Infused Q12HR [facility] Infusion Ipratropium [place] 2 spray 10/23/25 17:00 10/23/25 17:08 Ipratropium Nasal Richardson 0.03% 15 Ml Bottle NASAL 2 spray BID [facility] Administration Lisinopril 40 mg 10/24/25 09:00 Lisinopril 20 Mg Tablet PO DAILY [facility] Metoprolol Tartrate 12.5 mg 10/23/25 21:15 10/23/25 22:49 Metoprolol Tartrate 12.5 Mg Tablet PO 12.5 mg Q12HR [facility] Administration Niacin 500 mg 10/24/25 09:00 Niacin Sa 500 Mg Tablet PO QAM [facility] Pantoprazole Sodium 40 mg 10/23/25 13:00 10/23/25 13:31 Pantoprazole 40 Mg Tablet BY MOUTH Not Given DAILY [facility] Zolpidem Tartrate 10 mg 10/23/25 21:15 10/23/25 22:50 Zolpidem Tartrate (*Crx) 5 Mg Tablet PO 10 mg HS [facility] Administration Radiology Results: ITS Impressions Chest X-Ray 10/23/25 09:37 IMPRESSION: 1. Left basilar atelectasis and/or airspace disease. Labs Labs: Laboratory Results - last 24 hr 10/23/25 10/23/25 10/23/25 09:02 09:03 11:41 WBC 28.3 H RBC 5.00 Hgb 14.5 Hct 44.1 MCV 88.2 MCH 29.0 MCHC 32.9 RDW 14.0 Plt Count 218 MPV 8.9 Immature Gran % (Auto) 0.6 H Neut % (Auto) 86.6 H Lymph % (Auto) 5.2 L Lyon % (Auto) 6.2 Eos % (Auto) 1.1 Baso % (Auto) 0.3 Lymph # (Auto) 1.48 Lyon # (Auto) 1.8 H Eos # (Auto) 0.3 Baso # (Auto) 0.1 Abs Immat Gran (auto) 0.16 H Absolute Neuts (auto) 24.5 H Absolute Nucleated RBC 0.000 Nucleated RBC % 0.0 PT 14.9 H INR 1.2 APTT 32.9 Sodium 136 L Potassium 3.9 Chloride 103 Carbon Dioxide 28 Anion Gap 5 BUN 21 H Creatinine 0.87 Estim Creat Clear Calc 73 Estimated GFR > 60 Glucose 143 H Lactic Acid Calcium 8.4 Total Bilirubin 1.7 H AST 34 ALT 28 Alkaline Phosphatase 89 Troponin I 0.026 0.022 Total Protein 7.0 Albumin 3.9 Lipase 26 Influenza A (RT-PCR) Negative Influenza B (RT-PCR) Negative SARS-CoV-2 RNA (RT-PCR) Negative 10/23/25 10/23/25 10/24/25 11:42 15:14 05:38 WBC 14.0 H RBC 4.28 L Hgb 12.6 L Hct 37.4 L MCV 87.4 MCH 29.4 MCHC 33.7 RDW 14.1 Plt Count 182 MPV 9.0 Immature Gran % (Auto) 0.4 Neut % (Auto) 74.7 H Lymph % (Auto) 11.8 L Lyon % (Auto) 8.1 Eos % (Auto) 4.5 H Baso % (Auto) 0.5 Lymph # (Auto) 1.66 Lyon # (Auto) 1.1 H Eos # (Auto) 0.6 H Baso # (Auto) 0.1 Abs Immat Gran (auto) 0.06 H Absolute Neuts (auto) 10.5 H Absolute Nucleated RBC 0.000 Nucleated RBC % 0.0 PT INR APTT Sodium 136 L Potassium 4.0 Chloride 106 Carbon Dioxide 26 Anion Gap 4 BUN 22 H Creatinine 0.81 Estim Creat Clear Calc 75 Estimated GFR > 60 Glucose 115 H Lactic Acid 0.8 Calcium 8.2 L Total Bilirubin AST ALT Alkaline Phosphatase Troponin I 0.019 Total Protein Albumin Lipase Influenza A (RT-PCR) Influenza B (RT-PCR) SARS-CoV-2 RNA (RT-PCR) Quality VTE Prophylaxis VTE prophylaxis: mechanical ordered and pharmacologic ordered
[2025-10-24] MEDS: EZETIMIBE 10 MG TABLET BY MOUTH (09:40)
[2025-10-24] MEDS: CITALOPRAM HYDROBROMIDE 20 MG TABLET 40 MG PO (09:40)
[2025-10-24] MEDS: ATORVASTATIN 40 MG TABLET PO (09:40)
[2025-10-24] MEDS: METOPROLOL TARTRATE 12.5 MG TABLET PO ×2 (09:40→21:16)
[2025-10-24] MEDS: ASCORBIC ACID 500 MG TABLET 1000 MG PO (09:40)
[2025-10-24] MEDS: IPRATROPIUM NASAL SPRAY 0.03% 15 ML BOTTLE 2 SPRAY NASAL ×2 (09:41→16:31)
[2025-10-24] MEDS: guaiFENesin 12 HR 600 MG TABCR 1200 MG PO ×2 (09:41→21:16)
[2025-10-24] MEDS: PANTOPRAZOLE 40 MG TABLET BY MOUTH (09:41)
[2025-10-24] MEDS: ASPIRIN 81 MG ENTERIC TABLET PO (09:41)
[2025-10-24] MEDS: ENOXAPARIN 40 MG/0.4 ML SYRINGE SUB-Q (09:42)
[2025-10-24] MEDS: DOXYCYCLINE IV 100 MG in SODIUM CHLORIDE 0.9% IV 100 ML IVPB ×2 (09:48→21:16)
[2025-10-24] MEDS: cefTRIAXone 1 GM in SODIUM CHLORIDE 0.9% IV 50 ML 100 ML IVPB (12:49)
[2025-10-24] MEDS: ZOLPIDEM TARTRATE (*CRX) 5 MG TABLET 10 MG PO (21:16)
[2025-10-25] VITALS (14 sets, daily range): BP systolic 131–140; BP diastolic 58–76; PULSE 54–64; RESP 16–20; TEMP 36.1–36.5; O2SAT 96–98
[2025-10-25] MEDS: IPRATROPIUM 0.5 MG/ALBUTEROL SULFATE 2.5 MG (BASE) AMPUL.NEB 3 ML INHALATION ×4 (01:46→20:55)
--- NOTE | 2025-10-25 07:32 | P.PNIM_ITS ---
Progress Note: A&P Assessment and Plan (1) Pneumonia: Code(s): J18.9 - Pneumonia, unspecified organism Status: Acute Assessment and Plan: * Azithromycin and Rocephin given in the ED * Will change azithromycin to doxy as patient is on citalopram * EKG: QTC 441 * Continue Guaifenesin, Incentive spirometer * Monitor vital signs, I&Os, neuro status and patient is a fall risk * Follow WBC, serum electrolytes, temperature curves and cultures * Send sputum cultures - pending * Gentle IV fluid resuscitation * Continue Doxy & Ceftriaxone * Leukocytosis has resolved (2) Leukocytosis: Code(s): D72.829 - Elevated white blood cell count, unspecified Status: Acute Assessment and Plan: * See above * Blood cultures pending * Sputum pending * WBC 28.3 -> 14.0 -> 9.4 * Resolved (3) Depression: Code(s): F32.9 - Major depressive disorder, single episode, unspecified Status: Acute Assessment and Plan: * Continue citalopram (4) H/O acute myocardial infarction: Code(s): I25.2 - Old myocardial infarction Status: Acute Assessment and Plan: * Continue metoprolol, aspirin, and Midamor (5) Hyperlipidemia: Qualifiers: Hyperlipidemia type: mixed hyperlipidemia Qualified Code(s): E78.2 - Mixed hyperlipidemia Code(s): E78.5 - Hyperlipidemia, unspecified Status: Acute Assessment and Plan: * Continue statin (6) Insomnia, unspecified: Code(s): G47.00 - Insomnia, unspecified Status: Acute Assessment and Plan: * Continue Ambien Subjective Date/time seen: 10/25/25 07:32 Interval history: 75 old Male past medical history of ischemic heart disease CABG x4, presents the hospital complains of coughing up blood. Patient states that he had a right earache so he went to urgent care and was prescribed a Z-Micheal he was on day 06/03 when he started coughing up yellow sputum with blood and had a temperature of 104.0? at home. 10/25/2025 Patient sitting comfortably in bed at time of examination. Remains afebrile, without O2 supplementation. Leukocytosis has resolved. Blood cultures still pending. He denies any chest pain, n/v or abd pain. Still has a cough with blood noticed in the sputum, about the same amount as yesterday, but denies any shortness of breath. Lung sound are CTA. Continue IV abx, transition to oral likely tomorrow if tolerated. Review of Systems Review of Systems: 12 systems were reviewed and are negativ e except for as per HPI. Exam Narrative: General: well appearing, appears stated age. HEENT: normocephalic, atraumatic. Mucous membranes moist. EOMI, PERRLA, bilateral sclera anicteric, no conjunctival injection. Neck supple without JVD, lymphadenopathy, or bruit. Respiratory: clear bilaterally. No rales/rhonic/wheezes. Cardiovascular: Regular rate and rhythm, normal S1-S2. No murmurs, rubs, or clicks. PMI is nondisplaced, capillary refill less than 3 second. Abdomen: Soft, round, no pulsatile masses, nondistended and nontender. No rebound, no guarding. Bowel sounds present to all four quadrants. No high pitch or tinkling sounds, resonant to percussion. Extremities: No cyanosis, clubbing, or edema present. Pulses are palpable 2/2. Active ROM to all four extremities. Neuro: Alert and orientated x 4. PERRLA. Cranial nerves 2-12 intact without focal deficit. Skin: Warm, dry, and intact, without rash, erythema, or lesion. Psych: pleasant, cooperative, normal speech, normal affect, no hallucinations, no dysarthia Objective Data Vital Signs Vital Signs: Vital Signs - 24 hr 10/24/25 08:00 10/24/25 14:00 10/24/25 14:08 Temperature 97.2 F L Pulse Rate 59 L 55 L Respiratory Rate 18 18 Blood Pressure 119/64 Pulse Oximetry 99 Oxygen Delivery Room Air 10/24/25 14:15 10/24/25 20:00 10/24/25 20:47 Temperature 97.1 F L Pulse Rate 53 L 85 Respiratory Rate 18 16 Blood Pressure 130/58 L Pulse Oximetry 95 Oxygen Delivery Room Air 10/24/25 21:20 10/24/25 21:30 10/24/25 21:39 Temperature Pulse Rate 58 L 59 L Respiratory Rate 18 18 Blood Pressure Pulse Oximetry 97 Oxygen Delivery Room Air 10/25/25 01:46 10/25/25 01:53 10/25/25 04:43 Temperature 97.2 F L Pulse Rate 56 L 56 L 62 Respiratory Rate 18 18 18 Blood Pressure 131/58 L Pulse Oximetry 96 Oxygen Delivery Intake/Output Intake/Output: Intake & Output 10/22/25 10/23/25 10/24/25 10/25/25 23:59 23:59 23:59 23:59 Intake Total 620 1490 550 Balance 620 1490 550 Meds/Results Medications: Active Medications Generic Name Dose Route Start Last Admin Trade Name Freq PRN Reason Stop Dose Admin Acetaminophen 650 mg 10/23/25 12:23 Acetaminophen 325 Mg Tablet PO Q4H PRN Mild Pain (1-3) or Fever Hydrocodone Bitart/Acetaminophen 1 tab 10/23/25 12:20 Hydrocodone/Acetaminophen (*Crx) 5-325 Mg Tablet PO Q4H PRN Pain Rated 4-6 Albuterol/Ipratropium 3 ml 10/23/25 14:00 10/25/25 01:46 Ipratropium 0.5 Mg/Albuterol Sulfate 2.5 Mg (Base) Ampul.Neb 3 Ml INHALATION 3 ml Q6HRT [facility] Administration Amiloride HCl 5 mg 10/24/25 09:00 10/24/25 12:58 Amiloride Hcl 5 Mg Tablet PO Not Given DAILY [facility] Ascorbic Acid 1,000 mg 10/24/25 09:00 10/24/25 09:40 Ascorbic Acid 500 Mg Tablet PO 1,000 mg DAILY [facility] Administration Aspirin 81 mg 10/24/25 09:00 10/24/25 09:41 Aspirin 81 Mg Enteric Tablet PO 81 mg DAILY [facility] Administration Atorvastatin Calcium 40 mg 10/24/25 09:00 10/24/25 09:40 Atorvastatin 40 Mg Tablet PO 40 mg DAILY [facility] Administration Benzonatate 200 mg 10/23/25 18:32 Benzonatate 100 Mg Capsule PO TID PRN cough Citalopram Hydrobromide 40 mg 10/24/25 09:00 10/24/25 09:40 Citalopram Hydrobromide 20 Mg Tablet PO 40 mg DAILY [facility] Administration Clonazepam 1 mg 10/23/25 12:25 Clonazepam (*Crx) 0.5 Mg Tablet PO BID PRN Anxiety Docusate Sodium 100 mg 10/23/25 12:23 Docusate Sodium 100 Mg Capsule PO BID PRN Constipation Ezetimibe 10 mg 10/23/25 13:30 10/24/25 09:40 Ezetimibe 10 Mg Tablet BY MOUTH 10 mg DAILY [facility] Administration Enoxaparin Sodium 40 mg 10/24/25 09:00 10/24/25 09:42 Enoxaparin 40 Mg/0.4 Ml Syringe SUB-Q 40 mg DAILY [facility] Administration Guaifenesin 1,200 mg 10/24/25 09:00 10/24/25 21:16 Guaifenesin 12 Hr 600 Mg Tabcr PO 1,200 mg Q12HR [facility] Administration Ceftriaxone Sodium 1 gm/ 50 mls @ 100 mls/hr 10/24/25 11:00 10/24/25 12:49 Sodium Chloride IVPB 100 mls/hr Q24H [facility] Administration Doxycycline Hyclate 100 mg/ 100 mls @ 100 mls/hr 10/23/25 21:00 10/24/25 21:16 Sodium Chloride IVPB 100 mls/hr Q12HR [facility] Administration Ipratropium [place] 2 spray 10/23/25 17:00 10/24/25 16:31 Ipratropium Nasal [place] 0.03% 15 Ml Bottle NASAL 2 spray BID [facility] Administration Lisinopril 40 mg 10/24/25 09:00 10/24/25 09:40 Lisinopril 20 Mg Tablet PO 40 mg DAILY [facility] Administration Metoprolol Tartrate 12.5 mg 10/23/25 21:15 10/24/25 21:16 Metoprolol Tartrate 12.5 Mg Tablet PO 12.5 mg Q12HR [facility] Administration Niacin 500 mg 10/24/25 09:00 10/24/25 09:41 Niacin Sa 500 Mg Tablet PO 500 mg QAM [facility] Administration Pantoprazole Sodium 40 mg 10/23/25 13:00 10/24/25 09:41 Pantoprazole 40 Mg Tablet BY MOUTH 40 mg DAILY [facility] Administration Zolpidem Tartrate 10 mg 10/23/25 21:15 10/24/25 21:16 Zolpidem Tartrate (*Crx) 5 Mg Tablet PO 10 mg HS [facility] Administration Radiology Results: ITS Impressions Chest X-Ray 10/23/25 09:37 IMPRESSION: 1. Left basilar atelectasis and/or airspace disease. Quality VTE Prophylaxis VTE prophylaxis: mechanical ordered and pharmacologic ordered
[2025-10-25] MEDS: DOXYCYCLINE IV 100 MG in SODIUM CHLORIDE 0.9% IV 100 ML IVPB ×2 (08:08→20:23)
[2025-10-25] MEDS: ASPIRIN 81 MG ENTERIC TABLET PO (08:09)
[2025-10-25] MEDS: ASCORBIC ACID 500 MG TABLET 1000 MG PO (08:09)
[2025-10-25] MEDS: METOPROLOL TARTRATE 12.5 MG TABLET PO ×2 (08:10→20:23)
[2025-10-25] MEDS: PANTOPRAZOLE 40 MG TABLET BY MOUTH (08:10)
[2025-10-25] MEDS: ENOXAPARIN 40 MG/0.4 ML SYRINGE SUB-Q (08:10)
[2025-10-25] MEDS: CITALOPRAM HYDROBROMIDE 20 MG TABLET 40 MG PO (08:10)
[2025-10-25] MEDS: ATORVASTATIN 40 MG TABLET PO (08:10)
[2025-10-25] MEDS: EZETIMIBE 10 MG TABLET BY MOUTH (08:10)
[2025-10-25] MEDS: guaiFENesin 12 HR 600 MG TABCR 1200 MG PO ×2 (08:10→20:23)
[2025-10-25] MEDS: IPRATROPIUM NASAL SPRAY 0.03% 15 ML BOTTLE 2 SPRAY NASAL ×2 (08:12→16:39)
[2025-10-25] MEDS: DOCUSATE SODIUM 100 MG CAPSULE PO (08:17)
[2025-10-25 08:25] LABS: Hematocrit 39.2 % (42.0-52.0); Hemoglobin 13.0 g/dL (14.0-18.0); Immature Granulocyte Percent A 0.4 % (0-0.5); Lymphocytes Absolute Auto 1.45 K/mm3 (0.9-3.2); Mean Corpuscular HGB Conc 33.2 g/dl (32-36); Mean Corpuscular Hemoglobin 29.1 pg (26-34); Mean Corpuscular Volume 87.9 fl (80-100); Nucleated Red Blood Cells Absolute Auto 0.000 K/mm3 (0.0-0.012); Nucleated Red Blood Cells Perc 0.0 % (0.0-0.2); Platelet Count Result 186 k/mm3 (150-375); Red Blood Count 4.46 M/mm3 (4.6-6.20); White Blood Count 9.4 K/mm3 (4.5-10.0)
[2025-10-25 09:02] LABS: Alanine Aminotransferase 23 U/L (6-50); Albumin Level 3.7 g/dL (3.5-5.1); Alkaline Phosphatase 100 U/L (38-126); Anion Gap 5 mmol/L (4-12); Aspartate Amino Transferase 30 U/L (17-59); Bilirubin,Total 0.7 mg/dL (0.2-1.3); Blood Urea Nitrogen 17 mg/dL (9-20); Calcium 8.3 mg/dL (8.4-10.2); Carbon Dioxide 25 mmol/L (22-30); Chloride 107 mmol/L (98-107); Estimated CRCL calculation 80 ml/min; Estimated Glomerular Filt Rate > 60; Glucose 114 mg/dL (65-110); Potassium 4.1 mmol/L (3.4-5.0); Sodium 137 mmol/L (137-145); Total Protein 6.7 g/dL (6.3-8.2)
[2025-10-25] MEDS: BENZONATATE 100 MG CAPSULE 200 MG PO ×2 (09:14→20:23)
[2025-10-25] MEDS: cefTRIAXone 1 GM in SODIUM CHLORIDE 0.9% IV 50 ML 100 ML IVPB (10:18)
--- NOTE | 2025-10-25 10:51 | PC.NURSE ---
Alfredo ARZOLA notified of patient coughing up small amount of blood and c/o pain behing right knee.
[2025-10-25] MEDS: ZOLPIDEM TARTRATE (*CRX) 5 MG TABLET 10 MG PO (20:22)
[2025-10-25] MEDS: ACETAMINOPHEN 325 MG TABLET 650 MG PO (20:23)
[2025-10-26] VITALS (9 sets, daily range): BP systolic 163; BP diastolic 75; PULSE 50–60; RESP 20; TEMP 36.9; O2SAT 98
[2025-10-26] MEDS: IPRATROPIUM 0.5 MG/ALBUTEROL SULFATE 2.5 MG (BASE) AMPUL.NEB 3 ML INHALATION ×3 (01:05→13:59)
[2025-10-26] MEDS: ASCORBIC ACID 500 MG TABLET 1000 MG PO (08:20)
[2025-10-26] MEDS: ASPIRIN 81 MG ENTERIC TABLET PO (08:20)
[2025-10-26] MEDS: EZETIMIBE 10 MG TABLET BY MOUTH (08:21)
[2025-10-26] MEDS: CITALOPRAM HYDROBROMIDE 20 MG TABLET 40 MG PO (08:21)
[2025-10-26] MEDS: guaiFENesin 12 HR 600 MG TABCR 1200 MG PO (08:21)
[2025-10-26] MEDS: ENOXAPARIN 40 MG/0.4 ML SYRINGE SUB-Q (08:21)
[2025-10-26] MEDS: ATORVASTATIN 40 MG TABLET PO (08:21)
[2025-10-26] MEDS: DOCUSATE SODIUM 100 MG CAPSULE PO (08:22)
[2025-10-26] MEDS: METOPROLOL TARTRATE 12.5 MG TABLET PO (08:22)
[2025-10-26] MEDS: IPRATROPIUM NASAL SPRAY 0.03% 15 ML BOTTLE 2 SPRAY NASAL (08:22)
[2025-10-26] MEDS: PANTOPRAZOLE 40 MG TABLET BY MOUTH (08:22)
[2025-10-26] MEDS: DOXYCYCLINE IV 100 MG in SODIUM CHLORIDE 0.9% IV 100 ML IVPB (09:17)
[2025-10-26] MEDS: BENZONATATE 100 MG CAPSULE 200 MG PO (09:20)
[2025-10-26] MEDS: cefTRIAXone 1 GM in SODIUM CHLORIDE 0.9% IV 50 ML 100 ML IVPB (10:42)
--- NOTE | 2025-10-26 11:45 | P.DS_ITS ---
DS: Admitting Diagnosis Discharge Date 10/26/25 Admitting Diagnosis -pneumonia - leukocytosis DS: Discharge Diagnosis Discharge Diagnosis (1) Pneumonia: Code(s): J18.9 - Pneumonia, unspecified organism Status: Acute (2) Leukocytosis: Code(s): D72.829 - Elevated white blood cell count, unspecified Status: Acute (3) Depression: Code(s): F32.9 - Major depressive disorder, single episode, unspecified Status: Acute (4) H/O acute myocardial infarction: Code(s): I25.2 - Old myocardial infarction Status: Acute (5) Hyperlipidemia: Qualifiers: Hyperlipidemia type: mixed hyperlipidemia Qualified Code(s): E78.2 - Mixed hyperlipidemia Code(s): E78.5 - Hyperlipidemia, unspecified Status: Acute (6) Insomnia, unspecified: Code(s): G47.00 - Insomnia, unspecified Status: Acute DS: Summary Hospital Course Reason for hospitalization: -pneumonia - leukocytosis Hospital Course: Mr. Zafar Briggs, a 75-year-old male with a history of ischemic heart disease (status post CABG x4), presented with a several-day history of cough that progressed to include scant hemoptysis, high fever (up to 104?F at home), and new-onset fatigue. He had recently completed a course of azithromycin for presumed upper respiratory infection and a methylprednisolone dose pack. On admission, he was afebrile but had significant leukocytosis (WBC 28.3 K/mm?), mild transaminitis, and a chest x-ray notable for left basilar atelectasis and/or airspace disease. He was started on IV ceftriaxone and doxycycline. Supportive care included guaifenesin, incentive spirometry, and albuterol as needed. Blood and sputum cultures were obtained and remained negative at the time of discharge. Over the course of his hospitalization, the patient remained hemodynamically stable and afebrile, with no need for supplemental oxygen. His leukocytosis improved rapidly (WBC down to 9.4 K/mm?), and his respiratory symptoms gradually improved. He was ambulating without shortness of breath or hypoxia. He tolerated oral intake and oral medications well. He was transitioned to oral cefpodoxime and doxycycline to complete a total 7-day course of antibiotics. At discharge, he was clinically stable, ambulating independently, and instructed to follow up with his primary care provider in 5?7 days. Status at Discharge Functional status at discharge: independent ambulation Time Spent with Patient Time attestation: Total time spent providing and/or coordinating discharge services: Time spent: Greater than 30 minutes Exam Narrative: General: NAD, well-appearing Eyes: EOMI ENT: neck supple Cardiovascular: Regular rate and rhythm Respiratory: Clear to auscultation, respirations even and unlabored on RA Gastrointestinal: Soft, non tender Genitourinary: no suprapubic tenderness Musculoskeletal: No edema Skin: warm, dry Neuro: Alert. Psych: Mood appropriate DS: Data Data Completed and Pending Completed studies during hospitalization: ITS Impressions Chest X-Ray 10/23/25 09:37 IMPRESSION: 1. Left basilar atelectasis and/or airspace disease. Venous Doppler Study 10/25/25 11:52 IMPRESSION: 1. No right leg DVT. Labs on day of discharge: Preliminary micro results at discharge 10/24/25 05:34 Sputum Culture - Preliminary Sputum 10/23/25 11:41 Blood Culture - Preliminary Blood 10/23/25 11:41 Blood Culture - Preliminary Blood Discharge Plan Discharge Attending physician on discharge: Cristian Mayo Oca Consulting providers: Alfredo Tolbert; Roberta Wells Discharging Clinician: Roberta Wells Patient Disposition: Home Activity: as tolerated Diet: regular Discharge Instructions: Discharge Instructions: Pneumonia Medications: * Cefpodoxime:?Take as prescribed until the course is completed (4 more days). Do not skip doses. * Doxycycline:?Take as prescribed until the course is completed (4 more days). T guero with a full glass of water and remain upright for at least 30 minutes after taking to avoid stomach upset. * Albuterol Inhaler:?Use as needed for shortness of breath or wheezing. Follow the instructions on the inhaler for proper use. * Mucinex (Guaifenesin):?Take as directed to help loosen and clear mucus from your lungs. General Care: * Rest as much as possible and gradually increase activity as you feel better. * Drink plenty of fluids to stay hydrated and help thin mucus. * Eat nutritious meals to support your recovery. * Avoid smoking and exposure to secondhand smoke. Return Precautions:?Seek immediate medical attention if you experience any of the following: * Coughing up blood (hemoptysis) * Persistent or worsening fever * New or worsening confusion, difficulty waking up, or unusual drowsiness * Increasing shortness of breath, difficulty breathing, or chest pain Follow-Up: * Schedule an appointment with your primary care provider (PCP) within 5?7 days for follow-up and reassessment. Additional Instructions: * Finish all prescribed antibiotics, even if you start to feel better. * If you miss a dose of your antibiotics, take it as soon as you remember. If it is almost time for your next dose, skip the missed dose?do not double up. * If you have any questions about your medications or symptoms, contact your healthcare provider. * Contact Information:?If you have any concerns or questions before your follow- up, please call your provider?s office. Summary:?You are being discharged after treatment for pneumonia. Continue your medications as prescribed, monitor your symptoms closely, and follow up with your PCP in 5?7 days. Return to the emergency department if you develop any of the warning signs listed above. Patient Instructions: Antibiotic Form, Benzonatate (By mouth) Patient Language: Barbadian Stand Alone Forms: General Discharge Information Follow-up/Referrals: Long Mejias MD [Primary Care Provider, [facility]] - Call for Appointment Referral Note: 5-7 days for hospital follow-up Discharge Medications: New guaifenesin [Mucus Relief ER] 600 mg Tablet Extended Release 12hr 600 mg PO Q12HR 7 Days Qty: 14 0RF albuterol sulfate [Ventolin HFA] 90 mcg/actuation HFA aerosol inhaler 1 inh inhalation QID PRN (Reason: shortness of breath or wheezing) Qty: 6.7 0RF cefpodoxime 200 mg tablet 200 mg PO BID Qty: 8 0RF Rx Instructions: must administer with a meal/food doxycycline hyclate 100 mg capsule 100 mg PO BID Qty: 8 0RF Continued aspirin [Aspir-Low] 81 mg tablet,delayed release (DR/EC) 81 mg PO DAILY coenzyme Q10 [Co Q-10] 10 mg capsule 200 mg PO DAILY ipratropium bromide 21 mcg (0.03 %) spray,non-aerosol 2 spray intranasal BID Qty: 30 0RF Rx Instructions: administer into each nostril CertaVite Senior 0.4-300-250 mg-mcg-mcg tablet 1 tablet PO DAILY Qty: 90 0RF ascorbate calcium (vitamin C) 500 mg tablet 1 g PO DAILY Qty: 180 0RF cholecalciferol (vitamin D3) 25 mcg (1,000 unit) capsule 2,000 unit PO DAILY Qty: 180 0RF amiloride 5 mg tablet 5 mg PO DAILY metoprolol tartrate 25 mg tablet 17.5 mg PO BID Patient Comments: pt states this change was made short time after surgery atorvastatin [Lipitor] 20 mg tablet 40 mg PO DAILY omega-3 fatty acids 1,000 mg capsule 1,000 mg PO DAILY lisinopril 30 mg tablet 40 mg PO DAILY benzonatate 200 mg capsule 200 mg PO TID PRN (Reason: cough) Qty: 20 0RF pantoprazole 40 mg tablet,delayed release (DR/EC) See Rx Instructions .ROUTE .COMPLEX Qty: 90 2RF Dose Instruction: TAKE 1 TABLET BY MOUTH EVERY MORNING Rx Instructions: TAKE 1 TABLET BY MOUTH EVERY MORNING ezetimibe 10 mg tablet See Rx Instructions .ROUTE .COMPLEX Qty: 90 2RF Dose Instruction: TAKE 1 TABLET BY MOUTH DAILY Rx Instructions: TAKE 1 TABLET BY MOUTH DAILY zolpidem 10 mg tablet 10 mg PO .HS Qty: 30 2RF sildenafil [Viagra] 100 mg tablet 100 mg PO DAILY PRN (Reason: Erectile Dysfunction) Qty: 18 3RF Rx Instructions: administer 30 minutes to 4 hours before activity citalopram 40 mg tablet 40 mg PO DAILY Qty: 90 1RF clonazepam 1 mg tablet 1 mg PO BID PRN (Reason: anxiety) Qty: 60 0RF niacin 500 mg tablet extended release 500 mg PO QAM Qty: 90 2RF Date of admission: 10/24/25 10:43 Primary Care Provider: Long Mejias Admitting Provider: Archie Downs Attending physician on admission: Archie Downs Condition: Stable
== END 2025-10-26 14:34 | disposition home or self-care (01) | DRG 195 ==
LOC: ANHED 09:16 → ANH3MEDSUR 13:11
PROVIDERS: Nurse Practitioner Gerontology; Physician Assistant; Admitting Provider Internal Medicine; Emergency Provider Emergency Medicine; PCP Family Medicine; Visit Provider Physician Assistant
DX: J18.9 Pneumonia, unspecified organism (principal); I44.0 Atrioventricular block, first degree; I25.2 Old myocardial infarction; F32.9 Major depressive disorder, single episode, unspecified; G47.00 Insomnia, unspecified; Z95.1 Presence of aortocoronary bypass graft; E78.2 Mixed hyperlipidemia; Z95.5 Presence of coronary angioplasty implant and graft; Z87.891 Personal history of nicotine dependence; Z79.82 Long term (current) use of aspirin; Z88.0 Allergy status to penicillin; Z79.02 Long term (current) use of antithrombotics/antiplatelets
CPT/HCPCS: 36415; 71046; 80048; 80053; 83605; 83690; 84484; 85025; 85610; 85730; 87040; 87070; 87205; 87636; 93005; 93971; 94640; 96365; 96367; 99285; A9270; G0378; J0456; J0696; J1650; J7050